=== PATIENT | male | born 1940 | race Caucasian/White ===

== ENCOUNTER 2020-04-19 08:30 | Outpatient (REF) | payer MEDICARE, SELFPAY ==
--- NOTE | 2020-04-19 09:47 | ECG_ITS ---
Test Reason : DM, HTN, CAD Blood Pressure : / mmHG Vent. Rate : 059 BPM Atrial Rate : 059 BPM P-R Int : 150 ms QRS Dur : 126 ms QT Int : 442 ms P-R-T Axes : 018 -30 048 degrees QTc Int : 437 ms Sinus bradycardia with Premature atrial complexes Left axis deviation Non-specific intra-ventricular conduction block Abnormal ECG When compared with ECG of 10-APR-2013 09:40, Non-specific intra-ventricular conduction block has replaced Left bundle branch block Heart rate has decreased Referred By: Franklin Lizarraga Electronically Signed By:CHINTAN GARZA
[2020-04-19 09:51] LABS: MANUAL DIFF FLAG NO
[2020-04-19 09:54] LABS: Basophils Percent Auto 0.6 % (0-2); Eosinophils Absolute Auto 0.5 X10*3/uL (0.0-0.4); Eosinophils Percent Auto 7.1 % (0-4); Hematocrit 38.1 % (42-52); Imm Gran Abs Auto 0.06 X10*3/uL (0.00-0.03); Imm Gran Pct Auto 0.8 % (0.0-0.4); Lymphocytes Absolute Auto 1.3 X10*3/uL (1.2-4.9); Lymphocytes Percent Auto 18.4 % (20-40); Mean Corpuscular HGB Conc 31.5 g/dl (31.0-36.0); Mean Corpuscular Volume 98.4 fL (80-98); Mean Platelet Volume 11.9 fL (9.4-12.4); Monocytes Absolute Auto 0.8 X10*3/uL (0.1-1.2); Monocytes Percent Auto 11.5 % (2-11); Neutrophils Absolute Auto 4.4 X10*3/uL (2.0-8.3); Neutrophils Percent Auto 61.6 % (45-73); Platelet Count 151 X10*3/uL (160-400); Red Blood Count 3.87 X10*6/uL (4.60-5.80); Red Cell Distribution Width 14.1 % (11.0-16.0); White Blood Count 7.2 X10*3/uL (4.8-10.8)
[2020-04-19 10:01] LABS: INTERNATIONAL NORM RATIO 3.5 (0.9-1.1); Prothrombin Time 41.6 SEC (10.8-13.0)
[2020-04-19 10:28] LABS: Estimated Average Glucose 105 mg/dL; Hemoglobin A1c % 5.3 %
[2020-04-19 10:47] LABS: Alanine Aminotransferase 29 U/L (0-40); Alkaline Phosphatase 83 U/L (39-117); Aspartate Amino Transferase 26 U/L (5-37); Bilirubin Total 0.6 mg/dL (0.0-1.0); Blood Urea Nitrogen 44 mg/dL (9-16); Calcium 8.8 mg/dL (8.4-10.2); Estimated Glomerular Filt Rate 27; Glucose Random 90 mg/dL (60-115); Total Protein 6.4 g/dL (6.5-8.0)
[2020-04-19 10:59] LABS: Anion Gap 12 (12-20); Carbon Dioxide 24 mmol/L (22-29); Chloride 113 mmol/L (96-108); Sodium 143 mmol/L (135-145)
[2020-04-19 11:10] LABS: Potassium 6.4 mmol/l (3.3-5.1)
== END 2020-04-19 08:31 | disposition home or self-care (01) ==
LOC: HO.LAB 08:30
PROVIDERS: PCP Internal Medicine; Visit Provider Internal Medicine
DX: I25.10 Atherosclerotic heart disease of native coronary artery without angina pectoris (principal); E11.22 Type 2 diabetes mellitus with diabetic chronic kidney disease; I10 Essential (primary) hypertension; C18.5 Malignant neoplasm of splenic flexure; I49.1 Atrial premature depolarization; I45.4 Nonspecific intraventricular block
CPT/HCPCS: 36415; 80053; 83036; 85025; 85610; 93005; 93010

== ENCOUNTER 2020-07-13 17:30 | Inpatient (IN) | payer MEDICARE, SELFPAY ==
[2020-07-13 18:10] VITALS: BP 98/38; PULSE 78; RESP 18; TEMP 38.6; O2SAT 94; BMI 40.5
[2020-07-13 18:33] VITALS: BP 133/55; PULSE 79; RESP 12; TEMP 39.1; O2SAT 94
--- NOTE | 2020-07-13 18:36 | PC.NURSE ---
Pt on coumadin at home. Hit face between eyes on the window. He denies headache at this time. This is the second fall at home recently r/t leg weakness.
--- NOTE | 2020-07-13 19:06 | CT_ITS ---
EXAM: Noncontrast CT scan of the head and cervical spine. INDICATION: Multiple falls. On Coumadin. COMPARISON: Head CT 04/10/2013 TECHNIQUE: Axial slices were obtained from skull base to vertex and displayed. This was followed by helical, multislice, multidetector axial images from the occiput to the upper thorax. Coronal and sagittal reformats of the cervical spine in addition to coronal reformats of the head were obtained at the technologist workstation. DLP: 1258 mGy-cm FINDINGS: HEAD: There is no evidence of acute intracranial hemorrhage or territorial infarction. No abnormal mass effect or midline shift is appreciated. Zhao-white differentiation is well preserved. No extra-axial fluid collections. The ventricular system and cortical sulci are prominent, consistent with age-appropriate volume loss. Mild cerebellar volume loss is also appreciated. There are areas of low density in the periventricular and subcortical white matter, most consistent with sequelae of microvascular ischemic change. The osseous structures and soft tissues are normal. There is mild to moderate calcifications of the cavernous internal carotid arteries. The visualized paranasal sinuses and mastoid air cells are well aerated. SPINE: There is straightening of the normal cervical lordosis. Alignment is otherwise unremarkable. Normal C1/C2 articulation. Vertebral body heights are maintained. Disc spaces demonstrate mild to moderate diffuse narrowing throughout the cervical spine, most prominent within the mid to lower cervical spine. Small anterior osteophytes are noted at several levels, most prominent at C5/C6 and C6/C7. There is moderate diffuse bilateral facet hypertrophy. No prevertebral soft tissue swelling. CT/CT cervical spine wo con IMPRESSION: 1. No acute intracranial pathology. 2. No fractures or dislocations of the cervical spine. This CT examination was performed using dose optimization techniques as appropriate, variously including the following: *Automated exposure control *Adjustment of mA and/or kV according to patient size (this includes techniques or standardized protocols for targeted exams where dose is matched to indication/reason for exam; i.e. extremities or head) *Use of iterative reconstruction technique
--- NOTE | 2020-07-13 19:06 | ECG_ITS ---
Test Reason : FEVER Blood Pressure : / mmHG Vent. Rate : 077 BPM Atrial Rate : 077 BPM P-R Int : 146 ms QRS Dur : 126 ms QT Int : 386 ms P-R-T Axes : 034 -29 068 degrees QTc Int : 436 ms Baseline artifact Normal sinus rhythm Non-specific intra-ventricular conduction block Abnormal ECG When compared with ECG of 13-JUL-2020 19:40, No significant changes seen Referred By: Evelia Nuno Electronically Signed By:EDMOND SHELL
--- NOTE | 2020-07-13 19:12 | PC.NURSE ---
Called and upadted son and bre;\. Son's phone number:
[2020-07-13 19:28] VITALS: BP 125/53; PULSE 78; RESP 27; TEMP 37.7; O2SAT 94
[2020-07-13 20:13] LABS: MANUAL DIFF FLAG NO
[2020-07-13 20:17] LABS: Basophils Percent Auto 0.2 % (0-2); Eosinophils Percent Auto 0.1 % (0-4); Hematocrit 34.7 % (42-52); Hemoglobin 11.3 g/dl (14.0-18.0); Imm Gran Abs Auto 0.15 X10*3/uL (0.00-0.03); Imm Gran Pct Auto 0.8 % (0.0-0.4); Lymphocytes Absolute Auto 0.9 X10*3/uL (1.2-4.9); Lymphocytes Percent Auto 4.9 % (20-40); Mean Corpuscular HGB Conc 32.6 g/dl (31.0-36.0); Mean Corpuscular Volume 95.1 fL (80-98); Mean Platelet Volume 11.4 fL (9.4-12.4); Monocytes Absolute Auto 1.3 X10*3/uL (0.1-1.2); Monocytes Percent Auto 7.2 % (2-11); Neutrophils Absolute Auto 16.1 X10*3/uL (2.0-8.3); Neutrophils Percent Auto 86.8 % (45-73); Platelet Count 141 X10*3/uL (160-400); Red Blood Count 3.65 X10*6/uL (4.60-5.80); Red Cell Distribution Width 14.1 % (11.0-16.0); White Blood Count 18.6 X10*3/uL (4.8-10.8)
[2020-07-13 20:18] LABS: Glucose Urine UA NEG (NEG); Leukocyte Esterase Urine NEG (NEG); Nitrite Urine NEG (NEG); PH 5.5 (5.0-8.0); Urine Blood TRACE (NEG); Urine Ketones NEG (NEG); Urine Protein TRACE MG/DL (NEG-TRACE)
[2020-07-13 20:20] LABS: Appearance Urine CLEAR; Color Urine YELLOW
[2020-07-13 20:24] LABS: INTERNATIONAL NORM RATIO 2.4 (0.9-1.1); Prothrombin Time 28.8 SEC (10.8-13.0)
[2020-07-13 20:31] LABS: Bacteria Urine TRACE /LPF; RBC Urine 0 /HPF (0); WBC Urine 0 /HPF (0-4)
--- NOTE | 2020-07-13 20:32 | ED.FALL ---
HPI - Fall General Chief Complaint: Fall Stated Complaint: fall Time Seen by Provider: 07/13/20 18:48 Source: patient and EMS Mode of arrival: EMS Limitations: no limitations History of Present Illness HPI Narrative: Patient is coming from home, patient has had 2 falls in the last 2 days. Patient states earlier today he was walking and his left knee gave out. Patient states that he hit his head, has a small laceration to the bridge of nose, states it does not hurt. Patient is on Coumadin. Patient states that he did not have any dizziness, shortness of breath or chest pain prior to falling. At this time, no complaints, denies headache, no pain over his nose MD complaint: fall Related Data Home Medications Medication Instructions Recorded Confirmed atorvastatin 20 mg tablet 20 mg PO DAILY 04/14/20 07/12/20 celecoxib 200 mg capsule 200 mg PO DAILY 04/14/20 07/12/20 diltiazem HCl 180 mg 180 mg PO DAILY 04/14/20 07/12/20 capsule,extended release 24 hr losartan 50 mg tablet 50 mg PO DAILY 04/14/20 07/12/20 warfarin 5 mg tablet mg PO 04/14/20 07/12/20 Previous Rx's Medication Instructions Recorded atenolol 50 mg tablet 50 mg PO DAILY #90 tab 06/09/20 valsartan 80 mg tablet 80 mg PO DAILY #90 tab 06/09/20 doxycycline hyclate 100 mg capsule 100 mg PO BID 10 Days #20 cap 07/12/20 furosemide 40 mg tablet 40 mg PO DAILY 90 Days #90 tab 07/12/20 Allergies Allergy/AdvReac Type Severity Reaction Status Date / Time Heparin Analogues Allergy Unknown BP BOTTOMS Verified 07/12/20 09:30 [HEPARIN ANALOGUES] OUT PER heparin Allergy 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) Review of Systems Review of Systems: Constitutional : No Weight loss, No Fever, No Chills, No Night Sweats, No Fatigue, No Malaise ENT/Mouth : No Hearing loss, No Ear Pain, No Nasal Congestion, No Sinus Pain, No Hoarseness, No sore throat, No Rhinorrhea, No Swallowing Difficulty Eyes: No Eye Pain, No Swelling, No Redness, No Foreign Body, No Discharge, No Vision Changes Cardiovascular : No Chest Pain, No SOB, No Dyspnea on Exertion, No Orthopnea, No Edema, No Palpitations Respiratory : No Cough, No Sputum, No Wheezing, No Smoke Exposure, No Dyspnea Gastrointestinal : No Nausea, No Vomiting, No Diarrhea, No Constipation, No abdominal Pain, No Hematochezia, No Melena Genitourinary : no irregular bleeding, No Dysuria, No Urinary Frequency, No Hematuria, No Urinary Incontinence, No Urgency, No Flank Pain, No Urinary Flow Changes, No Hesitancy Musculoskeletal : Patient complaining of his left knee buckling and falling Skin : Multiple skin lesions chronic bilaterally, ulcers. Small superficial laceration to the bridge of the nose Neuro : No Weakness, No Numbness, No Paresthesias, No Loss of Consciousness, No Dizziness, No Headache Psych : No Anxiety/Panic, No Depression, No SI/HI/AH/VH, No Social Issues, Heme/Lymph: No Bruising, No Bleeding,No Lymphadenopathy Endocrine : No Polyuria, No Polydipsia, No Temperature Intolerance PMFSH Past Medical History Medical History Bilateral lower leg cellulitis Cataract, left eye Chronic venous stasis dermatitis of both lower extremities Coronary artery disease Deep vein thrombosis (DVT) of popliteal vein of left lower extremity Diabetes mellitus with stage 4 chronic kidney disease Essential hypertension Hyperlipidemia Lumbar degenerative disc disease Lymphedema of both lower extremities Obesity (BMI 30-39.9) Onychomycosis Osteoarthritis of knees, bilateral Stage 4 chronic kidney disease Vitamin D deficiency Surgical History (Updated 07/12/20 @ 09:31 by Franklin Lizarraga MD) No significant past surgical history Family History Family History Father No problems noted. Mother No problems noted. Social History Social History (Updated 07/12/20 @ 09:32 by Franklin Lizarraga MD) Alcohol intake: never Smoking Status: Never smoker Use of substances other than those prescribed or required for medical reasons: No Advance Directives: No Advance Directives Information Provided: Yes Physical Exam Vital Signs: Vital Signs: Last Vital Signs Temp 101.8 F H 07/13/20 22:00 Pulse 77 07/13/20 22:00 Resp 22 H 07/13/20 22:00 BP 125/53 L 07/13/20 19:28 Pulse Ox 94 07/13/20 22:00 Body Mass Index 40.5 Appearance: Alert. Oriented X3. No acute distress. Eyes: Pupils equal, round and reactive to light. ENT: Pharynx normal. Neck: Normal inspection. Neck supple. No lymph nodes noted. No crepitus CVS: Normal heart rate and rhythm. Pulses normal. Normal S1 and S2 Respiratory: No respiratory distress. Breath sounds normal. No Wheezing. No rales Abdomen: Soft and nontender. No rigidity. No distention. good BS x4 Skin: Patient has chronic lymphedema and chronic ulcers in both lower extremities. It seems that the erythema is spreading up the left thigh. Warm to touch, nontender Extremities: Chronic lymphedema bilaterally , see above Neuro: Oriented X 3. No motor deficit. No sensory deficit. Moving all extermities. No slurred speech. Course Course Course Narrative: IV fluid given based on ideal body weight of 66 kg, source of infection is unclear, likely his lower extremities. COVID-19 test. I discussed the patient with our hospitalist, patient admitted MDM - Fall Lab Data Result diagrams: 07/13/20 20:01 07/13/20 20:01 Labs: Lab Results 07/13/20 07/13/20 07/13/20 Range/Units 20:00 20:01 20:01 WBC 18.6 H (4.8-10.8) X10*3/uL RBC 3.65 L (4.60-5.80) X10*6/uL Hgb 11.3 L (14.0-18.0) g/dl Hct 34.7 L (42-52) % MCV 95.1 (80-98) fL MCH 31.0 (27.0-33.0) pg MCHC 32.6 (31.0-36.0) g/dl RDW 14.1 (11.0-16.0) % Plt Count 141 L (160-400) X10*3/uL MPV 11.4 (9.4-12.4) fL Immature Gran % (Auto) 0.8 H (0.0-0.4) % Neut % (Auto) 86.8 H (45-73) % Lymph % (Auto) 4.9 L (20-40) % [place] % (Auto) 7.2 (2-11) % Eos % (Auto) 0.1 (0-4) % Baso % (Auto) 0.2 (0-2) % Lymph # (Auto) 0.9 L (1.2-4.9) X10*3/uL [place] # (Auto) 1.3 H (0.1-1.2) X10*3/uL Eos # (Auto) 0.0 (0.0-0.4) X10*3/uL Baso # (Auto) 0.0 (0.0-0.2) X10*3/uL Abs Immat Gran (auto) 0.15 H (0.00-0.03) X10*3/uL Absolute Neuts (auto) 16.1 H (2.0-8.3) X10*3/uL Absolute Nucleated RBC 0.000 (0.0-0.012) X10*3/uL Nucleated RBC % (auto) 0.0 (0.0-0.2) /100WBC PT 28.8 H D (10.8-13.0) SEC INR 2.4 H (0.9-1.1) Sodium (135-145) mmol/L Potassium (3.3-5.1) mmol/l Chloride (96-108) mmol/L Carbon Dioxide (22-29) mmol/L Anion Gap (12-20) BUN (9-16) mg/dL Creatinine (0.5-1.4) mg/dL Estim Creat Clear Calc Estimated GFR Random Glucose (60-115) mg/dL Lactic Acid (0.5-2.0) mmol/L Calcium (8.4-10.2) mg/dL Total Bilirubin (0.0-1.0) mg/dL Direct Bilirubin (0.0-0.5) mg/dL AST (5-37) U/L ALT (0-40) U/L Alkaline Phosphatase (39-117) U/L Troponin I High Sens (<3.5-35.0) ng/L B-Natriuretic Peptide (<100) pg/mL Total Protein (6.5-8.0) g/dL Albumin (3.5-5.0) g/dL Urine Color YELLOW Urine Appearance CLEAR Urine pH 5.5 (5.0-8.0) Ur Specific [place] 1.020 (1.005-1.025) Urine Protein TRACE (NEG-TRACE) MG/DL Urine Glucose (UA) NEG (NEG) MG/DL Urine Ketones NEG (NEG) MG/DL Urine Blood TRACE (NEG) Urine Nitrite NEG (NEG) Ur Leukocyte Esterase NEG (NEG) Urine RBC 0 (0) /HPF Urine WBC 0 (0-4) /HPF Ur Squamous Epith Cells NONE /LPF Urine Bacteria TRACE /LPF 07/13/20 07/13/20 07/13/20 Range/Units 20:01 20:01 20:58 WBC (4.8-10.8) X10*3/uL RBC (4.60-5.80) X10*6/uL Hgb (14.0-18.0) g/dl Hct (42-52) % MCV (80-98) fL MCH (27.0-33.0) pg MCHC (31.0-36.0) g/dl RDW (11.0-16.0) % Plt Count (160-400) X10*3/uL MPV (9.4-12.4) fL Immature Gran % (Auto) (0.0-0.4) % Neut % (Auto) (45-73) % Lymph % (Auto) (20-40) % [place] % (Auto) (2-11) % Eos % (Auto) (0-4) % Baso % (Auto) (0-2) % Lymph # (Auto) (1.2-4.9) X10*3/uL [place] # (Auto) (0.1-1.2) X10*3/uL Eos # (Auto) (0.0-0.4) X10*3/uL Baso # (Auto) (0.0-0.2) X10*3/uL Abs Immat Gran (auto) (0.00-0.03) X10*3/uL Absolute Neuts (auto) (2.0-8.3) X10*3/uL Absolute Nucleated RBC (0.0-0.012) X10*3/uL Nucleated RBC % (auto) (0.0-0.2) /100WBC PT (10.8-13.0) SEC INR (0.9-1.1) Sodium 137 (135-145) mmol/L Potassium 5.9 H (3.3-5.1) mmol/l Chloride 106 (96-108) mmol/L Carbon Dioxide 19 L (22-29) mmol/L Anion Gap 18 (12-20) BUN 48 H (9-16) mg/dL Creatinine 3.01 H (0.5-1.4) mg/dL Estim Creat Clear Calc 23.9 Estimated GFR 20 Random Glucose 107 (60-115) mg/dL Lactic Acid (0.5-2.0) mmol/L Calcium 8.0 L D (8.4-10.2) mg/dL Total Bilirubin 1.1 H (0.0-1.0) mg/dL Direct Bilirubin 0.4 (0.0-0.5) mg/dL AST 20 (5-37) U/L ALT 11 (0-40) U/L Alkaline Phosphatase 66 D (39-117) U/L Troponin I High Sens 39.6 H (<3.5-35.0) ng/L B-Natriuretic Peptide 130 H (<100) pg/mL Total Protein 6.4 L (6.5-8.0) g/dL Albumin 3.6 (3.5-5.0) g/dL Urine Color Urine Appearance Urine pH (5.0-8.0) Ur Specific [place] (1.005-1.025) Urine Protein (NEG-TRACE) MG/DL Urine Glucose (UA) (NEG) MG/DL Urine Ketones (NEG) MG/DL Urine Blood (NEG) Urine Nitrite (NEG) Ur Leukocyte Esterase (NEG) Urine RBC (0) /HPF Urine WBC (0-4) /HPF Ur Squamous Epith Cells /LPF Urine Bacteria /LPF 07/13/ Range/Units 20:59 WBC (4.8-10.8) X10*3/uL RBC (4.60-5.80) X10*6/uL Hgb (14.0-18.0) g/dl Hct (42-52) % MCV (80-98) fL MCH (27.0-33.0) pg MCHC (31.0-36.0) g/dl RDW (11.0-16.0) % Plt Count (160-400) X10*3/uL MPV (9.4-12.4) fL Immature Gran % (Auto) (0.0-0.4) % Neut % (Auto) (45-73) % Lymph % (Auto) (20-40) % [place] % (Auto) (2-11) % Eos % (Auto) (0-4) % Baso % (Auto) (0-2) % Lymph # (Auto) (1.2-4.9) X10*3/uL [place] # (Auto) (0.1-1.2) X10*3/uL Eos # (Auto) (0.0-0.4) X10*3/uL Baso # (Auto) (0.0-0.2) X10*3/uL Abs Immat Gran (auto) (0.00-0.03) X10*3/uL Absolute Neuts (auto) (2.0-8.3) X10*3/uL Absolute Nucleated RBC (0.0-0.012) X10*3/uL Nucleated RBC % (auto) (0.0-0.2) /100WBC PT (10.8-13.0) SEC INR (0.9-1.1) Sodium (135-145) mmol/L Potassium (3.3-5.1) mmol/l Chloride (96-108) mmol/L Carbon Dioxide (22-29) mmol/L Anion Gap (12-20) BUN (9-16) mg/dL Creatinine (0.5-1.4) mg/dL Estim Creat Clear Calc Estimated GFR Random Glucose (60-115) mg/dL Lactic Acid 1.3 (0.5-2.0) mmol/L Calcium (8.4-10.2) mg/dL Total Bilirubin (0.0-1.0) mg/dL Direct Bilirubin (0.0-0.5) mg/dL AST (5-37) U/L ALT (0-40) U/L Alkaline Phosphatase (39-117) U/L Troponin I High Sens (<3.5-35.0) ng/L B-Natriuretic Peptide (<100) pg/mL Total Protein (6.5-8.0) g/dL Albumin (3.5-5.0) g/dL Urine Color Urine Appearance Urine pH (5.0-8.0) Ur Specific [place] (1.005-1.025) Urine Protein (NEG-TRACE) MG/DL Urine Glucose (UA) (NEG) MG/DL Urine Ketones (NEG) MG/DL Urine Blood (NEG) Urine Nitrite (NEG) Ur Leukocyte Esterase (NEG) Urine RBC (0) /HPF Urine WBC (0-4) /HPF Ur Squamous Epith Cells /LPF Urine Bacteria /LPF Imaging Data Head and neck CT: Radiologist's impression: HEAD: There is no evidence of acute intracranial hemorrhage or territorial infarction. No abnormal mass effect or midline shift is appreciated. Zhao-white differentiation is well preserved. No extra-axial fluid collections. The ventricular system and cortical sulci are prominent, consistent with age-appropriate volume loss. Mild cerebellar volume loss is also appreciated. There are areas of low density in the periventricular and subcortical white matter, most consistent with sequelae of microvascular ischemic change. The osseous structures and soft tissues are normal. There is mild to moderate calcifications of the cavernous internal carotid arteries. The visualized paranasal sinuses and mastoid air cells are well aerated. SPINE: There is straightening of the normal cervical lordosis. Alignment is otherwise unremarkable. Normal C1/C2 articulation. Vertebral body heights are maintained. Disc spaces demonstrate mild to moderate diffuse narrowing throughout the cervical spine, most prominent within the mid to lower cervical spine. Small anterior osteophytes are noted at several levels, most prominent at C5/C6 and C6/C7. There is moderate diffuse bilateral facet hypertrophy. No prevertebral soft tissue swelling. CT/CT head/brain wo con IMPRESSION: 1. No acute intracranial pathology. 2. No fractures or dislocations of the cervical spine. Chest x-ray: Radiologist's impression: FINDINGS: Low lung volumes limit evaluation. Linear opacities are seen in the left mid and lower lung hardin. Linear markings in the right lung base are also seen to a lesser extent. The heart and mediastinal structures are unremarkable. Old healed left rib fractures are again noted without significant change. XR/XR chest 1V IMPRESSION: Linear opacities are nonspecific, but likely represent atelectasis and/or infiltrates. Discharge Plan Discharge Clinical Impression: Cellulitis, ULISES (acute kidney injury) Patient Disposition: Admitted As Inpatient Prescriptions: No Action atenolol 50 mg tablet 50 mg PO DAILY Qty: 90 RF: 1 valsartan 80 mg tablet 80 mg PO DAILY Qty: 90 RF: 1 diltiazem HCl 180 mg capsule,extended release 24hr 180 mg PO DAILY RF: 0 atorvastatin 20 mg tablet 20 mg PO DAILY RF: 0 warfarin 5 mg tablet PO RF: 0 losartan 50 mg tablet 50 mg PO DAILY RF: 0 celecoxib [Celebrex] 200 mg capsule 200 mg PO DAILY RF: 0 furosemide 40 mg tablet 40 mg PO DAILY 90 Days Qty: 90 RF: 1 doxycycline hyclate 100 mg capsule 100 mg PO BID 10 Days Qty: 20 RF: 0
[2020-07-13 20:44] LABS: Alanine Aminotransferase 11 U/L (0-40); Albumin Level 3.6 g/dL (3.5-5.0); Alkaline Phosphatase 66 U/L (39-117); Anion Gap 18 (12-20); Aspartate Amino Transferase 20 U/L (5-37); Bilirubin Direct 0.4 mg/dL (0.0-0.5); Bilirubin Total 1.1 mg/dL (0.0-1.0); Blood Urea Nitrogen 48 mg/dL (9-16); Carbon Dioxide 19 mmol/L (22-29); Chloride 106 mmol/L (96-108); Creatinine Clr Calc Pharmacy 23.9; Estimated Glomerular Filt Rate 20; Glucose Random 107 mg/dL (60-115); Potassium 5.9 mmol/l (3.3-5.1); Sodium 137 mmol/L (135-145); Total Protein 6.4 g/dL (6.5-8.0)
[2020-07-13] MEDS: 0.9 % Sodium Chloride 1,000 ML 999 ML IVCONT ×2 (20:51→20:52)
[2020-07-13 20:54] LABS: Troponin-I High Sensitivity 39.6 ng/L (<3.5-35.0)
[2020-07-13] MEDS: Piperacillin Sodium/Tazobactam 3.375 GM in 0.9 % Sodium Chloride 50 ML IV (21:12)
[2020-07-13 21:38] LABS: Lactic Acid 1.3 mmol/L (0.5-2.0)
--- NOTE | 2020-07-13 21:42 | XR_ITS ---
EXAMINATION: XR CHEST CLINICAL INFORMATION: Fever, leukocytosis. COMPARISON: None TECHNIQUE: Frontal view of the chest was obtained. FINDINGS: Low lung volumes limit evaluation. Linear opacities are seen in the left mid and lower lung hardin. Linear markings in the right lung base are also seen to a lesser extent. The heart and mediastinal structures are unremarkable. Old healed left rib fractures are again noted without significant change. XR/XR chest 1V IMPRESSION: Linear opacities are nonspecific, but likely represent atelectasis and/or infiltrates.
[2020-07-13 21:48] LABS: B Type Natriuretic Peptide 130 pg/mL (<100)
[2020-07-13 22:00] VITALS: PULSE 77; RESP 22; TEMP 38.8; O2SAT 94
[2020-07-13 23:26] LABS: COVID-19 Test Negative (Negative); IDNOW Serial# 9DD0AD1C
[2020-07-13 23:46] VITALS: BP 137/53; PULSE 78; RESP 28; TEMP 38; O2SAT 93
[2020-07-14] VITALS (8 sets, daily range): BP systolic 117–150; BP diastolic 44–59; PULSE 57–76; RESP 18–24; TEMP 35.8–37.7; O2SAT 93–98; BMI 40.5
[2020-07-14] LABS: Troponin-I High Sensitivity 43.7 ng/L (<3.5-35.0)
--- NOTE | 2020-07-14 00:58 | P.HPHOSP_ITS ---
History of Present Illness Date of Service: 07/14/20 Chief Complaint: Fall, leg pain and erythema 80 year old man with multiple medical problems presented after falls at home. He resides alone with family support and typically ambulates with a walker. He felt weak while ambulating and fell onto his knees and felt generally weak. Was brought to ED for evaluation and noted to have fever and leukocytosis and sig nificant leg wounds. he states he had picked the flaking skin on his legs recently. Also, his PCP had prescribed antibiotics for leg infection- doxycycline noted in record. Started on Zosyn in ED and added Vancomycin for the leg cellulitis. No other localizing signs of infection-no cough, dyspnea, nausea, vomiting, abd pain, diarrhea, dysuria. States he occasionally gets pain in his low back but none now. Review of Systems Review of Systems: Yes all other systems are reviewed and are negative Constitutional: Comments: +fevers, no chills Eyes: Eyes: Reports no additional eye complaints Cardiovascular: Comments: No chest pain or palpitations Respiratory: Comments: No dyspnea, cough, congestion Gastrointestinal: Comments: No nausea, vomiting, abd pain Genitourinary: Comments: No dysuria Musculoskeletal: Comments: No leg pain Psychiatric: Comments: No anxiety or agitation [facility] Medical History Bilateral lower leg cellulitis Cataract, left eye Chronic venous stasis dermatitis of both lower extremities Coronary artery disease Deep vein thrombosis (DVT) of popliteal vein of left lower extremity Diabetes mellitus with stage 4 chronic kidney disease Essential hypertension Hyperlipidemia Lumbar degenerative disc disease Lymphedema of both lower extremities Obesity (BMI 30-39.9) Onychomycosis Osteoarthritis of knees, bilateral Stage 4 chronic kidney disease Vitamin D deficiency Functional capacity: uses cane/walker Family History Father No problems noted. Mother No problems noted. 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) Home Medications Medication Instructions Recorded Confirmed Type atorvastatin 20 mg tablet 20 mg PO DAILY 04/14/20 07/13/20 History celecoxib 200 mg capsule 200 mg PO DAILY 04/14/20 07/13/20 History diltiazem HCl 180 mg 180 mg PO DAILY 04/14/20 07/13/20 History capsule,extended release 24 hr losartan 50 mg tablet 50 mg PO DAILY 04/14/20 07/13/20 History warfarin 5 mg tablet 5 mg PO DAILY 04/14/20 07/13/20 History Physical Exam Vital Signs and Narrative: Vital Signs: Last Vital Signs Temp 100.4 F 07/13/20 23:46 Pulse 78 07/13/20 23:46 Resp 28 H 07/13/20 23:46 BP 137/53 L 07/13/20 23:46 Pulse Ox 93 07/13/20 23:46 Body Mass Index 40.5 Const: General: cooperative, comfortable, no acute distress and awake HENMT: Head: Yes normal to inspection Mouth: Normal oral and palatal mucosa present Eyes: General: appearance normal, both eyes and all related structures Sclerae: sclerae normal Chest: Chest palpation & inspection: normal inspection of the chest Resp: Other: No exp wheezing, diminished breath sounds at right lung base Effort & Inspection: normal respiratory effort Auscultation: clear to auscultation bilaterally Cardio: Other: no murmur Rate: regular rate Rhythm: regular rhythm Heart sounds: S1 normal heart sound present and S2 normal heart sound present GI: Other: Soft, nontender, nondistended Inspection: Yes normal to inspection Auscultation: normal bowel sounds : Other: Scrotum has erythema confluent with inguinal folds Skin: Other: Bilateral lower leg skin findings suggestive of chronic venous stasis, thickened skin noted on posterior leg, surrounding erythema seen on legs. Erythema tracks up above knees, in groin area there is erythema in perineal area, no skin discoloration to suggest Pinky's Psych: Mental Status: mental status grossly normal Results Labs CBC and Chem 7: 07/13/20 20:01 07/13/20 20:01 Labs: Laboratory Results - last 24 hr 07/13/20 07/13/20 07/13/20 20:00 20:01 20:01 MCV 95.1 MCH 31.0 MCHC 32.6 RDW 14.1 Plt Count 141 L MPV 11.4 Immature Gran % (Auto) 0.8 H Neut % (Auto) 86.8 H Lymph % (Auto) 4.9 L [place] % (Auto) 7.2 Eos % (Auto) 0.1 Baso % (Auto) 0.2 Lymph # (Auto) 0.9 L [place] # (Auto) 1.3 H Eos # (Auto) 0.0 Baso # (Auto) 0.0 Abs Immat Gran (auto) 0.15 H Absolute Neuts (auto) 16.1 H Absolute Nucleated RBC 0.000 Nucleated RBC % (auto) 0.0 PT 28.8 H D INR 2.4 H Anion Gap Estim Creat Clear Calc Estimated GFR Random Glucose Lactic Acid Calcium Total Bilirubin Direct Bilirubin AST ALT Alkaline Phosphatase Troponin I High Sens B-Natriuretic Peptide Total Protein Albumin Urine Color YELLOW Urine Appearance CLEAR Urine pH 5.5 Ur Specific [place] 1.020 Urine Protein TRACE Urine Glucose (UA) NEG Urine Ketones NEG Urine Blood TRACE Urine Nitrite NEG Ur Leukocyte Esterase NEG Urine RBC 0 Urine WBC 0 Ur Squamous Epith Cells NONE Urine Bacteria TRACE COVID-19 ([facility]) COVID-19 Clin Com 07/13/20 07/13/20 07/13/20 20:01 20:01 20:58 MCV MCH MCHC RDW Plt Count MPV Immature Gran % (Auto) Neut % (Auto) Lymph % (Auto) [place] % (Auto) Eos % (Auto) Baso % (Auto) Lymph # (Auto) [place] # (Auto) Eos # (Auto) Baso # (Auto) Abs Immat Gran (auto) Absolute Neuts (auto) Absolute Nucleated RBC Nucleated RBC % (auto) PT INR Anion Gap 18 Estim Creat Clear Calc 23.9 Estimated GFR 20 Random Glucose 107 Lactic Acid Calcium 8.0 L D Total Bilirubin 1.1 H Direct Bilirubin 0.4 AST 20 ALT 11 Alkaline Phosphatase 66 D Troponin I High Sens 39.6 H B-Natriuretic Peptide 130 H Total Protein 6.4 L Albumin 3.6 Urine Color Urine Appearance Urine pH Ur Specific [place] Urine Protein Urine Glucose (UA) Urine Ketones Urine Blood Urine Nitrite Ur Leukocyte Esterase Urine RBC Urine WBC Ur Squamous Epith Cells Urine Bacteria COVID-19 ([facility]) COVID-19 Clin Com 07/13/20 07/13/20 07/13/20 20:59 23:01 23:03 MCV MCH MCHC RDW Plt Count MPV Immature Gran % (Auto) Neut % (Auto) Lymph % (Auto) [place] % (Auto) Eos % (Auto) Baso % (Auto) Lymph # (Auto) [place] # (Auto) Eos # (Auto) Baso # (Auto) Abs Immat Gran (auto) Absolute Neuts (auto) Absolute Nucleated RBC Nucleated RBC % (auto) PT INR Anion Gap Estim Creat Clear Calc Estimated GFR Random Glucose Lactic Acid 1.3 Calcium Total Bilirubin Direct Bilirubin AST ALT Alkaline Phosphatase Troponin I High Sens 43.7 H B-Natriuretic Peptide Total Protein Albumin Urine Color Urine Appearance Urine pH Ur Specific [place] Urine Protein Urine Glucose (UA) Urine Ketones Urine Blood Urine Nitrite Ur Leukocyte Esterase Urine RBC Urine WBC Ur Squamous Epith Cells Urine Bacteria COVID-19 ([facility]) Negative COVID-19 Clin Com See Note Imaging Radiologist's Impressions: Impressions Cervical Spine CT 07/13/20 19:06 IMPRESSION: 1. No acute intracranial pathology. 2. No fractures or dislocations of the cervical spine. This CT examination was performed using dose optimization techniques as appropriate, variously including the following: *Automated exposure control *Adjustment of mA and/or kV according to patient size (this includes techniques or standardized protocols for targeted exams where dose is matched to indication/reason for exam; i.e. extremities or head) *Use of iterative reconstruction technique Head CT 07/13/20 19:06 IMPRESSION: 1. No acute intracranial pathology. 2. No fractures or dislocations of the cervical spine. This CT examination was performed using dose optimization techniques as appropriate, variously including the following: *Automated exposure control *Adjustment of mA and/or kV according to patient size (this includes techniques or standardized protocols for targeted exams where dose is matched to indication/reason for exam; i.e. extremities or head) *Use of iterative reconstruction technique Chest X-Ray 07/13/20 21:42 IMPRESSION: Linear opacities are nonspecific, but likely represent atelectasis and/or infiltrates. Assessment and Plan (1) ULISES (acute kidney injury): Status: Acute (2) Bilateral lower leg cellulitis: Status: Acute (3) Coronary artery disease: Qualifiers: Coronary Disease-Associated Artery/Lesion type: [place] artery [place] vs. 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 Cellulitis Extensive. Will treat with Zosyn and Vancomycin and ID consult placed. Also has evidence of candidal infection in groin area so will treat with Nystatin topical. No other localizing signs of infection. COVID negative. ULISES Creatinine elevated ARB held acutely and hydrated wtih IVF. Repeat BMP in AM. Hyperkalemia Given Kayexalate PO in ED. Repeat BMP later. EKG reviewed-no peaked T waves. Monitor on telemetry. DVT history On Coumadin, INR therapeutic. Will need Coumadin dosed based on AM INR. HTN ARB held acutely CAD hx No chest pain. DVT proph Coumadin Code status He states DNR/DNI. Encouraged him to fill out MOLST form. Healthcare proxy is his daughter
[2020-07-14] MEDS: vancomycin HCL 1,000 MG in 0.9 % Sodium Chloride 250 ML 270 MG IV (02:11)
[2020-07-14] MEDS: Sodium Polystyrene Sulfon/Sorb 15 GM/60 ML ORAL.SUSP 30 GM PO (02:12)
[2020-07-14] MEDS: 0.9 % Sodium Chloride 1,000 ML 100 ML IVCONT ×3 (03:16→23:55)
[2020-07-14 03:27] LABS: Anion Gap 17 (12-20); Blood Urea Nitrogen 46 mg/dL (9-16); Calcium 7.6 mg/dL (8.4-10.2); Carbon Dioxide 17 mmol/L (22-29); Chloride 109 mmol/L (96-108); Creatinine Clr Calc Pharmacy 26.4; Estimated Glomerular Filt Rate 23; Glucose Random 109 mg/dL (60-115); Potassium 4.7 mmol/l (3.3-5.1); Sodium 138 mmol/L (135-145)
[2020-07-14] MEDS: Piperacillin Sodium/Tazobactam 2.25 GM in 0.9 % Sodium Chloride 50 ML IV (03:43)
[2020-07-14] MEDS: atenoloL 50 MG TABLET PO (08:36)
[2020-07-14] MEDS: dilTIAZem HCL CD 180 MG CAP.ER.24H PO (08:36)
[2020-07-14 08:43] LABS: MANUAL DIFF FLAG NO
[2020-07-14 08:45] LABS: Basophils Percent Auto 0.2 % (0-2); Eosinophils Absolute Auto 0.2 X10*3/uL (0.0-0.4); Eosinophils Percent Auto 1.1 % (0-4); Hematocrit 29.1 % (42-52); Hemoglobin 9.3 g/dl (14.0-18.0); Imm Gran Abs Auto 0.09 X10*3/uL (0.00-0.03); Imm Gran Pct Auto 0.7 % (0.0-0.4); Lymphocytes Absolute Auto 0.9 X10*3/uL (1.2-4.9); Lymphocytes Percent Auto 6.6 % (20-40); Mean Corpuscular Hemoglobin 30.4 pg (27.0-33.0); Mean Corpuscular Volume 95.1 fL (80-98); Mean Platelet Volume 11.4 fL (9.4-12.4); Monocytes Absolute Auto 1.1 X10*3/uL (0.1-1.2); Monocytes Percent Auto 8.3 % (2-11); Neutrophils Absolute Auto 10.9 X10*3/uL (2.0-8.3); Neutrophils Percent Auto 83.1 % (45-73); Platelet Count 119 X10*3/uL (160-400); Red Blood Count 3.06 X10*6/uL (4.60-5.80); White Blood Count 13.1 X10*3/uL (4.8-10.8)
[2020-07-14 08:53] LABS: INTERNATIONAL NORM RATIO 2.4 (0.9-1.1); Prothrombin Time 29.1 SEC (10.8-13.0)
[2020-07-14 09:19] LABS: Anion Gap 13 (12-20); Blood Urea Nitrogen 45 mg/dL (9-16); Calcium 7.4 mg/dL (8.4-10.2); Carbon Dioxide 21 mmol/L (22-29); Chloride 111 mmol/L (96-108); Creatinine Clr Calc Pharmacy 27.1; Estimated Glomerular Filt Rate 23; Glucose Random 87 mg/dL (60-115); Potassium 4.1 mmol/l (3.3-5.1); Sodium 141 mmol/L (135-145)
--- NOTE | 2020-07-14 09:31 | P.CDIC_ITS ---
CDI Concurrent Query Service Date: 07/15/20 Documentation Clarification: Please clarify if you are treating a proba ble/suspected/likely or confirmed: Sepsis, POA No Sepsis Provider Response: Sepsis PLEASE DO NOT DELETE/MODIFY EXISTING CONTENT Additional information is needed in order to code to the highest accuracy and appropriate Severity of Illness (SOI). Please clarify the information noted below in your progress notes and discharge summary. Risk Factors/Clinical Indicators/Treatments 80 year old male admitted with 2 falls in days. Per H&P:Bilateral lower leg cellulitis in setting of chronic venous stasis, CAD, Candidal infection groin, ULISES/CKD 3/4, Hyperkalemia WBC 18.6 LA 1.3 T101.8, P 77, R 22, BP 125/53, SAT 94% On IV antibiotic CDS: Olga Walters RN Contact Number: [phone] Please Review the information above and exercise your independent professional judgment in responding to the query. If you concur, pleas document in the PROGRESS NOTES and DISCHARGE SUMMARY. If you do not agree with the query, please document in the query above. THIS QUERY IS PART OF THE PERMANENT MEDICAL RECORD
--- NOTE | 2020-07-14 16:45 | P.CNID_ITS ---
History of Present Illness Data of Consult Service Date: 07/14/20 Requesting physician: Asif Gibson Primary Care Provider: Unknown Physician HPI Reason for consult: cellulitis He presents with weakness and falls twice in last two days He has no nausea or vomiting No one else is ill Review of Systems Review of Systems: Yes all other systems are reviewed and are negative [facility] Past Medical History Medical History Bilateral lower leg cellulitis Cataract, left eye Chronic venous stasis dermatitis of both lower extremities Coronary artery disease Deep vein thrombosis (DVT) of popliteal vein of left lower extremity Diabetes mellitus with stage 4 chronic kidney disease Essential hypertension Hyperlipidemia Lumbar degenerative disc disease Lymphedema of both lower extremities Obesity (BMI 30-39.9) Onychomycosis Osteoarthritis of knees, bilateral Stage 4 chronic kidney disease Vitamin D deficiency Functional capacity: uses cane/walker Family History Family History Father No problems noted. Mother No problems noted. Family history: reviewed and not pertinent Surgical History Surgical History No significant past surgical history Social History Social History Household Members: None Housing: House Do you presently have visiting nurse or other home services: No Alcohol intake: never Smoking Status: Never smoker Second Hand Smoke Exposure: No Use of substances other than those prescribed or required for medical reasons: No Currently Displaying Signs/Symptoms of Drug Intoxication Withdrawal: No Any prior treatment program specific to substance use: No Have you been hit, kicked, punched, or otherwise hurt by someone within the past year? If so, by whom?: No Do you feel safe in your current relationship?: No Current Relationship Is there a partner from a previous relationship who is making you feel unsafe now?: No Are you made to feel afraid or neglected: No Advance Directives: No Advance Directives Information Provided: Yes Do you have thoughts of harming others: None Do you have a plan to hurt others: No Plan Recently lost weight without trying: No Meds Allergies Allergy/AdvReac Type Severity Reaction Status Date / Time Heparin Analogues Allergy Unknown BP BOTTOMS Verified 07/12/20 09:30 [HEPARIN ANALOGUES] OUT PER heparin Allergy 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) Home Medications Medication Instructions Recorded Confirmed Type atorvastatin 20 mg tablet 20 mg PO DAILY 04/14/20 07/13/20 History celecoxib 200 mg capsule 200 mg PO DAILY 04/14/20 07/13/20 History diltiazem HCl 180 mg 180 mg PO DAILY 04/14/20 07/13/20 History capsule,extended release 24 hr losartan 50 mg tablet 50 mg PO DAILY 04/14/20 07/13/20 History warfarin 5 mg tablet 5 mg PO DAILY 04/14/20 07/13/20 History Physical Exam Vital Signs: Vital Signs: Last Vital Signs Temp 97.0 F 07/14/20 15:01 Pulse 70 07/14/20 15:01 Resp 19 07/14/20 15:01 BP 143/55 H 07/14/20 15:01 Pulse Ox 96 07/14/20 15:01 Body Mass Index 40.5 Const: General: cooperative HENMT: Head: Yes normal to inspection Mouth: Normal oral and palatal mucosa present Resp: Effort & Inspection: normal respiratory effort Cardio: Rate: regular rate Rhythm: regular rhythm GI: Inspection: Yes normal to inspection Skin: General skin exam: no rashes or lesions noted Extrem: Other: scaly venous stasis changes,mild irritation Assessment and Plan (1) Lymphedema of both lower extremities: Problem details: There is venous stasis changes,no true cellulitis There is some leukocytosis Status: Acute Await blood culture Doxycycline 100 mg po bid for 10 days after Results Labs CBC & Chem 7: 07/14/20 08:01 07/14/20 08:01 Labs: Short CBC 07/13/20 07/14/20 Range/Units 20:01 08:01 WBC 18.6 H 13.1 H (4.8-10.8) X10*3/uL Hgb 11.3 L 9.3 L (14.0-18.0) g/dl Hct 34.7 L 29.1 L (42-52) % Plt Count 141 L 119 L (160-400) X10*3/uL BMP 07/13/20 07/14/20 07/14/20 20:01 02:48 08:01 Sodium 137 138 141 Potassium 5.9 H 4.7 D 4.1 Chloride 106 109 H 111 H Carbon Dioxide 19 L 17 L 21 L BUN 48 H 46 H 45 H Creatinine 3.01 H 2.73 H 2.66 H Calcium 8.0 L D 7.6 L 7.4 L Liver Function 07/13/20 Range/Units 20:01 Total Bilirubin 1.1 H (0.0-1.0) mg/dL Direct Bilirubin 0.4 (0.0-0.5) mg/dL AST 20 (5-37) U/L ALT 11 (0-40) U/L Alkaline Phosphatase 66 D (39-117) U/L Albumin 3.6 (3.5-5.0) g/dL Urine 07/13/20 Range/Units 20:00 Urine Color YELLOW Urine Appearance CLEAR Urine pH 5.5 (5.0-8.0) Ur Specific [place] 1.020 (1.005-1.025) Urine Protein TRACE (NEG-TRACE) MG/DL Urine Glucose (UA) NEG (NEG) MG/DL
[2020-07-14] MEDS: Atorvastatin Calcium 20 MG TABLET PO (21:34)
[2020-07-15] VITALS: BP 158/67; PULSE 75; RESP 19; TEMP 37.4; O2SAT 92
[2020-07-15] MEDS: vancomycin HCL 500 MG in 0.9 % Sodium Chloride 100 ML 110 MG IV (02:24)
[2020-07-15 03:17] VITALS: BP 137/65; PULSE 92; RESP 19; TEMP 37.7; O2SAT 91
[2020-07-15 08:00] VITALS: BP 143/49; PULSE 92; RESP 20; TEMP 38.3; O2SAT 93
[2020-07-15] MEDS: atenoloL 50 MG TABLET PO (08:56)
[2020-07-15] MEDS: Acetaminophen 325 MG TABLET 650 MG PO (08:56)
[2020-07-15] MEDS: 0.9 % Sodium Chloride 1,000 ML 100 ML IVCONT (08:56)
[2020-07-15] MEDS: dilTIAZem HCL CD 180 MG CAP.ER.24H PO (08:56)
--- NOTE | 2020-07-15 08:59 | MHC.CM.PN ---
IMM 07/14/2020 Male 80 dx Cellulitis. He lives alone. His 12/2019. He has a dtr, she assists prn. He ambulates with a walker. He requires assist with ADLs. He has been sponge bathing independently, for safety. DP TBD by PT eval Home with services vs STR. Transportation will be provided by Dtr vs [facility] to arrange. HCP completed with Pt. A copy has been placed in the chart. Additional copies have been provided to the patient. Referrals for STR have been made, in anticipation that the Patient may require STR and DC over the long holiday weekend. CM will follow.
[2020-07-15 12:00] VITALS: BP 134/50; PULSE 60; RESP 18; TEMP 36.8; O2SAT 93
--- NOTE | 2020-07-15 15:11 | HO.PM.IMPN ---
Subjective Subjective Date of Service: 07/15/20 Interval History: Patient admitted for recurrent fall and bilateral lower extremities swelling, erythema fever and leukocytosis, this a.m. patient is feeling better, complaining of cough productive of yellow phlegm intermittently for several months, no other acute issues overnight. Review of Systems General no headache, no dizziness, no fever chills. CVS no chest pain, no palpitation. Respiratory chronic cough productive of yellow phlegm, no respiratory distress. Gastrointestinal no nausea ,no vomiting, no abdominal pain Physical Exam Vital Signs: Vital Signs: Last Vital Signs Temp 98.2 F 07/15/20 12:00 Pulse 60 07/15/20 12:00 Resp 18 07/15/20 12:00 BP 134/50 L 07/15/20 12:00 Pulse Ox 93 07/15/20 12:00 Body Mass Index 40.5 General patient resting comfortably in no acute distress. Neck is supple no JVD. CVS regular rate rhythm, Respiratory lungs clear to auscultation, diminished at bases, no respiratory distress. Gastrointestinal abdomen obese, soft, nontender, bowel sounds audible. Extremities bilateral lower extremity swelling, chronic venous stasis changes, mild erythema left leg. Neuro nonfocal ,speech clear. Objective Data Current Medications Generic Name Dose Route Start Last Admin Trade Name Freq PRN Reason Stop Dose Admin Acetaminophen 650 mg 07/15/20 08:38 07/15/20 08:56 Acetaminophen 325 Mg Tablet PO 650 mg Q6H PRN Administration PAIN Atenolol 50 mg 07/14/20 09:00 07/15/20 08:56 Atenolol 50 Mg Tablet PO 50 mg DAILY GERSON Administration Protocol Atorvastatin Calcium 20 mg 07/14/20 21:00 07/14/20 21:34 Atorvastatin Calcium 20 Mg Tablet PO 20 mg BEDTIME GERSON Administration Diltiazem HCl 180 mg 07/14/20 09:00 07/15/20 08:56 Diltiazem Hcl Cd 180 Mg Cap.Er.24h PO 180 mg DAILY GERSON Administration Protocol Guaifenesin/Dextromethorphan 10 ml 07/14/20 16:48 Guaifenesin Dm 100/10/5 Ml 5 Ml Syrup PO Q6H PRN cough Sodium Chloride 1,000 mls @ 100 mls/hr 07/14/20 02:37 07/15/20 08:56 Ns IVCONT 100 mls/hr .Q10H [facility] Administration Vancomycin HCl 500 mg/ Sodium 110 mls @ 110 mls/hr 07/15/20 02:00 07/15/20 03:57 Chloride IV Infused Q24H [facility] Infusion Pharmacy Consult 1 each 07/14/20 00:53 Consult Rx Vancomycin Dosing MISCELLANE DAILY PRN Consult order Pharmacy Consult 1 each 07/14/20 02:37 Consult Rx Anticoag Dosing MISCELLANE DAILY PRN Consult order Sodium Chloride 3 ml 07/14/20 08:00 07/15/20 07:19 0.9 % Sodium Chloride Flush 3 Ml Syringe IVFLUSH Not Given QSHIFT [facility] Labs CBC & Chem 7: 07/14/20 08:01 07/14/20 08:01 Microbiology Microbiology Results: Microbiology 07/13/20 20:58 Blood - Venous Blood Culture - Preliminary No growth after 24 hours. 07/13/20 20:58 Blood - Venous Blood Culture - Preliminary No growth after 24 hours. Assessment and Plan (1) Bilateral lower leg cellulitis: Status: Acute (2) Lymphedema of both lower extremities: Problem details: There is venous stasis changes,no true cellulitis There is some leukocytosis Status: Acute (3) Coronary artery disease: Status: Acute (4) Diabetes mellitus with stage 4 chronic kidney disease: Status: Acute (5) Essential hypertension: Status: Acute (6) Stage 4 chronic kidney disease: Status: Acute (7) Deep vein thrombosis (DVT) of popliteal vein of left lower extremity: Status: Acute (8) Chronic venous stasis dermatitis of both lower extremities: Status: Acute (9) Obesity (BMI 30-39.9): Status: Acute Assessment and Plan: 80 year old man presenting after a fall, noted to have lower leg cellulitis in setting of chronic venous stasis. 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 Bilateral lower extremity Cellulitis/sepsis Patient presented with fever and leukocytosis, treated with iv Zosyn and Vancomycin, currently on IV Vanco blood cultures came back negative, patient seen by Dr. Patino she recommend doxycycline WBC trending down, no further fever spike had temp. 100.9 at 8 a.m. this morning.dc ivf, will DC vancomycin and place patient on Ancef renally dose. Candidal infection in groin area continue Nystatin topical. COVID negative. ULISES Creatinine 3 at admission, baseline creatinine around 2.4, creatinine trended down to 2.6, avoid hypotension and will give all medication renally dose follow BMP in AM. Hyperkalemia Given Kayexalate PO in ED. Repeat BMP showed normalization of potassium from 5.9-4.1 EKG showed no peaked T waves. Monitor on telemetry. DVT history On Coumadin, INR therapeutic. Continue Coumadin and follow INR closely while on antibiotic . HTN BP stable on atenolol 50 mg daily and diltiazem 180 mg daily, re concile medications with pharmacy since patient med list says losartan 50 mg and valsartan 80 mg daily arbs currently on hold. CAD hx No chest pain, continue home medication. DVT proph Coumadin Code status DNR/DNI.
[2020-07-15 15:43] VITALS: BP 112/56; PULSE 61; RESP 18; TEMP 37; O2SAT 94
[2020-07-15] MEDS: Warfarin Sodium 2.5 MG TABLET PO (18:32)
[2020-07-15] MEDS: 0.9 % Sodium Chloride Flush 3 ML SYRINGE IVFLUSH (18:36)
[2020-07-15 18:47] VITALS: BP 146/60; PULSE 64; RESP 18; TEMP 37.2; O2SAT 94
[2020-07-15] MEDS: Atorvastatin Calcium 20 MG TABLET PO (21:02)
[2020-07-16] VITALS (8 sets, daily range): BP systolic 129–160; BP diastolic 54–64; PULSE 57–78; RESP 18–20; TEMP 36–37.6; O2SAT 92–96
[2020-07-16] MEDS: 0.9 % Sodium Chloride Flush 3 ML SYRINGE IVFLUSH ×4 (01:05→20:44)
[2020-07-16 01:49] LABS: Vancomycin Random 6.1 mcg/mL (15-20)
[2020-07-16 07:39] LABS: MANUAL DIFF FLAG NO
[2020-07-16 07:49] LABS: Basophils Percent Auto 0.1 % (0-2); Eosinophils Absolute Auto 0.1 X10*3/uL (0.0-0.4); Eosinophils Percent Auto 0.5 % (0-4); Hematocrit 28.5 % (42-52); Hemoglobin 9.2 g/dl (14.0-18.0); Imm Gran Abs Auto 0.11 X10*3/uL (0.00-0.03); Imm Gran Pct Auto 0.8 % (0.0-0.4); Lymphocytes Absolute Auto 0.8 X10*3/uL (1.2-4.9); Lymphocytes Percent Auto 6.5 % (20-40); Mean Corpuscular HGB Conc 32.3 g/dl (31.0-36.0); Mean Corpuscular Hemoglobin 30.4 pg (27.0-33.0); Mean Corpuscular Volume 94.1 fL (80-98); Monocytes Absolute Auto 1.4 X10*3/uL (0.1-1.2); Monocytes Percent Auto 10.6 % (2-11); Neutrophils Absolute Auto 10.6 X10*3/uL (2.0-8.3); Neutrophils Percent Auto 81.5 % (45-73); Platelet Count 130 X10*3/uL (160-400); Red Blood Count 3.03 X10*6/uL (4.60-5.80)
[2020-07-16 08:03] LABS: INTERNATIONAL NORM RATIO 1.8 (0.9-1.1); Prothrombin Time 21.1 SEC (10.8-13.0)
[2020-07-16 08:11] LABS: Anion Gap 16 (12-20); Blood Urea Nitrogen 38 mg/dL (9-16); Carbon Dioxide 16 mmol/L (22-29); Chloride 110 mmol/L (96-108); Estimated Glomerular Filt Rate 33; Glucose Random 70 mg/dL (60-115); Potassium 3.6 mmol/l (3.3-5.1); Sodium 138 mmol/L (135-145)
[2020-07-16] MEDS: atenoloL 50 MG TABLET PO (08:21)
[2020-07-16] MEDS: dilTIAZem HCL CD 180 MG CAP.ER.24H PO (08:21)
[2020-07-16 08:28] LABS: Calcium 7.2 mg/dL (8.4-10.2)
--- NOTE | 2020-07-16 09:55 | P.PNIM_ITS ---
Subjective Subjective Date of Service: 07/16/20 Interval History: Patient being followed for lower extremity edema cellulitis, patient offers no acute complaints of fever chills, no pain, no acute issues overnight. Review of Systems General no headache, no dizziness, no fever, chills. CVS no chest pain, no palpitation. Respiratory no cough, no sputum production, no respiratory distress. Gastrointestinal no nausea, no vomiting, no abdominal pain Physical Exam Vital Signs: Vital Signs: Last Vital Signs Temp 96.8 F 07/16/20 06:58 Pulse 62 07/16/20 08:21 Resp 18 07/16/20 06:58 BP 150/58 H 07/16/20 08:21 Pulse Ox 93 07/16/20 06:58 Body Mass Index 40.5 General patient resting comfortably in no acute distress. Neck is supple no JVD. CVS regular rate rhythm, Respiratory lungs clear to auscultation, diminished at bases, no respiratory distress. Gastrointestinal abdomen obese, soft, nontender, bowel sounds audible. Extremities bilateral lower extremity swelling, chronic venous stasis changes, no drainage, mild erythema left leg, nontender. Neuro nonfocal ,speech clear. Objective Data Current Medications Generic Name Dose Route Start Last Admin Trade Name Freq PRN Reason Stop Dose Admin Acetaminophen 650 mg 07/15/20 08:38 07/15/20 08:56 Acetaminophen 325 Mg Tablet PO 650 mg Q6H PRN Administration PAIN Atenolol 50 mg 07/14/20 09:00 07/16/20 08:21 Atenolol 50 Mg Tablet PO 50 mg DAILY GERSON Administration Protocol Atorvastatin Calcium 20 mg 07/14/20 21:00 07/15/20 21:02 Atorvastatin Calcium 20 Mg Tablet PO 20 mg BEDTIME GERSON Administration Diltiazem HCl 180 mg 07/14/20 09:00 07/16/20 08:21 Diltiazem Hcl Cd 180 Mg Cap.Er.24h PO 180 mg DAILY GERSON Administration Protocol Guaifenesin/Dextromethorphan 10 ml 07/14/20 16:48 Guaifenesin Dm 100/10/5 Ml 5 Ml Syrup PO Q6H PRN cough Cefazolin Sodium 500 mg/ 50 mls @ 100 mls/hr 07/15/20 16:00 07/16/20 05:03 Sodium Chloride IV Infused Q12H [facility] Infusion Pharmacy Consult 1 each 07/14/20 00:53 Consult Rx Vancomycin Dosing MISCELLANE DAILY PRN Consult order Pharmacy Consult 1 each 07/14/20 02:37 Consult Rx Anticoag Dosing MISCELLANE DAILY PRN Consult order Sodium Chloride 3 ml 07/14/20 08:00 07/16/20 08:21 0.9 % Sodium Chloride Flush 3 Ml Syringe IVFLUSH 3 ml QSHIFT GERSON Administration Warfarin Sodium 2.5 mg 07/15/20 18:00 07/15/20 18:32 Warfarin Sodium 2.5 Mg Tablet PO 2.5 mg DAILY@1800 GERSON Administration Labs CBC & Chem 7: 07/16/20 06:06 07/16/20 06:06 Microbiology Microbiology Results: Microbiology 07/13/20 20:58 Blood - Venous Blood Culture - Preliminary No growth after 48 hours. 07/13/20 20:58 Blood - Venous Blood Culture - Preliminary No growth after 48 hours. Assessment and Plan (1) Bilateral lower leg cellulitis: Status: Acute (2) Lymphedema of both lower extremities: Problem details: There is venous stasis changes,no true cellulitis There is some leukocytosis Status: Acute (3) Coronary artery disease: Status: Acute (4) Sepsis: Status: Acute (5) ULISES (acute kidney injury): Status: Acute (6) Essential hypertension: Status: Acute (7) Obesity (BMI 30-39.9): Status: Acute (8) Chronic venous stasis dermatitis of both lower extremities: Status: Acute (9) Deep vein thrombosis (DVT) of popliteal vein of left lower extremity: Status: Acute Assessment and Plan: 80 year old man presenting after a fall, noted to have lower leg cellulitis in setting of chronic venous stasis. 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 Bilateral lower extremity Cellulitis/sepsis Patient presented with fever and leukocytosis, treated with iv Zosyn and Vancomycin, blood cultures came back negative, patient seen by Dr. Patino she recommend doxycycline WBC trending down, but remains elevated around 13,000, fever resolved, continue IV Ancef for renally dose day 2, keep leg elevated follow CBC , COVID-19 negative Candidal infection in groin area continue Nystatin topical. Recurrent falls will obtain PT evaluation ULISES Creatinine 3 at admission, baseline creatinine around 2.4, creatinine trended down to 1.9 today, avoid hypotension and will give all medication renally dose follow BMP in AM. Hyperkalemia Given Kayexalate PO in ED. Repeat BMP showed normalization of potassium from 5.9-4.1 EKG showed no peaked T waves. Monitor on telemetry. DVT history On Coumadin, INR dropped to 1.8 therapeutic. Continue Coumadin will increase dose to 5mg and follow INR closely while on antibiotic . HTN BP stable on atenolol 50 mg daily and diltiazem 180 mg daily, will resume valsartan low dose 40mg (take 80 mg at home ) daily since noted to have elevated blood pressure. CAD hx No chest pain, continue home medication. DVT proph Coumadin Code status DNR/DNI.
[2020-07-16] MEDS: Valsartan 40 MG TABLET PO (13:09)
[2020-07-16] MEDS: Warfarin Sodium 5 MG TABLET PO (17:16)
[2020-07-16] MEDS: Atorvastatin Calcium 20 MG TABLET PO (20:44)
[2020-07-17] VITALS (8 sets, daily range): BP systolic 112–172; BP diastolic 60–72; PULSE 59–80; RESP 18–20; TEMP 36.6–37.4; O2SAT 92–95
[2020-07-17 07:07] LABS: MANUAL DIFF FLAG NO
[2020-07-17 07:11] LABS: Basophils Percent Auto 0.2 % (0-2); Eosinophils Absolute Auto 0.2 X10*3/uL (0.0-0.4); Eosinophils Percent Auto 1.7 % (0-4); Hematocrit 29.1 % (42-52); Hemoglobin 9.7 g/dl (14.0-18.0); Imm Gran Abs Auto 0.11 X10*3/uL (0.00-0.03); Imm Gran Pct Auto 0.9 % (0.0-0.4); Lymphocytes Absolute Auto 0.9 X10*3/uL (1.2-4.9); Lymphocytes Percent Auto 7.1 % (20-40); Mean Corpuscular HGB Conc 33.3 g/dl (31.0-36.0); Mean Corpuscular Hemoglobin 30.7 pg (27.0-33.0); Mean Corpuscular Volume 92.1 fL (80-98); Mean Platelet Volume 11.7 fL (9.4-12.4); Monocytes Absolute Auto 1.3 X10*3/uL (0.1-1.2); Monocytes Percent Auto 10.4 % (2-11); Neutrophils Absolute Auto 10.1 X10*3/uL (2.0-8.3); Neutrophils Percent Auto 79.7 % (45-73); Platelet Count 155 X10*3/uL (160-400); Red Blood Count 3.16 X10*6/uL (4.60-5.80); Red Cell Distribution Width 13.9 % (11.0-16.0); White Blood Count 12.6 X10*3/uL (4.8-10.8)
[2020-07-17 07:21] LABS: INTERNATIONAL NORM RATIO 1.7 (0.9-1.1); Prothrombin Time 20.8 SEC (10.8-13.0)
[2020-07-17] MEDS: dilTIAZem HCL CD 180 MG CAP.ER.24H PO (08:54)
[2020-07-17] MEDS: 0.9 % Sodium Chloride Flush 3 ML SYRINGE IVFLUSH ×3 (08:54→22:37)
[2020-07-17] MEDS: atenoloL 50 MG TABLET PO (08:54)
[2020-07-17] MEDS: Valsartan 80 MG TABLET PO (08:54)
--- NOTE | 2020-07-17 12:45 | HO.PM.IMPN ---
Subjective Subjective Date of Service: 07/17/20 Interval History: Patient being followed for lower extremity edema cellulitis, patient offers no acute complaints of fever chills, no pain, no acute issues overnight. Review of Systems General no headache, no dizziness, no fever, chills. CVS no chest pain, no palpitation. Respiratory no cough, no sputum production, no respiratory distress. Gastrointestinal no nausea, no vomiting, no abdominal pain Physical Exam Vital Signs: Vital Signs: Last Vital Signs Temp 97.9 F 07/17/20 11:11 Pulse 60 07/17/20 11:11 Resp 20 07/17/20 11:11 BP 158/72 H 07/17/20 11:11 Pulse Ox 94 07/17/20 11:11 Body Mass Index 40.5 Const: Other: General patient resting comfortably in no acute distress. Neck is supple no JVD. CVS regular rate rhythm, Respiratory lungs clear to auscultation, no respiratory distress, no wheeze, no rhonchi. Gastrointestinal abdomen soft, nontender, bowel sounds audible Extremities bilateral edema with chronic venous status changes no weeping lesion, no drainage . Neuro nonfocal . Objective Data Current Medications Generic Name Dose Route Start Last Admin Trade Name Freq PRN Reason Stop Dose Admin Acetaminophen 650 mg 07/15/20 08:38 07/15/20 08:56 Acetaminophen 325 Mg Tablet PO 650 mg Q6H PRN Administration PAIN Atenolol 50 mg 07/14/20 09:00 07/17/20 08:54 Atenolol 50 Mg Tablet PO 50 mg DAILY GERSON Administration Protocol Atorvastatin Calcium 20 mg 07/14/20 21:00 07/16/20 20:44 Atorvastatin Calcium 20 Mg Tablet PO 20 mg BEDTIME GERSON Administration Diltiazem HCl 180 mg 07/14/20 09:00 07/17/20 08:54 Diltiazem Hcl Cd 180 Mg Cap.Er.24h PO 180 mg DAILY GERSON Administration Protocol Guaifenesin/Dextromethorphan 10 ml 07/14/20 16:48 Guaifenesin Dm 100/10/5 Ml 5 Ml Syrup PO Q6H PRN cough Cefazolin Sodium 500 mg/ 50 mls @ 100 mls/hr 07/15/20 16:00 07/17/20 04:39 Sodium Chloride IV Infused Q12H [facility] Infusion Pharmacy Consult 1 each 07/14/20 00:53 Consult Rx Vancomycin Dosing MISCELLANE DAILY PRN Consult order Pharmacy Consult 1 each 07/14/20 02:37 Consult Rx Anticoag Dosing MISCELLANE DAILY PRN Consult order Sodium Chloride 3 ml 07/14/20 08:00 07/17/20 08:54 0.9 % Sodium Chloride Flush 3 Ml Syringe IVFLUSH 3 ml QSHIFT GERSON Administration Valsartan 80 mg 07/17/20 09:00 07/17/20 08:54 Valsartan 80 Mg Tablet PO 80 mg DAILY GERSON Administration Protocol Warfarin Sodium 5 mg 07/16/20 18:00 07/16/20 17:16 Warfarin Sodium 5 Mg Tablet PO 5 mg DAILY@1800 GERSON Administration Labs CBC & Chem 7: 07/17/20 05:42 07/16/20 06:06 Microbiology Microbiology Results: Microbiology 07/13/20 20:58 Blood - Venous Blood Culture - Preliminary No growth after 48 hours. 07/13/20 20:58 Blood - Venous Blood Culture - Preliminary No growth after 48 hours. Assessment and Plan (1) Bilateral lower leg cellulitis: Status: Acute (2) Lymphedema of both lower extremities: Status: Acute (3) Coronary artery disease: Status: Acute (4) Sepsis: Status: Acute (5) ULISES (acute kidney injury): Status: Acute (6) Essential hypertension: Status: Acute (7) Obesity (BMI 30-39.9): Status: Acute (8) Chronic venous stasis dermatitis of both lower extremities: Status: Acute (9) Deep vein thrombosis (DVT) of popliteal vein of left lower extremity: Status: Acute Assessment and Plan: 80 year old man presenting after a fall, noted to have lower leg cellulitis in setting of chronic venous stasis. 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 Bilateral lower extremity Cellulitis/sepsis Patient presented with fever and leukocytosis, treated with iv Zosyn and Vancomycin, blood cultures came back negative, patient seen by Dr. Patino she recommend doxycycline WBC trending down, but remains elevated but trending down, fever resolved, on IV Ancef renally dose day 3, keep leg elevated follow CBC , COVID-19 negative, will transition to by mouth antibiotic. Candidal infection in groin area continue Nystatin topical. Recurrent falls await PT evaluation ULISES Creatinine 3 at admission, baseline creatinine around 2.4, creatinine trended down to 1.9 , avoid hypotension and will give all medication renally dose follow BMP in AM. Hyperkalemia Given Kayexalate PO in ED. Repeat BMP showed normalization of potassium from 5.9-4.1 EKG showed no peaked T waves. Monitor on telemetry. DVT history On Coumadin, INR dropped to 1.7 therapeutic. Continue Coumadin 5mg, dose increased from 2.5 mg follow INR closely while on antibiotic . HTN BP elevated on atenolol 50 mg daily, diltiazem 180 mg daily, and valsartan 40 mg, will increase to Valsartan 80 mg daily his home dose and follow BP CAD hx No chest pain, continue home medication. DVT proph Coumadin Code status DNR/DNI.
[2020-07-17] MEDS: Warfarin Sodium 5 MG TABLET PO (17:13)
[2020-07-17] MEDS: Atorvastatin Calcium 20 MG TABLET PO (22:37)
[2020-07-18 03:21] VITALS: BP 175/79; PULSE 62; RESP 22; TEMP 36.8; O2SAT 93
[2020-07-18 06:31] LABS: Basophils Percent Auto 0.2 % (0-2); Eosinophils Absolute Auto 0.3 X10*3/uL (0.0-0.4); Eosinophils Percent Auto 2.3 % (0-4); Hematocrit 30.2 % (42-52); Imm Gran Abs Auto 0.13 X10*3/uL (0.00-0.03); Imm Gran Pct Auto 1.1 % (0.0-0.4); Lymphocytes Absolute Auto 0.7 X10*3/uL (1.2-4.9); Lymphocytes Percent Auto 5.6 % (20-40); MANUAL DIFF FLAG SCAN; Mean Corpuscular HGB Conc 33.1 g/dl (31.0-36.0); Mean Corpuscular Hemoglobin 30.3 pg (27.0-33.0); Mean Corpuscular Volume 91.5 fL (80-98); Mean Platelet Volume 11.3 fL (9.4-12.4); Monocytes Absolute Auto 1.2 X10*3/uL (0.1-1.2); Monocytes Percent Auto 10.1 % (2-11); Neutrophils Absolute Auto 9.9 X10*3/uL (2.0-8.3); Neutrophils Percent Auto 80.7 % (45-73); Platelet Count 180 X10*3/uL (160-400); Red Cell Distribution Width 13.8 % (11.0-16.0); SCAN SMEAR FLAG 1; White Blood Count 12.3 X10*3/uL (4.8-10.8)
[2020-07-18 06:39] LABS: INTERNATIONAL NORM RATIO 1.9 (0.9-1.1); Prothrombin Time 23.1 SEC (10.8-13.0)
[2020-07-18 07:00] LABS: Anion Gap 13 (12-20); Blood Urea Nitrogen 43 mg/dL (9-16); Calcium 7.7 mg/dL (8.4-10.2); Carbon Dioxide 18 mmol/L (22-29); Chloride 112 mmol/L (96-108); Creatinine Clr Calc Pharmacy 40.3; Estimated Glomerular Filt Rate 37; Glucose Random 114 mg/dL (60-115); Potassium 3.8 mmol/l (3.3-5.1); Sodium 139 mmol/L (135-145)
[2020-07-18 07:55] VITALS: BP 171/66; PULSE 62; RESP 22; TEMP 37.6; O2SAT 94
[2020-07-18 08:01] LABS: SLIDE REVIEW VERIFIED
[2020-07-18] MEDS: dilTIAZem HCL CD 180 MG CAP.ER.24H PO (09:39)
[2020-07-18] MEDS: 0.9 % Sodium Chloride Flush 3 ML SYRINGE IVFLUSH ×3 (09:39→23:48)
[2020-07-18] MEDS: Valsartan 80 MG TABLET PO (09:39)
[2020-07-18] MEDS: atenoloL 50 MG TABLET PO (09:39)
[2020-07-18] MEDS: Furosemide 40 MG TABLET PO (11:38)
[2020-07-18 11:46] VITALS: BP 188/73; PULSE 57; RESP 24; TEMP 36.8; O2SAT 96
[2020-07-18 15:34] VITALS: BP 136/74; PULSE 56; RESP 19; TEMP 36.7; O2SAT 96
[2020-07-18] MEDS: Warfarin Sodium 5 MG TABLET PO (16:02)
--- NOTE | 2020-07-18 17:40 | P.PNIM_ITS ---
Subjective Subjective Date of Service: 07/20/20 Interval History: Patient being followed for lower extremity edema cellulitis, patient offers no acute complaints of fever chills, no pain, no acute issues overnight. Review of Systems General no headache, no dizziness, no fever, chills. Eyes rt eye small amt of purulent drainage CVS no chest pain, no palpitation. Respiratory no cough, no sputum production, no respiratory distress. Gastrointestinal no nausea, no vomiting, no abdominal pain Physical Exam Vital Signs: Vital Signs: Last Vital Signs Temp 98.0 F 07/18/20 15:34 Pulse 56 07/18/20 15:34 Resp 19 07/18/20 15:34 BP 136/74 07/18/20 15:34 Pulse Ox 96 07/18/20 15:34 Body Mass Index 40.5 Const: Other: General patient resting comfortably in no acute distress. Right eye mild purulent drainage Neck is supple no JVD. CVS regular rate rhythm, Respiratory lungs clear to auscultation, no respiratory distress, no wheeze, no rhonchi. Gastrointestinal abdomen soft, nontender, bowel sounds audible Extremities bilateral edema with chronic venous status changes no weeping lesion, no drainage . Neuro nonfocal . Objective Data Current Medications Generic Name Dose Route Start Last Admin Trade Name Freq PRN Reason Stop Dose Admin Acetaminophen 650 mg 07/15/20 08:38 07/15/20 08:56 Acetaminophen 325 Mg Tablet PO 650 mg Q6H PRN Administration PAIN Atenolol 50 mg 07/14/20 09:00 07/18/20 09:39 Atenolol 50 Mg Tablet PO 50 mg DAILY GERSON Administration Protocol Atorvastatin Calcium 20 mg 07/14/20 21:00 07/17/20 22:37 Atorvastatin Calcium 20 Mg Tablet PO 20 mg BEDTIME GERSON Administration Diltiazem HCl 180 mg 07/14/20 09:00 07/18/20 09:39 Diltiazem Hcl Cd 180 Mg Cap.Er.24h PO 180 mg DAILY GERSON Administration Protocol Furosemide 40 mg 07/18/20 10:45 07/18/20 11:38 Furosemide 40 Mg Tablet PO 40 mg DAILY GERSON Administration Protocol Guaifenesin/Dextromethorphan 10 ml 07/14/20 16:48 Guaifenesin Dm 100/10/5 Ml 5 Ml Syrup PO Q6H PRN cough Cefazolin Sodium 500 mg/ 50 mls @ 100 mls/hr 07/15/20 16:00 07/18/20 15:46 Sodium Chloride IV 100 mls/hr Q12H GERSON Administration Pharmacy Consult 1 each 07/14/20 00:53 Consult Rx Vancomycin Dosing MISCELLANE DAILY PRN Consult order Pharmacy Consult 1 each 07/14/20 02:37 Consult Rx Anticoag Dosing MISCELLANE DAILY PRN Consult order Sodium Chloride 3 ml 07/14/20 08:00 07/18/20 15:46 0.9 % Sodium Chloride Flush 3 Ml Syringe IVFLUSH 3 ml QSHIFT GERSON Administration Valsartan 80 mg 07/17/20 09:00 07/18/20 09:39 Valsartan 80 Mg Tablet PO 80 mg DAILY GERSON Administration Protocol Warfarin Sodium 5 mg 07/16/20 18:00 07/18/20 16:02 Warfarin Sodium 5 Mg Tablet PO 5 mg DAILY@1800 GERSON Administration Labs CBC & Chem 7: 07/18/20 06:06 07/18/20 06:05 Microbiology Microbiology Results: Microbiology 07/13/20 20:58 Blood - Venous Blood Culture - Preliminary No growth after 48 hours. 07/13/20 20:58 Blood - Venous Blood Culture - Preliminary No growth after 48 hours. Assessment and Plan (1) Bilateral lower leg cellulitis: Status: Acute (2) Lymphedema of both lower extremities: Status: Acute (3) Coronary artery disease: Status: Acute (4) Sepsis: Status: Acute (5) ULISES (acute kidney injury): Status: Acute (6) Essential hypertension: Status: Acute (7) Obesity (BMI 30-39.9): Status: Acute (8) Chronic venous stasis dermatitis of both lower extremities: Status: Acute (9) Deep vein thrombosis (DVT) of popliteal vein of left lower extremity: Status: Acute Assessment and Plan: 80 year old man presenting after a fall, noted to have lower leg cellulitis in setting of chronic venous stasis. Also noted to have acute kidney injury in set ting of CKD stage 3-4 and hyperkalemia. Bilateral lower extremity Cellulitis/sepsis Patient presented with fever and leukocytosis, treated with iv Zosyn and Vancomycin, blood cultures came back negative, patient seen by Dr. Patino she recommend doxycycline WBC remains elevated but trending down, fever resolved, on IV Ancef renally dose day 4, keep leg elevated follow CBC , COVID-19 negative, will transition to by mouth antibiotic doxycycline upon discharge. Recent right eye surgery with mild purulent drainage since patient forgot to mention eyedrops at admission, daughter can bring eyedrops at a.m. will givemoxifloxacin eye drop for tonight. Candidal infection in groin area continue Nystatin topical. Recurrent falls await PT evaluation ULISES Creatinine 3 at admission, baseline creatinine around 2.4, creatinine trended down to 1.79 , will give all medication renally dose follow BMP in AM. Mild acidosis likely due renal disease Hyperkalemia Given Kayexalate PO in ED. Repeat BMP showed normalization of potassium from 5.9-4.1 EKG showed no peaked T waves. DVT history On Coumadin, INR 1.9, Continue Coumadin 5mg, follow INR closely while on antibiotic . HTN BP elevated on atenolol 50 mg daily, diltiazem 180 mg daily, and valsartan 80 mg daily will resume Lasix 40 mg daily and follow BP CAD hx No chest pain, continue home medication. DVT proph Coumadin Disposition awaiting PT eval will likely need rehab Code status DNR/DNI.
[2020-07-18 19:11] VITALS: BP 183/72; PULSE 114; RESP 19; TEMP 36.7; O2SAT 92
[2020-07-18] MEDS: Moxifloxacin HCl 0.5 % Oph Sol 3 ML DRPBTL 1 DROP EYE-RIGHT (19:37)
[2020-07-18] MEDS: Atorvastatin Calcium 20 MG TABLET PO (19:37)
--- NOTE | 2020-07-18 19:39 | PC.NURSE ---
pus in rthe right eye, DR Gibson notified, ,Vigamox 1 drop to right eye administered. Pt 's daughter call if she can bring pt's own eydrops from home. Meghan Isela, pt daughter stated that she will try to bring the eye drops from home tommorow evening.Pt had cataract surgery done 06/27 on the right eye, the left eye surgery was done few weeks prior. Pt stated that he supposed to take eye drops 4x a day to the right eye
[2020-07-18 23:31] VITALS: BP 167/57; PULSE 61; RESP 22; TEMP 36.9; O2SAT 94
--- NOTE | 2020-07-18 23:47 | PC.NURSE ---
pt had his own eyedrops in his belongins, meds ordered ,med checked by pharmacy, Eye drops in pt's specific bin
[2020-07-19 04:00] VITALS: BP 181/69; PULSE 61; RESP 18; TEMP 36.6; O2SAT 94
[2020-07-19 08:00] VITALS: BP 140/80; PULSE 61; RESP 20; TEMP 36.8; O2SAT 95
[2020-07-19 09:09] VITALS: BP 140/80; PULSE 61
[2020-07-19] MEDS: atenoloL 50 MG TABLET PO (09:09)
[2020-07-19] MEDS: Furosemide 40 MG TABLET PO (09:09)
[2020-07-19] MEDS: Valsartan 80 MG TABLET PO (09:09)
[2020-07-19] MEDS: dilTIAZem HCL CD 180 MG CAP.ER.24H PO (09:09)
[2020-07-19] MEDS: 0.9 % Sodium Chloride Flush 3 ML SYRINGE IVFLUSH (09:09)
[2020-07-19 09:52] VITALS: BP 140/80; PULSE 61
[2020-07-19 11:17] LABS: INTERNATIONAL NORM RATIO 2.9 (0.9-1.1)
[2020-07-19 12:00] VITALS: BP 156/88; PULSE 104; RESP 18; TEMP 36.8; O2SAT 96
--- NOTE | 2020-07-19 12:56 | P.DS_ITS ---
DS: Providers Provider Date of admission: 07/14/20 00:53 Primary care physician: Unknown Physician Consults: 07/14/20 02:37 Consult to Infectious Diseases Routine Consulting Provider: Laurel Patino Reason for consultation: leg wounds and cellulitis Has provider been notified: No DS: Diagnosis Discharge Diagnosis (1) Bilateral lower leg cellulitis: Status: Acute (2) Lymphedema of both lower extremities: Status: Acute (3) Coronary artery disease: Status: Acute (4) Sepsis: Status: Acute (5) ULISES (acute kidney injury): Status: Acute (6) Essential hypertension: Status: Acute (7) Obesity (BMI 30-39.9): Status: Acute (8) Chronic venous stasis dermatitis of both lower extremities: Status: Acute (9) Deep vein thrombosis (DVT) of popliteal vein of left lower extremity: Status: Acute DS: Medications Discharge Medications Home Medications: Home Medications Medication Instructions Recorded Confirmed atorvastatin 20 mg tablet 20 mg PO DAILY 04/14/20 07/13/20 celecoxib 200 mg capsule 200 mg PO DAILY 04/14/20 07/13/20 diltiazem HCl 180 mg 180 mg PO DAILY 04/14/20 07/13/20 capsule,extended release 24 hr warfarin 5 mg tablet 5 mg PO DAILY 04/14/20 07/13/20 ketorolac 1 drp OPHTHALMIC-RIGHT QID 07/18/20 07/18/20 Previous Rx's Medication Instructions Recorded atenolol 50 mg tablet 50 mg PO DAILY #90 tab 06/09/20 valsartan 80 mg tablet 80 mg PO DAILY #90 tab 06/09/20 doxycycline hyclate 100 mg capsule 100 mg PO BID 10 Days #20 cap 07/12/20 furosemide 40 mg tablet 40 mg PO DAILY 90 Days #90 tab 07/12/20 DS: Summary Hospital Course Hospital Course: Patient was admitted for sepsis secondary to lower extremity cellulitis in the setting of chronic lymphedema. Complicated by acute kidney injury on chronic kidney disease stage 3 to 4. He was treated with IV Ancef, sepsis resolved. His renal function returned to baseline. Patient is quite debilitated with frequent falls, was seen by Physical therapy who recommended short-term rehab at [facility]. Disease recommended 10 days of p.o. doxycycline which he will continue at [facility] facility. he should also follow up with wound care to manage his chronic lymphedema. Patient expected to be at [facility] facility less than 30 days. Time Spent with Patient Time attestation: Total time spent providing and/or coordinating discharge services: Physical Exam Vital Signs: Vital Signs: Last Vital Signs Temp 98.2 F 07/19/20 12:00 Pulse 104 H 07/19/20 12:00 Resp 18 07/19/20 12:00 BP 156/88 H 07/19/20 12:00 Pulse Ox 96 07/19/20 12:00 Body Mass Index 40.5 General: AO X 3, no acute distress Resp: CTA bilateral CVS: S1,S2,RRR, bilateral lymphedema lower extremities, with chronic changes, no acute erythema GI: soft, non tender, non distended Neuro: motor grossly intact Psych: appropriate affect DS: Data Data Completed and Pending Labs on day of discharge: 07/13/20 19:06 ECG 12 lead EKG Stat EKG Documentation DIRECTED CT cervical spine wo con Stat CT head/brain wo con Stat 07/13/20 20:01 Basic Metabolic Panel Stat Complete Blood Count Auto Diff Stat Liver Panel Stat Prothrombin Time INR Stat Troponin-I High Sensitivity Stat 07/13/20 20:38 0.9 % Sodium Chloride [Ns] 1,000 ml IVCONT 999 mls/hr 07/13/20 20:39 Piperacillin Sodium/Tazobactam [Zosyn] 3.375 gm 0.9 % Sodium Chloride [Ns] 50 ml IV ONCE 07/13/20 20:42 0.9 % Sodium Chloride [Ns] 1,000 ml IVCONT 999 mls/hr 07/13/20 20:58 B Type Natriuretic Peptide Stat Blood Culture X2 [BC] Stat 07/13/20 20:59 Lactic Acid Stat 07/13/20 21:04 Piperacillin Sodium/Tazobactam [Zosyn] 3.375 gm IV .STK-MED ONE 07/13/20 21:42 XR chest 1V Stat 07/13/20 22:48 Consult Rx Perform Med Rec 1 each MISCELLANE ONCE PRN 07/13/20 23:01 Troponin-I High Sensitivity Stat 07/13/20 23:03 COVID-19 ID NOW (Khan) Stat 07/14/20 00:40 Sodium Polystyrene Sulfon/Sorb [Kayexalate] 30 gm PO ONCE ONE 07/14/20 00:44 Sodium Polystyrene Sulfon/Sorb [Kayexalate] 30 gm PO ONCE ONE 07/14/20 00:47 Transfer Order Routine 07/14/20 00:53 vancomycin HCL 1,000 mg 0.9 % Sodium Chloride [Ns] 250 ml IV ONCE 07/14/20 00:59 Nystatin Ointment [Mycostatin Ointment] 1 appl TOPICAL BID ONE 07/14/20 01:54 vancomycin HCL 1,000 mg .ROUTE .[facility]-MED ONE 07/14/20 02:37 0.9 % Sodium Chloride [Ns] 1,000 ml IVCONT 100 mls/hr 07/14/20 02:48 Basic Metabolic Panel Stat 07/14/20 03:00 Piperacillin Sodium/Tazobactam [Zosyn] 2.25 gm 0.9 % Sodium Chloride [Ns] 50 ml IV RQ6H 07/14/20 03:39 Piperacillin Sodium/Tazobactam [Zosyn] 2.25 gm IV .[facility]-MED ONE 07/14/20 08:01 Basic Metabolic Panel DAILY Complete Blood Count Auto Diff DAILY Prothrombin Time INR DAILY 07/14/20 Breakfast Cardiac Diet 07/15/20 02:00 vancomycin HCL 500 mg 0.9 % Sodium Chloride [Ns] 100 ml IV Q24H 07/15/20 02:21 vancomycin HCL 500 mg IV .K-MED ONE 07/15/20 18:00 Warfarin Sodium [Coumadin] 2.5 mg PO DAILY@1800 07/15/20 18:24 ceFAZolin Sodium [Ancef] 500 mg .ROUTE .[facility]-MED ONE 07/16/20 01:10 Vancomycin Random Stat 07/16/20 04:14 ceFAZolin Sodium [Ancef] 500 mg .ROUTE .ST-MED ONE 07/16/20 06:06 Basic Metabolic Panel Routine Complete Blood Count Auto Diff Routine Prothrombin Time INR Routine 07/16/20 10:15 Valsartan [Diovan] 40 mg PO DAILY 07/16/20 16:14 ceFAZolin Sodium [Ancef] 500 mg .ROUTE .STK-MED ONE 07/17/20 00:43 Vancomycin Trough Stat 07/17/20 03:34 ceFAZolin Sodium [Ancef] 500 mg .ROUTE .[facility]-MED ONE 07/17/20 05:42 Complete Blood Count Auto Diff Routine Prothrombin Time INR DAILY 07/17/20 17:09 ceFAZolin Sodium [Ancef] 500 mg .ROUTE .[facility]-MED ONE 07/18/20 03:13 ceFAZolin Sodium [Ancef] 500 mg .ROUTE .[facility] ONE 07/18/20 06:05 Basic Metabolic Panel Routine Prothrombin Time INR Routine 07/18/20 06:06 Complete Blood Count Auto Diff Routine SLIDE REVIEW Routine 07/18/20 15:40 ceFAZolin Sodium [Ancef] 500 mg .ROUTE .[facility] ONE 07/18/20 17:53 Moxifloxacin HCl 0.5 % Oph Diana [Vigamox 0.5 % Oph Diana] 1 drop EYE-RIGHT ONCE ONE 07/19/20 04:26 ceFAZolin Sodium [Ancef] 500 mg .ROUTE .[facility] ONE 07/19/20 10:15 Prothrombin Time INR Stat Laboratory Last Values WBC 12.3 X10*3/uL (4.8-10.8) H 07/18/20 06:06 RBC 3.30 X10*6/uL (4.60-5.80) L 07/18/20 06:06 Hgb 10.0 g/dl (14.0-18.0) L 07/18/20 06:06 Hct 30.2 % (42-52) L 07/18/20 06:06 MCV 91.5 fL (80-98) 07/18/20 06:06 MCH 30.3 pg (27.0-33.0) 07/18/20 06:06 MCHC 33.1 g/dl (31.0-36.0) 07/18/20 06:06 RDW 13.8 % (11.0-16.0) 07/18/20 06:06 Plt Count 180 X10*3/uL (160-400) 07/18/20 06:06 MPV 11.3 fL (9.4-12.4) 07/18/20 06:06 Immature Gran % (Auto) 1.1 % (0.0-0.4) H 07/18/20 06:06 Neut % (Auto) 80.7 % (45-73) H 07/18/20 06:06 Lymph % (Auto) 5.6 % (20-40) L 07/18/20 06:06 Emery % (Auto) 10.1 % (2-11) 07/18/20 06:06 Eos % (Auto) 2.3 % (0-4) 07/18/20 06:06 Baso % (Auto) 0.2 % (0-2) 07/18/20 06:06 Lymph # (Auto) 0.7 X10*3/uL (1.2-4.9) L 07/18/20 06:06 Emery # (Auto) 1.2 X10*3/uL (0.1-1.2) 07/18/20 06:06 Eos # (Auto) 0.3 X10*3/uL (0.0-0.4) 07/18/20 06:06 Baso # (Auto) 0.0 X10*3/uL (0.0-0.2) 07/18/20 06:06 Abs Immat Gran (auto) 0.13 X10*3/uL (0.00-0.03) H 07/18/20 06:06 Absolute Neuts (auto) 9.9 X10*3/uL (2.0-8.3) H 07/18/20 06:06 Absolute Nucleated RBC 0.000 X10*3/uL (0.0-0.012) 07/18/20 06:06 Nucleated RBC % (auto) 0.0 /100WBC (0.0-0.2) 07/18/20 06:06 Smear Tech's Comments VERIFIED 07/18/20 06:06 PT 35.0 SEC (10.8-13.0) H D 07/19/20 10:15 INR 2.9 (0.9-1.1) H 07/19/20 10:15 Sodium 139 mmol/L (135-145) 07/18/20 06:05 Potassium 3.8 mmol/l (3.3-5.1) 07/18/20 06:05 Chloride 112 mmol/L (96-108) H 07/18/20 06:05 Carbon Dioxide 18 mmol/L (22-29) L 07/18/20 06:05 Anion Gap 13 (12-20) 07/18/20 06:05 BUN 43 mg/dL (9-16) H 07/18/20 06:05 Creatinine 1.79 mg/dL (0.5-1.4) H 07/18/20 06:05 Estim Creat Clear Calc 40.3 07/18/20 06:05 Estimated GFR 37 07/18/20 06:05 Random Glucose 114 mg/dL (60-115) D 07/18/20 06:05 Lactic Acid 1.3 mmol/L (0.5-2.0) 07/13/20 20:59 Calcium 7.7 mg/dL (8.4-10.2) L D 07/18/20 06:05 Total Bilirubin 1.1 mg/dL (0.0-1.0) H 07/13/20 20:01 Direct Bilirubin 0.4 mg/dL (0.0-0.5) 07/13/20 20:01 AST 20 U/L (5-37) 07/13/20 20:01 ALT 11 U/L (0-40) 07/13/20 20:01 Alkaline Phosphatase 66 U/L (39-117) D 07/13/20 20:01 Troponin I High Sens 43.7 ng/L (<3.5-35.0) H 07/13/20 23:01 B-Natriuretic Peptide 130 pg/mL (<100) H 07/13/20 20:58 Total Protein 6.4 g/dL (6.5-8.0) L 07/13/20 20:01 Albumin 3.6 g/dL (3.5-5.0) 07/13/20 20:01 Urine Color YELLOW 07/13/20 20:00 Urine Appearance CLEAR 07/13/20 20:00 Urine pH 5.5 (5.0-8.0) 07/13/20 20:00 Ur Specific Bruni 1.020 (1.005-1.025) 07/13/20 20:00 Urine Protein TRACE MG/DL (NEG-TRACE) 07/13/20 20:00 Urine Glucose (UA) NEG MG/DL (NEG) 07/13/20 20:00 Urine Ketones NEG MG/DL (NEG) 07/13/20 20:00 Urine Blood TRACE (NEG) 07/13/20 20:00 Urine Nitrite NEG (NEG) 07/13/20 20:00 Ur Leukocyte Esterase NEG (NEG) 07/13/20 20:00 Urine RBC 0 /HPF (0) 12/29/20 20:00 Urine WBC 0 /HPF (0-4) 07/13/20 20:00 Ur Squamous Epith Cells NONE /LPF 07/13/20 20:00 Urine Bacteria TRACE /LPF 07/13/20 20:00 Vancomycin Trough 4.0 mcg/mL (10.0-20.0) L 07/17/20 00:43 Random Vancomycin 6.1 mcg/mL (15-20) L 07/16/20 01:10 COVID-19 (LAZARO) Negative (Negative) 07/13/20 23:03 COVID-19 Clin Com See Note 07/13/20 23:03 Discharge Plan Discharge Patient Disposition: Xfer SNF Referrals: [facility] [place] [Outside] Physician,Unknown [Primary Care Provider] - Discharge Medications: Continued atenolol 50 mg tablet 50 mg PO DAILY Qty: 90 RF: 1 valsartan 80 mg tablet 80 mg PO DAILY Qty: 90 RF: 1 ketorolac drops 1 drp ophthalmic-Right QID RF: 0 diltiazem HCl 180 mg capsule,extended release 24hr 180 mg PO DAILY RF: 0 atorvastatin 20 mg tablet 20 mg PO DAILY RF: 0 warfarin 5 mg tablet 5 mg PO DAILY RF: 0 celecoxib [Celebrex] 200 mg capsule 200 mg PO DAILY RF: 0 furosemide 40 mg tablet 40 mg PO DAILY 90 Days Qty: 90 RF: 1 doxycycline hyclate 100 mg capsule 100 mg PO BID 10 Days Qty: 20 RF: 0 Discharge Orders: Discharge Order (Routine); Ordered 07/19/20 Ordered By: Luis Angel Lau Activity on Discharge: As tolerated Visit Report Forms: Patient Portal Discharge page Care Plan Goals: manage lymphedema Health Concerns: lymphedema Plan of Treatment: doxy, wound care, rehab
--- NOTE | 2020-07-19 12:59 | HO.PM.IMPN ---
Subjective Subjective Date of Service: 07/19/20 Interval History: improved Cardiovascular Cardiovascular: Reports no additional cardiovascular complaints Respiratory Respiratory: Reports no additional respiratory complaints Physical Exam Vital Signs: Vital Signs: Last Vital Signs Temp 98.2 F 07/19/20 12:00 Pulse 104 H 07/19/20 12:00 Resp 18 07/19/20 12:00 BP 156/88 H 07/19/20 12:00 Pulse Ox 96 07/19/20 12:00 Body Mass Index 40.5 General: AO X 3, no acute distress Resp: CTA bilateral CVS: S1,S2,RRR, lymphedema, improved erythema GI: soft, non tender, non distended Neuro: motor grossly intact Psych: appropriate affect Objective Data Current Medications Generic Name Dose Route Start Last Admin Trade Name Freq PRN Reason Stop Dose Admin Acetaminophen 650 mg 07/15/20 08:38 07/15/20 08:56 Acetaminophen 325 Mg Tablet PO 650 mg Q6H PRN Administration PAIN Atenolol 50 mg 07/14/20 09:00 07/19/20 09:09 Atenolol 50 Mg Tablet PO 50 mg DAILY GERSON Administration Protocol Atorvastatin Calcium 20 mg 07/14/20 21:00 07/18/20 19:37 Atorvastatin Calcium 20 Mg Tablet PO 20 mg BEDTIME GERSON Administration Diltiazem HCl 180 mg 07/14/20 09:00 07/19/20 09:09 Diltiazem Hcl Cd 180 Mg Cap.Er.24h PO 180 mg DAILY GERSON Administration Protocol Furosemide 40 mg 07/18/20 10:45 07/19/20 09:09 Furosemide 40 Mg Tablet PO 40 mg DAILY GERSON Administration Protocol Guaifenesin/Dextromethorphan 10 ml 07/14/20 16:48 Guaifenesin Dm 100/10/5 Ml 5 Ml Syrup PO Q6H PRN cough Cefazolin Sodium 500 mg/ 50 mls @ 100 mls/hr 07/15/20 16:00 07/19/20 05:31 Sodium Chloride IV Infused Q12H [facility]ERSON Infusion Pt Own Ketorolac 0.5 1 each 07/19/20 09:00 07/19/20 10:31 % Eye Drops EYE-RIGHT 1 each QID GERSON Administration Pharmacy Consult 1 each 07/14/20 00:53 Consult Rx Vancomycin Dosing MISCELLANE DAILY PRN Consult order Pharmacy Consult 1 each 07/14/20 02:37 Consult Rx Anticoag Dosing MISCELLANE DAILY PRN Consult order Sodium Chloride 3 ml 07/14/20 08:00 07/19/20 09:09 0.9 % Sodium Chloride Flush 3 Ml Syringe IVFLUSH 3 ml QSHIFT [facility] [place] Administration Valsartan 80 mg 07/17/20 09:00 07/19/20 09:09 Valsartan 80 Mg Tablet PO 80 mg DAILY [facility]ERSON Administration Protocol Warfarin Sodium 5 mg 07/16/20 18:00 07/18/20 16:02 Warfarin Sodium 5 Mg Tablet PO 5 mg DAILY@1800 [facility] [place] Administration Labs CBC & Chem 7: 07/18/20 06:06 07/18/20 06:05 Microbiology Microbiology Results: Microbiology 07/13/20 20:58 Blood - Venous Blood Culture - Final No growth after 5 days. 07/13/20 20:58 Blood - Venous Blood Culture - Final No growth after 5 days. Assessment and Plan (1) Bilateral lower leg cellulitis: Status: Acute (2) Lymphedema of both lower extremities: Status: Acute (3) Coronary artery disease: Status: Acute (4) Sepsis: Status: Acute (5) ULISES (acute kidney injury): Status: Acute (6) Essential hypertension: Status: Acute (7) Obesity (BMI 30-39.9): Status: Acute (8) Chronic venous stasis dermatitis of both lower extremities: Status: Acute (9) Deep vein thrombosis (DVT) of popliteal vein of left lower extremity: Status: Acute Assessment and Plan: 80 year old man presenting after a fall, noted to have lower leg cellulitis in setting of chronic venous stasis. 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 sepsis poa due to Bilateral lower extremity Cellulitis in setting of chronic lymphedema sepsis resolved, continue ancef while inpatient, on discharge change to po doxy. Recent right eye surgery with mild purulent drainage ocntinue eye drops Recurrent falls plan for rehab ULISES/CKD III/IV back to baseline DVT history On Coumadin, INR 1.9, Continue Coumadin HTN =atenolol 50 mg daily, diltiazem 180 mg daily, and valsartan 80 mg daily CAD hx No chest pain, continue home medication. DVT proph Coumadin awaiting rehab bed
[2020-07-19 13:40] LABS: COVID-19 Test Negative (Negative); IDNOW Serial# 9DD0AD1C
== END 2020-07-19 15:12 | disposition skilled nursing facility (03) | DRG 872 ==
LOC: HO.ED 22:51 → HO.IMC 07-14 01:19
PROVIDERS: Hospitalist; Internal Medicine; Admitting Provider Internal Medicine; Emergency Provider Emergency Medicine; Visit Provider Internal Medicine
DX: A41.9 Sepsis, unspecified organism (principal); N17.9 Acute kidney failure, unspecified; L03.116 Cellulitis of left lower limb; L03.115 Cellulitis of right lower limb; N18.4 Chronic kidney disease, stage 4 (severe); Z68.41 Body mass index [BMI] 40.0-44.9, adult; E87.2 Acidosis; I12.9 Hypertensive chronic kidney disease with stage 1 through stage 4 chronic kidney disease, or unspecified chronic kidney disease; E11.22 Type 2 diabetes mellitus with diabetic chronic kidney disease; I87.323 Chronic venous hypertension (idiopathic) with inflammation of bilateral lower extremity; E87.5 Hyperkalemia; E78.5 Hyperlipidemia, unspecified; I25.10 Atherosclerotic heart disease of native coronary artery without angina pectoris; E66.9 Obesity, unspecified; R29.6 Repeated falls; Z91.81 History of falling; B37.2 Candidiasis of skin and nail; Z86.718 Personal history of other venous thrombosis and embolism; Z20.828 Contact with and (suspected) exposure to other viral communicable diseases; Z79.1 Long term (current) use of non-steroidal anti-inflammatories (NSAID); Z79.01 Long term (current) use of anticoagulants; Z79.899 Other long term (current) drug therapy; Z66 Do not resuscitate
CPT/HCPCS: 36415; 70450; 71045; 72125; 80048; 80076; 80202; 81001; 83605; 83880; 84484; 85025; 85610; 87040; 87635; 93005; 96361; 96374; 97110; 97116; 97162; 99285; J0690; J2543; J3370

== ENCOUNTER 2020-08-02 19:37 | Emergency (ER) | payer MEDICARE, SELFPAY ==
[2020-08-02 20:02] VITALS: BP 141/48; PULSE 49; RESP 22; TEMP 36.7; O2SAT 94; BMI 27.1
--- NOTE | 2020-08-02 20:14 | PC.NURSE ---
PT STATES HIS STOOL HAS BEEN DARK BROWN, PT COLOSCREEN AT BEDSIDE AND IS BLACK.
--- NOTE | 2020-08-02 20:16 | PC.NURSE ---
TARIQ LOWER LEG AZAM WRAPS REMOVED WITH PROVIDER AT BEDSIDE. PVD OLD SCABED OVER AREA.
--- NOTE | 2020-08-02 21:02 | ED.GENADULT ---
HPI - General Adult General Chief complaint: General Medical Stated complaint: critical INR Time Seen by Provider: 08/02/20 19:57 Source: patient Mode of arrival: ambulatory Limitations: no limitations History of Present Illness HPI narrative: Patient presents to ED for elevated INR. Patient was sent from [facility] for elevated INR. INR today was 11. Patient just started taking Coumadin on the 26 of July. Patient himself denies any complaints. Patient denies any rectal bleeding or vomiting blood. Patient denies any abdominal pain. patient is known covid positive. Related Data Home Medications Medication Instructions Recorded Confirmed atorvastatin 20 mg tablet 20 mg PO DAILY 04/14/20 07/13/20 celecoxib 200 mg capsule 200 mg PO DAILY 04/14/20 07/13/20 diltiazem HCl 180 mg 180 mg PO DAILY 04/14/20 07/13/20 capsule,extended release 24 hr warfarin 5 mg tablet 5 mg PO DAILY 04/14/20 07/13/20 ketorolac 1 drp OPHTHALMIC-RIGHT QID 07/18/20 07/18/20 Previous Rx's Medication Instructions Recorded atenolol 50 mg tablet 50 mg PO DAILY #90 tab 06/09/20 valsartan 80 mg tablet 80 mg PO DAILY #90 tab 06/09/20 doxycycline hyclate 100 mg capsule 100 mg PO BID 10 Days #20 cap 07/12/20 furosemide 40 mg tablet 40 mg PO DAILY 90 Days #90 tab 07/12/20 Allergies Allergy/AdvReac Type Severity Reaction Status Date / Time Heparin Analogues Allergy Unknown BP BOTTOMS Verified 07/12/20 09:30 [HEPARIN ANALOGUES] OUT PER heparin Allergy 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) Review of Systems Review of Systems: Yes all other systems are reviewed and are negative Constitutional: Constitutional: Reports as per HPI and Reports no additional constitutional complaints Eyes: Eyes: Reports as per HPI and Reports no additional eye complaints ENT: Reports system reviewed and no additional complaints, except as documented and Reports as per HPI Cardiovascular: Cardiovascular: Reports as per HPI and Reports no additional cardiovascular complaints Respiratory: Respiratory: Reports as per HPI and Reports no additional respiratory complaints Gastrointestinal: Gastrointestinal: Reports as per HPI and Reports no additional gastrointestinal complaints Genitourinary: Genitourinary: Reports no additional male genitourinary complaints and Reports as per HPI Musculoskeletal: Musculoskeletal: Reports no additional musculoskeletal complaints and Reports as per HPI Comments: Chronic lower extremity cellulitis Neurologic: Reports system reviewed and no additional complaints, except as documented and Reports as per HPI Psychiatric: Psychiatric: Reports no additional psychiatric complaints and Reports as per HPI [facility] Past Medical History Medical History Bilateral lower leg cellulitis Cataract, left eye Chronic venous stasis dermatitis of both lower extremities Coronary artery disease Deep vein thrombosis (DVT) of popliteal vein of left lower extremity Diabetes mellitus with stage 4 chronic kidney disease Essential hypertension Hyperlipidemia Lumbar degenerative disc disease Lymphedema of both lower extremities Obesity (BMI 30-39.9) Onychomycosis Osteoarthritis of knees, bilateral Stage 4 chronic kidney disease Vitamin D deficiency Surgical History No significant past surgical history Family History Family History Father No problems noted. Mother No problems noted. Social History Social History Household Members: None Housing: House Alcohol intake: never Smoking Status: Former smoker Smoked in Last 30 Days: Yes Second Hand Smoke Exposure: No Use of substances other than those prescribed or required for medical reasons: No Advance Directives: No service: No Current occupational status: retired Physical Exam Vital Signs: Vital Signs: Last Vital Signs Temp 97.6 F 08/03/20 01:55 Pulse 57 08/03/20 01:55 Resp 15 08/03/20 01:55 BP 158/67 H 08/03/20 01:55 Pulse Ox 95 08/03/20 01:55 Body Mass Index 27.1 Const: General: cooperative, healthy appearing, comfortable, no acute distress, well developed, alert, awake and Physically active Orientation/consciousness: patient oriented x3 HENMT: Head: Yes normal to inspection, Yes No palpable skull fracture present, Yes normocephalic and Yes atraumatic Eyes: General: appearance normal, both eyes and all related structures Neck: Neck: Yes normal visual inspection, Yes full ROM, Yes no lymphadenopathy, Yes no meningeal signs, Yes trachea midline, Yes supple and No tender Chest: Chest palpation & inspection: normal inspection of the chest and normal palpation of entire chest wall Resp: Effort & Inspection: normal respiratory effort and able to speak in complete sentences Auscultation: clear to auscultation bilaterally Cardio: Jugular venous distension: no JVD Heart sounds: S1 normal heart sound present and S2 normal heart sound present GI: Other: Rectal exam positive for very dark stool on evaluation Inspection: Yes normal to inspection and No abdominal wall ecchymosis Palpation (GI): Soft to palpation, not firm, nontender, no guarding and not rigid : General: No CVA tenderness and Yes no CVA tenderness Back/Spine/Pelvis: Back: no CVA tenderness, No CVA tenderness and No back tenderness Skin: General skin exam: no rashes or lesions noted and elasticity normal Neuro: General: patient oriented x3, no meningeal signs and CN's II-XI intact bilaterally Cranial nerves: Yes CN's II-XII intact bilaterally Extrem: Other: Chronic lower extremity cellulitis. General: Yes normal to inspection and Yes full ROM Psych: Appearance: grossly normal, well kempt and not disheveled Course Course Course Narrative: Patient will be rule out GI bleed. Patient have basic labs including EKG and type and screen. Occult stool guaiac was sent.. Reevaluation(s) Reevaluation #1: Patient occult stool guaiac was negative. Patient's stool was dark due to patient taking iron tablets. Medication list was reviewed and patient is on iron tablets which can cause dark to black stool. Patient denies any abdominal pain. Patient's hemoglobin and and hematocrit at baseline. Patient is not tachycardic. Spoke with nurse from the [facility] who states on the 28 of July his INR was 2.1 and then once he started taking the warfarin and INR was tested today his INR was 11. Patient potassium is 5.3. Patient will be given Kayexalate only. Dr. Rivera agree with plan of only kayexalate and Vitamin K. Patient presently has no headache presently, but due to triage note saying headache upon initial ED visit he will have CT scan. patient states no abdominal pain. Time: 00:15 Reevaluation #2: Patient had CT scan came back negative for bleed. Spoke with Dr. Matty Etienne who is the night x ray equipment mechanic who states vitamin K p.o. liquid ampule can be given orally in a beverage such as orange juice. He does not recommend giving IM vitamin K. discharge papers were prepared will be given after repeat labs come back evaluated by Dr. Shen. Case signed out to Dr. Shen. Repeat troponin and chemistry pending Time: 02:21 Medical Decision Making MDM Narrative Medical decision making narrative: Elevation INR Lab Data Result diagrams: 08/02/20 21:28 08/02/20 21:28 Labs: Lab Results 08/02/20 08/02/20 08/02/20 Range/Units 21:28 21:28 21:28 WBC 4.9 (4.8-10.8) X10*3/uL RBC 3.75 L (4.60-5.80) X10*6/uL Hgb 11.1 L (14.0-18.0) g/dl Hct 35.5 L (42-52) % MCV 94.7 (80-98) fL MCH 29.6 (27.0-33.0) pg MCHC 31.3 (31.0-36.0) g/dl RDW 14.3 (11.0-16.0) % Plt Count 155 L (160-400) X10*3/uL MPV 11.8 (9.4-12.4) fL Immature Gran % (Auto) Cancelled Neut % (Auto) Cancelled Lymph % (Auto) Cancelled Bates % (Auto) Cancelled Eos % (Auto) Cancelled Baso % (Auto) Cancelled Lymph # (Auto) Cancelled Bates # (Auto) Cancelled Eos # (Auto) Cancelled Baso # (Auto) Cancelled Abs Immat Gran (auto) Cancelled Absolute Neuts (auto) Cancelled Absolute Nucleated RBC 0.000 (0.0-0.012) X10*3/uL Nucleated RBC % (auto) 0.0 (0.0-0.2) /100WBC Neutrophils % (Manual) 66 (45-73) % Band Neutrophils % 3 (3-5) % Lymphocytes % (Manual) 13 L (20-40) % Atypical Lymphs % (Man) 1 (0-6) % Monocytes % (Manual) 15 H (2-11) % Basophils % (Manual) 1 (0-1) % Metamyelocytes % 1 % Abs Neuts (Manual) 3.4 (2.2-7.9) X10*3/uL Lymphocytes # (Manual) 0.6 (0.6-4.8) X10*3/uL Monocytes # (Manual) 0.7 (0.0-1.2) X10*3/uL Platelet Estimate NORMAL (NORMAL) Plt Morphology Comment NORMAL RBC Morphology NORMAL PT 147.9 H D (10.8-13.0) SEC INR 12.1 H* D (0.9-1.1) APTT 71.5 H* (24.1-38.0) SEC Sodium 143 (135-145) mmol/L Potassium 5.3 H D (3.3-5.1) mmol/l Chloride 111 H (96-108) mmol/L Carbon Dioxide 22 (22-29) mmol/L Anion Gap 15 (12-20) BUN 46 H (9-16) mg/dL Creatinine 2.28 H (0.5-1.4) mg/dL Estim Creat Clear Calc 29.3 Estimated GFR 28 Random Glucose 111 (60-115) mg/dL Calcium 7.7 L (8.4-10.2) mg/dL Total Bilirubin 0.3 (0.0-1.0) mg/dL AST 35 D (5-37) U/L ALT 26 (0-40) U/L Alkaline Phosphatase 70 (39-117) U/L Troponin I High Sens (<3.5-35.0) ng/L Total Protein 5.9 L (6.5-8.0) g/dL Albumin 2.9 L (3.5-5.0) g/dL Urine Color Urine Appearance Urine pH (5.0-8.0) Ur Specific [place] (1.005-1.025) Urine Protein (NEG-TRACE) MG/DL Urine Glucose (UA) (NEG) MG/DL Urine Ketones (NEG) MG/DL Urine Blood (NEG) Urine Nitrite (NEG) Ur Leukocyte Esterase (NEG) Stool Occult Blood (NEG) Blood Type Antibody Screen 08/02/20 08/02/20 08/02/20 Range/Units 21:28 21:28 22:07 WBC (4.8-10.8) X10*3/uL RBC (4.60-5.80) X10*6/uL Hgb (14.0-18.0) g/dl Hct (42-52) % MCV (80-98) fL MCH (27.0-33.0) pg MCHC (31.0-36.0) g/dl RDW (11.0-16.0) % Plt Count (160-400) X10*3/uL MPV (9.4-12.4) fL Immature Gran % (Auto) Neut % (Auto) Lymph % (Auto) Bates % (Auto) Eos % (Auto) Baso % (Auto) Lymph # (Auto) Bates # (Auto) Eos # (Auto) Baso # (Auto) Abs Immat Gran (auto) Absolute Neuts (auto) Absolute Nucleated RBC (0.0-0.012) X10*3/uL Nucleated RBC % (auto) (0.0-0.2) /100WBC Neutrophils % (Manual) (45-73) % Band Neutrophils % (3-5) % Lymphocytes % (Manual) (20-40) % Atypical Lymphs % (Man) (0-6) % Monocytes % (Manual) (2-11) % Basophils % (Manual) (0-1) % Metamyelocytes % % Abs Neuts (Manual) (2.2-7.9) X10*3/uL Lymphocytes # (Manual) (0.6-4.8) X10*3/uL Monocytes # (Manual) (0.0-1.2) X10*3/uL Platelet Estimate (NORMAL) Plt Morphology Comment RBC Morphology PT (10.8-13.0) SEC INR (0.9-1.1) APTT (24.1-38.0) SEC Sodium (135-145) mmol/L Potassium (3.3-5.1) mmol/l Chloride (96-108) mmol/L Carbon Dioxide (22-29) mmol/L Anion Gap (12-20) BUN (9-16) mg/dL Creatinine (0.5-1.4) mg/dL Estim Creat Clear Calc Estimated GFR Random Glucose (60-115) mg/dL Calcium (8.4-10.2) mg/dL Total Bilirubin (0.0-1.0) mg/dL AST (5-37) U/L ALT (0-40) U/L Alkaline Phosphatase (39-117) U/L Troponin I High Sens 22.6 (<3.5-35.0) ng/L Total Protein (6.5-8.0) g/dL Albumin (3.5-5.0) g/dL Urine Color Urine Appearance Urine pH (5.0-8.0) Ur Specific [place] (1.005-1.025) Urine Protein (NEG-TRACE) MG/DL Urine Glucose (UA) (NEG) MG/DL Urine Ketones (NEG) MG/DL Urine Blood (NEG) Urine Nitrite (NEG) Ur Leukocyte Esterase (NEG) Stool Occult Blood NEG (NEG) Blood Type A Positive Antibody Screen NEGATIVE 08/02/20 Range/Units 23:21 WBC (4.8-10.8) X10*3/uL RBC (4.60-5.80) X10*6/uL Hgb (14.0-18.0) g/dl Hct (42-52) % MCV (80-98) fL MCH (27.0-33.0) pg MCHC (31.0-36.0) g/dl RDW (11.0-16.0) % Plt Count (160-400) X10*3/uL MPV (9.4-12.4) fL Immature Gran % (Auto) Neut % (Auto) Lymph % (Auto) Bates % (Auto) Eos % (Auto) Baso % (Auto) Lymph # (Auto) Bates # (Auto) Eos # (Auto) Baso # (Auto) Abs Immat Gran (auto) Absolute Neuts (auto) Absolute Nucleated RBC (0.0-0.012) X10*3/uL Nucleated RBC % (auto) (0.0-0.2) /100WBC Neutrophils % (Manual) (45-73) % Band Neutrophils % (3-5) % Lymphocytes % (Manual) (20-40) % Atypical Lymphs % (Man) (0-6) % Monocytes % (Manual) (2-11) % Basophils % (Manual) (0-1) % Metamyelocytes % % Abs Neuts (Manual) (2.2-7.9) X10*3/uL Lymphocytes # (Manual) (0.6-4.8) X10*3/uL Monocytes # (Manual) (0.0-1.2) X10*3/uL Platelet Estimate (NORMAL) Plt Morphology Comment RBC Morphology PT (10.8-13.0) SEC INR (0.9-1.1) APTT (24.1-38.0) SEC Sodium (135-145) mmol/L Potassium (3.3-5.1) mmol/l Chloride (96-108) mmol/L Carbon Dioxide (22-29) mmol/L Anion Gap (12-20) BUN (9-16) mg/dL Creatinine (0.5-1.4) mg/dL Estim Creat Clear Calc Estimated GFR Random Glucose (60-115) mg/dL Calcium (8.4-10.2) mg/dL Total Bilirubin (0.0-1.0) mg/dL AST (5-37) U/L ALT (0-40) U/L Alkaline Phosphatase (39-117) U/L Troponin I High Sens (<3.5-35.0) ng/L Total Protein (6.5-8.0) g/dL Albumin (3.5-5.0) g/dL Urine Color YELLOW Urine Appearance CLEAR Urine pH 5.5 (5.0-8.0) Ur Specific [place] 1.020 (1.005-1.025) Urine Protein TRACE (NEG-TRACE) MG/DL Urine Glucose (UA) NEG (NEG) MG/DL Urine Ketones NEG (NEG) MG/DL Urine Blood NEG (NEG) Urine Nitrite NEG (NEG) Ur Leukocyte Esterase NEG (NEG) Stool Occult Blood (NEG) Blood Type Antibody Screen ECG Data Interpretation: Sinus bradycardia. Ventricular rate 55. Peer interval 152. QRS 120. QTC 457. Negative STEMI Discharge Plan Discharge Clinical Impression: Elevated INR Patient Disposition: Home, Self-Care Instructions: Elevated INR (ED) Additional Instructions: Return to the ED for any rectal bleeding, vomiting blood, severe abdominal pain, headache, or any other concerning symptoms. Hold patient's warfarin and repeat INR in 24 hours. Follow-up with PCP. Hemoglobin and hematocrit is at baseline. Occluded guaiac stool was negative. Head CT negative for any bleed. Patient hemodynamically stable. Prescriptions: No Action atenolol 50 mg tablet 50 mg PO DAILY Qty: 90 RF: 1 valsartan 80 mg tablet 80 mg PO DAILY Qty: 90 RF: 1 ketorolac drops 1 drp ophthalmic-Right QID RF: 0 diltiazem HCl 180 mg capsule,extended release 24hr 180 mg PO DAILY RF: 0 atorvastatin 20 mg tablet 20 mg PO DAILY RF: 0 warfarin 5 mg tablet 5 mg PO DAILY RF: 0 celecoxib [Celebrex] 200 mg capsule 200 mg PO DAILY RF: 0 furosemide 40 mg tablet 40 mg PO DAILY 90 Days Qty: 90 RF: 1 doxycycline hyclate 100 mg capsule 100 mg PO BID 10 Days Qty: 20 RF: 0 Print Language: Tajik
--- NOTE | 2020-08-02 21:08 | ECG_ITS ---
Test Reason : BRADYCARDIA Blood Pressure : / mmHG Vent. Rate : 055 BPM Atrial Rate : 055 BPM P-R Int : 152 ms QRS Dur : 120 ms QT Int : 478 ms P-R-T Axes : -16 -31 004 degrees QTc Int : 457 ms Sinus bradycardia Left axis deviation Non-specific intra-ventricular conduction delay Nonspecific ST abnormality Abnormal ECG When compared to the previous EKG of 13 jul 2020, no significant change Referred By: Juan Carlos Huntley Electronically Signed By:EDMOND SHELL
[2020-08-02] MEDS: 0.9 % Sodium Chloride 1,000 ML 999 ML IV (21:36)
[2020-08-02 21:38] VITALS: BP 153/57; PULSE 52; RESP 20; O2SAT 92
--- NOTE | 2020-08-02 21:38 | PC.NURSE ---
20 g left lower arm.
[2020-08-02 22:00] VITALS: BP 162/66; PULSE 53; RESP 20; O2SAT 98
[2020-08-02 22:14] LABS: Hematocrit 35.5 % (42-52); Hemoglobin 11.1 g/dl (14.0-18.0); Mean Corpuscular HGB Conc 31.3 g/dl (31.0-36.0); Mean Corpuscular Hemoglobin 29.6 pg (27.0-33.0); Mean Corpuscular Volume 94.7 fL (80-98); Mean Platelet Volume 11.8 fL (9.4-12.4); Platelet Count 155 X10*3/uL (160-400); Red Blood Count 3.75 X10*6/uL (4.60-5.80); Red Cell Distribution Width 14.3 % (11.0-16.0); White Blood Count 4.9 X10*3/uL (4.8-10.8)
[2020-08-02 22:28] LABS: OBS Int Ctl Valid YES; OBS1 NEG (NEG)
[2020-08-02 22:32] LABS: Prothrombin Time 147.9 SEC (10.8-13.0)
[2020-08-02 22:42] LABS: Alanine Aminotransferase 26 U/L (0-40); Albumin Level 2.9 g/dL (3.5-5.0); Alkaline Phosphatase 70 U/L (39-117); Anion Gap 15 (12-20); Aspartate Amino Transferase 35 U/L (5-37); Bilirubin Total 0.3 mg/dL (0.0-1.0); Blood Urea Nitrogen 46 mg/dL (9-16); Calcium 7.7 mg/dL (8.4-10.2); Carbon Dioxide 22 mmol/L (22-29); Chloride 111 mmol/L (96-108); Creatinine Clr Calc Pharmacy 29.3; Estimated Glomerular Filt Rate 28; Glucose Random 111 mg/dL (60-115); Potassium 5.3 mmol/l (3.3-5.1); Sodium 143 mmol/L (135-145); Total Protein 5.9 g/dL (6.5-8.0)
[2020-08-02 22:44] LABS: Troponin-I High Sensitivity 22.6 ng/L (<3.5-35.0)
[2020-08-02 23:00] LABS: INTERNATIONAL NORM RATIO 12.1 (0.9-1.1)
[2020-08-02 23:01] LABS: Partial Thromboplastin Time 71.5 SEC (24.1-38.0)
[2020-08-02 23:26] LABS: Atypical Lymphs Percent Manual 1 % (0-6); Band Neutrophils Percent 3 % (3-5); Basophils Percent Manual 1 % (0-1); Lymphocytes Absolute Manual 0.6 X10*3/uL (0.6-4.8); Lymphocytes Percent Manual 13 % (20-40); Metamyelocytes Percent 1 %; Monocytes Absolute Manual 0.7 X10*3/uL (0.0-1.2); Monocytes Percent Manual 15 % (2-11); Neutrophils Absolute Manual 3.4 X10*3/uL (2.2-7.9); Neutrophils Percent Manual 66 % (45-73)
[2020-08-02 23:27] LABS: Platelet Estimate NORMAL (NORMAL); Platelet Morphology Comment NORMAL; RBC Morphology NORMAL
[2020-08-02 23:32] LABS: Glucose Urine UA NEG (NEG); Leukocyte Esterase Urine NEG (NEG); Nitrite Urine NEG (NEG); PH 5.5 (5.0-8.0); Urine Blood NEG (NEG); Urine Ketones NEG (NEG); Urine Protein TRACE MG/DL (NEG-TRACE)
[2020-08-02 23:35] LABS: Appearance Urine CLEAR; Color Urine YELLOW; UACC Culture Trigger NO
[2020-08-03] VITALS (9 sets, daily range): BP systolic 135–183; BP diastolic 55–73; PULSE 51–66; RESP 15–20; TEMP 36.4–36.6; O2SAT 93–95
--- NOTE | 2020-08-03 00:09 | CT_ITS ---
EXAMINATION: CT HEAD WITHOUT CONTRAST CLINICAL INFORMATION: Mild headache. COMPARISON: CT head 07/13/2020 TECHNIQUE: Contiguous axial imaging was performed from the skull base to vertex without intravenous administration of contrast. Coronal and sagittal reformatted images are performed at CT scanner This CT examination was performed using dose optimization techniques as appropriate, variously including the following: *Automated exposure control *Adjustment of mA and/or kV according to patient size (this includes techniques or standardized protocols for targeted exams where dose is matched to indication/reason for exam; i.e. extremities or head) *Use of iterative reconstruction technique DLP: 749 mGy-cm FINDINGS: There is no evidence of acute intracranial hemorrhage or territorial infarction. No abnormal mass effect or midline shift is seen. Zhao to white matter differentiation is well preserved. No extra-axial fluid collections are identified. There is atrophy with prominence of the ventricles and the sulci and hypodensity of the periventricular white matter due to chronic small vessel ischemic disease. There are vascular calcifications of the internal carotid arteries bilaterally. The osseous structures and soft tissues are normal. The mastoid air cells and visualized portions of the paranasal sinuses are well aerated. CT/CT head/brain wo con IMPRESSION: No acute intracranial pathology.
--- NOTE | 2020-08-03 00:39 | PC.NURSE ---
pt taken to ct of the head.
[2020-08-03] MEDS: Sodium Polystyrene Sulfon/Sorb 15 GM/60 ML ORAL.SUSP 45 GM PO (00:53)
--- NOTE | 2020-08-03 00:55 | PC.NURSE ---
vit k route addressed with provider, not to be given po. provider will address.
[2020-08-03] MEDS: Phytonadione (Vit K1) Oral 10 MG/ML AMPUL 5 MG PO (01:11)
[2020-08-03] MEDS: 0.9 % Sodium Chloride 500 ML IV (02:48)
--- NOTE | 2020-08-03 06:09 | PC.NURSE ---
pt incont of black stool. pt is on iron pills and his stool was quiace negative at onset of shift for the same color stool.
[2020-08-03 06:18] LABS: Troponin-I High Sensitivity 24.6 ng/L (<3.5-35.0)
[2020-08-03 06:19] LABS: Alanine Aminotransferase 25 U/L (0-40); Albumin Level 2.9 g/dL (3.5-5.0); Alkaline Phosphatase 68 U/L (39-117); Anion Gap 15 (12-20); Aspartate Amino Transferase 35 U/L (5-37); Bilirubin Total 0.3 mg/dL (0.0-1.0); Blood Urea Nitrogen 43 mg/dL (9-16); Calcium 7.5 mg/dL (8.4-10.2); Carbon Dioxide 19 mmol/L (22-29); Chloride 117 mmol/L (96-108); Creatinine Clr Calc Pharmacy 30.1; Estimated Glomerular Filt Rate 29; Glucose Random 112 mg/dL (60-115); Potassium 5.2 mmol/l (3.3-5.1); Sodium 146 mmol/L (135-145); Total Protein 5.9 g/dL (6.5-8.0)
[2020-08-03 09:44] LABS: Prothrombin Time 141.6 SEC (10.8-13.0)
[2020-08-03 09:46] LABS: INTERNATIONAL NORM RATIO 11.6 (0.9-1.1)
--- NOTE | 2020-08-03 11:45 | PC.NURSE ---
nurse to nurse given to eugenia (rn) director phone at [place] [phone]
--- NOTE | 2020-08-03 14:02 | PC.NURSE ---
nurse to nurse given again to gomez (rn) at [facility].
--- NOTE | 2020-08-03 14:06 | PC.NURSE ---
pt is eating lunch, aware of plan of care for transfer to [facility].
== END 2020-08-03 14:06 | disposition home or self-care (01) ==
PROVIDERS: Physician Assistant; Emergency Provider Emergency Medicine
DX: R79.1 Abnormal coagulation profile (principal); E11.22 Type 2 diabetes mellitus with diabetic chronic kidney disease; I12.9 Hypertensive chronic kidney disease with stage 1 through stage 4 chronic kidney disease, or unspecified chronic kidney disease; N18.4 Chronic kidney disease, stage 4 (severe); Z86.718 Personal history of other venous thrombosis and embolism; Z79.01 Long term (current) use of anticoagulants
CPT/HCPCS: 36415; 70450; 80053; 81003; 82272; 84484; 85007; 85025; 85027; 85610; 85730; 86850; 86900; 86901; 93005; 96360; 96361; 99285; J3430

== ENCOUNTER → 2020-08-24 10:06 | Outpatient (BNVA) | payer MEDICARE, SELFPAY | PROVIDERS: Visit Provider Surgery Vascular Surgery | DX: I73.9 Peripheral vascular disease, unspecified (principal); I83.12 Varicose veins of left lower extremity with inflammation | CPT/HCPCS: 99202 ==

== ENCOUNTER 2020-09-07 14:04 | Outpatient (REF) | payer OTHER, MEDICARE, SELFPAY ==
--- NOTE | ~2020-09-07 | US_ITS ---
EXAMINATION: NONINVASIVE ASSESSMENT OF THE ARTERIES OF BOTH LOWER EXTREMITIES WITH PVR EXAM AND BILATERAL LOWER EXTREMITY DUPLEX CLINICAL INFORMATION: Peripheral vascular disease/claudication TECHNIQUE: Ankle pulse volume recordings, ankle pressure measurements and ankle brachial indices were obtained of the lower extremity arterial system bilaterally in addition to duplex Doppler techniques with wave form analysis and measurement of velocities in the common femoral, profunda femoral, superficial femoral, popliteal and tibial arteries. The study was performed only at rest. COMPARISON: None FINDINGS: a) AT REST: RIGHT LE. The right ankle-brachial index is: NONDIAGNOSTIC GREATER THAN 200 2. Right ankle pressure: normal. 3. Right ankle PVR waveform: normal. 4. Right direct duplex Doppler findings: There is evidence of diffuse atherosclerotic disease with vessel wall calcification. * Common femoral artery: 189 cm/s, Diastolic flow reversal: No. Biphasic. * Superficial femoral artery (proximal, mid, distal): 120, 71 and 104 cm/s, Diastolic flow reversal: No. Biphasic. * Popliteal artery: 61 cm/s, Diastolic flow reversal: No, biphasic. * Posterior tibial artery: 29 cm/s, Diastolic flow reversal: No. Monophasic. LEFT LE. The left ankle-brachial index is: NONDIAGNOSTIC GREATER THAN 200 2. Left ankle pressure: normal. 3. Left ankle PVR waveform: normal. 4. Left direct duplex Doppler findings: Diffuse atherosclerotic disease. Significant calcified plaque in the left common femoral artery. * Common femoral artery: 172 cm/s, Diastolic flow reversal: Yes * Superficial femoral artery (proximal, mid, distal): 114, 87 and 73 cm/s, Diastolic flow reversal: Yes proximally and distally and now in the mid SFA with biphasic waveform * Popliteal artery: 77 cm/s, Diastolic flow reversal: Yes * Posterior tibial artery: 58 cm/s, Diastolic flow reversal: No. Monophasic. GILMAR Reference: * >0.97-1.25 = normal - no significant arterial disease * 0.75-0.96 = mild peripheral arterial disease * 0.5-0.74 = moderate peripheral arterial disease * <0.50 = severe peripheral arterial disease US/US arterial duplex LE BI IMPRESSION: Diffuse atherosclerotic disease. There is loss of normal triphasic waveform with biphasic flow above the knee bilaterally right greater than left and monophasic flow in the posterior tibial arteries bilaterally. Ankle-brachial indices are nondiagnostic due to elevated pressures.
== END 2020-09-07 14:05 | disposition home or self-care (01) ==
LOC: HO.US 14:04
PROVIDERS: Visit Provider Surgery Vascular Surgery
DX: I65.29 Occlusion and stenosis of unspecified carotid artery (principal); I70.213 Atherosclerosis of native arteries of extremities with intermittent claudication, bilateral legs
CPT/HCPCS: 93923; 93925

== ENCOUNTER 2020-09-16 12:30 | Outpatient (REF) | payer OTHER, SELFPAY ==
--- NOTE | ~2020-09-16 | US_ITS ---
CLINICAL INFORMATION: EXAMINATION: RIGHT and LEFT LOWER EXTREMITY VENOUS ULTRASOUND (Reflux Exam) CLINICAL INDICATION: leg pain and varicose veins. COMPARISON: None. TECHNIQUE: Color flow triplex imaging and compression Doppler was performed to evaluate both the deep and the superficial systems bilaterally. To evaluate the superficial system, the examination was performed in the upright position. Color-flow Doppler ultrasound and compression ultrasound were utilized. In addition, maneuvers were utilized to demonstrate reflux. FINDINGS: 1. DEEP VENOUS ULTRASOUND OF THE RIGHT LOWER EXTREMITY: Respiratory variation, normal compression and augmented flow are noted in the right common femoral vein as well as the right popliteal vein and there is no evidence of deep venous thrombosis at these locations. There is deep venous reflux in the mid femoral vein measuring 1.5 second and popliteal vein measuring 2.6 seconds. There is no evidence of a Ashraf's cyst. 2. SUPERFICIAL ULTRASOUND WITH DOPPLER OF RIGHT LOWER EXTREMITY: The right great saphenous vein at the saphenofemoral junction measures 7 mm, at the proximal thig 6 mm, [id number] 2 mm, at mid magdiel 2 mm and at the ankle measure 3 mm. The right greater saphenous vein in the mid thigh above the knee and at the knee is not visualized posterior ablation. There is no reflux demonstrated in the right great saphenous vein. There is a lateral accessory greater saphenous vein that measures 4 mm and demonstrates 1.7 second reflux. The right small saphenous vein measure 4 mm anshows no reflux. There is a clinical medical assistant in the upper thigh that measures 5 mm and demonstrates 0.8 seconds reflux. There is a clinical medical assistant in the mid calf that measures 2 mm and does not demonstrate reflux. 3. DEEP VENOUS ULTRASOUND OF THE LEFT LOWER EXTREMITY: Respiratory variation, normal compression and augmented flow are noted in the left common femoral vein as well as the left popliteal vein and there is no evidence of deep venous thrombosis at these locations. There is deep venous reflux in the mid femoral vein measuring 1.9 seconds and popliteal vein measuring 3 seconds.. There is no evidence of a Ashraf's cyst. 4. SUPERFICIAL ULTRASOUND WITH DOPPLER OF LEFT LOWER EXTREMITY: Left great saphenous vein at the saphenofemoral junction measure 10 mm, at the mid thig 4 mm, [id number] 2 mm, at mid magdiel 4 mm and at the ankle measure 3 mm. The left greater saphenous vein is not seen above the knee and at the knee postablation. There is no reflux demonstrated in the left great saphenous vein. There is a lateral accessory greater saphenous vein that measures 4 mm and does not demonstrate reflux. The left small saphenous vein measure 3 mm anshows no reflux. There is a clinical medical assistant in the mid calf that measures 4 mm and does not demonstrate reflux. There are varicosities above the knee and in the mid calf measuring 4 and 3 mm that do not demonstrate reflux. US/US venous duplex LE BI IMPRESSION: 1. No evidence of DVT. Bilateral deep venous reflux in the mid femoral vein and popliteal veins.. 2. Post bilateral greater saphenous vein ablation. No greater saphenous vein reflux seen. Reflux in an accessory lateral right greater saphenous vein measuring 1.7 seconds. Reflux in a clinical medical assistant in the upper right thigh.
== END 2020-09-16 12:31 | disposition home or self-care (01) ==
LOC: HO.US 12:30
PROVIDERS: Visit Provider Surgery Vascular Surgery
DX: I83.893 Varicose veins of bilateral lower extremities with other complications (principal)
CPT/HCPCS: 93970

== ENCOUNTER → 2020-10-05 12:45 | Outpatient (BNVA) | payer MEDICARE, SELFPAY | PROVIDERS: Visit Provider Surgery Vascular Surgery | DX: I83.12 Varicose veins of left lower extremity with inflammation (principal); I73.9 Peripheral vascular disease, unspecified | CPT/HCPCS: 99212 ==

== ENCOUNTER → 2020-10-15 08:15 | Outpatient (BNVA) | payer MEDICARE, SELFPAY | PROVIDERS: Visit Provider Surgery Vascular Surgery | DX: I83.12 Varicose veins of left lower extremity with inflammation (principal) | CPT/HCPCS: 36482 ==

== ENCOUNTER 2020-10-18 11:30 | Outpatient (REF) | payer OTHER, MEDICARE, SELFPAY ==
--- NOTE | ~2020-10-18 | US_ITS ---
EXAMINATION: US VENOUS ULTRASOUND WITH DOPPLER LOWER EXTREMITY, LEFT CLINICAL INFORMATION: Left leg pain status post venoseal. Rule out DVT. COMPARISON: 09/16/2020 TECHNIQUE: Ultrasound of the deep veins is performed from the hip to the calf with compression sonography and color and pulse Doppler assessment. Spectral analysis with color-flow imaging is performed. FINDINGS: There is normal venous compression and respiratory variation and augmented flow. The visualized common femoral vein, superficial femoral vein, profunda femoral vein, popliteal vein, and the trifurcation region shows no evidence of deep venous thrombosis. The peroneal veins are not well seen. There is no significant popliteal fossa cyst. Of note, thrombus of the greater saphenous vein associated with the venoseal terminates 6.2 cm from the junction with the femoral vein. If the patient's symptoms persist, followup ultrasound in 5 days 7 days might be of value to exclude proximal propagation from a non-visualized calf vein. US/US venous duplex LE LT IMPRESSION: No DVT demonstrated in the left lower extremity.
== END 2020-10-18 11:31 | disposition home or self-care (01) ==
LOC: HO.US 11:30
PROVIDERS: Visit Provider Surgery Vascular Surgery
DX: M79.605 Pain in left leg (principal)
CPT/HCPCS: 93971

== ENCOUNTER → 2020-10-29 10:30 | Outpatient (BNVA) | payer MEDICARE, SELFPAY | PROVIDERS: Visit Provider Surgery Vascular Surgery | DX: I83.12 Varicose veins of left lower extremity with inflammation (principal) | CPT/HCPCS: 99212 ==

== ENCOUNTER → 2021-01-27 09:17 | Outpatient (BNVA) | payer MEDICARE, SELFPAY | PROVIDERS: PCP Internal Medicine; Visit Provider Surgery Vascular Surgery | DX: L97.529 Non-pressure chronic ulcer of other part of left foot with unspecified severity (principal) | CPT/HCPCS: 99212 ==

== ENCOUNTER → 2021-04-28 09:59 | Outpatient (BNVA) | payer MEDICARE, SELFPAY | PROVIDERS: PCP Internal Medicine; Visit Provider Surgery Vascular Surgery | DX: I83.12 Varicose veins of left lower extremity with inflammation (principal) | CPT/HCPCS: 99212 ==

== ENCOUNTER 2022-01-03 07:37 | Outpatient (REF) | payer MEDICARE, SELFPAY | END 2022-01-03 07:38 | disposition home or self-care (01) | LOC: HO.HOSX 07:37 | PROVIDERS: Visit Provider Physician Assistant | DX: M25.562 Pain in left knee (principal); M17.12 Unilateral primary osteoarthritis, left knee | CPT/HCPCS: 20610; 99202; J1020 ==

== ENCOUNTER 2022-07-24 23:27 | Inpatient (IN) | payer MEDICARE, SELFPAY ==
--- NOTE | ~2022-07-24 | XR_ITS ---
EXAMINATION: XR CHEST CLINICAL INFORMATION: Short of breath COMPARISON: 07/13/2020 TECHNIQUE: Frontal view of the chest was obtained. FINDINGS: Cardiac leads overlie the chest. Lung volumes are low. Mild bronchial wall thickening. No dense consolidation. No edema or effusion. No pneumothorax. Cardiomediastinal silhouette remains prominent. XR/XR chest 1V IMPRESSION: No dense consolidation. Bronchial wall thickening can be seen with a small airways process such as asthma or atypical/viral infection.
--- NOTE | ~2022-07-24 | NM_ITS ---
EXAMINATION: PULMONARY PERFUSION STUDY CLINICAL INFORMATION: Acute respiratory failure with hypoxia, AK I, chronic kidney disease, DVT, congestive heart failure. COMPARISON: The report of a previous lung scan dated 03/18/2006 is available and indicate at high probability of pulmonary embolism, but the images from that study are not available for comparison. No prior lung scan is available for comparison. A radiograph of the chest and CT of the chest both dated 07/25/2022, the same date as this lung scan are available for comparison. TECHNIQUE: Following the intravenous administration of 4.0 mCi Tc-99m MAA an 8-view perfusion study was performed using a dual detector gamma scintillation camera. No ventilation images were obtained. FINDINGS: Perfusion images: There is diffusely decreased activity in the entire left lung and in the right upper lobe. There is considerable heterogeneity in the left lung, but no segmental perfusion defects are present. A peripherally based wedge-shaped perfusion defect is present laterally in the anterior segment of the left upper lobe and patchy nonsegmental perfusion abnormalities are present in the left lower lobe without a focal anatomic defect. The contemporaneous CT scan scan shows no consolidation but mild bronchial wall thickening is present diffusely. There is no focal left upper lobe abnormality that corresponds to the subsegmental perfusion defect at this site. NM/NM pul perfusion IMPRESSION: Intermediate probability of pulmonary embolism. In the absence of a ventilation scan and a history of prior pulmonary emboli, a single subsegmental defect superimposed on other diffuse abnormalities in the left lung and right upper lobe are nonspecific and could be due either to acute or chronic pulmonary embolism or early pneumonitis or obstructive airway disease.
--- NOTE | ~2022-07-24 | CT_ITS ---
EXAMINATION: CT CHEST WITHOUT CONTRAST CLINICAL INFORMATION: Shortness of breath COMPARISON: Radiograph from today. TECHNIQUE: Multidetector volumetric CT imaging of the chest was done. Axial MIP volume rendering provided. Sagittal and coronal reformatted images were obtained. This CT examination was performed using dose optimization techniques as appropriate, variously including the following: *Automated exposure control *Adjustment of mA and/or kV according to patient size (this includes techniques or standardized protocols for targeted exams where dose is matched to indication/reason for exam; i.e. extremities or head) *Use of iterative reconstruction technique DLP: 578 mGy-cm FINDINGS: LUNGS: The central airways are patent. Mild bronchial wall thickening. Motion on the study somewhat limits evaluation of the lung parenchyma. No dense consolidation. No pneumothorax. No pulmonary nodules are identified. MEDIASTINUM: Normal heart size. Coronary artery calcifications. Aortic valvular hardware. No pericardial effusion. No mediastinal lymphadenopathy. CORONARY ARTERY CALCIFICATION: Present. Mild . PLEURA: There is no pleural effusion. No pleural mass or thickening. AXILLA: No lymphadenopathy. UPPER ABDOMEN: Partially visualized cholelithiasis. No wall thickening or inflammation. OSSEOUS STRUCTURES: No acute or suspicious osseous abnormality. Mild degenerative changes throughout the spine. DISH. Chronic left posterior rib fractures noted. CT/CT chest wo IV con IMPRESSION: Bronchial wall thickening can be seen with a small airways process such as asthma or atypical/viral infection. No consolidation. Fleischner guidelines were followed.
--- NOTE | ~2022-07-24 | XR_ITS ---
EXAMINATION: XR CHEST CLINICAL INFORMATION: Shortness of breath/crackles COMPARISON: Chest x-ray 07/25/2022, chest CT 07/25/2022 TECHNIQUE: Frontal view of the chest was obtained. FINDINGS: Redemonstrated patchy/streaky opacities in the left lung base consistent with subsegmental atelectasis and/or scarring. No appreciable pleural effusion. Right lung appears clear. No new focal airspace opacity. No pneumothorax. No change in the cardiomediastinal silhouette. No findings evidence of pulmonary edema. No acute osseous injury identified.. XR/XR chest 1V IMPRESSION: 1. Redemonstrated patchy/streaky opacities in the left lung base, likely subsegmental atelectasis or scarring. 2. No new focal airspace opacity or effusions.
--- NOTE | 2022-07-24 23:35 | ECG_ITS ---
Test Reason : sob Blood Pressure : / mmHG Vent. Rate : 063 BPM Atrial Rate : 063 BPM P-R Int : 154 ms QRS Dur : 136 ms QT Int : 454 ms P-R-T Axes : 005 -33 064 degrees QTc Int : 464 ms Normal sinus rhythm Left axis deviation Non-specific intra-ventricular conduction block Minimal voltage criteria for LVH, may be normal variant ( [place] product ) Abnormal ECG When compared to the previous EKG of No significant changes seen Referred By: Anya Resendiz Electronically Signed By:Steven Leo
[2022-07-24 23:38] VITALS: BP 137/43; BP 190/90; PULSE 64; RESP 23; O2SAT 96; BMI 19.8
--- NOTE | 2022-07-24 23:45 | ED.SOB ---
HPI - SOB/Dyspnea General Chief Complaint: Upper Respiratory Symptoms Stated Complaint: difficulty breathing Time Seen by Provider: 07/24/22 23:31 Source: patient, EMS and old records reviewed Mode of arrival: EMS Limitations: no limitations History of Present Illness HPI Narrative: 82-year-old male from group home came in for evaluation of shortness of breath. Symptoms started since last night with coughing and shortness of breath, patient was satting at the group home 80% was put on CPAP by EMS and was given half an inch of nitro to the left chest wall and patient was transported to the ED on arrival to the ED patient has mild respiratory distress according to EMS patient has improved from his initial presentation with the CPAP, patient has MOLST form of DNR/DNI/no CPAP invasive procedure. We will wean the patient off the CPAP while he is in the ED. No fever, no chills, no sick contact as far the patient know. Related Data Home Medications Medication Instructions Recorded Confirmed atorvastatin 20 mg tablet 20 mg PO DAILY 04/14/20 07/13/20 celecoxib 200 mg capsule (Celebrex) 200 mg PO DAILY 04/14/20 07/13/20 diltiazem HCl 180 mg 180 mg PO DAILY 04/14/20 07/13/20 capsule,extended release 24 hr warfarin 5 mg tablet 5 mg PO DAILY 04/14/20 07/13/20 ketorolac 1 drp ophthalmic-Right QID 07/18/20 07/18/20 apixaban 5 mg tablet (Eliquis) 5 mg PO BID 04/28/21 Previous Rx's Medication Instructions Recorded doxycycline hyclate 100 mg capsule 100 mg PO BID 10 days #20 caps 07/12/20 furosemide 40 mg tablet 40 mg PO DAILY edema 90 days #90 08/29/20 tabs atenolol 50 mg tablet 50 mg PO DAILY #90 tabs 11/27/20 valsartan 80 mg tablet 80 mg PO DAILY #90 tabs 11/27/20 Allergies Allergy/AdvReac Type Severity Reaction Status Date / Time Heparin Analogues Allergy Unknown BP BOTTOMS Verified 01/03/22 10:03 [HEPARIN ANALOGUES] OUT PER heparin Allergy Unknown 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) Review of Systems Review of Systems: All other systems are reviewed and are negative Constitutional: Reports as per HPI and Reports no additional constitutional complaints Eyes: Reports as per HPI and Reports no additional eye complaints Reports system reviewed and no additional complaints, except as documented Cardiovascular: Reports as per HPI and Reports no additional cardiovascular complaints Respiratory: Reports as per HPI and Reports no additional respiratory complaints Gastrointestinal: Reports as per HPI and Reports no additional gastrointestinal complaints Genitourinary: Reports no additional female genitourinary complaints Musculoskeletal: Reports no additional musculoskeletal complaints Skin/Breast: Reports system reviewed and no additional complaints, except as docu Psychiatric: Reports no additional psychiatric complaints Endocrine: Reports no additional endocrine complaints Hematologic/Lymphatic: Reports no additional hematologic/lymphatic complaints Allergic/Immunologic: Reports no additional allergic/immunologic complaints Reports system reviewed and no additional complaints, except as documented and Reports Abnormal speech present [facility] Past Medical History Medical History Bilateral lower leg cellulitis Cataract, left eye Chronic venous stasis dermatitis of both lower extremities Coronary artery disease Deep vein thrombosis (DVT) of popliteal vein of left lower extremity Diabetes mellitus with stage 4 chronic kidney disease Essential hypertension Hyperlipidemia Lumbar degenerative disc disease Lymphedema of both lower extremities Obesity (BMI 30-39.9) Onychomycosis Osteoarthritis of knees, bilateral Stage 4 chronic kidney disease Vitamin D deficiency Surgical History Left carotid artery stenosis No significant past surgical history Family History Family History Father No problems noted. Mother No problems noted. Social History Social History Household Members: None Housing: House Do you presently have visiting nurse or other home services: No Alcohol intake: never Second Hand Smoke Exposure: No Advance Directives: Yes Advance Directives on File: Yes Advance Directives Date on File: 07/20/20 service: No Current occupational status: retired Physical Exam Vital Signs: Vital Signs: Last Vital Signs Temp 98.5 F 07/25/22 00:27 Pulse 60 07/25/22 02:39 Resp 19 07/25/22 02:39 BP 155/73 H 07/25/22 02:39 Pulse Ox 94 07/25/22 02:39 O2 Del Method 07/25/22 02:39 O2 Flow Rate 4 07/25/22 02:39 Oxygen Flow Rate 4 07/25/22 01:17 BMI result Body Mass Index 19.8 Vital signs have been reviewed as appeared to be correct. Blood pressure normal. Heart rate normal. Respiration rate normal. Temperature normal. Oxygen saturation normal. Appearance: Alert. Oriented X3. No acute distress. Head: Normal external exam. Normocephalic. Atraumatic. No [place] signs noted. No raccoon eyes noted Eyes: PERRLA. EOMI. Conjunctiva and sclera normal. Eyelids normal. ENT: TM's Normal. Pharynx normal. Uvula midline. Moist mucous membranes. No trismus noted. No drooling noted. No muffled voice noted. Neck: Normal inspection. Neck supple. FROM. No adenopathy. Thyroid Normal. No meningeal signs. No neck mass noted. CVS: Normal heart rate and rhythm. Heart sound normal. No murmurs noted. Pulses normal throughout. Respiratory: No respiratory distress. Painless inspiration. Breath sounds normal. No wheezes/rales/rhonchi noted. Chest nontender. No accessory muscle usage noted or decreased air movement noted. Abdomen: Soft and nontender. Bowel sounds normal in all 4 quadrants. No distention noted. No organomegaly noted. No visible injury noted. Back: No CVA tenderness. Full range of motion noted. Skin: Skin warm and dry. Normal skin color. Normal skin turgor. No rashes/lesions/lacerations noted. Extremities: No lower extremity edema. Extremities exhibit normal range of motion. Extremities nontender. Neuro: Oriented X 3. Cranial nerve exam: II-XII are grossly intact No motor deficit. No sensory deficit. Reflexes normal. Course Course Course Narrative: 82-year-old male presented with coughing and shortness of breath for 2 days at the group home, no sick contact, no known history of COPD presented with initial hypoxia that improved after using his CPAP and supplemental oxygen. Patient is on Eliquis for history of DVT with a minimal abnormal elevation of D-dimer patient should be fully anticoagulated with Eliquis CT angio of the chest is not an option due to chronic renal failure and low suspicion of PE discussed with hospitalist to get inpatient V/Q scan. However PE is least likely differential diagnoses. Patient improved with bronchodilator and Solu-Medrol and magnesium continue with the current regimen and admit the patient. Medications Administered Discontinued Medications Generic Name Dose Route Start Last Admin Trade Name Randolph PRN Reason Stop Dose Admin Albuterol Sulfate 2.5 mg 07/24/22 23:35 07/24/22 23:50 Albuterol Sulfate (0.083%) 2.5 Mg/3 Ml Vial.Neb INHALE 07/24/22 23:36 2.5 mg ONCE ONE Administration Albuterol Sulfate 2.5 mg/ 5 mg 07/24/22 23:35 07/24/22 23:50 Albuterol Sulfate 2.5 mg INHALE 07/24/22 23:36 5 mg ONCE ONE Administration Furosemide 20 mg 07/24/22 23:51 07/25/22 00:08 Furosemide 20 Mg/2 Ml Vial IVPUSH 07/24/22 23:52 20 mg ONCE ONE Administration Protocol Magnesium Sulfate 2 gm in 50 mls @ 25 mls/hr 07/24/22 23:37 07/25/22 01:53 Magnesium Sulfate/H2o IV 07/25/22 01:36 Infused ONCE ONE Infusion Ceftriaxone Sodium 1 gm/ 50 mls @ 100 mls/hr 07/24/22 23:37 07/25/22 01:40 Sodium Chloride IV 07/25/22 00:06 Infused ONCE ONE Infusion Methylprednisolone Sodium Succinate 125 mg 07/24/22 23:37 07/24/22 23:53 Methylprednisolone Sod Succ 125 Mg/2 Ml Vial IVPUSH 07/24/22 23:38 125 mg ONCE ONE Administration Medical Decision Making Differential Diagnosis Differential Diagnoses: The differential diagnosis associated with the presentation includes (Bronchitis, pneumonia, undiagnosed COPD, pulmonary embolism, viral bronchitis.) Admission/Observation Consideration of admission/observation: Escalation of care including admission/observation considered Consult Healthcare Provider Management of the patient was discussed with: Hospitalist Lab Data MDM Lab Attestation statement: I reviewed the patient's lab results. 07/24/22 23:41 Labs: Lab Results 07/24/22 07/24/22 07/24/22 Range/Units 23:40 23:41 23:41 WBC 11.1 H (4.8-10.8) X10*3/uL RBC 3.94 L (4.60-5.80) X10*6/uL Hgb 12.3 L (14.0-18.0) g/dl Hct 38.3 L (42.0-52.0) % MCV 97.2 (80.0-98.0) fL MCH 31.2 (27.0-33.0) pg MCHC 32.1 (31.0-36.0) g/dl RDW 13.8 (11.0-16.0) % Plt Count 160 (160-400) X10*3/uL MPV 11.1 (9.4-12.4) fL Immature Gran % (Auto) 0.5 H (0.0-0.4) % Neut % (Auto) 78.2 H (45-73) % Lymph % (Auto) 7.9 L (20-40) % [place] % (Auto) 9.1 (2-11) % Eos % (Auto) 3.9 (0-4) % Baso % (Auto) 0.4 (0-2) % Lymph # (Auto) 0.9 L (1.2-4.9) X10*3/uL [place] # (Auto) 1.0 (0.1-1.2) X10*3/uL Eos # (Auto) 0.4 (0.0-0.4) X10*3/uL Baso # (Auto) 0.0 (0.0-0.2) X10*3/uL Abs Immat Gran (auto) 0.06 H (0.00-0.03) X10*3/uL Absolute Neuts (auto) 8.7 H (2.0-8.3) x10*3/uL Absolute Nucleated RBC 0.000 (0.0-0.012) X10*3/uL Nucleated RBC % (auto) 0.0 (0.0-0.2) /100WBC D-Dimer High Sensitivty NG/ML Sodium 138 (135-145) mmol/L Potassium 5.3 H (3.3-5.1) mmol/L Chloride 104 (96-108) mmol/L Carbon Dioxide 23 (22-29) mmol/L Anion Gap 16 (12-20) BUN 48 H (9-16) mg/dL Creatinine 2.76 H (0.5-1.4) mg/dL Estim Creat Clear Calc 16.8 Estimated GFR 22 Random Glucose 120 H (60-115) mg/dL Lactic Acid (0.5-2.0) mmol/L Calcium 8.8 D (8.4-10.2) mg/dL Total Bilirubin 0.6 (0.0-1.0) mg/dL Direct Bilirubin 0.2 (0.0-0.5) mg/dL AST 11 D (5-37) U/L ALT < 6 (0-40) U/L Alkaline Phosphatase 115 D (39-117) U/L Troponin I High Sens (<3.5-35.0) ng/L B-Natriuretic Peptide (<100) pg/mL Total Protein 7.1 D (6.5-8.0) g/dL Albumin 4.2 D (3.5-5.0) g/dL Lipase 12 (8-78) U/L Influenza Type A (PCR) NEGATIVE (Negative) Influenza Type B (PCR) NEGATIVE (Negative) RSV RNA Qual (PCR) NEGATIVE (Negative) SARS-CoV-2 RNA (RT-PCR) NEGATIVE (Negative) 07/24/22 07/24/22 07/24/22 Range/Units 23:41 23:41 23:41 WBC (4.8-10.8) X10*3/uL RBC (4.60-5.80) X10*6/uL Hgb (14.0-18.0) g/dl Hct (42.0-52.0) % MCV (80.0-98.0) fL MCH (27.0-33.0) pg MCHC (31.0-36.0) g/dl RDW (11.0-16.0) % Plt Count (160-400) X10*3/uL MPV (9.4-12.4) fL Immature Gran % (Auto) (0.0-0.4) % Neut % (Auto) (45-73) % Lymph % (Auto) (20-40) % [place] % (Auto) (2-11) % Eos % (Auto) (0-4) % Baso % (Auto) (0-2) % Lymph # (Auto) (1.2-4.9) X10*3/uL [place] # (Auto) (0.1-1.2) X10*3/uL Eos # (Auto) (0.0-0.4) X10*3/uL Baso # (Auto) (0.0-0.2) X10*3/uL Abs Immat Gran (auto) (0.00-0.03) X10*3/uL Absolute Neuts (auto) (2.0-8.3) x10*3/uL Absolute Nucleated RBC (0.0-0.012) X10*3/uL Nucleated RBC % (auto) (0.0-0.2) /100WBC D-Dimer High Sensitivty NG/ML Sodium (135-145) mmol/L Potassium (3.3-5.1) mmol/L Chloride (96-108) mmol/L Carbon Dioxide (22-29) mmol/L Anion Gap (12-20) BUN (9-16) mg/dL Creatinine (0.5-1.4) mg/dL Estim Creat Clear Calc Estimated GFR Random Glucose (60-115) mg/dL Lactic Acid 1.1 (0.5-2.0) mmol/L Calcium (8.4-10.2) mg/dL Total Bilirubin (0.0-1.0) mg/dL Direct Bilirubin (0.0-0.5) mg/dL AST (5-37) U/L ALT (0-40) U/L Alkaline Phosphatase (39-117) U/L Troponin I High Sens 13.5 (<3.5-35.0) ng/L B-Natriuretic Peptide 210 H (<100) pg/mL Total Protein (6.5-8.0) g/dL Albumin (3.5-5.0) g/dL Lipase (8-78) U/L Influenza Type A (PCR) (Negative) Influenza Type B (PCR) (Negative) RSV RNA Qual (PCR) (Negative) SARS-CoV-2 RNA (RT-PCR) (Negative) 07/25/22 Range/Units 01:55 WBC (4.8-10.8) X10*3/uL RBC (4.60-5.80) X10*6/uL Hgb (14.0-18.0) g/dl Hct (42.0-52.0) % MCV (80.0-98.0) fL MCH (27.0-33.0) pg MCHC (31.0-36.0) g/dl RDW (11.0-16.0) % Plt Count (160-400) X10*3/uL MPV (9.4-12.4) fL Immature Gran % (Auto) (0.0-0.4) % Neut % (Auto) (45-73) % Lymph % (Auto) (20-40) % [place] % (Auto) (2-11) % Eos % (Auto) (0-4) % Baso % (Auto) (0-2) % Lymph # (Auto) (1.2-4.9) X10*3/uL [place] # (Auto) (0.1-1.2) X10*3/uL Eos # (Auto) (0.0-0.4) X10*3/uL Baso # (Auto) (0.0-0.2) X10*3/uL Abs Immat Gran (auto) (0.00-0.03) X10*3/uL Absolute Neuts (auto) (2.0-8.3) x10*3/uL Absolute Nucleated RBC (0.0-0.012) X10*3/uL Nucleated RBC % (auto) (0.0-0.2) /100WBC D-Dimer High Sensitivty 268 NG/ML Sodium (135-145) mmol/L Potassium (3.3-5.1) mmol/L Chloride (96-108) mmol/L Carbon Dioxide (22-29) mmol/L Anion Gap (12-20) BUN (9-16) mg/dL Creatinine (0.5-1.4) mg/dL Estim Creat Clear Calc Estimated GFR Random Glucose (60-115) mg/dL Lactic Acid (0.5-2.0) mmol/L Calcium (8.4-10.2) mg/dL Total Bilirubin (0.0-1.0) mg/dL Direct Bilirubin (0.0-0.5) mg/dL AST (5-37) U/L ALT (0-40) U/L Alkaline Phosphatase (39-117) U/L Troponin I High Sens (<3.5-35.0) ng/L B-Natriuretic Peptide (<100) pg/mL Total Protein (6.5-8.0) g/dL Albumin (3.5-5.0) g/dL Lipase (8-78) U/L Influenza Type A (PCR) (Negative) Influenza Type B (PCR) (Negative) RSV RNA Qual (PCR) (Negative) SARS-CoV-2 RNA (RT-PCR) (Negative) Independent Interpretation I performed an independent interpretation of an: Plain X-Ray (No acute intrathoracic pathology.) and CT Scan (Chest without IV contrast:Bronchial wall thickening can be seen with a small airways process such as asthma or atypical/viral infection. No consolidation.) Radiology Impression Discussion of test interpretation with radiology: I have reviewed the radiologist's reading. Discharge Plan Discharge Clinical Impression: Acute bronchitis with wheezing, Acute dyspnea, Hypoxia Patient Disposition: Admitted As Inpatient
[2022-07-24 23:50] VITALS: PULSE 63; RESP 22; O2SAT 95
[2022-07-24] MEDS: Albuterol Sulfate (0.083%) 2.5 MG/3 ML VIAL.NEB INHALE (23:50)
[2022-07-24] MEDS: Albuterol Sulfate 2.5 MG, Albuterol Sulfate (0.083%) 2.5 MG 5 MG INHALE (23:50)
[2022-07-24 23:52] VITALS: PULSE 62; RESP 23; O2SAT 95
[2022-07-24] MEDS: methylPREDNISolone Sod Succ 125 MG/2 ML VIAL IVPUSH (23:53)
[2022-07-24] MEDS: Magnesium Sulfate/H2O 2 GM/50 ML PIGGYBACK IV (23:53)
[2022-07-24 23:55] LABS: MANUAL DIFF FLAG NO
[2022-07-24 23:56] LABS: Basophils Percent Auto 0.4 % (0-2); Eosinophils Absolute Auto 0.4 X10*3/uL (0.0-0.4); Eosinophils Percent Auto 3.9 % (0-4); Hematocrit 38.3 % (42.0-52.0); Hemoglobin 12.3 g/dl (14.0-18.0); Imm Gran Abs Auto 0.06 X10*3/uL (0.00-0.03); Imm Gran Pct Auto 0.5 % (0.0-0.4); Lymphocytes Absolute Auto 0.9 X10*3/uL (1.2-4.9); Lymphocytes Percent Auto 7.9 % (20-40); Mean Corpuscular HGB Conc 32.1 g/dl (31.0-36.0); Mean Corpuscular Hemoglobin 31.2 pg (27.0-33.0); Mean Corpuscular Volume 97.2 fL (80.0-98.0); Mean Platelet Volume 11.1 fL (9.4-12.4); Monocytes Percent Auto 9.1 % (2-11); Neutrophils Absolute Auto 8.7 x10*3/uL (2.0-8.3); Neutrophils Percent Auto 78.2 % (45-73); Platelet Count 160 X10*3/uL (160-400); Red Blood Count 3.94 X10*6/uL (4.60-5.80); Red Cell Distribution Width 13.8 % (11.0-16.0); White Blood Count 11.1 X10*3/uL (4.8-10.8)
[2022-07-25] VITALS (16 sets, daily range): BP systolic 142–193; BP diastolic 62–81; PULSE 55–66; RESP 15–24; TEMP 35.9–36.9; O2SAT 93–97
[2022-07-25 00:07] LABS: Lactic Acid 1.1 mmol/L (0.5-2.0)
[2022-07-25] MEDS: Furosemide 20 MG/2 ML VIAL IVPUSH (00:08)
[2022-07-25 00:13] LABS: Alanine Aminotransferase < 6 U/L (0-40); Albumin Level 4.2 g/dL (3.5-5.0); Alkaline Phosphatase 115 U/L (39-117); Anion Gap 16 (12-20); Aspartate Amino Transferase 11 U/L (5-37); Bilirubin Direct 0.2 mg/dL (0.0-0.5); Bilirubin Total 0.6 mg/dL (0.0-1.0); Blood Urea Nitrogen 48 mg/dL (9-16); Calcium 8.8 mg/dL (8.4-10.2); Carbon Dioxide 23 mmol/L (22-29); Chloride 104 mmol/L (96-108); Creatinine Clr Calc Pharmacy 16.8; Estimated Glomerular Filt Rate 22; Glucose Random 120 mg/dL (60-115); Lipase 12 U/L (8-78); Potassium 5.3 mmol/L (3.3-5.1); Sodium 138 mmol/L (135-145); Total Protein 7.1 g/dL (6.5-8.0)
[2022-07-25 00:19] LABS: Troponin-I High Sensitivity 13.5 ng/L (<3.5-35.0)
[2022-07-25 00:20] LABS: B Type Natriuretic Peptide 210 pg/mL (<100)
[2022-07-25 00:33] LABS: Influenza A PCR NEGATIVE (Negative); Influenza B PCR NEGATIVE (Negative); Resp Syncy Virus RNA Qual PCR NEGATIVE (Negative); SARS COV2 PCR INHOUSE NEGATIVE (Negative)
[2022-07-25] MEDS: cefTRIAXone sodium 1 GM in 0.9 % Sodium Chloride 50 ML IV (01:10)
--- NOTE | 2022-07-25 01:31 | PC.NURSE ---
Patient arrived to ED in a stretcher bed on CPAP. Dr. Resendiz, ED provider, RT, this RN, all source intelligence technician at bed side. 20 G IV line established in R AC, labs raymundo and sent to the lab. Patient placed on BIPAP by RT, saturating 94-97%. Nebulizer treatment administered by RT. Patient medicated per SEP. RT re assessed pt at 12:30 am, BIPAP d/shun. Patient placed on O2 at 4 LP NC. Patient continues to maintain O2 Sat 92-95% on O2 via NC. VSS. Dr. Olivera hospitalist assessed patient, plan for a patient to have chest CT scan w/o contrast.
--- OUTSIDE RECORDS SUMMARY | 2022-07-25 01:46 | XMS_ITS ---
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 [id number] [place] artery of both lower extremities, with unspecified presence of clinical manifestation ALLERGIES Substance Reaction Event Type Date Status Heparin Unknown Drug Allergy Jun, Active ENCOUNTERS Encounter Location Date Diagnosis [facility] [address], [place] [address] Jun, Ath erosclerosis of [place], [place] artery of both lower [id number] extremities, wit h unspecified pres ence of clinical manifes tation I70.203 ; Tinea unguium B35.1 ; Pain in right toe(s) M79.674 ; Pain in left toe(s) M79. 675 ; Other hammer toe(s) (a cquired), right foot M20.4 1 and Other hammer toe(s) (a cquired), left foot M20.42 IMMUNIZATIONS No Known Immunizations SOCIAL HISTORY Qualifiers Date Never Smoker REASON FOR REFERRAL Reason Consult Notes Referring Provider First Name Alex Referring Provider Last Name Filipe Referring Provider Specialty Podiatry Referring Provider email [email or web address] Referred Provider Franklin Lizarraga FUNCTIONAL STATUS PLAN OF CARE Activity Details Referral Consult Notes, Franklin payton Future/Pending Procedure [id number] NAIL, 6 OR MOR E Future/Pending Procedure [id number] SKIN LESIONS, 2 T O 4 VITAL SIGNS Height 6 ft in 2020-06-18 Weight 248 lbs 2020-06-18 BMI 33.63 kg/m2 2020-06-18 Temperature 97.0 degrees Fahrenheit 2020-06-18 MEDICATIONS Medication Instructions Dosage Frequency Start End Duration Statu s Date Date Furosemide 20 MG Orally Once a 1 tablet 24h Active day dilTIAZem HCl ER Orally Once a 1 capsule 24h 30 day( s) Active Beads 180 MG day Valsartan 80 MG Orally Once a 1 tablet 24h 30 day(s) Active day Atenolol 50 MG Orally Once a 1 tablet 24h 30 day(s) Active day Warfarin Sodium Orally Once a 1 tablet 24h A ctive 5 MG day Atorvastatin Orally Once a 1 tablet 24h 30 day(s) Ac tive Calcium 20 MG day PROCEDURES Procedure Date Ordered Result Body Site TRIM SKIN LESIONS, 2 TO 4 Jun 18, 2020 DEBRIDE NAIL, 6 OR MORE Jun 18, 2020 RESULTS No Results REASON FOR VISIT Insurance Providers [facility] Member Patient Patient Patient Patient Patient Subscriber Subscriber Subscriber Group Insurance Plan Plan Plan Plan ID Relationship Address Phone Name Date of ID Name Date of No Type Insurance Insurance Insurance Coverage to Subscriber Address Phone Name Dates Medicare National [id number] Medicare self Joce [id number] Govt [employer] [address] [employer] [address] [place] [address] [employer] [phone] [employer] self Joce 1 [id number] Shield [id number] [employer] [address] [facility] [address] [facility] [phone] [employer] self Joce 1 [id number] All Others [id number] [employer] [address] [facility] [address] MEDICAL (GENERAL) HISTORY Type Description Date Medical History Cataracts Medical History Dermatitis Medical History Coronary artery disease Medical History DVT, thrombophlebitis Medical History Diabetes mellitus with renal complicatio ns Medical History Hypertension Medical History Hyperlipidemia Medical History Lumbar disc disease Medical History osteoarthritis Medical History Chronic Kidney Disease, Stage 4 Medical History Vitamin D deficiency Medical History Poor circulation Surgical History carotid artery Surgical History cataract surgery
--- NOTE | 2022-07-25 02:04 | MHC.EDTECH ---
pt transferred into hospital bed, resting comfortably at this time.
[2022-07-25 02:07] LABS: D Dimer High Sensitivity 268 NG/ML
--- NOTE | 2022-07-25 04:16 | PC.NURSE ---
BP elevated 181/76, P 61, RR 18, O2 Sat 96% on O2 at [address] Resendiz notified, no new orders at this time.
[2022-07-25] MEDS: guaiFEN/Codeine SF 200/20/10ML 10 ML LIQUID PO (04:31)
[2022-07-25] MEDS: Albuterol Sulfate 2.5 MG, Albuterol Sulfate (0.083%) 2.5 MG 5 MG INHALE (04:36)
[2022-07-25] MEDS: Azithromycin 500 MG TABLET PO (06:07)
--- NOTE | 2022-07-25 06:25 | PM.IMHP ---
History of Present Illness Date of Service: 07/25/22 Chief Complaint: shortness of breath 82-year-old male with past medical history of CAD, diabetes, history of DVT, HTN, HLD, CKD stage 4, chronic venous stasis dermatitis, presents to the hospital with complaints of shortness of breath. Patient reports increased cough and sputum production, symptoms started yesterday. He has had difficulty catching his breath with minimal movement. [facility] a [facility] for the past 2 years. Denies any fever, no chills, denies any chest pain, no abdominal pain nausea or vomiting, no diarrhea constipation, no urinary symptoms. Reports chronic lower extremity edema with no changes. On initial arrival to the ED patient was in respiratory distress with tachypnea, patient was found to be in the 80s, placed on BiPAP with improvement in his symptoms. Currently on 4 L of oxygen satting 93-96%. Otherwise hemodynamically stable at this point. Labs are significant for WBC count of 11.1, hemoglobin of 12.3, medical 30.3, D-dimer of 268, creatinine of 2.76 which is slightly elevated than his baseline of 2.2, BNP of 210, Chest CT shows bronchial wall thickening which can be seen small airway process such as asthma or atypical viral infection. Patient denies any history of COPD and no history of asthma. Review of Systems Review of Systems: Yes all other systems are reviewed and are negative [facility] Medical History Bilateral lower leg cellulitis Cataract, left eye Chronic venous stasis dermatitis of both lower extremities Coronary artery disease Deep vein thrombosis (DVT) of popliteal vein of left lower extremity Diabetes mellitus with stage 4 chronic kidney disease Essential hypertension Hyperlipidemia Lumbar degenerative disc disease Lymphedema of both lower extremities Obesity (BMI 30-39.9) Onychomycosis Osteoarthritis of knees, bilateral Stage 4 chronic kidney disease Vitamin D deficiency Family History Father No problems noted. Mother No problems noted. 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 Medications: Current Medications Acetaminophen (Acetaminophen 325 Mg Tablet) 650 mg PO Q6H PRN PRN Reason: Pain, Mild (Pain Scale 1-3) Azithromycin (Azithromycin 500 Mg Tablet) 500 mg PO DAILY [facility] Last Admin: 07/25/22 06:07 Dose: 500 mg Docusate Sodium (Docusate Sodium 100 Mg Capsule) 100 mg PO DAILY PRN PRN Reason: Constipation Ondansetron HCl (Ondansetron Hcl 4 Mg/2 Ml Vial) 4 mg IVPUSH Q8H PRN PRN Reason: Nausea and Vomiting Pharmacy Consult (Consult Rx Perform Med Rec) 1 each MISCELLANE ONCE PRN PRN Reason: Consult order Sodium Chloride (0.9 % Sodium Chloride Flush 3 Ml Syringe) 3 [facility] Medications Medication Instructions Recorded Confirmed Last Taken Type atorvastatin 20 mg tablet 20 mg PO DAILY 04/14/20 07/25/22 Unknown History diltiazem HCl 180 mg 180 mg PO DAILY 04/14/20 07/25/22 Unknown History capsule,extended release 24 hr ketorolac 1 drp ophthalmic-Right QID 07/18/20 07/25/22 Unknown History apixaban 5 mg tablet (Eliquis) 5 mg PO BID 04/28/21 07/25/22 Unknown History gabapentin 600 mg tablet 1 tab PO DAILY 07/25/22 07/25/22 Unknown History ipratropium 0.5 mg-albuterol 3 mg 3 ml inhalation Q4H PRN Wheezing 07/25/22 07/25/22 Unknown History (2.5 mg base)/3 mL nebulization soln omeprazole 20 mg capsule,delayed 20 mg PO DAILY 07/25/22 07/25/22 Unknown History release Physical Exam Vital Signs and Narrative: Vital Signs: Last Vital Signs Temp 98.1 F 07/25/22 04:15 Pulse 59 07/25/22 05:40 Resp 19 07/25/22 05:40 BP 158/62 H 07/25/22 05:40 Pulse Ox 96 07/25/22 05:40 O2 Del Method 07/25/22 05:40 O2 Flow Rate 4 07/25/22 04:15 Oxygen Flow Rate 4 07/25/22 01:17 BMI result Body Mass Index 19.8 Const: General: cooperative and no acute distress Orientation/consciousness: patient oriented x3 Eyes: General: appearance normal, both eyes and all related structures Pupils: Equal, round and reactive pupils present Resp: Other: Rhonchi bilaterally Effort & Inspection: normal respiratory effort Cardio: Rate: regular rate Rhythm: regular rhythm GI: Palpation (GI): Soft to palpation Auscultation: normal bowel sounds Skin: Other: chronic skin changes of venous stasis no evidence of acute cellulitis General skin exam: no rashes or lesions noted Neuro: General: patient oriented x3 Cranial nerves: Yes Equal, round and reactive pupils present Cognition (Neuro): normal cognition Extrem: Other: 1+ pedal edema General: Yes normal to inspection Results Labs 07/24/22 23:41 07/24/22 23:41 Labs: Laboratory Results - last 24 hr 07/24/22 07/24/22 07/24/22 23:40 23:41 23:41 MCV 97.2 MCH 31.2 MCHC 32.1 RDW 13.8 Plt Count 160 MPV 11.1 Immature Gran % (Auto) 0.5 H Neut % (Auto) 78.2 H Lymph % (Auto) 7.[address] [place] % (Auto) 9.1 Eos % (Auto) 3.9 Baso % (Auto) 0.4 Lymph # (Auto) 0.[address] [place] # (Auto) 1.0 Eos # (Auto) 0.4 Baso # (Auto) 0.0 Abs Immat Gran (auto) 0.06 H Absolute Neuts (auto) 8.7 H Absolute Nucleated RBC 0.000 Nucleated RBC % (auto) 0.0 D-Dimer High Sensitivty Anion Gap 16 Estim Creat Clear Calc 16.8 Estimated GFR 22 Random Glucose 120 H Lactic Acid Calcium 8.8 D Total Bilirubin 0.6 Direct Bilirubin 0.2 AST 11 D ALT < 6 Alkaline Phosphatase 115 D Troponin I High Sens B-Natriuretic Peptide Total Protein 7.1 D Albumin 4.2 D Lipase 12 Influenza Type A (PCR) NEGATIVE Influenza Type B (PCR) NEGATIVE RSV RNA Qual (PCR) NEGATIVE SARS-CoV-2 RNA (RT-PCR) NEGATIVE 07/24/22 07/24/22 07/24/22 23:41 23:41 23:41 MCV MCH MCHC RDW Plt Count MPV Immature Gran % (Auto) Neut % (Auto) Lymph % (Auto) [place] % (Auto) Eos % (Auto) Baso % (Auto) Lymph # (Auto) [place] # (Auto) Eos # (Auto) Baso # (Auto) Abs Immat Gran (auto) Absolute Neuts (auto) Absolute Nucleated RBC Nucleated RBC % (auto) D-Dimer High Sensitivty Anion Gap Estim Creat Clear Calc Estimated GFR Random Glucose Lactic Acid 1.1 Calcium Total Bilirubin Direct Bilirubin AST ALT Alkaline Phosphatase Troponin I High Sens 13.5 B-Natriuretic Peptide 210 H Total Protein Albumin Lipase Influenza Type A (PCR) Influenza Type B (PCR) RSV RNA Qual (PCR) SARS-CoV-2 RNA (RT-PCR) 07/25/22 01:55 MCV MCH MCHC RDW Plt Count MPV Immature Gran % (Auto) Neut % (Auto) Lymph % (Auto) [place] % (Auto) Eos % (Auto) Baso % (Auto) Lymph # (Auto) [place] # (Auto) Eos # (Auto) Baso # (Auto) Abs Immat Gran (auto) Absolute Neuts (auto) Absolute Nucleated RBC Nucleated RBC % (auto) D-Dimer High Sensitivty 268 Anion Gap Estim Creat Clear Calc Estimated GFR Random Glucose Lactic Acid Calcium Total Bilirubin Direct Bilirubin AST ALT Alkaline Phosphatase Troponin I High Sens B-Natriuretic Peptide Total Protein Albumin Lipase Influenza Type A (PCR) Influenza Type B (PCR) RSV RNA Qual (PCR) SARS-CoV-2 RNA (RT-PCR) Imaging Radiologist's Impressions: Impressions Chest X-Ray 07/25/22 00:15 IMPRESSION: No dense consolidation. Bronchial wall thickening can be seen with a small airways process such as asthma or atypical/viral infection. Chest CT 07/25/22 02:40 IMPRESSION: Bronchial wall thickening can be seen with a small airways process such as asthma or atypical/viral infection. No consolidation. Fleischner guidelines were followed. Assessment and Plan (1) Acute bronchitis with wheezing: Status: Acute (2) Acute respiratory failure with hypoxia: Status: Acute Plan 82-year-old male with past medical history as mentioned above presents to the hospital with acute hypoxic respiratory failure # acute hypoxic respiratory failure - possibly secondary to bronchitis - no history of COPD, reports no history of smoking however, denies any history of asthma - no evidence of volume overload at this time, has no evidence of volume overload clinically or on imaging, BNP of 210 - has slightly elevated D-dimer - will continue oxygen supplement - treat with DuoNeb p.r.n. - will obtain V/Q scan to rule out PE given his history of [facility] # acute bronchitis with wheezing - CT evidence of small airway disease - will treat with azithromycin - monitor respiratory status # ULISES on CKD - appears to have elevated creatinine from his baseline - will treat with gentle hydration - follow BMP # diabetes - low-dose sliding scale insulin - diabetic diet # hypertension - stable - will continue home medication # history of DVT - continue Eliquis # history of CHF - does not appear to be in volume overload at this time - continue Lasix 40 mg - monitor BMP - will obtain Cardiology input in regards to volume status DVT prophylaxis, Eliquis given patient's acute hypoxic respiratory failure requiring oxygen patient will require minimum 2 nights inpatient hospital stay for further management and monitoring Time Spent With Patient Time: Total time managing care of this patient today ____ minutes. Quality Stroke Does the patient have a stroke diagnosis?: No VTE Prior VTE?: No VTE Risk Level:: Medical - low VTE Device Contraindication: Patient Refused VTE Drug Contraindication: N/A - Med Ordered
--- NOTE | 2022-07-25 06:39 | MHC.EDTECH ---
pt cleaned, linens changed. urine sample sent to lab. pt resting comfortably at this time.
[2022-07-25 06:41] LABS: Appearance Urine Clear; Color Urine Straw; Glucose Urine UA Negative (Negative); Leukocyte Esterase Urine Negative (Negative); Nitrite Urine Positive (Negative); Specific Gravity - Urine 1.015 (1.005-1.025); UMIC TRIGGER UACC YES; Urine Blood Small (1+) (Negative); Urine Ketones Negative (Negative); Urine Protein 100 (2+) mg/dL (Neg-Trace)
[2022-07-25 06:44] LABS: Bacteria Urine None Seen (None Seen); RBC Urine 0-2 /HPF (0-2); Squamous Epithelial Cell Urine 0-2 /HPF (0-2); UACC Culture Trigger YES; WBC Urine 0-5 /HPF (0-5)
[2022-07-25 06:55] LABS: Basophils Percent Auto 0.2 % (0-2); Eosinophils Percent Auto 0.1 % (0-4); Hematocrit 34.5 % (42.0-52.0); Hemoglobin 11.2 g/dl (14.0-18.0); Imm Gran Abs Auto 0.05 X10*3/uL (0.00-0.03); Imm Gran Pct Auto 0.5 % (0.0-0.4); Lymphocytes Absolute Auto 0.6 X10*3/uL (1.2-4.9); Lymphocytes Percent Auto 5.4 % (20-40); MANUAL DIFF FLAG SCAN; Mean Corpuscular HGB Conc 32.5 g/dl (31.0-36.0); Mean Corpuscular Hemoglobin 31.4 pg (27.0-33.0); Mean Corpuscular Volume 96.6 fL (80.0-98.0); Mean Platelet Volume 11.8 fL (9.4-12.4); Monocytes Absolute Auto 0.1 X10*3/uL (0.1-1.2); Monocytes Percent Auto 1.2 % (2-11); Neutrophils Absolute Auto 9.4 x10*3/uL (2.0-8.3); Neutrophils Percent Auto 92.6 % (45-73); Platelet Count 150 X10*3/uL (160-400); Red Blood Count 3.57 X10*6/uL (4.60-5.80); Red Cell Distribution Width 13.7 % (11.0-16.0); SCAN SMEAR FLAG 1; White Blood Count 10.1 X10*3/uL (4.8-10.8)
--- NOTE | 2022-07-25 07:00 | CA_ITS ---
Transthoracic Echocardiogram Patient (Last, First, Middle): Joce Christiansen E Gender: Male Date of : 1940 Age: 82 Procedure Date: 07/25/2022 Procedure Type: Transthoracic Echocardiogram Location: [facility] [place] Height: 172.72 cm Weight: 138.35 kg BSA: 2.45 m2 Heart Rate: bpm BP: 188 / 78 mmHg Him Manager: Referring MD: Luis Angel Lau MD Symptoms: chf Study Quality: Technically Difficult due to obesity ECG Rhythm: Sinus with extra beats Conclusions: - Normal left ventricular size and systolic function. There is mildly increased left ventricular wall thickness. The visually estimated ejection fraction is between 60-65%. - Abnormal diastolic function is noted. Spectral Doppler is indicative of an impaired relaxation filling pattern. E/E prime ratio is between 8 and 15 consistent with indeterminate filling pressures. - Normal right ventricular cavity size and systolic function. - The right ventricular systolic pressure is 45 mmHg. Mildly elevated right atrial pressure. Mild pulmonary hypertension is present. Findings Procedure Information Contrast agent, definity, is being given per protocol without apparent complications. Left Ventricle Normal left ventricular size and systolic function. There is mildly increased left ventricular wall thickness. The visually estimated ejection fraction is between 60-65%. There is no evidence of regional wall motion abnormalities. Abnormal diastolic function is noted. Spectral Doppler is indicative of an impaired relaxation filling pattern. E/E prime ratio is between 8 and 15 consistent with indeterminate filling pressures. Right Ventricle Normal right ventricular cavity size and systolic function. Atria The left atrium is mildly dilated. Aortic Valve The aortic valve was not well visualized. There is no aortic valve stenosis. There is no aortic valve regurgitation. Mitral Valve There is moderate mitral annular calcification. There is no mitral valve regurgitation. There is no mitral valve stenosis. Pulmonic Valve The pulmonic valve was not well visualized. Tricuspid Valve The tricuspid valve was not well visualized. The right ventricular systolic pressure is 45 mmHg. Mildly elevated right atrial pressure. Mild pulmonary hypertension is present. Great Vessels The pulmonary artery was not well visualized. There is mild dilatation of the ascending aorta measuring 3.70 cm. Venous The inferior vena cava is normal in size and collapses less than 50% with inspiration. Pericardium/Pleural There is no evidence of pericardial effusion. Measurements 2D Linear Measurements IVSd: 1.23 0.6-0.9/0.6-1.0 cm LVIDd: 4.63 3.9-5.3/4.2-5.9 cm LVIDd Index: 1.89 2.4-3.2/2.2-3.1 cm/m2 LVIDs: 3.10 2.0-3.6 cm LVPWd: 1.22 0.7-1.1 cm Ao Root: 3.10 2.1-3.5 cm LA Diam: 4.30 2.7-3.8/3.0-4.0 cm LAIDs Index: 1.76 1.5-2.3 cm/m2 LV Mass: 265.87 67-162/88-224 g LV Mass Index: 108.52 43-95/49-115 g/m2 LVOT Diam: 2.30 3.0+(-)1.3 cm 2D Systolic Function EF 4C: 65.40 >55% EF 2C: 60.80 >55% EF BiP: 61.20 >55% Mitral Valve MV VTI: 0.50 MV Pk Gordon: 1.44 MV Mn Gordon: 0.83 MV Pk Grad: 8.00 MV Mn Grad: 3.00 MV Pk E: 0.76 MV PK A: 1.32 MV Decel Time: 288.00 E/A: 0.60 E'Lateral: 6.53 E'Medial: 5.22 E/E' Med: 14.60 E/E' Lat: 11.70 PHT: 84.00 MVA PHT: 2.62 MVA Continuity: 2.55 Decel [place]: 2.65 Aortic Valve AoV Pk Gordon: 1.67 AoV Mn Gordon: 1.20 AoV VTI: 0.54 AoV Pk Grad: 11.00 Aov Mn Grad: 7.00 ZOE Cont.VTI: 2.38 LVOT LVOT Pk Gordon: 1.01 LVOT Mn Gordon: 0.73 LVOT VTI: 0.31 LVOT Pk Grad: 4.00 LVOT Mn Grad: 3.00 LVOT Diam: 2.30 LVOT Area: 4.15 Diastolic Function MV Pk E: 0.76 MV Pk A: 1.32 E/A: 0.60 E'Medial: 5.22 E/E' Med: 14.60 E' Laterial: 6.53 E/E' Lat: 11.70 Tricuspid Valve TR Pk Gordon: 2.74 TR Pk Grad: 30.00 RVSP: 45.00 Great Vessels Aorta Ao Root-2D: 3.10 2.0-3.7 cm Ao Asc: 3.70 2.1-3.4 cm Pulmonary Valve PV Pk Gordon: 0.94 Peak PV Grad: 4.00 Updated in Other Vendor System with Status of Final Steven Leo MD electronically signed on 07/25/2022 3:50:21 PM with status of Final
[2022-07-25 07:13] LABS: Glucose, Whole Blood 161 mg/dL (60-115)
[2022-07-25 07:19] LABS: Anion Gap 16 (12-20); Blood Urea Nitrogen 45 mg/dL (9-16); Calcium 8.6 mg/dL (8.4-10.2); Carbon Dioxide 22 mmol/L (22-29); Chloride 106 mmol/L (96-108); Estimated Glomerular Filt Rate 23; Glucose Random 153 mg/dL (60-115); Potassium 5.2 mmol/L (3.3-5.1); Sodium 139 mmol/L (135-145)
[2022-07-25 07:27] LABS: SLIDE REVIEW VERIFIED
[2022-07-25 07:28] LABS: Hyaline Casts Urine 0-2 /LPF (0-2)
[2022-07-25] MEDS: Lactated Ringers 1,000 ML 80 ML IVCONT (07:42)
--- NOTE | 2022-07-25 08:29 | PHA.MEDREC ---
Pharmacy Consult ? Medication Reconciliation Pharmacy has completed the medication reconciliation. Patient had list form [place] at [place].
--- NOTE | 2022-07-25 09:18 | PM.CNCAR ---
History of Present Illness History of Present Illness Date of Service: 07/25/22 Requesting physician: Luis Angel Lau Chief complaint: SOB, ?CHF Narrative: 82-year-old gentleman who is presenting with worsening shortness of breath. He has background history of kidney disease, hypertension, diabetes, peripheral arterial disease, reported stroke coronary disease and chronic venous stasis of both lower extremities. He is saying his breathing has worse over the last few days. He has been coughing. He is denying any significant fevers or chills or poor appetite. He is saying he has gained weight but the weight gain has been over the last 2 years. He has been in a nursing facility for 2 years. Does not appear to be very active and ambulatory. Significantly wheezy at the time of interview and quite short of breath. Chest x-ray has shown bronchial wall thickening with differential of asthma versus atypical viral infection. He has been on steroids and nebulizers. [facility] Past Medical History Medical History Bilateral lower leg cellulitis Cataract, left eye Chronic venous stasis dermatitis of both lower extremities Coronary artery disease Deep vein thrombosis (DVT) of popliteal vein of left lower extremity Diabetes mellitus with stage 4 chronic kidney disease Essential hypertension Hyperlipidemia Lumbar degenerative disc disease Lymphedema of both lower extremities Obesity (BMI 30-39.9) Onychomycosis Osteoarthritis of knees, bilateral Stage 4 chronic kidney disease Vitamin D deficiency Family History Family History Father No problems noted. Mother No problems noted. Surgical History Surgical History Left carotid artery stenosis No significant past surgical history Social History Social History Household Members: None Housing: House Do you presently have visiting nurse or other home services: No Alcohol intake: never Second Hand Smoke Exposure: No Advance Directives: Yes Advance Directives on File: Yes Advance Directives Date on File: 07/20/20 service: No Current occupational status: retired Meds Allergies Allergy/AdvReac Type Severity Reaction Status Date / Time Heparin Analogues Allergy Severe heparin Verified 07/25/22 08:22 [HEPARIN ANALOGUES] induced thrombocytopenia Active Medications: Current Medications Acetaminophen (Acetaminophen 325 Mg Tablet) 650 mg PO Q6H PRN PRN Reason: Pain, Mild (Pain Scale 1-3) Apixaban (Apixaban 5 Mg Tablet) 5 mg PO BID [facility] Atenolol (Atenolol 50 Mg Tablet) 50 mg PO DAILY [facility]; Protocol Atorvastatin Calcium (Atorvastatin Calcium 20 Mg Tablet) 20 mg PO DAILY [facility] Azithromycin (Azithromycin 500 Mg Tablet) 500 mg PO DAILY [facility] Last Admin: 07/25/22 06:07 Dose: 500 mg Albuterol Sulfate 2.5 mg/ (Ipratropium [place] 0.5 mg) 0 mg INHALE Q4H PRN PRN Reason: Shortness of Breath/Wheezing Diltiazem HCl (Diltiazem Hcl Cd 180 Mg Cap.Er.24h) 180 mg PO DAILY [facility]; Protocol Docusate Sodium (Docusate Sodium 100 Mg Capsule) 100 mg PO DAILY PRN PRN Reason: Constipation Furosemide (Furosemide 40 Mg Tablet) 40 mg PO DAILY [facility]; Protocol Gabapentin (Gabapentin 600 Mg Tablet) 600 mg PO BEDTIME [facility] Ketorolac Tromethamine (Ketorolac Tromethamine 0.5% Op 5 Ml Drops) 1 drop EYE-BOTH QID [facility] Methylprednisolone Sodium Succinate (Methylprednisolone Sod Succ 40 Mg/Ml Vial) 40 mg IVPUSH BID [facility] Omeprazole (Omeprazole 20 Mg Capsule.Dr) 20 mg PO DAILY@0630 [facility] Ondansetron HCl (Ondansetron Hcl 4 Mg/2 Ml Vial) 4 mg IVPUSH Q8H PRN PRN Reason: Nausea and Vomiting Pharmacy Consult (Consult Rx Perform Med Rec) 1 each MISCELLANE ONCE PRN PRN Reason: Consult order Sodium Chloride (0.9 % Sodium Chloride Flush 3 Ml Syringe) 3 ml IVFLUSH QSHIFT [facility] Home Medications Medication Instructions Recorded Confirmed Last Taken Type atorvastatin 20 mg tablet 20 mg PO BEDTIME 04/14/20 07/25/22 Unknown History diltiazem HCl 180 mg 180 mg PO DAILY 04/14/20 07/25/22 Unknown History capsule,extended release 24 hr apixaban 5 mg tablet (Eliquis) 5 mg PO BID 04/28/21 07/25/22 Unknown History acetaminophen 325 mg tablet 650 mg PO Q4H PRN Fever Or Pain 07/25/22 07/25/22 Unknown History (Tylenol) albuterol sulfate 90 mcg/actuation 2 inh inhalation Q4H PRN Wheezing 07/25/22 07/25/22 Unknown History breath activated powder inhaler (ProAir RespiClick) ammonium lactate 10 %-emu oil 1 appl topical BID 07/25/22 07/25/22 Unknown History topical cream bisacodyl 10 mg rectal suppository 10 mg TN DAILY PRN Constipation 07/25/22 07/25/22 Unknown History cholecalciferol (vitamin D3) 25 25 mcg PO DAILY 07/25/22 07/25/22 Unknown History mcg (1,000 unit) tablet (Vitamin D3) diclofenac sodium 1 % topical gel 2 g topical Q6H PRN Pain 07/25/22 07/25/22 Unknown History furosemide 20 mg tablet 1 tab PO DAILY 07/25/22 07/25/22 Unknown History furosemide 40 mg tablet 40 mg PO DAILY@1500 07/25/22 07/25/22 Unknown History gabapentin 600 mg tablet 1 tab PO DAILY 07/25/22 07/25/22 Unknown History guaifenesin 100 mg/5 mL oral liquid 200 mg PO Q8H PRN Cough 07/25/22 07/25/22 Unknown History ipratropium 0.5 mg-albuterol 3 mg 3 ml inhalation Q4H PRN Wheezing 07/25/22 07/25/22 Unknown History (2.5 mg base)/3 mL nebulization soln ketorolac 0.5 % eye drops 1 drp ophthalmic (eye) QID itchy 07/25/22 07/25/22 Unknown History eyes naloxone 0.4 mg/mL injection 0.4 mg subcut Q2M PRN Opioid 07/25/22 07/25/22 Unknown History solution Overdose omeprazole 20 mg capsule,delayed 20 mg PO DAILY@0630 07/25/22 07/25/22 Unknown History release sodium phosphates 19 gram-7 118 ml TN DAILY PRN Constipation 07/25/22 07/25/22 Unknown History gram/118 mL enema (Fleet Enema) Physical Exam Vital Signs: Vital Signs: Last Vital Signs Temp 97.6 F 07/25/22 06:33 Pulse 57 07/25/22 07:02 Resp 17 07/25/22 07:02 BP 172/73 H 07/25/22 07:02 Pulse Ox 96 07/25/22 07:02 O2 Del Method 07/25/22 07:02 O2 Flow Rate 3 07/25/22 07:02 Oxygen Flow Rate 4 07/25/22 01:17 BMI result Body Mass Index 19.8 GENERAL APPEARANCE: Distressed, short of breath. NECK: no carotid bruit, positive jugular venous distention. SKIN: no suspicious lesions, warm and dry. HEART: no murmurs, regular rate and rhythm. LUNGS: Bilateral expiratory wheezes. ABDOMEN: soft, nontender. EXTREMITIES: Positive edema. PERIPHERAL PULSES: equal. NEUROLOGIC: No gross deficits, AAO X 3 Objective Labs and Meds 07/25/22 06:25 07/25/22 06:25 Lab results: Laboratory Results - last 24 hr 07/24/22 07/24/22 07/24/22 23:40 23:41 23:41 WBC 11.1 H RBC 3.94 L Hgb 12.3 L Hct 38.3 L MCV 97.2 MCH 31.2 MCHC 32.1 RDW 13.8 Plt Count 160 MPV 11.1 Immature Gran % (Auto) 0.5 H Neut % (Auto) 78.2 H Lymph % (Auto) 7.9 L [place] % (Auto) 9.1 Eos % (Auto) 3.9 Baso % (Auto) 0.4 Lymph # (Auto) 0.9 L [place] # (Auto) 1.0 Eos # (Auto) 0.4 Baso # (Auto) 0.0 Abs Immat Gran (auto) 0.06 H Absolute Neuts (auto) 8.7 H Absolute Nucleated RBC 0.000 Nucleated RBC % (auto) 0.0 Smear Tech's Comments D-Dimer High Sensitivty Sodium 138 Potassium 5.3 H Chloride 104 Carbon Dioxide 23 Anion Gap 16 BUN 48 H Creatinine 2.76 H Estim Creat Clear Calc 16.8 Estimated GFR 22 POC Glucose Random Glucose 120 H Lactic Acid Calcium 8.8 D Total Bilirubin 0.6 Direct Bilirubin 0.2 AST 11 D ALT < 6 Alkaline Phosphatase 115 D Troponin I High Sens B-Natriuretic Peptide Total Protein 7.1 D Albumin 4.2 D Lipase 12 Urine Color Urine Appearance Urine pH Ur Specific [place] Urine Protein Urine Glucose (UA) Urine Ketones Urine Blood Urine Nitrite Ur Leukocyte Esterase Urine RBC Urine WBC Ur Squamous Epith Cells Urine Bacteria Hyaline Casts Influenza Type A (PCR) NEGATIVE Influenza Type B (PCR) NEGATIVE RSV RNA Qual (PCR) NEGATIVE SARS-CoV-2 RNA (RT-PCR) NEGATIVE 07/24/22 07/24/22 07/24/22 23:41 23:41 23:41 WBC RBC Hgb Hct MCV MCH MCHC RDW Plt Count MPV Immature Gran % (Auto) Neut % (Auto) Lymph % (Auto) [place] % (Auto) Eos % (Auto) Baso % (Auto) Lymph # (Auto) [place] # (Auto) Eos # (Auto) Baso # (Auto) Abs Immat Gran (auto) Absolute Neuts (auto) Absolute Nucleated RBC Nucleated RBC % (auto) Smear Tech's Comments D-Dimer High Sensitivty Sodium Potassium Chloride Carbon Dioxide Anion Gap BUN Creatinine Estim Creat Clear Calc Estimated GFR POC Glucose Random Glucose Lactic Acid 1.1 Calcium Total Bilirubin Direct Bilirubin AST ALT Alkaline Phosphatase Troponin I High Sens 13.5 B-Natriuretic Peptide 210 H Total Protein Albumin Lipase Urine Color Urine Appearance Urine pH Ur Specific [place] Urine Protein Urine Glucose (UA) Urine Ketones Urine Blood Urine Nitrite Ur Leukocyte Esterase Urine RBC Urine WBC Ur Squamous Epith Cells Urine Bacteria Hyaline Casts Influenza Type A (PCR) Influenza Type B (PCR) RSV RNA Qual (PCR) SARS-CoV-2 RNA (RT-PCR) 07/25/22 07/25/22 07/25/22 01:55 06:25 06:25 WBC 10.1 RBC 3.57 L Hgb 11.2 L Hct 34.5 L MCV 96.6 MCH 31.4 MCHC 32.5 RDW 13.7 Plt Count 150 L MPV 11.8 Immature Gran % (Auto) 0.5 H Neut % (Auto) 92.6 H Lymph % (Auto) 5.4 L [place] % (Auto) 1.2 L Eos % (Auto) 0.1 Baso % (Auto) 0.2 Lymph # (Auto) 0.6 L [place] # (Auto) 0.1 Eos # (Auto) 0.0 Baso # (Auto) 0.0 Abs Immat Gran (auto) 0.05 H Absolute Neuts (auto) 9.4 H Absolute Nucleated RBC 0.000 Nucleated RBC % (auto) 0.0 Smear Tech's Comments VERIFIED D-Dimer High Sensitivty 268 Sodium 139 Potassium 5.2 H Chloride 106 Carbon Dioxide 22 Anion Gap 16 BUN 45 H Creatinine 2.73 H Estim Creat Clear Calc 17.0 Estimated GFR 23 POC Glucose Random Glucose 153 H Lactic Acid Calcium 8.6 Total Bilirubin Direct Bilirubin AST ALT Alkaline Phosphatase Troponin I High Sens B-Natriuretic Peptide Total Protein Albumin Lipase Urine Color Urine Appearance Urine pH Ur Specific [place] Urine Protein Urine Glucose (UA) Urine Ketones Urine Blood Urine Nitrite Ur Leukocyte Esterase Urine RBC Urine WBC Ur Squamous Epith Cells Urine Bacteria Hyaline Casts Influenza Type A (PCR) Influenza Type B (PCR) RSV RNA Qual (PCR) SARS-CoV-2 RNA (RT-PCR) 07/25/22 07/25/22 06:31 07:09 WBC RBC Hgb Hct MCV MCH MCHC RDW Plt Count MPV Immature Gran % (Auto) Neut % (Auto) Lymph % (Auto) [place] % (Auto) Eos % (Auto) Baso % (Auto) Lymph # (Auto) [place] # (Auto) Eos # (Auto) Baso # (Auto) Abs Immat Gran (auto) Absolute Neuts (auto) Absolute Nucleated RBC Nucleated RBC % (auto) Smear Tech's Comments D-Dimer High Sensitivty Sodium Potassium Chloride Carbon Dioxide Anion Gap BUN Creatinine Estim Creat Clear Calc Estimated GFR POC Glucose 161 H Random Glucose Lactic Acid Calcium Total Bilirubin Direct Bilirubin AST ALT Alkaline Phosphatase Troponin I High Sens B-Natriuretic Peptide Total Protein Albumin Lipase Urine Color Straw Urine Appearance Clear Urine pH 6.0 Ur Specific [place] 1.015 Urine Protein 100 (2+) H Urine Glucose (UA) Negative Urine Ketones Negative Urine Blood Small (1+) H Urine Nitrite Positive H Ur Leukocyte Esterase Negative Urine RBC 0-2 Urine WBC 0-5 Ur Squamous Epith Cells 0-2 Urine Bacteria None Seen Hyaline Casts 0-2 Influenza Type A (PCR) Influenza Type B (PCR) RSV RNA Qual (PCR) SARS-CoV-2 RNA (RT-PCR) Imaging Radiologist's impression: Impressions Chest X-Ray 07/25/22 00:15 IMPRESSION: No dense consolidation. Bronchial wall thickening can be seen with a small airways process such as asthma or atypical/viral infection. Chest CT 07/25/22 02:40 IMPRESSION: Bronchial wall thickening can be seen with a small airways process such as asthma or atypical/viral infection. No consolidation. Fleischner guidelines were followed. Assessment and Plan (1) Acute dyspnea: Status: Acute Plan 82-year-old gentleman who is presenting for worsening shortness of breath. He is wheezy on examination. Differentials are viral bronchitis versus CHF. Overall he is clinically overloaded. Agree with IV diuretics. His blood pressure is elevated. Adding isosorbide 30 mg once a day to his regimen.. Echocardiography to assess for any wall motion abnormalities. In 2011 he has the pulmonary embolism and it appears he had [place] sign on the echocardiogram with severe RV dysfunction. There has not been any recent cardiovascular workup done on. Treat the COPD/bronchitis with steroids, antibiotics and nebulizers. Thank you for allowing me to participate in the care of your patient. Please feel free to contact me if you have any questions. Time Spent With Patient Time: Total time managing care of this patient today ____ minutes. Procedures Date of Service Date of Service: 07/25/22
[2022-07-25] MEDS: Furosemide 40 MG TABLET PO (09:48)
[2022-07-25] MEDS: Apixaban 5 MG TABLET PO ×2 (09:48→21:20)
[2022-07-25] MEDS: dilTIAZem HCL CD 180 MG CAP.ER.24H PO (09:48)
[2022-07-25] MEDS: Atorvastatin Calcium 20 MG TABLET PO (09:48)
[2022-07-25] MEDS: methylPREDNISolone Sod Succ 40 MG/ML VIAL IVPUSH ×2 (09:48→21:20)
[2022-07-25] MEDS: atenoloL 50 MG TABLET PO (09:48)
--- NOTE | 2022-07-25 10:43 | P.PNIM_ITS ---
Subjective Subjective Date of Service: 07/25/22 Interval History: cc: sob interval history: still sob Physical Exam Vital Signs: Vital Signs: Last Vital Signs Temp 96.7 F L 07/25/22 09:49 Pulse 64 07/25/22 09:49 Resp 17 07/25/22 07:02 BP 193/78 H 07/25/22 09:49 Pulse Ox 96 07/25/22 09:49 O2 Del Method 07/25/22 09:49 O2 Flow Rate 2 07/25/22 09:49 Oxygen Flow Rate 4 07/25/22 01:17 BMI result Body Mass Index 19.8 General: AO X 3, sob Resp: diminished bilateral, accessory muscles used CVS: S1,S2,RRR, edema GI: soft, non tender, non distended Neuro: motor grossly intact, alert Psych: appropriate affect, appropriate insight Objective Data Active Medications Acetaminophen (Acetaminophen 325 Mg Tablet) 650 mg PO Q6H PRN PRN Reason: Pain, Mild (Pain Scale 1-3) Apixaban (Apixaban 5 Mg Tablet) 5 mg PO BID [facility] Last Admin: 07/25/22 09:48 Dose: 5 mg Documented By: HAZEL Atenolol (Atenolol 50 Mg Tablet) 50 mg PO DAILY [facility]; Protocol Last Admin: 07/25/22 09:48 Dose: 50 mg Documented By: HAZEL Atorvastatin Calcium (Atorvastatin Calcium 20 Mg Tablet) 20 mg PO DAILY [facility] Last Admin: 07/25/22 09:48 Dose: 20 mg Documented By: HAZEL Azithromycin (Azithromycin 500 Mg Tablet) 500 mg PO DAILY [facility] Last Admin: 07/25/22 06:07 Dose: 500 mg Documented By: KENYA Albuterol Sulfate 2.5 mg/ (Ipratropium [place] 0.5 mg) 0 mg INHALE Q4H PRN PRN Reason: Shortness of Breath/Wheezing Diltiazem HCl (Diltiazem Hcl Cd 180 Mg Cap.Er.24h) 180 mg PO DAILY [facility]; Protocol Last Admin: 07/25/22 09:48 Dose: 180 mg Documented By: HAZEL Docusate Sodium (Docusate Sodium 100 Mg Capsule) 100 mg PO DAILY PRN PRN Reason: Constipation Furosemide (Furosemide 40 Mg/4 Ml Vial) 40 mg IVPUSH BID@0900,1800 [facility]; Protocol Gabapentin (Gabapentin 600 Mg Tablet) 600 mg PO BEDTIME [facility] Ketorolac Tromethamine (Ketorolac Tromethamine 0.5% Op 5 Ml Drops) 1 drop EYE- BOTH QID [facility] Last Admin: 07/25/22 09:00 Dose: Not Given Documented By: HAZEL Non-Admin Reason: Med Not Available Methylprednisolone Sodium Succinate (Methylprednisolone Sod Succ 40 Mg/Ml Vial) 40 mg IVPUSH BID [facility] Last Admin: 07/25/22 09:48 Dose: 40 mg Documented By: HAZEL Omeprazole (Omeprazole 20 Mg Capsule.Dr) 20 mg PO DAILY@0630 [facility] Ondansetron HCl (Ondansetron Hcl 4 Mg/2 Ml Vial) 4 mg IVPUSH Q8H PRN PRN Reason: Nausea and Vomiting Pharmacy Consult (Consult Rx Perform Med Rec) 1 each MISCELLANE ONCE PRN PRN Reason: Consult order Sodium Chloride (0.9 % Sodium Chloride Flush 3 Ml Syringe) 3 ml IVFLUSH QSHIFT [facility] Last Admin: 07/25/22 08:00 Dose: Not Given Documented By: HAZEL Non-Admin Reason: IV Running Labs 07/25/22 06:25 07/25/22 06:25 Labs: Laboratory Results - last 24 hr 07/24/22 07/24/22 07/24/22 23:40 23:41 23:41 MCV 97.2 MCH 31.2 MCHC 32.1 RDW 13.8 Plt Count 160 MPV 11.1 Immature Gran % (Auto) 0.5 H Neut % (Auto) 78.2 H Lymph % (Auto) 7.9 L [place] % (Auto) 9.1 Eos % (Auto) 3.9 Baso % (Auto) 0.4 Lymph # (Auto) 0.9 L [place] # (Auto) 1.0 Eos # (Auto) 0.4 Baso # (Auto) 0.0 Abs Immat Gran (auto) 0.06 H Absolute Neuts (auto) 8.7 H Absolute Nucleated RBC 0.000 Nucleated RBC % (auto) 0.0 Smear Tech's Comments D-Dimer High Sensitivty Anion Gap 16 Estim Creat Clear Calc 16.8 Estimated GFR 22 POC Glucose Random Glucose 120 H Lactic Acid Calcium 8.8 D Total Bilirubin 0.6 Direct Bilirubin 0.2 AST 11 D ALT < 6 Alkaline Phosphatase 115 D Troponin I High Sens B-Natriuretic Peptide Total Protein 7.1 D Albumin 4.2 D Lipase 12 Urine Color Urine Appearance Urine pH Ur Specific [place] Urine Protein Urine Glucose (UA) Urine Ketones Urine Blood Urine Nitrite Ur Leukocyte Esterase Urine RBC Urine WBC Ur Squamous Epith Cells Urine Bacteria Hyaline Casts Influenza Type A (PCR) NEGATIVE Influenza Type B (PCR) NEGATIVE RSV RNA Qual (PCR) NEGATIVE SARS-CoV-2 RNA (RT-PCR) NEGATIVE 07/24/22 07/24/22 07/24/22 23:41 23:41 23:41 MCV MCH MCHC RDW Plt Count MPV Immature Gran % (Auto) Neut % (Auto) Lymph % (Auto) [place] % (Auto) Eos % (Auto) Baso % (Auto) Lymph # (Auto) [place] # (Auto) Eos # (Auto) Baso # (Auto) Abs Immat Gran (auto) Absolute Neuts (auto) Absolute Nucleated RBC Nucleated RBC % (auto) Smear Tech's Comments D-Dimer High Sensitivty Anion Gap Estim Creat Clear Calc Estimated GFR POC Glucose Random Glucose Lactic Acid 1.1 Calcium Total Bilirubin Direct Bilirubin AST ALT Alkaline Phosphatase Troponin I High Sens 13.5 B-Natriuretic Peptide 210 H Total Protein Albumin Lipase Urine Color Urine Appearance Urine pH Ur Specific [place] Urine Protein Urine Glucose (UA) Urine Ketones Urine Blood Urine Nitrite Ur Leukocyte Esterase Urine RBC Urine WBC Ur Squamous Epith Cells Urine Bacteria Hyaline Casts Influenza Type A (PCR) Influenza Type B (PCR) RSV RNA Qual (PCR) SARS-CoV-2 RNA (RT-PCR) 07/25/22 07/25/22 07/25/22 01:55 06:25 06:25 MCV 96.6 MCH 31.4 MCHC 32.5 RDW 13.7 Plt Count 150 L MPV 11.8 Immature Gran % (Auto) 0.5 H Neut % (Auto) 92.6 H Lymph % (Auto) 5.4 L [place] % (Auto) 1.2 L Eos % (Auto) 0.1 Baso % (Auto) 0.2 Lymph # (Auto) 0.6 L [place] # (Auto) 0.1 Eos # (Auto) 0.0 Baso # (Auto) 0.0 Abs Immat Gran (auto) 0.05 H Absolute Neuts (auto) 9.4 H Absolute Nucleated RBC 0.000 Nucleated RBC % (auto) 0.0 Smear Tech's Comments VERIFIED D-Dimer High Sensitivty 268 Anion Gap 16 Estim Creat Clear Calc 17.0 Estimated GFR 23 POC Glucose Random Glucose 153 H Lactic Acid Calcium 8.6 Total Bilirubin Direct Bilirubin AST ALT Alkaline Phosphatase Troponin I High Sens B-Natriuretic Peptide Total Protein Albumin Lipase Urine Color Urine Appearance Urine pH Ur Specific [place] Urine Protein Urine Glucose (UA) Urine Ketones Urine Blood Urine Nitrite Ur Leukocyte Esterase Urine RBC Urine WBC Ur Squamous Epith Cells Urine Bacteria Hyaline Casts Influenza Type A (PCR) Influenza Type B (PCR) RSV RNA Qual (PCR) SARS-CoV-2 RNA (RT-PCR) 07/25/22 07/25/22 06:31 07:09 MCV MCH MCHC RDW Plt Count MPV Immature Gran % (Auto) Neut % (Auto) Lymph % (Auto) [place] % (Auto) Eos % (Auto) Baso % (Auto) Lymph # (Auto) [place] # (Auto) Eos # (Auto) Baso # (Auto) Abs Immat Gran (auto) Absolute Neuts (auto) Absolute Nucleated RBC Nucleated RBC % (auto) Smear Tech's Comments D-Dimer High Sensitivty Anion Gap Estim Creat Clear Calc Estimated GFR POC Glucose 161 H Random Glucose Lactic Acid Calcium Total Bilirubin Direct Bilirubin AST ALT Alkaline Phosphatase Troponin I High Sens B-Natriuretic Peptide Total Protein Albumin Lipase Urine Color Straw Urine Appearance Clear Urine pH 6.0 Ur Specific [place] 1.015 Urine Protein 100 (2+) H Urine Glucose (UA) Negative Urine Ketones Negative Urine Blood Small (1+) H Urine Nitrite Positive H Ur Leukocyte Esterase Negative Urine RBC 0-2 Urine WBC 0-5 Ur Squamous Epith Cells 0-2 Urine Bacteria None Seen Hyaline Casts 0-2 Influenza Type A (PCR) Influenza Type B (PCR) RSV RNA Qual (PCR) SARS-CoV-2 RNA (RT-PCR) Assessment and Plan (1) Acute respiratory failure with hypoxia: Status: Acute Plan 82-year-old male with past medical history CAD, DM, DVT, HTN, HLD, CKD IV, chronic venous stasis, presented with sob and hypoxia acute hypoxic respiratory failure due to acute unspecified chf complicated by copd with acute decompensation iv lasix, monitor lytes, echo steroids, nebs azitrho resp viral panel VQ with intermediate probability of PE - doubt PE, already on eliquis CKD IV stable monitor DM does not appear to be on meds will cover with sliding scale, check a1c obesity weight loss recommended HTN, uncontrolled atenolol, diltiazem history of DVT eliqujohnson DNR/DNI reason for continued hospitalization: iv diuresis, hypoxia Time Spent With Patient Time: Total time managing care of this patient today ____ minutes. Quality Stroke Does the patient have a stroke diagnosis?: No VTE Prior VTE?: No VTE Risk Level:: Medical - low VTE Device Contraindication: Patient Refused VTE Drug Contraindication: N/A - Med Ordered
[2022-07-25 11:59] LABS: Estimated Average Glucose 114 mg/dL; Hemoglobin A1c % 5.6 %
[2022-07-25] MEDS: Insulin Lispro 100 UNIT/ML 3 ML VIAL SUBCUT ×3 (13:52→21:20)
[2022-07-25 13:57] LABS: Glucose, Whole Blood 191 mg/dL (60-115)
--- NOTE | 2022-07-25 14:36 | MHC.CM.PN ---
Met with patient and son, Joce DONATO in regards to discharge planning. Patient is a [facility] resident of [facility]. Patient will use a walker or wheelchair for mobility. Copy of HCP verified to be on file. Patient received 1 J&J vacceine and 2 Moderna vaccines. IMM explained and signed. Anticipate patient will return to [facility] via BLS when medically stable. Continue to monitor for d/c needs.
[2022-07-25] MEDS: Isosorbide Mononitrate 30 MG TAB.ER.24H PO (15:27)
[2022-07-25] MEDS: 0.9 % Sodium Chloride Flush 3 ML SYRINGE IVFLUSH ×2 (16:22→23:51)
[2022-07-25 16:29] LABS: Glucose, Whole Blood 209 mg/dL (60-115)
--- NOTE | 2022-07-25 16:29 | MHC.EDTECH ---
this pct assumed care of pt at 1600 vitals sign taken ,blood sugar check ,pt is resting is bed .
[2022-07-25] MEDS: Furosemide 40 MG/4 ML VIAL IVPUSH (18:45)
--- NOTE | 2022-07-25 18:53 | MHC.EDTECH ---
pt was served dinner ,pt ate 100 % of meal ,drank 480 ml fluids .
[2022-07-25 20:47] LABS: Glucose, Whole Blood 231 mg/dL (60-115)
[2022-07-25] MEDS: Gabapentin 600 MG TABLET PO (21:20)
[2022-07-26] VITALS (9 sets, daily range): BP systolic 136–173; BP diastolic 63–74; PULSE 51–87; RESP 16–22; TEMP 36.2–36.6; O2SAT 90–97
[2022-07-26] MEDS: Omeprazole 20 MG CAPSULE.DR PO (05:27)
[2022-07-26 06:36] LABS: Hematocrit 31.4 % (42.0-52.0); Mean Corpuscular HGB Conc 31.8 g/dl (31.0-36.0); Mean Corpuscular Hemoglobin 30.8 pg (27.0-33.0); Mean Corpuscular Volume 96.6 fL (80.0-98.0); Mean Platelet Volume 11.8 fL (9.4-12.4); Platelet Count 162 X10*3/uL (160-400); Red Blood Count 3.25 X10*6/uL (4.60-5.80); Red Cell Distribution Width 13.7 % (11.0-16.0); White Blood Count 9.9 X10*3/uL (4.8-10.8)
[2022-07-26 07:02] LABS: Anion Gap 16 (12-20); Blood Urea Nitrogen 56 mg/dL (9-16); Calcium 8.2 mg/dL (8.4-10.2); Carbon Dioxide 21 mmol/L (22-29); Chloride 107 mmol/L (96-108); Creatinine Clr Calc Pharmacy 18.1; Estimated Glomerular Filt Rate 24; Glucose Fasting 157 mg/dL (60-99); Magnesium 2.2 mg/dL (1.6-2.6); Sodium 139 mmol/L (135-145)
[2022-07-26 07:22] LABS: Glucose, Whole Blood 159 mg/dL (60-115)
[2022-07-26] MEDS: Insulin Lispro 100 UNIT/ML 3 ML VIAL SUBCUT ×3 (08:15→21:19)
[2022-07-26] MEDS: dilTIAZem HCL CD 180 MG CAP.ER.24H PO (08:16)
[2022-07-26] MEDS: 0.9 % Sodium Chloride Flush 3 ML SYRINGE IVFLUSH ×3 (08:16→20:35)
[2022-07-26] MEDS: atenoloL 50 MG TABLET PO (08:16)
[2022-07-26] MEDS: methylPREDNISolone Sod Succ 40 MG/ML VIAL IVPUSH ×2 (08:16→20:35)
[2022-07-26] MEDS: Atorvastatin Calcium 20 MG TABLET PO (08:16)
[2022-07-26] MEDS: Furosemide 40 MG/4 ML VIAL IVPUSH ×3 (08:16→18:02)
[2022-07-26] MEDS: Azithromycin 500 MG TABLET PO (08:16)
[2022-07-26] MEDS: Apixaban 5 MG TABLET PO ×2 (08:16→20:34)
[2022-07-26] MEDS: Isosorbide Mononitrate 30 MG TAB.ER.24H PO ×2 (08:16→14:15)
[2022-07-26 09:18] LABS: Adenovirus PCR Not Detected (Not Detect.); Bordetella parapertussis PCR Not Detected (Not Detect.); Bordetella pertussis PCR Not Detected (Not Detect.); Chlamydia pneumoniae PCR Not Detected (Not Detect.); Coronavirus 229E PCR Not Detected (Not Detect.); Coronavirus HKU1 PCR Not Detected (Not Detect.); Coronavirus NL63 PCR Not Detected (Not Detect.); Coronavirus OC43 PCR Not Detected (Not Detect.); Influenza A PCR Not Detected (Not Detect.); Influenza B PCR Not Detected (Not Detect.); SARS-CoV-2 PCR Not Detected (Not Detect.)
[2022-07-26 09:19] LABS: Human metapneumovirus PCR Not Detected (Not Detect.); Mycoplasma pneumoniae PCR Not Detected (Not Detect.); Parainfluenza 1 PCR Not Detected (Not Detect.); Parainfluenza 2 PCR Not Detected (Not Detect.); Parainfluenza 3 PCR Not Detected (Not Detect.); Parainfluenza 4 PCR Not Detected (Not Detect.); RSV PCR Not Detected (Not Detect.); Rhino/Enterovirus PCR Detected (Not Detect.)
[2022-07-26 11:21] LABS: Glucose, Whole Blood 187 mg/dL (60-115)
--- NOTE | 2022-07-26 12:24 | P.PNIM_ITS ---
Subjective Subjective Date of Service: 07/26/22 Interval History: the patient was seen and evaluated this morning Laying in bed, feels mild improvement but still congesnted reporting shortness of breath and feeling weak No reported other overnight events. Review of Systems Review of Systems: Yes all other systems are reviewed and are negative Physical Exam Vital Signs: Vital Signs: Last Vital Signs Temp 97.7 F 07/26/22 07:06 Pulse 87 07/26/22 11:53 Resp 17 07/26/22 11:53 BP 173/74 H 07/26/22 07:06 Pulse Ox 96 07/26/22 07:06 O2 Del Method 07/26/22 07:06 O2 Flow Rate 2 07/26/22 07:06 Oxygen Flow Rate 4 07/25/22 01:17 BMI result Body Mass Index 19.8 Const: Other: Constitutional : Awake, interactive, Neck : Normal inspection, Supple Cardiovascular : RRR, no JVP, +2 bilateral lower extremity edema Respiratory : fair bilateral air entry, basal fine crackles, bilateral expiratory wheezes Gastrointestinal: soft, lax, Normal bowel sounds, Non tender Skin : Warm, Dry Neurological : Alert & oriented x3, No focal deficit Objective Data Active Medications Acetaminophen (Acetaminophen 325 Mg Tablet) 650 mg PO Q6H PRN PRN Reason: Pain, Mild (Pain Scale 1-3) Apixaban (Apixaban 5 Mg Tablet) 5 mg PO BID [facility] Last Admin: 07/26/22 08:16 Dose: 5 mg Documented By: KISHORE Atenolol (Atenolol 50 Mg Tablet) 50 mg PO DAILY [facility]; Protocol Last Admin: 07/26/22 08:16 Dose: 50 mg Documented By: KISHORE Atorvastatin Calcium (Atorvastatin Calcium 20 Mg Tablet) 20 mg PO DAILY [facility] Last Admin: 07/26/22 08:16 Dose: 20 mg Documented By: KISHORE Azithromycin (Azithromycin 500 Mg Tablet) 500 mg PO DAILY [facility] Last Admin: 07/26/22 08:16 Dose: 500 mg Documented By: KISHORE Albuterol Sulfate 2.5 mg/ (Ipratropium [place] 0.5 mg) 0 mg INHALE Q4H PRN PRN Reason: Shortness of Breath/Wheezing Last Admin: 07/25/22 12:38 Dose: 1 each Documented By: HO.[email or web address] Albuterol Sulfate 2.5 mg/ (Ipratropium [place] 0.5 mg) 0 mg INHALE RQ4H WHILE AWAKE [facility] Last Admin: 07/26/22 11:52 Dose: 1 each Documented By: ANN Dextrose (Dextrose 50 % 25 Gm/50 Ml Syringe) 25 gm IVPUSH Q15M PRN; Protocol PRN Reason: per Hypoglycemia Standing Ord. Diltiazem HCl (Diltiazem Hcl Cd 180 Mg Cap.Er.24h) 180 mg PO DAILY [facility]; Protocol Last Admin: 07/26/22 08:16 Dose: 180 mg Documented By: KISHORE Docusate Sodium (Docusate Sodium 100 Mg Capsule) 100 mg PO DAILY PRN PRN Reason: Constipation Furosemide (Furosemide 40 Mg/4 Ml Vial) 40 mg IVPUSH BID@0900,1800 [facility]; Prot ocol Last Admin: 07/26/22 08:16 Dose: 40 mg Documented By: KISHORE Gabapentin (Gabapentin 600 Mg Tablet) 600 mg PO BEDTIME [facility] Last Admin: 07/25/22 21:20 Dose: 600 mg Documented By: REBEL Glucose (Glucose Gel 15 Gm Gel..Gram.) 15 gm PO Q15M PRN; Protocol PRN Reason: per Hypoglycemia Standing Ord. Insulin Human Lispro (Insulin Lispro 100 Unit/Ml 3 Ml Vial) 0 unit SUBCUT QIDACHS [facility]; Protocol Last Admin: 07/26/22 11:52 Dose: 2 unit Documented By: KISHORE Isosorbide Mononitrate (Isosorbide Mononitrate 30 Mg Tab.Er.24h) 30 mg PO DAILY [facility]; Protocol Last Admin: 07/26/22 08:16 Dose: 30 mg Documented By: KISHORE Ketorolac Tromethamine (Ketorolac Tromethamine 0.5% Op 5 Ml Drops) 1 drop EYE- BOTH QID [facility] Last Admin: 07/26/22 10:36 Dose: Not Given Documented By: KISHORE Non-Admin Reason: Med Not Available Methylprednisolone Sodium Succinate (Methylprednisolone Sod Succ 40 Mg/Ml Vial) 40 mg IVPUSH BID [facility] Last Admin: 07/26/22 08:16 Dose: 40 mg Documented By: KISHORE Omeprazole (Omeprazole 20 Mg Capsule.Dr) 20 mg PO DAILY@0630 [facility] Last Admin: 07/26/22 05:27 Dose: 20 mg Documented By: REBEL Ondansetron HCl (Ondansetron Hcl 4 Mg/2 Ml Vial) 4 mg IVPUSH Q8H PRN PRN Reason: Nausea and Vomiting Pharmacy Consult (Consult Rx Perform Med Rec) 1 each MISCELLANE ONCE PRN PRN Reason: Consult order Sodium Chloride (0.9 % Sodium Chloride Flush 3 Ml Syringe) 3 ml IVFLUSH QSHIFT [facility] Last Admin: 07/26/22 08:16 Dose: 3 ml Documented By: KISHORE Labs 07/26/22 05:22 07/26/22 05:22 Labs: Laboratory Results - last 24 hr 07/25/22 07/25/22 07/25/22 13:21 16:26 17:48 MCV MCH MCHC RDW Plt Count MPV Absolute Nucleated RBC Nucleated RBC % (auto) Anion Gap Estim Creat Clear Calc Estimated GFR POC Glucose 191 H 209 H Fasting Glucose Calcium Magnesium Respiratory Panel Doll See Note Adenovirus (Rapid PCR) Not Detected B.pert (TEM-PCR) Not Detected B.parapertussis DNA PCR Not Detected C. pneumoniae DNA (PCR) Not Detected Coronavirus OC43 (PCR) Not Detected Coronavirus HKU1 (PCR) Not Detected Coronavirus 229E (PCR) Not Detected Coronavirus NL63 (PCR) Not Detected Human Metapneumovir PCR Not Detected Influenza A (RT-PCR) Not Detected Influenza B (RT-PCR) Not Detected M. pneumoniae (PCR) Not Detected Parainfluenza 1 (PCR) Not Detected Parainfluenza 2 (PCR) Not Detected Parainfluenza 3 (PCR) Not Detected Parainfluenza 4 (PCR) Not Detected RSV (PCR) Not Detected Entero/Rhino (PCR) Detected A SARS-CoV-2 RNA (RT-PCR) Not Detected 07/25/22 07/26/22 07/26/22 20:43 05:22 05:22 MCV 96.6 MCH 30.8 MCHC 31.8 RDW 13.7 Plt Count 162 MPV 11.8 Absolute Nucleated RBC 0.000 Nucleated RBC % (auto) 0.0 Anion Gap 16 Estim Creat Clear Calc 18.1 Estimated GFR 24 POC Glucose 231 H Fasting Glucose 157 H Calcium 8.2 L Magnesium 2.2 Respiratory Panel Doll Adenovirus (Rapid PCR) B.pert (TEM-PCR) B.parapertussis DNA PCR C. pneumoniae DNA (PCR) Coronavirus OC43 (PCR) Coronavirus HKU1 (PCR) Coronavirus 229E (PCR) Coronavirus NL63 (PCR) Human Metapneumovir PCR Influenza A (RT-PCR) Influenza B (RT-PCR) M. pneumoniae (PCR) Parainfluenza 1 (PCR) Parainfluenza 2 (PCR) Parainfluenza 3 (PCR) Parainfluenza 4 (PCR) RSV (PCR) Entero/Rhino (PCR) SARS-CoV-2 RNA (RT-PCR) 07/26/22 07/26/22 07:10 11:13 MCV MCH MCHC RDW Plt Count MPV Absolute Nucleated RBC Nucleated RBC % (auto) Anion Gap Estim Creat Clear Calc Estimated GFR POC Glucose 159 H 187 H Fasting Glucose Calcium Magnesium Respiratory Panel Doll Adenovirus (Rapid PCR) B.pert (TEM-PCR) B.parapertussis DNA PCR C. pneumoniae DNA (PCR) Coronavirus OC43 (PCR) Coronavirus HKU1 (PCR) Coronavirus 229E (PCR) Coronavirus NL63 (PCR) Human Metapneumovir PCR Influenza A (RT-PCR) Influenza B (RT-PCR) M. pneumoniae (PCR) Parainfluenza 1 (PCR) Parainfluenza 2 (PCR) Parainfluenza 3 (PCR) Parainfluenza 4 (PCR) RSV (PCR) Entero/Rhino (PCR) SARS-CoV-2 RNA (RT-PCR) Microbiology Microbiology Results: Microbiology 07/25/22 Unknown Urine Culture - Final Urine clean catch - Urine stone top 07/25/22 00:07 Blood Culture - Preliminary Blood - Venous No growth after 24 hours. 07/24/22 23:51 Blood Culture - Preliminary Blood - Venous No growth after 24 hours. Assessment and Plan (1) Acute respiratory failure with hypoxia: Status: Acute (2) Acute bronchitis with wheezing: Status: Acute (3) Acute dyspnea: Status: Acute Plan 82-year-old male with past medical history CAD, DM, DVT, HTN, HLD, CKD IV, chronic venous stasis, presented with sob and hypoxia acute hypoxic respiratory failure due to acute unspecified chf complicated by copd with acute decompensation give extra iv lasix echo showed EF of 60% w diastolic dysfunction steroids, nebs continue azitrho resp viral panel VQ with intermediate probability of PE - doubt PE, already on eliquis CKD IV stable monitor DMII clear, not on meds, A1c of 5.6 obesity weight loss recommended HTN, uncontrolled continue atenolol Increase diltiazem history of DVT eliquis DNR/DNI reason for continued hospitalization: iv diuresis, hypoxia Time Spent With Patient Time: Total time managing care of this patient today ____ minutes. Quality Stroke Does the patient have a stroke diagnosis?: No VTE Prior VTE?: No VTE Risk Level:: Medical - low VTE Device Contraindication: Patient Refused VTE Drug Contraindication: N/A - Med Ordered
--- NOTE | 2022-07-26 13:26 | P.PNCA_ITS ---
Subjective Subjective Date of Service: 07/26/22 Interval history: Patient was seen and examined at bedside. Still wheezing but respiratory status mildly better than yesterday. On IV diur etics with negative balance of 780 mL. Physical Exam Vital Signs: Last Vital Signs Temp 97.7 F 07/26/22 07:06 Pulse 87 07/26/22 11:53 Resp 17 07/26/22 11:53 BP 173/74 H 07/26/22 07:06 Pulse Ox 90 L 07/26/22 11:32 O2 Del Method 07/26/22 07:06 O2 Flow Rate 2 07/26/22 07:06 Oxygen Flow Rate 4 07/25/22 01:17 BMI result Body Mass Index 19.8 GENERAL APPEARANCE: Short of breath, wheezing, on supplemental oxygen. Morb idly obese. NECK: no carotid bruit, mild jugular venous distention. SKIN: no suspicious lesions, warm and dry. HEART: no murmurs, regular rate and rhythm. LUNGS: Bilateral wheezes and rhonchi. ABDOMEN: soft, nontender. EXTREMITIES: + edema. PERIPHERAL PULSES: equal. NEUROLOGIC: No gross deficits, AAO X 3 Objective Labs and Meds 07/26/22 05:22 07/26/22 05:22 Lab results: Laboratory Results - last 24 hr 07/25/22 07/25/22 07/25/22 13:21 16:26 17:48 WBC RBC Hgb Hct MCV MCH MCHC RDW Plt Count MPV Absolute Nucleated RBC Nucleated RBC % (auto) Sodium Potassium Chloride Carbon Dioxide Anion Gap BUN Creatinine Estim Creat Clear Calc Estimated GFR POC Glucose 191 H 209 H Fasting Glucose Calcium Magnesium Respiratory Panel Doll See Note Adenovirus (Rapid PCR) Not Detected B.pert (TEM-PCR) Not Detected B.parapertussis DNA PCR Not Detected C. pneumoniae DNA (PCR) Not Detected Coronavirus OC43 (PCR) Not Detected Coronavirus HKU1 (PCR) Not Detected Coronavirus 229E (PCR) Not Detected Coronavirus NL63 (PCR) Not Detected Human Metapneumovir PCR Not Detected Influenza A (RT-PCR) Not Detected Influenza B (RT-PCR) Not Detected M. pneumoniae (PCR) Not Detected Parainfluenza 1 (PCR) Not Detected Parainfluenza 2 (PCR) Not Detected Parainfluenza 3 (PCR) Not Detected Parainfluenza 4 (PCR) Not Detected RSV (PCR) Not Detected Entero/Rhino (PCR) Detected A SARS-CoV-2 RNA (RT-PCR) Not Detected 07/25/22 07/26/22 07/26/22 20:43 05:22 05:22 WBC 9.9 RBC 3.25 L Hgb 10.0 L Hct 31.4 L MCV 96.6 MCH 30.8 MCHC 31.8 RDW 13.7 Plt Count 162 MPV 11.8 Absolute Nucleated RBC 0.000 Nucleated RBC % (auto) 0.0 Sodium 139 Potassium 5.0 Chloride 107 Carbon Dioxide 21 L Anion Gap 16 BUN 56 H Creatinine 2.56 H Estim Creat Clear Calc 18.1 Estimated GFR 24 POC Glucose 231 H Fasting Glucose 157 H Calcium 8.2 L Magnesium 2.2 Respiratory Panel Doll Adenovirus (Rapid PCR) B.pert (TEM-PCR) B.parapertussis DNA PCR C. pneumoniae DNA (PCR) Coronavirus OC43 (PCR) Coronavirus HKU1 (PCR) Coronavirus 229E (PCR) Coronavirus NL63 (PCR) Human Metapneumovir PCR Influenza A (RT-PCR) Influenza B (RT-PCR) M. pneumoniae (PCR) Parainfluenza 1 (PCR) Parainfluenza 2 (PCR) Parainfluenza 3 (PCR) Parainfluenza 4 (PCR) RSV (PCR) Entero/Rhino (PCR) SARS-CoV-2 RNA (RT-PCR) 07/26/22 07/26/22 07:10 11:13 WBC RBC Hgb Hct MCV MCH MCHC RDW Plt Count MPV Absolute Nucleated RBC Nucleated RBC % (auto) Sodium Potassium Chloride Carbon Dioxide Anion Gap BUN Creatinine Estim Creat Clear Calc Estimated GFR POC Glucose 159 H 187 H Fasting Glucose Calcium Magnesium Respiratory Panel Doll Adenovirus (Rapid PCR) B.pert (TEM-PCR) B.parapertussis DNA PCR C. pneumoniae DNA (PCR) Coronavirus OC43 (PCR) Coronavirus HKU1 (PCR) Coronavirus 229E (PCR) Coronavirus NL63 (PCR) Human Metapneumovir PCR Influenza A (RT-PCR) Influenza B (RT-PCR) M. pneumoniae (PCR) Parainfluenza 1 (PCR) Parainfluenza 2 (PCR) Parainfluenza 3 (PCR) Parainfluenza 4 (PCR) RSV (PCR) Entero/Rhino (PCR) SARS-CoV-2 RNA (RT-PCR) Progress Note: A&P Assessment and plan (1) Acute respiratory failure with hypoxia: Status: Acute (2) Acute bronchitis with wheezing: Status: Acute (3) Diastolic heart failure: Status: Acute Plan 82-year-old gentleman with complex issues including chronic kidney disease, morenita pheral vascular disease, hypertension, hyperlipidemia and previous pulmonary embolism which presenting with shortness of breath. Clinically felt to have bronchitis and is on steroids and improving mildly. He also was noticed to be whole body volume overloaded. He is on IV diuretics with negative balance of 780 mL. He has advanced kidney issues with stage for chronic kidney disease. I think we should continue the diuretics at this stage. Blood pressure is still elevated. I think nitrates can be titrated up to 60 mg of Imdur. Continue 40 mg IV Lasix currently. We will follow along with you. Thank you for allowing me to participate in the care of your patient. Please feel free to contact me if you have any questions. Time Spent With Patient Time: Total time managing care of this patient today ____ minutes. Progress Note: Quality Stroke Does the patient have a stroke diagnosis?: No Procedures Date of Service Date of Service: 07/26/22
[2022-07-26 16:28] LABS: Glucose, Whole Blood 145 mg/dL (60-115)
[2022-07-26] MEDS: Gabapentin 600 MG TABLET PO (20:34)
[2022-07-26 21:16] LABS: Glucose, Whole Blood 156 mg/dL (60-115)
[2022-07-27] VITALS (8 sets, daily range): BP systolic 140–177; BP diastolic 67–80; PULSE 52–60; RESP 16–20; TEMP 36.3–36.5; O2SAT 93–98
[2022-07-27] MEDS: Omeprazole 20 MG CAPSULE.DR PO (05:57)
[2022-07-27 06:38] LABS: Anion Gap 16 (12-20); Blood Urea Nitrogen 71 mg/dL (9-16); Calcium 7.9 mg/dL (8.4-10.2); Carbon Dioxide 23 mmol/L (22-29); Chloride 104 mmol/L (96-108); Creatinine Clr Calc Pharmacy 15.6; Estimated Glomerular Filt Rate 21; Glucose Random 128 mg/dL (60-115); Potassium 4.9 mmol/L (3.3-5.1); Sodium 138 mmol/L (135-145)
[2022-07-27 07:35] LABS: Glucose, Whole Blood 132 mg/dL (60-115)
[2022-07-27] MEDS: Furosemide 40 MG/4 ML VIAL IVPUSH ×2 (08:49→17:32)
[2022-07-27] MEDS: 0.9 % Sodium Chloride Flush 3 ML SYRINGE IVFLUSH ×3 (08:50→20:26)
[2022-07-27] MEDS: atenoloL 50 MG TABLET PO (08:50)
[2022-07-27] MEDS: methylPREDNISolone Sod Succ 40 MG/ML VIAL IVPUSH ×2 (08:50→20:17)
[2022-07-27] MEDS: dilTIAZem HCL CD 180 MG CAP.ER.24H PO (08:50)
[2022-07-27] MEDS: Azithromycin 500 MG TABLET PO (08:50)
[2022-07-27] MEDS: Isosorbide Mononitrate 60 MG TAB.ER.24H PO (08:50)
[2022-07-27] MEDS: Apixaban 5 MG TABLET PO ×2 (08:50→20:19)
[2022-07-27] MEDS: Atorvastatin Calcium 20 MG TABLET PO (08:51)
[2022-07-27 09:03] LABS: B Type Natriuretic Peptide 83 pg/mL (<100)
[2022-07-27 11:16] LABS: Glucose, Whole Blood 152 mg/dL (60-115)
[2022-07-27] MEDS: Insulin Lispro 100 UNIT/ML 3 ML VIAL SUBCUT ×3 (11:51→20:24)
--- NOTE | 2022-07-27 11:59 | P.PNIM_ITS ---
Subjective Subjective Date of Service: 07/27/22 Interval History: the patient was seen and evaluated this morning Setting in bed, improving slowly but still congesnted reporting shortness of breath and feeling generalized weakness No reported other overnight events. Review of Systems Review of Systems: Yes all other systems are reviewed and are negative Physical Exam Vital Signs: Vital Signs: Last Vital Signs Temp 97.7 F 07/27/22 08:00 Pulse 60 07/27/22 11:17 Resp 17 07/27/22 11:17 BP 140/67 H 07/27/22 08:00 Pulse Ox 94 07/27/22 08:00 O2 Del Method 07/27/22 08:00 O2 Flow Rate 2 07/27/22 08:00 Oxygen Flow Rate 4 07/25/22 01:17 BMI result Body Mass Index 19.8 Const: Other: Constitutional : Awake, interactive, Neck : Normal inspection, Supple Cardiovascular : RRR, no JVP, +2 bilateral lower extremity edema Respiratory : fair bilateral air entry, basal fine crackles, bilateral expiratory wheezes Gastrointestinal: soft, lax, Normal bowel sounds, Non tender Skin : Warm, Dry Neurological : Alert & oriented x3, No focal deficit Objective Data Active Medications Acetaminophen (Acetaminophen 325 Mg Tablet) 650 mg PO Q6H PRN PRN Reason: Pain, Mild (Pain Scale 1-3) Apixaban (Apixaban 5 Mg Tablet) 5 mg PO BID [facility] Last Admin: 07/27/22 08:50 Dose: 5 mg Documented By: KISHORE Atorvastatin Calcium (Atorvastatin Calcium 20 Mg Tablet) 20 mg PO DAILY [facility] Last Admin: 07/27/22 08:51 Dose: 20 mg Documented By: KISHORE Azithromycin (Azithromycin 500 Mg Tablet) 500 mg PO DAILY [facility] Last Admin: 07/27/22 08:50 Dose: 500 mg Documented By: KISHORE Albuterol Sulfate 2.5 mg/ (Ipratropium [place] 0.5 mg) 0 mg INHALE Q4H PRN PRN Reason: Shortness of Breath/Wheezing Last Admin: 07/25/22 12:38 Dose: 1 each Albuterol Sulfate 2.5 mg/ (Ipratropium [place] 0.5 mg) 0 mg INHALE RQ4H WHILE AWAKE [facility] Last Admin: 07/27/22 11:16 Dose: 0.5 each Documented By: LAZARO Dextrose (Dextrose 50 % 25 Gm/50 Ml Syringe) 25 gm IVPUSH Q15M PRN; Protocol PRN Reason: per Hypoglycemia Standing Ord. Diltiazem HCl (Diltiazem Hcl Cd 180 Mg Cap.Er.24h) 180 mg PO DAILY [facility]; Protocol Last Admin: 07/27/22 08:50 Dose: 180 mg Documented By: KISHORE Docusate Sodium (Docusate Sodium 100 Mg Capsule) 100 mg PO DAILY PRN PRN Reason: Constipation Furosemide (Furosemide 40 Mg/4 Ml Vial) 40 mg IVPUSH BID@0900,1800 [facility]; Protocol Last Admin: 07/27/22 08:49 Dose: 40 mg Documented By: KISHORE Gabapentin (Gabapentin 600 Mg Tablet) 600 mg PO BEDTIME [facility] Last Admin: 07/26/22 20:34 Dose: 600 mg Documented By: ANDREA Glucose (Glucose Gel 15 Gm Gel..Gram.) 15 gm PO Q15M PRN; Protocol PRN Reason: per Hypoglycemia Standing Ord. Insulin Human Lispro (Insulin Lispro 100 Unit/Ml 3 Ml Vial) 0 unit SUBCUT QIDACHS [facility]; Protocol Last Admin: 07/27/22 11:51 Dose: 2 unit Documented By: KISHORE Isosorbide Mononitrate (Isosorbide Mononitrate 60 Mg Tab.Er.24h) 60 mg PO DAILY [facility]; Protocol Last Admin: 07/27/22 08:50 Dose: 60 mg Documented By: KISHORE Ketorolac Tromethamine (Ketorolac Tromethamine 0.5% Op 5 Ml Drops) 1 drop EYE- BOTH QID [facility] Last Admin: 07/27/22 11:40 Dose: Not Given Documented By: KISHORE Non-Admin Reason: Med Not Available Methylprednisolone Sodium Succinate (Methylprednisolone Sod Succ 40 Mg/Ml Vial) 40 mg IVPUSH BID [facility] Last Admin: 07/27/22 08:50 Dose: 40 mg Documented By: KISHORE Metoprolol Tartrate (Metoprolol Tartrate 50 Mg Tablet) 50 mg PO BID [facility]; Protocol Omeprazole (Omeprazole 20 Mg Capsule.) 20 mg PO DAILY@0630 [facility] Last Admin: 07/27/22 05:57 Dose: 20 mg Documented By: ANDREA Ondansetron HCl (Ondansetron Hcl 4 Mg/2 Ml Vial) 4 mg IVPUSH Q8H PRN PRN Reason: Nausea and Vomiting Pharmacy Consult (Consult Rx Perform Med Rec) 1 each MISCELLANE ONCE PRN PRN Reason: Consult order Sodium Chloride (0.9 % Sodium Chloride Flush 3 Ml Syringe) 3 ml IVFLUSH QSHIFT [facility] Last Admin: 07/27/22 08:50 Dose: 3 ml Documented By: KISHORE Labs 07/26/22 05:22 07/27/22 05:08 Labs: Laboratory Results - last 24 hr 07/26/22 07/26/22 07/27/22 16:07 20:51 05:08 Anion Gap 16 Estim Creat Clear Calc 15.6 Estimated GFR 21 POC Glucose 145 H 156 H Random Glucose 128 H Calcium 7.9 L B-Natriuretic Peptide 07/27/22 07/27/22 07/27/22 05:08 07:07 11:13 Anion Gap Estim Creat Clear Calc Estimated GFR POC Glucose 132 H 152 H Random Glucose Calcium B-Natriuretic Peptide 83 Microbiology Microbiology Results: Microbiology 07/25/22 00:07 Blood Culture - Preliminary Blood - Venous No growth after 48 hours. 07/24/22 23:51 Blood Culture - Preliminary Blood - Venous No growth after 48 hours. 07/25/22 Unknown Urine Culture - Final Urine clean catch - Urine stone top Assessment and Plan (1) Diastolic heart failure: Status: Acute (2) Acute respiratory failure with hypoxia: Status: Acute (3) Acute bronchitis with wheezing: Status: Acute Plan 82-year-old male with past medical history CAD, DM, DVT, HTN, HLD, CKD IV, chronic venous stasis, presented with sob and hypoxia acute hypoxic respiratory failure due to acute unspecified chf complicated by copd with acute decompensation Continue iv lasix b.i.d. echo showed EF of 60% w diastolic dysfunction steroids, nebs continue azitrho resp viral panel positive for rhinovirus VQ with intermediate probability of PE - doubt PE, already on eliquis Bernardo I on CKD IV Worsened from 2.2 to almost 3 this morning Likely prerenal Will get Nephrology evaluation Continue to monitor KFT DMII clear, not on meds, A1c of 5.6 obesity weight loss recommended HTN, uncontrolled continue atenolol Increase diltiazem history of DVT eliquis DNR/DNI reason for continued hospitalization: iv diuresis, hypoxia requiring oxygen supplement pending safe discharge plan Time Spent With Patient Time: Total time managing care of this patient today ____ minutes. Quality Stroke Does the patient have a stroke diagnosis?: No VTE Prior VTE?: No VTE Risk Level:: Medical - low VTE Device Contraindication: Patient Refused VTE Drug Contraindication: N/A - Med Ordered
--- NOTE | 2022-07-27 15:56 | PM.PNCARD ---
Subjective Subjective Date of Service: 07/27/22 Interval history: Seen examined bedside. Continues to be short of breath and wheezy. Physical Exam Vital Signs: Last Vital Signs Temp 97.7 F 07/27/22 08:00 Pulse 57 07/27/22 15:30 Resp 18 07/27/22 15:30 BP 140/67 H 07/27/22 08:00 Pulse Ox 94 07/27/22 08:00 O2 Del Method 07/27/22 08:00 O2 Flow Rate 2 07/27/22 08:00 Oxygen Flow Rate 4 07/25/22 01:17 BMI result Body Mass Index 19.8 GENERAL APPEARANCE: Short of breath, wheezing, on supplemental oxygen. Morbidly obese. NECK: no carotid bruit, mild jugular venous distention. SKIN: no suspicious lesions, warm and dry. HEART: no murmurs, regular rate and rhythm. LUNGS: Bilateral wheezes and rhonchi. ABDOMEN: soft, nontender. EXTREMITIES: +2 edema. Chronic he is insufficiency changes. PERIPHERAL PULSES: equal. NEUROLOGIC: No gross deficits, AAO X 3 Objective Labs and Meds 07/26/22 05:22 07/27/22 05:08 Lab results: Laboratory Results - last 24 hr 07/26/22 07/26/22 07/27/22 16:07 20:51 05:08 Sodium 138 Potassium 4.9 Chloride 104 Carbon Dioxide 23 Anion Gap 16 BUN 71 H Creatinine 2.96 H Estim Creat Clear Calc 15.6 Estimated GFR 21 POC Glucose 145 H 156 H Random Glucose 128 H Calcium 7.9 L B-Natriuretic Peptide 07/27/22 07/27/22 07/27/22 05:08 07:07 11:13 Sodium Potassium Chloride Carbon Dioxide Anion Gap BUN Creatinine Estim Creat Clear Calc Estimated GFR POC Glucose 132 H 152 H Random Glucose Calcium B-Natriuretic Peptide 83 Progress Note: A&P Assessment and plan (1) Diastolic heart failure: Status: Acute (2) Acute bronchitis with wheezing: Status: Acute Plan 82-year-old gentleman presenting for worsening shortness of breath and wheezing. He is being treated for acute bronchitis. Also volume overloaded and I think his symptoms are also from congestive heart failure. On IV diuretics. His BNP has improved significantly from 210-83. His creatinine is rising at creatinine of 2.96. He was given 5 mg metolazone today. I think we hold off on further metolazone and leave him on 40 mg IV b.i.d. Lasix. My concern is that he has advanced CKD and aggressive diuresis may fact his kidney function. Monitor electrolytes closely. Thank you for allowing me to participate in the care of your patient. Please feel free to contact me if you have any questions. Time Spent With Patient Time: Total time managing care of this patient today ____ minutes. Progress Note: Quality Stroke Does the patient have a stroke diagnosis?: No Procedures Date of Service Date of Service: 07/27/22
[2022-07-27 16:20] LABS: Glucose, Whole Blood 185 mg/dL (60-115)
[2022-07-27 20:19] LABS: Glucose, Whole Blood 218 mg/dL (60-115)
[2022-07-27] MEDS: Metoprolol Tartrate 50 MG TABLET PO (20:19)
[2022-07-27] MEDS: Gabapentin 600 MG TABLET PO (20:19)
[2022-07-28] VITALS (10 sets, daily range): BP systolic 128–188; BP diastolic 65–82; PULSE 55–70; RESP 16–18; TEMP 36.3–36.6; O2SAT 91–96
[2022-07-28] MEDS: Omeprazole 20 MG CAPSULE.DR PO (05:18)
[2022-07-28 06:18] LABS: Hematocrit 30.9 % (42.0-52.0); Mean Corpuscular HGB Conc 32.4 g/dl (31.0-36.0); Mean Corpuscular Hemoglobin 31.2 pg (27.0-33.0); Mean Corpuscular Volume 96.3 fL (80.0-98.0); Mean Platelet Volume 11.9 fL (9.4-12.4); Platelet Count 164 X10*3/uL (160-400); Red Blood Count 3.21 X10*6/uL (4.60-5.80); White Blood Count 9.4 X10*3/uL (4.8-10.8)
[2022-07-28 06:38] LABS: Anion Gap 18 (12-20); Blood Urea Nitrogen 82 mg/dL (9-16); Calcium 7.9 mg/dL (8.4-10.2); Carbon Dioxide 22 mmol/L (22-29); Chloride 104 mmol/L (96-108); Creatinine Clr Calc Pharmacy 15.5; Estimated Glomerular Filt Rate 20; Glucose Random 128 mg/dL (60-115); Potassium 4.9 mmol/L (3.3-5.1); Sodium 139 mmol/L (135-145)
[2022-07-28 08:43] LABS: Glucose, Whole Blood 122 mg/dL (60-115)
[2022-07-28] MEDS: Isosorbide Mononitrate 60 MG TAB.ER.24H PO (08:59)
[2022-07-28] MEDS: dilTIAZem HCL CD 180 MG CAP.ER.24H PO (08:59)
[2022-07-28] MEDS: methylPREDNISolone Sod Succ 40 MG/ML VIAL IVPUSH ×2 (08:59→20:35)
[2022-07-28] MEDS: Furosemide 40 MG/4 ML VIAL 80 MG IVPUSH (08:59)
[2022-07-28] MEDS: 0.9 % Sodium Chloride Flush 3 ML SYRINGE IVFLUSH ×3 (09:00→23:30)
[2022-07-28] MEDS: Atorvastatin Calcium 20 MG TABLET PO (09:00)
[2022-07-28] MEDS: Metoprolol Tartrate 50 MG TABLET PO ×2 (09:00→19:43)
[2022-07-28] MEDS: Azithromycin 500 MG TABLET PO (09:00)
[2022-07-28] MEDS: Apixaban 5 MG TABLET PO ×2 (09:02→20:35)
[2022-07-28 11:45] LABS: Glucose, Whole Blood 194 mg/dL (60-115)
--- NOTE | 2022-07-28 11:45 | P.PNIM_ITS ---
Subjective Subjective Date of Service: 07/28/22 Interval History: the patient was seen and evaluated this morning Setting in bed, improving slowly but still congesnted reporting shortness of breath and feeling generalized weakness No reported other overnight events. Review of Systems Review of Systems: Yes all other systems are reviewed and are negative Physical Exam Vital Signs: Vital Signs: Last Vital Signs Temp 97.5 F 07/28/22 07:47 Pulse 58 07/28/22 11:35 Resp 18 07/28/22 11:35 BP 128/65 07/28/22 07:47 Pulse Ox 94 07/28/22 07:47 O2 Del Method 07/28/22 07:47 O2 Flow Rate 2.0 07/28/22 07:47 Oxygen Flow Rate 4 07/25/22 01:17 BMI result Body Mass Index 19.8 Const: Other: Constitutional : Awake, interactive, Neck : Normal inspection, Supple Cardiovascular : RRR, no JVP, trace bilateral lower extremity edema Respiratory : fair bilateral air entry, basal fine crackles, bilateral expiratory wheezes Gastrointestinal: soft, lax, Normal bowel sounds, Non tender Skin : Warm, Dry Neurological : Alert & oriented x3, No focal deficit Objective Data Active Medications Acetaminophen (Acetaminophen 325 Mg Tablet) 650 mg PO Q6H PRN PRN Reason: Pain, Mild (Pain Scale 1-3) Apixaban (Apixaban 5 Mg Tablet) 5 mg PO BID [facility] Last Admin: 07/28/22 09:02 Dose: 5 mg Documented By: COTEMA Atorvastatin Calcium (Atorvastatin Calcium 20 Mg Tablet) 20 mg PO DAILY [facility] Last Admin: 07/28/22 09:00 Dose: 20 mg Documented By: COTEMA Azithromycin (Azithromycin 500 Mg Tablet) 500 mg PO DAILY [facility] Last Admin: 07/28/22 09:00 Dose: 500 mg Documented By: COTEMA Albuterol Sulfate 2.5 mg/ (Ipratropium Fluker 0.5 mg) 0 mg INHALE Q4H PRN PRN Reason: Shortness of Breath/Wheezing Last Admin: 07/25/22 12:38 Dose: 1 each Albuterol Sulfate 2.5 mg/ (Ipratropium Fluker 0.5 mg) 0 mg INHALE RQ4H WHILE AWAKE [facility] Last Admin: 07/28/22 11:34 Dose: 0.5 each Documented By: CHARBELCARR Dextrose (Dextrose 50 % 25 Gm/50 Ml Syringe) 25 gm IVPUSH Q15M PRN; Protocol PRN Reason: per Hypoglycemia Standing Ord. Diltiazem HCl (Diltiazem Hcl Cd 180 Mg Cap.Er.24h) 180 mg PO DAILY [facility]; Protocol Last Admin: 07/28/22 08:59 Dose: 180 mg Documented By: COTEMA Docusate Sodium (Docusate Sodium 100 Mg Capsule) 100 mg PO DAILY PRN PRN Reason: Constipation Furosemide (Furosemide 40 Mg/4 Ml Vial) 80 mg IVPUSH DAILY [facility]; Protocol Last Admin: 07/28/22 08:59 Dose: 80 mg Documented By: COTEMA Furosemide (Furosemide 40 Mg/4 Ml Vial) 40 mg IVPUSH DAILY@1700 [facility]; Protocol Gabapentin (Gabapentin 600 Mg Tablet) 600 mg PO BEDTIME [facility] Last Admin: 07/27/22 20:19 Dose: 600 mg Documented By: NIDIA Glucose (Glucose Gel 15 Gm Gel..Gram.) 15 gm PO Q15M PRN; Protocol PRN Reason: per Hypoglycemia Standing Ord. Insulin Human Lispro (Insulin Lispro 100 Unit/Ml 3 Ml Vial) 0 unit SUBCUT QIDACHS [facility]; Protocol Last Admin: 07/28/22 08:44 Dose: Not Given Documented By: TRES Non-Admin Reason: No Insulin Coverage Isosorbide Mononitrate (Isosorbide Mononitrate 60 Mg Tab.Er.24h) 60 mg PO DAILY [facility]; Protocol Last Admin: 07/28/22 08:59 Dose: 60 mg Documented By: TRES Ketorolac Tromethamine (Ketorolac Tromethamine 0.5% Op 5 Ml Drops) 1 drop EYE- BOTH QID [facility] Last Admin: 07/28/22 08:50 Dose: Not Given Documented By: TRES Non-Admin Reason: Patient Refused Methylprednisolone Sodium Succinate (Methylprednisolone Sod Succ 40 Mg/Ml Vial) 40 mg IVPUSH BID [facility] Last Admin: 07/28/22 08:59 Dose: 40 mg Documented By: COTEMA Metoprolol Tartrate (Metoprolol Tartrate 50 Mg Tablet) 50 mg PO BID [facility]; Protocol Last Admin: 07/28/22 09:00 Dose: 50 mg Documented By: COTEMA Omeprazole (Omeprazole 20 Mg Capsule.Dr) 20 mg PO DAILY@0630 [facility] Last Admin: 07/28/22 05:18 Dose: 20 mg Documented By: NIDIA Ondansetron HCl (Ondansetron Hcl 4 Mg/2 Ml Vial) 4 mg IVPUSH Q8H PRN PRN Reason: Nausea and Vomiting Pharmacy Consult (Consult Rx Perform Med Rec) 1 each MISCELLANE ONCE PRN PRN Reason: Consult order Sodium Chloride (0.9 % Sodium Chloride Flush 3 Ml Syringe) 3 ml IVFLUSH QSHIFT [facility] Last Admin: 07/28/22 09:00 Dose: 3 ml Documented By: COTEMA Labs 07/28/22 05:11 07/28/22 05:11 Labs: Laboratory Results - last 24 hr 07/27/22 07/27/22 07/28/22 16:13 20:04 05:11 MCV 96.3 MCH 31.2 MCHC 32.4 RDW 14.0 Plt Count 164 MPV 11.9 Absolute Nucleated RBC 0.000 Nucleated RBC % (auto) 0.0 Anion Gap Estim Creat Clear Calc Estimated GFR POC Glucose 185 H 218 H Random Glucose Calcium 07/28/22 07/28/22 07/28/22 05:11 08:38 11:24 MCV MCH MCHC RDW Plt Count MPV Absolute Nucleated RBC Nucleated RBC % (auto) Anion Gap 18 Estim Creat Clear Calc 15.5 Estimated GFR 20 POC Glucose 122 H 194 H Random Glucose 128 H Calcium 7.9 L Assessment and Plan (1) Acute respiratory failure with hypoxia: Status: Acute (2) Acute bronchitis with wheezing: Status: Acute (3) Diastolic heart failure: Status: Acute Plan 82-year-old male with past medical history CAD, DM, DVT, HTN, HLD, CKD IV, chronic venous stasis, presented with sob and hypoxia acute hypoxic respiratory failure due to acute unspecified chf complicated by copd with acute decompensation Increase lasix to 80, 40 IV bid echo showed EF of 60% w diastolic dysfunction continue steroids, nebs continue azitrho resp viral panel positive for rhinovirus VQ with intermediate probability of PE - doubt PE, already on eliquis wean O2 down as tolerated Bernardo I on CKD IV Worsened from 2.2 to almost 3 this morning Likely prerenal pending Nephrology evaluation Continue to monitor KFT DMII clear, not on meds, A1c of 5.6 obesity weight loss recommended HTN, uncontrolled continue atenolol Increase diltiazem history of DVT donovan DNR/DNI reason for continued hospitalization: iv diuresis, hypoxia requiring oxygen supplement pending safe discharge plan Time Spent With Patient Time: Total time managing care of this patient today ____ minutes. Quality Stroke Does the patient have a stroke diagnosis?: No VTE Prior VTE?: No VTE Risk Level:: Medical - low VTE Device Contraindication: Patient Refused VTE Drug Contraindication: N/A - Med Ordered
[2022-07-28] MEDS: Insulin Lispro 100 UNIT/ML 3 ML VIAL SUBCUT ×2 (12:04→20:35)
--- NOTE | 2022-07-28 13:16 | PM.CNNEP ---
History of Present Illness Reason for Consult Consult date: 07/28/22 Chief Complaint Chief complaint: SOB, ?CHF History of Present Illness Narrative: 82-year-old male with history of CKD admitted with decompensated CHF now with worsening kidney function. He presented to the hospital with complaints of shortness of breath, cough and sputum production. He stated he had difficulty catching his breath with minimal movement.? There is no report of fever, no chills, chest pain, abdominal pain nausea, vomiting and diarrhea. Chest? CT showed? bronchial wall thickening. Review of his chart does not show hypotensive episodes. Review of Systems Review of Systems 10 points ROS negative except for pertinent in HPI PMFSH Past Medical History Medical History Bilateral lower leg cellulitis Cataract, left eye Chronic venous stasis dermatitis of both lower extremities Coronary artery disease Deep vein thrombosis (DVT) of popliteal vein of left lower extremity Diabetes mellitus with stage 4 chronic kidney disease Essential hypertension Hyperlipidemia Lumbar degenerative disc disease Lymphedema of both lower extremities Obesity (BMI 30-39.9) Onychomycosis Osteoarthritis of knees, bilateral Stage 4 chronic kidney disease Vitamin D deficiency Family History Family History Father No problems noted. Mother No problems noted. Surgical History Surgical History Left carotid artery stenosis No significant past surgical history Social History Social History Household Members: Children Household Members Other:: son Housing: House Do you presently have visiting nurse or other home services: No Alcohol intake: never Patient Tobacco Use Status: Never used Tobacco Second Hand Smoke Exposure: No Advance Directives Date on File: 07/20/20 service: No Current occupational status: retired Meds Allergies Allergy/AdvReac Type Severity Reaction Status Date / Time Heparin Analogues Allergy Severe heparin Verified 07/25/22 08:22 [HEPARIN ANALOGUES] induced thrombocytopenia Active Medications: Current Medications Acetaminophen (Acetaminophen 325 Mg Tablet) 650 mg PO Q6H PRN PRN Reason: Pain, Mild (Pain Scale 1-3) Apixaban (Apixaban 5 Mg Tablet) 5 mg PO BID [facility] Last Admin: 07/28/22 09:02 Dose: 5 mg Atorvastatin Calcium (Atorvastatin Calcium 20 Mg Tablet) 20 mg PO DAILY [facility] Last Admin: 07/28/22 09:00 Dose: 20 mg Azithromycin (Azithromycin 500 Mg Tablet) 500 mg PO DAILY [facility] Last Admin: 07/28/22 09:00 Dose: 500 mg Albuterol Sulfate 2.5 mg/ (Ipratropium Levant 0.5 mg) 0 mg INHALE Q4H PRN PRN Reason: Shortness of Breath/Wheezing Last Admin: 07/25/22 12:38 Dose: 1 each Albuterol Sulfate 2.5 mg/ (Ipratropium Levant 0.5 mg) 0 mg INHALE RQ4H WHILE AWAKE [facility] Last Admin: 07/28/22 11:34 Dose: 0.5 each Dextrose (Dextrose 50 % 25 Gm/50 Ml Syringe) 25 gm IVPUSH Q15M PRN; Protocol PRN Reason: per Hypoglycemia Standing Ord. Diltiazem HCl (Diltiazem Hcl Cd 180 Mg Cap.Er.24h) 180 mg PO DAILY [facility]; Protocol Last Admin: 07/28/22 08:59 Dose: 180 mg Docusate Sodium (Docusate Sodium 100 Mg Capsule) 100 mg PO DAILY PRN PRN Reason: Constipation Furosemide (Furosemide 40 Mg/4 Ml Vial) 80 mg IVPUSH DAILY [facility]; Protocol Last Admin: 07/28/22 08:59 Dose: 80 mg Furosemide (Furosemide 40 Mg/4 Ml Vial) 40 mg IVPUSH DAILY@1700 [facility]; Protocol Gabapentin (Gabapentin 600 Mg Tablet) 600 mg PO BEDTIME [facility] Last Admin: 07/27/22 20:19 Dose: 600 mg Glucose (Glucose Gel 15 Gm Gel..Gram.) 15 gm PO Q15M PRN; Protocol PRN Reason: per Hypoglycemia Standing Ord. Insulin Human Lispro (Insulin Lispro 100 Unit/Ml 3 Ml Vial) 0 unit SUBCUT QIDACHS [facility]; Protocol Last Admin: 07/28/22 12:04 Dose: 2 unit Isosorbide Mononitrate (Isosorbide Mononitrate 60 Mg Tab.Er.24h) 60 mg PO DAILY [facility]; Protocol Last Admin: 07/28/22 08:59 Dose: 60 mg Ketorolac Tromethamine (Ketorolac Tromethamine 0.5% Op 5 Ml Drops) 1 drop EYE-BOTH QID [facility] Last Admin: 07/28/22 12:01 Dose: Not Given Methylprednisolone Sodium Succinate (Methylprednisolone Sod Succ 40 Mg/Ml Vial) 40 mg IVPUSH BID [facility] Last Admin: 07/28/22 08:59 Dose: 40 mg Metoprolol Tartrate (Metoprolol Tartrate 50 Mg Tablet) 50 mg PO BID [facility]; Protocol Last Admin: 07/28/22 09:00 Dose: 50 mg Omeprazole (Omeprazole 20 Mg Capsule.Dr) 20 mg PO DAILY@0630 [facility] Last Admin: 07/28/22 05:18 Dose: 20 mg Ondansetron HCl (Ondansetron Hcl 4 Mg/2 Ml Vial) 4 mg IVPUSH Q8H PRN PRN Reason: Nausea and Vomiting Pharmacy Consult (Consult Rx Perform Med Rec) 1 each MISCELLANE ONCE PRN PRN Reason: Consult order Sodium Chloride (0.9 % Sodium Chloride Flush 3 Ml Syringe) 3 ml IVFLUSH QSHIFT [facility] Last Admin: 07/28/22 09:00 Dose: 3 ml Home Medications Medication Instructions Recorded Confirmed Last Taken Type atorvastatin 20 mg tablet 20 mg PO BEDTIME 04/14/20 07/25/22 Unknown History diltiazem HCl 180 mg 180 mg PO DAILY 04/14/20 07/25/22 Unknown History capsule,extended release 24 hr apixaban 5 mg tablet (Eliquis) 5 mg PO BID 04/28/21 07/25/22 Unknown History acetaminophen 325 mg tablet 650 mg PO Q4H PRN Fever Or Pain 07/25/22 07/25/22 Unknown History (Tylenol) albuterol sulfate 90 mcg/actuation 2 inh inhalation Q4H PRN Wheezing 07/25/22 07/25/22 Unknown History breath activated powder inhaler (ProAir RespiClick) ammonium lactate 10 %-emu oil 1 appl topical BID 07/25/22 07/25/22 Unknown History topical cream bisacodyl 10 mg rectal suppository 10 mg [place] DAILY PRN Constipation 07/25/22 07/25/22 Unknown History cholecalciferol (vitamin D3) 25 25 mcg PO DAILY 07/25/22 07/25/22 Unknown History mcg (1,000 unit) tablet (Vitamin D3) diclofenac sodium 1 % topical gel 2 g topical Q6H PRN Pain 07/25/22 07/25/22 Unknown History furosemide 20 mg tablet 1 tab PO DAILY 07/25/22 07/25/22 Unknown History furosemide 40 mg tablet 40 mg PO DAILY@1500 07/25/22 07/25/22 Unknown History gabapentin 600 mg tablet 1 tab PO DAILY 07/25/22 07/25/22 Unknown History guaifenesin 100 mg/5 mL oral liquid 200 mg PO Q8H PRN Cough 07/25/22 07/25/22 Unknown History ipratropium 0.5 mg-albuterol 3 mg 3 ml inhalation Q4H PRN Wheezing 07/25/22 07/25/22 Unknown History (2.5 mg base)/3 mL nebulization soln ketorolac 0.5 % eye drops 1 drp ophthalmic (eye) QID itchy 07/25/22 07/25/22 Unknown History eyes naloxone 0.4 mg/mL injection 0.4 mg subcut Q2M PRN Opioid 07/25/22 07/25/22 Unknown History solution Overdose omeprazole 20 mg capsule,delayed 20 mg PO DAILY@0630 07/25/22 07/25/22 Unknown History release sodium phosphates 19 gram-7 118 ml [place] DAILY PRN Constipation 07/25/22 07/25/22 Unknown History gram/118 mL enema (Fleet Enema) Physical Exam Vital Signs: Last Vital Signs Temp 97.5 F 07/28/22 07:47 Pulse 58 07/28/22 11:35 Resp 18 07/28/22 11:35 BP 128/65 07/28/22 07:47 Pulse Ox 94 07/28/22 07:47 O2 Del Method 07/28/22 07:47 O2 Flow Rate 2.0 07/28/22 07:47 Oxygen Flow Rate 4 07/25/22 01:17 BMI result Body Mass Index 19.8 Const General: no acute distress HEENT Head: Yes normocephalic and Yes atraumatic Neck Neck: Yes supple Resp Auscultation: diminished lung sounds Cardio Heart sounds: S1 normal heart sound present and S2 normal heart sound present GI Palpation (GI): Soft to palpation and nontender Extrem Right upper extremity: edema Results Lab Results 07/28/22 05:11 07/28/22 05:11 Lab results: Chemistry 07/26/22 07/27/22 07/28/22 05:22 05:08 05:11 Sodium 139 138 139 Potassium 5.0 4.9 4.9 Carbon Dioxide 21 L 23 22 BUN 56 H 71 H 82 H Creatinine 2.56 H 2.96 H 2.98 H Calcium 8.2 L 7.9 L 7.9 L Hematology 07/26/22 07/28/22 05:22 05:11 WBC 9.9 9.4 Hgb 10.0 L 10.0 L Plt Count 162 164 Assessment and Plan (1) ULISES (acute kidney injury): Status: Acute (2) (HFpEF) heart failure with preserved ejection fraction: Status: Acute (3) CKD (chronic kidney disease) stage 4, GFR 15-29 ml/min: Status: Acute Plan ULISES c/w caradio renal syndrome benign urine sediment other less likely known CKD baseline Scr 1.8-2.2 mg/dl known diastolic HF volume status above dry weight REC Magdalena continue IV diuresis follow kidney function and electrolytes Time Spent With Patient Time: Total time managing care of this patient today ____ minutes. Procedures Date of Service Date of Service: 07/28/22
[2022-07-28 16:15] LABS: Glucose, Whole Blood 142 mg/dL (60-115)
[2022-07-28] MEDS: hydrALAZINE HCl 25 MG TABLET PO ×2 (16:15→19:43)
--- NOTE | 2022-07-28 16:33 | PM.PNCARD ---
Subjective Subjective Date of Service: 07/28/22 Interval history: Examined at bedside. Breathing little better than yesterday but continues to wheeze and has upper airway rattling. Physical Exam Vital Signs: Last Vital Signs Temp 97.9 F 07/28/22 15:03 Pulse 56 07/28/22 15:37 Resp 18 07/28/22 15:37 BP 186/77 H 07/28/22 15:03 Pulse Ox 92 07/28/22 15:03 O2 Del Method 07/28/22 15:03 O2 Flow Rate 1 07/28/22 15:03 Oxygen Flow Rate 4 07/25/22 01:17 BMI result Body Mass Index 19.8 GENERAL APPEARANCE: Short of breath, wheezing, on supplemental oxygen. Morbidly obese. NECK: no carotid bruit, mild jugular venous distention. SKIN: no suspicious lesions, warm and dry. HEART: no murmurs, regular rate and rhythm. LUNGS: Bilateral wheezes and rhonchi. ABDOMEN: soft, nontender. EXTREMITIES: +2 edema. Chronic venous insufficiency changes. PERIPHERAL PULSES: equal. NEUROLOGIC: No gross deficits, AAO X 3 Objective Labs and Meds 07/28/22 05:11 07/28/22 05:11 Lab results: Laboratory Results - last 24 hr 07/27/22 07/28/22 07/28/22 20:04 05:11 05:11 WBC 9.4 RBC 3.21 L Hgb 10.0 L Hct 30.9 L MCV 96.3 MCH 31.2 MCHC 32.4 RDW 14.0 Plt Count 164 MPV 11.9 Absolute Nucleated RBC 0.000 Nucleated RBC % (auto) 0.0 Sodium 139 Potassium 4.9 Chloride 104 Carbon Dioxide 22 Anion Gap 18 BUN 82 H Creatinine 2.98 H Estim Creat Clear Calc 15.5 Estimated GFR 20 POC Glucose 218 H Random Glucose 128 H Calcium 7.9 L Ur Random Sodium 07/28/22 07/28/22 07/28/22 08:38 11:24 14:00 WBC RBC Hgb Hct MCV MCH MCHC RDW Plt Count MPV Absolute Nucleated RBC Nucleated RBC % (auto) Sodium Potassium Chloride Carbon Dioxide Anion Gap BUN Creatinine Estim Creat Clear Calc Estimated GFR POC Glucose 122 H 194 H Random Glucose Calcium Ur Random Sodium 74.0 07/28/22 16:08 WBC RBC Hgb Hct MCV MCH MCHC RDW Plt Count MPV Absolute Nucleated RBC Nucleated RBC % (auto) Sodium Potassium Chloride Carbon Dioxide Anion Gap BUN Creatinine Estim Creat Clear Calc Estimated GFR POC Glucose 142 H Random Glucose Calcium Ur Random Sodium Progress Note: A&P Assessment and plan (1) (HFpEF) heart failure with preserved ejection fraction: Status: Acute (2) ULISES (acute kidney injury): Status: Acute Plan Pleasant 82-year-old gentleman who is presenting with viral bronchitis as well as congestive heart failure. Continues to wheeze. He was on IV diuretics and his BNP improved significantly but his shortness of breath has not improved. I think bronchitis is a major issue. He is receiving treatment for that. He is whole body overloaded and IV diuretics. Continue gentle diuresis and monitor kidney function closely as he has advanced CKD. Numb stopping diltiazem to see if that helps with forward flow and improved renal perfusion. Continue hydralazine and isosorbide combo. Hydralazine can be titrated his blood pressure is rising after stopping the Cardizem. We will follow along with you. Thank you for allowing me to participate in the care of your patient. Please feel free to contact me if you have any questions. Time Spent With Patient Time: Total time managing care of this patient today ____ minutes. Progress Note: Quality Stroke Does the patient have a stroke diagnosis?: No Procedures Date of Service Date of Service: 07/28/22
[2022-07-28] MEDS: Furosemide 40 MG/4 ML VIAL IVPUSH (16:59)
[2022-07-28 20:10] LABS: Glucose, Whole Blood 187 mg/dL (60-115)
[2022-07-28] MEDS: Gabapentin 600 MG TABLET PO (20:35)
[2022-07-28] MEDS: polyethylene glycoL 3350 17 GM POWD.PACK PO (22:42)
[2022-07-29] VITALS (9 sets, daily range): BP systolic 154–168; BP diastolic 68–93; PULSE 53–92; RESP 16–20; TEMP 36.2–36.4; O2SAT 92–96
[2022-07-29 00:38] LABS: B Type Natriuretic Peptide 158 pg/mL (<100)
[2022-07-29] MEDS: Omeprazole 20 MG CAPSULE.DR PO (05:45)
[2022-07-29 07:26] LABS: Glucose, Whole Blood 153 mg/dL (60-115)
[2022-07-29] MEDS: Furosemide 40 MG/4 ML VIAL 80 MG IVPUSH (08:23)
[2022-07-29] MEDS: Insulin Lispro 100 UNIT/ML 3 ML VIAL SUBCUT ×2 (08:26→12:02)
[2022-07-29] MEDS: polyethylene glycoL 3350 17 GM POWD.PACK PO (08:26)
[2022-07-29] MEDS: Metoprolol Tartrate 50 MG TABLET PO ×2 (08:27→21:24)
[2022-07-29] MEDS: Atorvastatin Calcium 20 MG TABLET PO (08:27)
[2022-07-29] MEDS: Azithromycin 500 MG TABLET PO (08:27)
[2022-07-29] MEDS: hydrALAZINE HCl 25 MG TABLET PO (08:27)
[2022-07-29] MEDS: Isosorbide Mononitrate 60 MG TAB.ER.24H PO (08:28)
[2022-07-29] MEDS: predniSONE 20 MG TABLET 40 MG PO (08:28)
[2022-07-29] MEDS: Apixaban 5 MG TABLET PO ×2 (08:28→21:24)
--- NOTE | 2022-07-29 09:18 | P.PNIM_ITS ---
Subjective Subjective Date of Service: 07/29/22 Interval History: the patient was seen and evaluated this morning Setting in bed, improving slowly but still congesnted and sounds wet reporting shortness of breath and feeling generalized weakness No reported other overnight events. Review of Systems Review of Systems: Yes all other systems are reviewed and are negative Physical Exam Vital Signs: Vital Signs: Last Vital Signs Temp 97.4 F 07/29/22 08:00 Pulse 64 07/29/22 08:13 Resp 18 07/29/22 08:13 BP 154/68 H 07/29/22 08:00 Pulse Ox 94 07/29/22 08:00 O2 Del Method 07/29/22 08:00 O2 Flow Rate 1 07/29/22 08:00 Oxygen Flow Rate 4 07/25/22 01:17 BMI result Body Mass Index 19.8 Const: Other: Constitutional : Awake, interactive, Neck : Normal inspection, Supple Cardiovascular : RRR, no JVP, trace bilateral lower extremity edema Respiratory : fair bilateral air entry, basal fine crackles, bilateral expiratory wheezes Gastrointestinal: soft, lax, Normal bowel sounds, Non tender Skin : Warm, Dry Neurological : Alert & oriented x3, No focal deficit Objective Data Active Medications Acetaminophen (Acetaminophen 325 Mg Tablet) 650 mg PO Q6H PRN PRN Reason: Pain, Mild (Pain Scale 1-3) Apixaban (Apixaban 5 Mg Tablet) 5 mg PO BID [facility] Last Admin: 07/29/22 08:28 Dose: 5 mg Documented By: LOCO Atorvastatin Calcium (Atorvastatin Calcium 20 Mg Tablet) 20 mg PO DAILY [facility] Last Admin: 07/29/22 08:27 Dose: 20 mg Documented By: LOCO Azithromycin (Azithromycin 500 Mg Tablet) 500 mg PO DAILY [facility] Last Admin: 07/29/22 08:27 Dose: 500 mg Documented By: LOCO Albuterol Sulfate 2.5 mg/ (Ipratropium [place] 0.5 mg) 0 mg INHALE Q4H PRN PRN Reason: Shortness of Breath/Wheezing Last Admin: 07/25/22 12:38 Dose: 1 each Albuterol Sulfate 2.5 mg/ (Ipratropium [place] 0.5 mg) 0 mg INHALE RQ4H WHILE AWAKE [facility] Last Admin: 07/29/22 08:12 Dose: 1 each Documented By: HO.BLASCL Dextrose (Dextrose 50 % 25 Gm/50 Ml Syringe) 25 gm IVPUSH Q15M PRN; Protocol PRN Reason: per Hypoglycemia Standing Ord. Docusate Sodium (Docusate Sodium 100 Mg Capsule) 100 mg PO DAILY PRN PRN Reason: Constipation Furosemide (Furosemide 40 Mg/4 Ml Vial) 80 mg IVPUSH DAILY [facility]; Protocol Last Admin: 07/29/22 08:23 Dose: 80 mg Documented By: LOCO Furosemide (Furosemide 40 Mg/4 Ml Vial) 40 mg IVPUSH DAILY@1700 [facility]; Protocol Last Admin: 07/28/22 16:59 Dose: 40 mg Documented By: KISHORE Gabapentin (Gabapentin 600 Mg Tablet) 600 mg PO BEDTIME [facility] Last Admin: 07/28/22 20:35 Dose: 600 mg Documented By: KISHORE Glucose (Glucose Gel 15 Gm Gel..Gram.) 15 gm PO Q15M PRN; Protocol PRN Reason: per Hypoglycemia Standing Ord. Guaifenesin (Guaifenesin La 600 Mg Tab.Er.12h) 600 mg PO BID [facility] Hydralazine HCl (Hydralazine Hcl 25 Mg Tablet) 25 mg PO TID [facility]; Protocol Last Admin: 07/29/22 08:27 Dose: 25 mg Documented By: LOCO Insulin Human Lispro (Insulin Lispro 100 Unit/Ml 3 Ml Vial) 0 unit SUBCUT QIDACHS [facility]; Protocol Last Admin: 07/29/22 08:26 Dose: 2 unit Documented By: LOCO Isosorbide Mononitrate (Isosorbide Mononitrate 60 Mg Tab.Er.24h) 60 mg PO DAILY [facility]; Protocol Last Admin: 07/29/22 08:28 Dose: 60 mg Documented By: LOCO Ketorolac Tromethamine (Ketorolac Tromethamine 0.5% Op 5 Ml Drops) 1 drop EYE- BOTH QID [facility] Last Admin: 07/29/22 08:42 Dose: Not Given Documented By: LOCO Non-Admin Reason: Med Not Available Metoprolol Tartrate (Metoprolol Tartrate 50 Mg Tablet) 50 mg PO BID [facility]; Protocol Last Admin: 07/29/22 08:27 Dose: 50 mg Documented By: LOCO Omeprazole (Omeprazole 20 Mg Capsule.) 20 mg PO DAILY@0630 [facility] Last Admin: 07/29/22 05:45 Dose: 20 mg Documented By: NIDIA Ondansetron HCl (Ondansetron Hcl 4 Mg/2 Ml Vial) 4 mg IVPUSH Q8H PRN PRN Reason: Nausea and Vomiting Pharmacy Consult (Consult Rx Perform Med Rec) 1 each MISCELLANE ONCE PRN PRN Reason: Consult order Polyethylene Glycol (Polyethylene Glycol 3350 17 Gm Powd.Pack) 17 gm PO DAILY [facility] Last Admin: 07/29/22 08:26 Dose: 17 gm Documented By: LOCO Prednisone (Prednisone 20 Mg Tablet) 40 mg PO DAILY [facility] Last Admin: 07/29/22 08:28 Dose: 40 mg Documented By: LOCO Sodium Chloride (0.9 % Sodium Chloride Flush 3 Ml Syringe) 3 ml IVFLUSH QSHIFT [facility] Last Admin: 07/28/22 23:30 Dose: 3 ml Documented By: NIDIA Labs 07/28/22 05:11 07/28/22 05:11 Labs: Laboratory Results - last 24 hr 07/28/22 07/28/22 07/28/22 11:24 14:00 16:08 POC Glucose 194 H 142 H B-Natriuretic Peptide Ur Random Sodium 74.0 07/28/22 07/28/22 07/29/22 20:07 23:27 07:15 POC Glucose 187 H 153 H B-Natriuretic Peptide 158 H Ur Random Sodium Assessment and Plan (1) (HFpEF) heart failure with preserved ejection fraction: Status: Acute (2) ULISES (acute kidney injury): Status: Acute (3) Acute respiratory failure with hypoxia: Status: Acute (4) Acute bronchitis with wheezing: Status: Acute Plan 82-year-old male with past medical history CAD, DM, DVT, HTN, HLD, CKD IV, chronic venous stasis, presented with sob and hypoxia acute hypoxic respiratory failure due to acute unspecified chf complicated by copd with acute decompensation Continue lasix to 80, 40 IV bid echo showed EF of 60% w diastolic dysfunction continue steroids, nebs continue azitrho Add Mucinex and incentive spirometry resp viral panel positive for rhinovirus VQ with intermediate probability of PE - doubt PE, already on eliquis wean O2 down as tolerated Ulises I on CKD IV Worsened from 2.2 to almost 3 Likely prerenal appreciate Nephrology evaluation Continue to monitor KFT DMII clear, not on meds, A1c of 5.6 obesity weight loss recommended HTN, uncontrolled continue atenolol Increase diltiazem history of DVT eliquis DNR/DNI reason for continued hospitalization: iv diuresis, hypoxia requiring oxygen supplement pending safe discharge plan Time Spent With Patient Time: Total time managing care of this patient today ____ minutes. Quality Stroke Does the patient have a stroke diagnosis?: No VTE Prior VTE?: No VTE Risk Level:: Medical - low VTE Device Contraindication: Patient Refused VTE Drug Contraindication: N/A - Med Ordered
--- NOTE | 2022-07-29 09:42 | PM.PNNEP ---
Subjective Subjective Date of Service: 07/29/22 Interval history: seen and examined feels better SOB improving Physical Exam Vital Signs: Vital Signs: Last Vital Signs Temp 97.4 F 07/29/22 08:00 Pulse 64 07/29/22 08:13 Resp 18 07/29/22 08:13 BP 154/68 H 07/29/22 08:00 Pulse Ox 94 07/29/22 08:00 O2 Del Method 07/29/22 08:00 O2 Flow Rate 1 07/29/22 08:00 Oxygen Flow Rate 4 07/25/22 01:17 BMI result Body Mass Index 19.8 Const: General: no acute distress HEENT: Head: Yes normocephalic and Yes atraumatic Neck: Neck: Yes supple Resp: Auscultation: diminished lung sounds Cardio: Heart sounds: S1 normal heart sound present and S2 normal heart sound present GI: Palpation (GI): Soft to palpation and nontender Extrem: Right upper extremity: edema Objective Data Labs 07/28/22 05:11 07/28/22 05:11 Labs: Laboratory Results - last 24 hr 07/28/22 07/28/22 07/28/22 11:24 14:00 16:08 POC Glucose 194 H 142 H B-Natriuretic Peptide Ur Random Sodium 74.0 07/28/22 07/28/22 07/29/22 20:07 23:27 07:15 POC Glucose 187 H 153 H B-Natriuretic Peptide 158 H Ur Random Sodium Microbiology Microbiology Results: Microbiology 07/25/22 00:07 Blood - Venous Blood Culture - Preliminary No growth after 48 hours. 07/24/22 23:51 Blood - Venous Blood Culture - Preliminary No growth after 48 hours. 07/25/22 Unknown Urine clean catch - Urine stone top Urine Culture - Final Procedures Date of Service Date of Service: 07/29/22 Assessment & Plan Assessment and plan (1) ULISES (acute kidney injury): Status: Acute (2) (HFpEF) heart failure with preserved ejection fraction: Status: Acute (3) CKD (chronic kidney disease) stage 4, GFR 15-29 ml/min: Status: Acute Plan Scr stable but above baseline ULISES c/w cardio renal syndrome benign urine sediment Magdalena 74 due to natriuresis other less likely known CKD baseline Scr 1.8-2.2 mg/dl known diastolic HF volume status above dry weight REC continue IV diuresis follow kidney function and electrolytes Time Spent With Patient Time: Total time managing care of this patient today ____ minutes. Progress Note: Quality Stroke Does the patient have a stroke diagnosis?: No
[2022-07-29 09:57] LABS: Anion Gap 16 (12-20); Blood Urea Nitrogen 93 mg/dL (9-16); Carbon Dioxide 25 mmol/L (22-29); Chloride 103 mmol/L (96-108); Creatinine Clr Calc Pharmacy 15.2; Estimated Glomerular Filt Rate 20; Glucose Random 136 mg/dL (60-115); Potassium 4.5 mmol/L (3.3-5.1); Sodium 139 mmol/L (135-145)
[2022-07-29] MEDS: guaiFENesin LA 600 MG TAB.ER.12H PO ×2 (10:52→21:24)
[2022-07-29] MEDS: 0.9 % Sodium Chloride Flush 3 ML SYRINGE IVFLUSH ×2 (10:52→17:56)
[2022-07-29 11:32] LABS: Glucose, Whole Blood 234 mg/dL (60-115)
--- NOTE | 2022-07-29 13:27 | P.PNCA_ITS ---
Subjective Subjective Date of Service: 07/29/22 Interval history: Patient seen examined at bedside. Continues to have significant wheezing. On IV diuretics. Creatinine is worsening. Physical Exam Vital Signs: Last Vital Signs Temp 97.2 F 07/29/22 12:25 Pulse 60 07/29/22 12:25 Resp 18 07/29/22 12:25 BP 164/72 H 07/29/22 12:25 Pulse Ox 92 07/29/22 12:25 O2 Del Method 07/29/22 12:25 O2 Flow Rate 5 07/29/22 12:25 Oxygen Flow Rate 4 07/25/22 01:17 BMI result Body Mass Index 19.8 GENERAL APPEARANCE: Short of breath, wheezing, on supplemental oxygen. Morbidly obese. SKIN: no suspicious lesions, warm and dry. HEART: no murmurs, regular rate and rhythm. LUNGS: Bilateral wheezes and rhonchi. ABDOMEN: soft, nontender. EXTREMITIES: +2 edema. Chronic venous insufficiency changes. PERIPHERAL PULSES: equal. NEUROLOGIC: No gross deficits, AAO X 3 Objective Labs and Meds 07/28/22 05:11 07/29/22 09:22 Lab results: Laboratory Results - last 24 hr 07/28/22 07/28/22 07/28/22 14:00 16:08 20:07 Sodium Potassium Chloride Carbon Dioxide Anion Gap BUN Creatinine Estim Creat Clear Calc Estimated GFR POC Glucose 142 H 187 H Random Glucose Calcium B-Natriuretic Peptide Ur Random Sodium 74.0 07/28/22 07/29/22 07/29/22 23:27 07:15 09:22 Sodium 139 Potassium 4.5 Chloride 103 Carbon Dioxide 25 Anion Gap 16 BUN 93 H Creatinine 3.05 H Estim Creat Clear Calc 15.2 Estimated GFR 20 POC Glucose 153 H Random Glucose 136 H Calcium 8.0 L B-Natriuretic Peptide 158 H Ur Random Sodium 07/29/22 11:22 Sodium Potassium Chloride Carbon Dioxide Anion Gap BUN Creatinine Estim Creat Clear Calc Estimated GFR POC Glucose 234 H Random Glucose Calcium B-Natriuretic Peptide Ur Random Sodium Imaging Radiologist's impression: Impressions Chest X-Ray 07/28/22 23:38 IMPRESSION: 1. Redemonstrated patchy/streaky opacities in the left lung base, likely subsegmental atelectasis or scarring. 2. No new focal airspace opacity or effusions. Progress Note: A&P Assessment and plan (1) CKD (chronic kidney disease) stage 4, GFR 15-29 ml/min: Status: Acute (2) (HFpEF) heart failure with preserved ejection fraction: Status: Acute (3) ULISES (acute kidney injury): Status: Acute (4) Acute bronchitis with wheezing: Status: Acute Plan 82-year-old gentleman with dyspnea on exertion and wheezing secondary to d iastolic heart failure and bronchitis. I think predominant issues with bronchitis currently. He has been on diuretics and despite having negative balance to some extent his creatinine has been worsening. His Cardizem was discontinued yesterday as it has negative inotropic effect and sometime can worsen renal function in the setting of cardiorenal physiology. Continue diuretics and monitor creatinine closely. Nephrology is following with us. I think if his creatinine worsens further diuretics should be discontinued because his wheezing and shortness of breath is mostly due to bronchitis in that case. Thank you for allowing me to participate in the care of your patient. Please feel free to contact me if you have any questions. Time Spent With Patient Time: Total time managing care of this patient today ____ minutes. Progress Note: Quality Stroke Does the patient have a stroke diagnosis?: No Procedures Date of Service Date of Service: 07/29/22
[2022-07-29] MEDS: Ketorolac Tromethamine 0.5% Op 5 ML DROPS 1 DROP EYE-BOTH ×3 (14:56→21:24)
[2022-07-29] MEDS: hydrALAZINE HCl 50 MG TABLET PO ×2 (14:57→21:24)
[2022-07-29 16:37] LABS: Glucose, Whole Blood 119 mg/dL (60-115)
[2022-07-29] MEDS: Furosemide 40 MG/4 ML VIAL IVPUSH (17:56)
[2022-07-29] MEDS: metOLazone 2.5 MG TABLET PO (18:17)
[2022-07-29 20:31] LABS: Glucose, Whole Blood 141 mg/dL (60-115)
[2022-07-29] MEDS: Gabapentin 600 MG TABLET PO (21:24)
[2022-07-30] VITALS (7 sets, daily range): BP systolic 142–198; BP diastolic 74–89; PULSE 60–71; RESP 8–20; TEMP 36.4–37; O2SAT 92–96
[2022-07-30] MEDS: 0.9 % Sodium Chloride Flush 3 ML SYRINGE IVFLUSH ×4 (00:07→23:28)
[2022-07-30] MEDS: Omeprazole 20 MG CAPSULE.DR PO (05:44)
[2022-07-30 08:07] LABS: Glucose, Whole Blood 124 mg/dL (60-115)
[2022-07-30] MEDS: polyethylene glycoL 3350 17 GM POWD.PACK PO (08:24)
[2022-07-30] MEDS: Furosemide 40 MG/4 ML VIAL 80 MG IVPUSH (08:24)
[2022-07-30] MEDS: predniSONE 20 MG TABLET 40 MG PO (08:25)
[2022-07-30] MEDS: hydrALAZINE HCl 50 MG TABLET PO (08:25)
[2022-07-30] MEDS: Azithromycin 500 MG TABLET PO (08:25)
[2022-07-30] MEDS: Metoprolol Tartrate 50 MG TABLET PO ×2 (08:25→20:54)
[2022-07-30] MEDS: Atorvastatin Calcium 20 MG TABLET PO (08:25)
[2022-07-30] MEDS: guaiFENesin LA 600 MG TAB.ER.12H PO ×2 (08:25→20:54)
[2022-07-30] MEDS: Apixaban 5 MG TABLET PO ×2 (08:25→20:55)
[2022-07-30] MEDS: Ketorolac Tromethamine 0.5% Op 5 ML DROPS 1 DROP EYE-BOTH ×4 (08:26→20:55)
[2022-07-30] MEDS: Isosorbide Mononitrate 60 MG TAB.ER.24H PO (08:26)
--- NOTE | 2022-07-30 08:28 | PM.PNNEP ---
Subjective Subjective Date of Service: 07/30/22 Interval history: seen and examined feels better Physical Exam Vital Signs: Vital Signs: Last Vital Signs Temp 97.6 F 07/30/22 07:24 Pulse 69 07/30/22 07:43 Resp 18 07/30/22 07:43 BP 198/89 H 07/30/22 07:24 Pulse Ox 96 07/30/22 07:24 O2 Del Method 07/30/22 07:24 O2 Flow Rate 1 07/30/22 07:24 Oxygen Flow Rate 4 07/25/22 01:17 BMI result Body Mass Index 19.8 Const: General: no acute distress HEENT: Head: Yes normocephalic and Yes atraumatic Neck: Neck: Yes supple Resp: Auscultation: diminished lung sounds Cardio: Heart sounds: S1 normal heart sound present and S2 normal heart sound present GI: Palpation (GI): Soft to palpation and nontender Extrem: Right upper extremity: edema Objective Data Labs 07/28/22 05:11 07/29/22 09:22 Labs: Laboratory Results - last 24 hr 07/29/22 07/29/22 07/29/22 09:22 11:22 16:26 Sodium 139 Potassium 4.5 Chloride 103 Carbon Dioxide 25 Anion Gap 16 BUN 93 H Creatinine 3.05 H Estim Creat Clear Calc 15.2 Estimated GFR 20 POC Glucose 234 H 119 H Random Glucose 136 H Calcium 8.0 L 07/29/22 07/30/22 20:25 07:55 Sodium Potassium Chloride Carbon Dioxide Anion Gap BUN Creatinine Estim Creat Clear Calc Estimated GFR POC Glucose 141 H 124 H Random Glucose Calcium Microbiology Microbiology Results: Microbiology 07/25/22 00:07 Blood - Venous Blood Culture - Final No growth after 5 days. 07/24/22 23:51 Blood - Venous Blood Culture - Final No growth after 5 days. 07/25/22 Unknown Urine clean catch - Urine stone top Urine Culture - Final Procedures Date of Service Date of Service: 07/30/22 Assessment & Plan Assessment and plan (1) ULISES (acute kidney injury): Status: Acute (2) (HFpEF) heart failure with preserved ejection fraction: Status: Acute (3) CKD (chronic kidney disease) stage 4, GFR 15-29 ml/min: Status: Acute Plan Scr unchanged but above baseline ULISES c/w cardio renal syndrome benign urine sediment Magdalena 74 due to natriuresis other less likely known CKD baseline Scr 1.8-2.2 mg/dl known diastolic HF volume status still above dry weight REC continue IV diuresis as tolerated by hemodynamic and kidney function follow kidney function and electrolytes Time Spent With Patient Time: Total time managing care of this patient today ____ minutes. Progress Note: Quality Stroke Does the patient have a stroke diagnosis?: No
[2022-07-30 08:49] LABS: Anion Gap 20 (12-20); Blood Urea Nitrogen 100 mg/dL (9-16); Carbon Dioxide 25 mmol/L (22-29); Chloride 101 mmol/L (96-108); Creatinine Clr Calc Pharmacy 16.4; Estimated Glomerular Filt Rate 22; Glucose Random 99 mg/dL (60-115); Potassium 4.6 mmol/L (3.3-5.1); Sodium 141 mmol/L (135-145)
--- NOTE | 2022-07-30 10:26 | HO.PM.IMPN ---
Subjective Subjective Date of Service: 07/30/22 Interval History: the patient was seen and evaluated this morning Weaning down his oxygen supplement still congesnted and sounds wet but better than yesterday Reported not having any bowel movement since admission No reported other overnight events. Review of Systems Review of Systems: Yes all other systems are reviewed and are negative Physical Exam Vital Signs: Vital Signs: Last Vital Signs Temp 97.6 F 07/30/22 07:24 Pulse 69 07/30/22 07:43 Resp 18 07/30/22 07:43 BP 198/89 H 07/30/22 07:24 Pulse Ox 96 07/30/22 07:24 O2 Del Method 07/30/22 07:24 O2 Flow Rate 1 07/30/22 07:24 Oxygen Flow Rate 4 07/25/22 01:17 BMI result Body Mass Index 19.8 Const: Other: Constitutional : Awake, interactive, Neck : Normal inspection, Supple Cardiovascular : RRR, no JVP, +1 bilateral lower extremity edema Respiratory : fair bilateral air entry, basal fine crackles, scattered expiratory wheezes Gastrointestinal: soft, lax, Normal bowel sounds, Non tender Skin : Warm, Dry, chronic changes of stasis dermatitis Neurological : Alert & oriented x3, No focal deficit Objective Data Active Medications Acetaminophen (Acetaminophen 325 Mg Tablet) 650 mg PO Q6H PRN PRN Reason: Pain, Mild (Pain Scale 1-3) Apixaban (Apixaban 5 Mg Tablet) 5 mg PO BID [facility] Last Admin: 07/30/22 08:25 Dose: 5 mg Documented By: LOCO Atorvastatin Calcium (Atorvastatin Calcium 20 Mg Tablet) 20 mg PO DAILY [facility] Last Admin: 07/30/22 08:25 Dose: 20 mg Documented By: LOCO Azithromycin (Azithromycin 500 Mg Tablet) 500 mg PO DAILY [facility] Last Admin: 07/30/22 08:25 Dose: 500 mg Documented By: LOCO Albuterol Sulfate 2.5 mg/ (Ipratropium [place] 0.5 mg) 0 mg INHALE Q4H PRN PRN Reason: Shortness of Breath/Wheezing Last Admin: 07/25/22 12:38 Dose: 1 each Albuterol Sulfate 2.5 mg/ (Ipratropium [place] 0.5 mg) 0 mg INHALE RQ4H WHILE AWAKE [facility] Last Admin: 07/30/22 07:42 Dose: 1 each Documented By: RERE Dextrose (Dextrose 50 % 25 Gm/50 Ml Syringe) 25 gm IVPUSH Q15M PRN; Protocol PRN Reason: per Hypoglycemia Standing Ord. Docusate Sodium (Docusate Sodium 100 Mg Capsule) 100 mg PO DAILY PRN PRN Reason: Constipation Furosemide (Furosemide 40 Mg/4 Ml Vial) 80 mg IVPUSH DAILY [facility]; Protocol Last Admin: 07/30/22 08:24 Dose: 80 mg Documented By: LOCO Furosemide (Furosemide 40 Mg/4 Ml Vial) 40 mg IVPUSH DAILY@1700 [facility]; Protocol Last Admin: 07/29/22 17:56 Dose: 40 mg Documented By: LOCO Gabapentin (Gabapentin 600 Mg Tablet) 600 mg PO BEDTIME [facility] Last Admin: 07/29/22 21:24 Dose: 600 mg Documented By: TAMIR Glucose (Glucose Gel 15 Gm Gel..Gram.) 15 gm PO Q15M PRN; Protocol PRN Reason: per Hypoglycemia Standing Ord. Guaifenesin (Guaifenesin [place] 600 Mg Tab.Er.12h) 600 mg PO BID [facility] Last Admin: 07/30/22 08:25 Dose: 600 mg Documented By: LOCO Hydralazine HCl (Hydralazine Hcl 25 Mg Tablet) 75 mg PO TID [facility]; Protocol Insulin Human Lispro (Insulin Lispro 100 Unit/Ml 3 Ml Vial) 0 unit SUBCUT QIDACHS [facility]; Protocol Last Admin: 07/30/22 08:14 Dose: Not Given Documented By: LOCO Non-Admin Reason: No Insulin Coverage Isosorbide Mononitrate (Isosorbide Mononitrate 60 Mg Tab.Er.24h) 60 mg PO DAILY [facility]; Protocol Last Admin: 07/30/22 08:26 Dose: 60 mg Documented By: LOCO Ketorolac Tromethamine (Ketorolac Tromethamine 0.5% Op 5 Ml Drops) 1 drop EYE-BOTH QID [facility] Last Admin: 07/30/22 08:26 Dose: 1 drop Documented By: LOCO Metoprolol Tartrate (Metoprolol Tartrate 50 Mg Tablet) 50 mg PO BID [facility]; Protocol Last Admin: 07/30/22 08:25 Dose: 50 mg Documented By: LOCO Omeprazole (Omeprazole 20 Mg Capsule.Dr) 20 mg PO DAILY@0630 [facility] Last Admin: 07/30/22 05:44 Dose: 20 mg Documented By: GABRIEL Ondansetron HCl (Ondansetron Hcl 4 Mg/2 Ml Vial) 4 mg IVPUSH Q8H PRN PRN Reason: Nausea and Vomiting Pharmacy Consult (Consult Rx Perform Med Rec) 1 each MISCELLANE ONCE PRN PRN Reason: Consult order Polyethylene Glycol (Polyethylene Glycol 3350 17 Gm Powd.Pack) 17 gm PO DAILY [facility] Last Admin: 07/30/22 08:24 Dose: 17 gm Documented By: LOCO Prednisone (Prednisone 20 Mg Tablet) 40 mg PO DAILY [facility] Last Admin: 07/30/22 08:25 Dose: 40 mg Documented By: LOCO Sodium Chloride (0.9 % Sodium Chloride Flush 3 Ml Syringe) 3 ml IVFLUSH QSHIFT [facility] Last Admin: 07/30/22 08:26 Dose: 3 ml Documented By: LOCO Labs 07/28/22 05:11 07/30/22 07:40 Labs: Laboratory Results - last 24 hr 07/29/22 07/29/22 07/29/22 11:22 16:26 20:25 Anion Gap Estim Creat Clear Calc Estimated GFR POC Glucose 234 H 119 H 141 H Random Glucose Calcium 07/30/22 07/30/22 07:40 07:55 Anion Gap 20 Estim Creat Clear Calc 16.4 Estimated GFR 22 POC Glucose 124 H Random Glucose 99 Calcium 8.0 L Microbiology Microbiology Results: Microbiology 07/25/22 00:07 Blood Culture - Final Blood - Venous No growth after 5 days. 07/24/22 23:51 Blood Culture - Final Blood - Venous No growth after 5 days. Assessment and Plan (1) ULISES (acute kidney injury): Status: Acute (2) (HFpEF) heart failure with preserved ejection fraction: Status: Acute (3) Acute respiratory failure with hypoxia: Status: Acute (4) Acute bronchitis with wheezing: Status: Acute Plan 82-year-old male with past medical history CAD, DM, DVT, HTN, HLD, CKD IV, chronic venous stasis, presented with sob and hypoxia acute hypoxic respiratory failure due to acute unspecified chf complicated by copd with acute decompensation Continue lasix to 80, 40 IV bid echo showed EF of 60% w diastolic dysfunction continue steroids, nebs continue azitrho Continue Mucinex and incentive spirometry resp viral panel positive for rhinovirus VQ with intermediate probability of PE - doubt PE, already on eliquis wean O2 down as tolerated Ulises I on CKD IV Creatinine improved to 2.8 Likely cardiorenal appreciate Nephrology evaluation Continue to monitor KFT Constipation No bowel movement since admission Start lactulose, glycerine suppository MiraLax DMII clear, not on meds, A1c of 5.6 obesity weight loss recommended HTN, uncontrolled Discontinue diltiazem continue atenolol Increase hydralazine to 75 t.i.d. Continue isosorbide mononitrate 60 mg daily history of DVT eliquis DNR/DNI reason for continued hospitalization: i continue diuresis, weaning down oxygen supplement, treat constipation pending safe discharge plan Time Spent With Patient Time: Total time managing care of this patient today ____ minutes. Quality Stroke Does the patient have a stroke diagnosis?: No VTE Prior VTE?: No VTE Risk Level:: Medical - low VTE Device Contraindication: Patient Refused VTE Drug Contraindication: N/A - Med Ordered
[2022-07-30 11:16] LABS: Glucose, Whole Blood 148 mg/dL (60-115)
--- NOTE | 2022-07-30 11:17 | PM.PNCARD ---
Subjective Subjective Date of Service: 07/30/22 Interval history: Seen examined at bedside. Less wheezy today. Overall feeling better. Physical Exam Vital Signs: Last Vital Signs Temp 97.6 F 07/30/22 07:24 Pulse 69 07/30/22 07:43 Resp 18 07/30/22 07:43 BP 198/89 H 07/30/22 07:24 Pulse Ox 96 07/30/22 07:24 O2 Del Method 07/30/22 07:24 O2 Flow Rate 1 07/30/22 07:24 Oxygen Flow Rate 4 07/25/22 01:17 BMI result Body Mass Index 19.8 GENERAL APPEARANCE: Less short of breath today. SKIN: no suspicious lesions, warm and dry. HEART: no murmurs, regular rate and rhythm. LUNGS: Mild wheezes and rhonchi. ABDOMEN: soft, nontender. EXTREMITIES: +2 edema. Chronic venous insufficiency changes. PERIPHERAL PULSES: equal. NEUROLOGIC: No gross deficits, AAO X 3 Objective Labs and Meds 07/28/22 05:11 07/30/22 07:40 Lab results: Laboratory Results - last 24 hr 07/29/22 07/29/22 07/29/22 11:22 16:26 20:25 Sodium Potassium Chloride Carbon Dioxide Anion Gap BUN Creatinine Estim Creat Clear Calc Estimated GFR POC Glucose 234 H 119 H 141 H Random Glucose Calcium 07/30/22 07/30/22 07/30/22 07:40 07:55 11:11 Sodium 141 Potassium 4.6 Chloride 101 Carbon Dioxide 25 Anion Gap 20 BUN 100 H Creatinine 2.82 H Estim Creat Clear Calc 16.4 Estimated GFR 22 POC Glucose 124 H 148 H Random Glucose 99 Calcium 8.0 L Progress Note: A&P Assessment and plan (1) CKD (chronic kidney disease) stage 4, GFR 15-29 ml/min: Status: Acute (2) (HFpEF) heart failure with preserved ejection fraction: Status: Acute (3) Acute bronchitis with wheezing: Status: Acute Plan 82-year-old gentleman with viral bronchitis and congestive heart failure. Kidney function worsened with diuretics and has started improving despite being on diuretics. This can be a cardiorenal interaction. His wheezing is also improving today. Whole-body still overloaded. I feel we continue IV diuretics for now. Monitor electrolytes closely. His BUN is a elevated due to steroids. Cardizem has been discontinued. Blood pressure is elevated any increasing hydralazine at this stage. This can be titrated further depending on blood pressure room. Thank you for allowing me to participate in the care of your patient. Please feel free to contact me if you have any questions. Time Spent With Patient Time: Total time managing care of this patient today ____ minutes. Progress Note: Quality Stroke Does the patient have a stroke diagnosis?: No Procedures Date of Service Date of Service: 07/30/22
[2022-07-30] MEDS: Glycerin Adult SUPP.RECT 1 SUPP PR (11:54)
[2022-07-30] MEDS: Lactulose 20 GM/30 ML SOLUTION PO ×2 (11:55→20:53)
[2022-07-30] MEDS: hydrALAZINE HCl 25 MG TABLET 75 MG PO ×2 (14:59→20:53)
[2022-07-30 16:32] LABS: Glucose, Whole Blood 242 mg/dL (60-115)
[2022-07-30] MEDS: Furosemide 40 MG/4 ML VIAL IVPUSH (17:19)
[2022-07-30] MEDS: metOLazone 2.5 MG TABLET PO (17:19)
[2022-07-30] MEDS: Insulin Lispro 100 UNIT/ML 3 ML VIAL SUBCUT ×2 (17:19→20:56)
[2022-07-30 20:00] LABS: Glucose, Whole Blood 178 mg/dL (60-115)
[2022-07-30] MEDS: Gabapentin 600 MG TABLET PO (20:54)
[2022-07-30] MEDS: Sennosides 8.6 MG TABLET 17.2 MG PO (20:55)
--- NOTE | 2022-07-30 21:40 | PC.NURSE ---
0820 am, this nurse reviewed vital signs prior to med administration, noted entered BP 198/89, pt denies symptoms, pt medicated with ordered and increased medication dose for BP, recheck in 30 minutes is 168/82, remains asymptomatic. Medication change/dose increase in place- discussed this with provider.
[2022-07-31] VITALS (7 sets, daily range): BP systolic 134–201; BP diastolic 78–92; PULSE 61–71; RESP 18–20; TEMP 36.6–36.9; O2SAT 92–96
[2022-07-31] MEDS: Omeprazole 20 MG CAPSULE.DR PO (05:24)
[2022-07-31 06:36] LABS: Anion Gap 18 (12-20); Blood Urea Nitrogen 99 mg/dL (9-16); Carbon Dioxide 28 mmol/L (22-29); Chloride 97 mmol/L (96-108); Creatinine Clr Calc Pharmacy 16.2; Estimated Glomerular Filt Rate 21; Glucose Random 100 mg/dL (60-115); Potassium 4.2 mmol/L (3.3-5.1); Sodium 139 mmol/L (135-145)
[2022-07-31 07:14] LABS: Glucose, Whole Blood 95 mg/dL (60-115)
--- NOTE | 2022-07-31 09:06 | PM.PNNEP ---
Subjective Subjective Date of Service: 07/31/22 Interval history: seen and examined complains of diarrhea Physical Exam Vital Signs: Vital Signs: Last Vital Signs Temp 98 F 07/31/22 06:57 Pulse 66 07/31/22 07:53 Resp 20 07/31/22 07:53 BP 170/88 H 07/31/22 06:57 Pulse Ox 95 07/31/22 06:57 O2 Del Method 07/31/22 06:57 O2 Flow Rate 2 07/31/22 06:57 Oxygen Flow Rate 4 07/25/22 01:17 BMI result Body Mass Index 19.8 Const: General: no acute distress HEENT: Head: Yes normocephalic and Yes atraumatic Neck: Neck: Yes supple Resp: Auscultation: diminished lung sounds Cardio: Heart sounds: S1 normal heart sound present and S2 normal heart sound present GI: Palpation (GI): Soft to palpation and nontender Extrem: Right upper extremity: edema Objective Data Labs 07/28/22 05:11 07/31/22 05:10 Labs: Laboratory Results - last 24 hr 07/30/22 07/30/22 07/30/22 11:11 16:29 19:24 Sodium Potassium Chloride Carbon Dioxide Anion Gap BUN Creatinine Estim Creat Clear Calc Estimated GFR POC Glucose 148 H 242 H 178 H Random Glucose Calcium 07/31/22 07/31/22 05:10 06:57 Sodium 139 Potassium 4.2 Chloride 97 Carbon Dioxide 28 Anion Gap 18 BUN 99 H Creatinine 2.85 H Estim Creat Clear Calc 16.2 Estimated GFR 21 POC Glucose 95 Random Glucose 100 Calcium 8.0 L Microbiology Microbiology Results: Microbiology 07/25/22 00:07 Blood - Venous Blood Culture - Final No growth after 5 days. 07/24/22 23:51 Blood - Venous Blood Culture - Final No growth after 5 days. 07/25/22 Unknown Urine clean catch - Urine stone top Urine Culture - Final Procedures Date of Service Date of Service: 07/31/22 Assessment & Plan Assessment and plan (1) ULISES (acute kidney injury): Status: Acute (2) (HFpEF) heart failure with preserved ejection fraction: Status: Acute (3) CKD (chronic kidney disease) stage 4, GFR 15-29 ml/min: Status: Acute Plan Scr marginally better ULISES c/w cardio renal syndrome benign urine sediment Magdalena 76 due to natriuresis other less likely known CKD baseline Scr 1.8-2.2 mg/dl known diastolic HF volume status still above dry weight REC continue IV diuresis n follow kidney function and electrolytes Time Spent With Patient Time: Total time managing care of this patient today ____ minutes. Progress Note: Quality Stroke Does the patient have a stroke diagnosis?: No
[2022-07-31] MEDS: Metoprolol Tartrate 50 MG TABLET PO (09:14)
[2022-07-31] MEDS: 0.9 % Sodium Chloride Flush 3 ML SYRINGE IVFLUSH (09:14)
[2022-07-31] MEDS: Furosemide 40 MG/4 ML VIAL 80 MG IVPUSH (09:14)
[2022-07-31] MEDS: polyethylene glycoL 3350 17 GM POWD.PACK PO (09:14)
[2022-07-31] MEDS: Isosorbide Mononitrate 60 MG TAB.ER.24H PO (09:14)
[2022-07-31] MEDS: Lactulose 20 GM/30 ML SOLUTION PO (09:14)
[2022-07-31] MEDS: hydrALAZINE HCl 25 MG TABLET 75 MG PO ×2 (09:14→13:02)
[2022-07-31] MEDS: predniSONE 20 MG TABLET 40 MG PO (09:15)
[2022-07-31] MEDS: Azithromycin 500 MG TABLET PO (09:15)
[2022-07-31] MEDS: Atorvastatin Calcium 20 MG TABLET PO (09:15)
[2022-07-31] MEDS: Apixaban 5 MG TABLET PO (09:15)
[2022-07-31] MEDS: guaiFENesin LA 600 MG TAB.ER.12H PO (09:15)
[2022-07-31] MEDS: Ketorolac Tromethamine 0.5% Op 5 ML DROPS 1 DROP EYE-BOTH ×2 (09:25→13:03)
[2022-07-31 11:04] LABS: Glucose, Whole Blood 151 mg/dL (60-115)
--- NOTE | 2022-07-31 11:14 | P.DS_ITS ---
DS: Providers Provider Date of Service: 07/31/22 Date of admission: 07/25/22 05:08 Primary care physician: Loreto Childers MD Consults: 07/25/22 06:37 Consult to Cardiology Routine Consulting Provider: Steven Leo Reason for consultation: VOlume status? hypoxic, chf? Has provider been notified: No 07/27/22 10:33 Consult to Nephrology Routine Consulting Provider: Alhaji Pettit Reason for consultation: ULISES on CKD4, CHF exacerbation for eval and rec. DS: Diagnosis Discharge Diagnosis (1) ULISES (acute kidney injury): Status: Acute (2) (HFpEF) heart failure with preserved ejection fraction: Status: Acute (3) CKD (chronic kidney disease) stage 4, GFR 15-29 ml/min: Status: Acute (4) Diastolic heart failure: Status: Acute (5) Acute respiratory failure with hypoxia: Status: Acute (6) Acute dyspnea: Status: Acute (7) Acute bronchitis with wheezing: Status: Acute DS: Summary Hospital Course Hospital Course: Admission note HPI ?82-year-old male with past medical history of CAD, diabetes, history of DVT, HTN, HLD, CKD stage 4, chronic venous stasis dermatitis, presents to the hospital with complaints of shortness of breath.? Patient reports increased cough and sputum production, symptoms started yesterday.? He has had difficulty catching his breath with minimal movement.? [facility] for the [facility].? Denies any fever, no chills, denies any chest pain, no abdominal pain nausea or vomiting, no diarrhea constipation, no urinary symptoms.? Reports chronic lower extremity edema with no changes.? On initial arrival to the ED patient was in respiratory distress with tachypnea, patient was found to be in the 80s, placed on BiPAP with improvement in his symptoms.? Currently on 4 L of oxygen satting 93-96%.? Otherwise hemodynamically stable at this point.? Labs are significant for WBC count of 11.1, hemoglobin of 12.3, medical 30.3, D- dimer of 268, creatinine of 2.76 which is slightly elevated than his baseline of 2.2, BNP of 210, Chest? CT shows? bronchial wall thickening which can be seen small? airway process such as asthma or atypical viral infection.? Patient denies any history of COPD and no history of asthma. Hospital course Patient was admitted to the hospital for treatment of acute hypoxic respiratory failure due to acute unspecified chf complicated by copd with acute decomp ensation. Thick he was treated with using IV lasix to 80, 40 twice daily. He was evaluated by Cardiology as echo showed EF of 60% w diastolic dysfunction. V/Q scan was done to rule out PE, doubt fall. Patient already on Eliquis. He was treated for COPD exacerbation with steroids, bronchodilator nebulizers and azithromycin during the course of hospital stay with addition of Mucinex and incentive spirometry. He was tested positive for rhinovirus. Wean down oxygen as tolerated during the hospital stay as he is saturating in 90s in 1-2 L of oxygen. Noticed to have mild worsening of kidney function on top of CKD IV. Evaluated by Nephrology who believe it is likely cardiorenal. Still creatinine higher than his baseline of time of discharge. To be followed as outpatient by Nephrology team. Reported to have Constipation with No bowel movement since admission. Responded well to lactulose, glycerine suppository and had 2 bowel movement for leaving the hospital. Will need to be on MiraLax daily. Blood pressure was noted to be uncontrolled. He Cardiology decided to discontinue diltiazem and atenolol and start the patient on isosorbide mononitrate, hydralazine and metoprolol. Will need to be followed as outpatient by Cardiology and check his blood pressure daily for the next 7 days. DC Cardizem and Atenolol Start Metoprolol, Imdur and Hydralazine Increase Lasix to 40 mg twice daily To follow up with cardiology as outpatient wean down oxygen as tolerated Time Spent with Patient Time attestation: Total time managing care of this patient today ____ minutes. Discharge coordination time: Greater than 30 minutes Quality: Safe Use of Opioids Does Pt have an Active Cancer Diagnosis on the Problem List?: No Quality: Stroke Does the patient have a stroke diagnosis?: No Physical Exam Vital Signs: Vital Signs: Last Vital Signs Temp 98 F 07/31/22 06:57 Pulse 66 07/31/22 07:53 Resp 20 07/31/22 07:53 BP 170/88 H 07/31/22 06:57 Pulse Ox 95 07/31/22 06:57 O2 Del Method 07/31/22 06:57 O2 Flow Rate 2 07/31/22 06:57 Oxygen Flow Rate 4 07/25/22 01:17 BMI result Body Mass Index 19.8 Const: Other: Constitutional : Awake, interactive, Neck : Normal inspection, Supple Cardiovascular : RRR, no JVP, +1 bilateral lower extremity edema Respiratory : fair bilateral air entry, basal fine crackles, scattered expiratory wheezes Gastrointestinal: soft, lax, Normal bowel sounds, Non tender Skin : Warm, Dry, chronic changes of stasis dermatitis Neurological : Alert & oriented x3, No focal deficit DS: Data Data Completed and Pending Labs on day of discharge: Laboratory Results - last 24 hr 07/30/22 07/30/22 07/30/22 11:11 16:29 19:24 Sodium Potassium Chloride Carbon Dioxide Anion Gap BUN Creatinine Estim Creat Clear Calc Estimated GFR POC Glucose 148 H 242 H 178 H Random Glucose Calcium 07/31/22 07/31/22 07/31/22 05:10 06:57 11:00 Sodium 139 Potassium 4.2 Chloride 97 Carbon Dioxide 28 Anion Gap 18 BUN 99 H Creatinine 2.85 H Estim Creat Clear Calc 16.2 Estimated GFR 21 POC Glucose 95 151 H Random Glucose 100 Calcium 8.0 L Imaging Chest x-ray: Radiologist's impression: ITS Impressions Chest X-Ray 07/25/22 00:15 IMPRESSION: No dense consolidation. Bronchial wall thickening can be seen with a small airways process such as asthma or atypical/viral infection. Chest CT 07/25/22 02:40 IMPRESSION: Bronchial wall thickening can be seen with a small airways process such as asthma or atypical/viral infection. No consolidation. Fleischner guidelines were followed. Pulmonary Perfusion Imaging 07/25/22 09:35 IMPRESSION: Intermediate probability of pulmonary embolism. In the absence of a ventilation scan and a history of prior pulmonary emboli, a single subsegmental defect superimposed on other diffuse abnormalities in the left lung and right upper lobe are nonspecific and could be due either to acute or chronic pulmonary embolism or early pneumonitis or obstructive airway disease. Chest X-Ray 07/28/22 23:38 IMPRESSION: 1. Redemonstrated patchy/streaky opacities in the left lung base, likely subsegmental atelectasis or scarring. 2. No new focal airspace opacity or effusions. Discharge Plan Discharge Anticipated Discharge Date/Time: 07/31/22 10:31 Patient Disposition: [facility] Discharge Diagnosis: COPD exacerbation: rhino virus infection Heart failure exacerbation Referrals: Loreto Childers MD [Primary Care Provider] - 1 Week Discharge Medications: New polyethylene glycol 3350 17 gram Powder In Packet 17 g PO DAILY Qty: 30 0RF hydralazine 25 mg Tablet 75 mg PO TID Qty: 270 0RF Protocol: Hold for SBP< HOLD for SBP < : 90 isosorbide mononitrate 60 mg Tablet Extended Release 24 Hr 60 mg PO DAILY Qty: 30 0RF Protocol: Hold for SBP< HOLD for SBP < : 90 metoprolol tartrate 50 mg Tablet 50 mg PO BID Qty: 60 0RF Protocol: Hold for SBP/HR < HOLD for SBP < : 90 HOLD for HR < : 60 guaifenesin [Mucinex] 600 mg Tablet Extended Release 12hr 600 mg PO BID Qty: 14 0RF Continued gabapentin 600 mg tablet 1 tab PO DAILY omeprazole 20 mg Capsule,Delayed Release(Dr/Ec) 20 mg PO DAILY@0630 ipratropium-albuterol 0.5 mg-3 mg(2.5 mg base)/3 mL Solution For Nebulization 3 ml INHALATION Q4H PRN (Reason: Wheezing) acetaminophen [Tylenol] 325 mg Tablet 650 mg PO Q4H PRN (Reason: Fever Or Pain) Rx Instructions: do not exceed 3 grams / 24 hours naloxone 0.4 mg/mL Solution 0.4 mg SUBCUT Q2M PRN (Reason: Opioid Overdose) Rx Instructions: NTExceed 10 mg total dose/episode guaifenesin 100 mg/5 mL Liquid 200 mg PO Q8H PRN (Reason: Cough) ketorolac 0.5 % drops 1 drp ophthalmic (eye) QID Rx Instructions: instill 1 drop in both eyes bisacodyl 10 mg Suppository 10 mg NJ DAILY PRN (Reason: Constipation) Rx Instructions: use if no bowel movement for 8 hours after milk of magnesia Fleet Enema 19-7 gram/118 mL Enema 118 ml NJ DAILY PRN (Reason: Constipation) Rx Instructions: use if no bowel movement for 8 hours after bisacodyl suppository cholecalciferol (vitamin D3) [Vitamin D3] 25 mcg (1,000 unit) Tablet 25 mcg PO DAILY diclofenac sodium 1 % Gel 2 g TOPICAL Q6H PRN (Reason: Pain) Rx Instructions: apply to bilateral knees ammonium lactate-emu oil 10 % Cream 1 appl TOPICAL BID Rx Instructions: apply to lower legs ProAir RespiClick 90 mcg/actuation Aerosol Powdr Breath Activated 2 inh INHALATION Q4H PRN (Reason: Wheezing) atorvastatin 20 mg tablet 20 mg PO BEDTIME Eliquis 5 mg tablet 5 mg PO BID Changed furosemide 40 mg Tablet 40 mg PO BID@0900,1700 Qty: 60 0RF Discontinued atenolol 50 mg tablet 50 mg PO DAILY Qty: 90 1RF furosemide 20 mg tablet 1 tab PO DAILY diltiazem HCl 180 mg capsule,extended release 24hr 180 mg PO DAILY Discharge Orders: Discharge Order (Routine); Ordered 07/31/22 Ordered By: Carly Gibson Diet: Low salt diet Activity on Discharge: As tolerated Stand Alone Forms: Patient Portal Discharge page Care Plan Goals: Read below Health Concerns: Read below Plan of Treatment: Read below Assessment: You were admitted to the hospital for evaluation of difficulty breathing. found to have Rhino virus infection with exacerbations of COPD and heart failure. treated with IV lasix, steroids, antibiuotics and nebulizers with good response. You blood pressure noted to be elevated. Medications were changed by physician coding specialist. DC Cardizem and Atenolol Start Metoprolol, Imdur and Hydralazine Increase Lasix to 40 mg twice daily To follow up with cardiology as outpatient wean down oxygen as tolerated
[2022-07-31] MEDS: Insulin Lispro 100 UNIT/ML 3 ML VIAL SUBCUT (11:59)
--- NOTE | 2022-07-31 12:50 | P.PNCA_ITS ---
Subjective Subjective Date of Service: 07/31/22 Principal diagnosis: CHF, respiratory failure Interval history: Patient says that he is breathing is improved compared to admissions. Has overall negative balance of about 4 L. decide any palpitations or irregular he artbeat. Review of Systems Constitutional: Reports no additional constitutional complaints Cardiovascular: Reports no additional cardiovascular complaints and Reports dyspnea on exertion Respiratory: Reports dyspnea on exertion Gastrointestinal: Reports no additional gastrointestinal complaints Musculoskeletal: Reports no additional musculoskeletal complaints Skin/Breast: Reports system reviewed and no additional complaints, except as docu Physical Exam Vital Signs: Last Vital Signs Temp 98 F 07/31/22 06:57 Pulse 71 07/31/22 11:23 Resp 20 07/31/22 11:23 BP 134/78 07/31/22 11:37 Pulse Ox 95 07/31/22 06:57 O2 Del Method 07/31/22 06:57 O2 Flow Rate 2 07/31/22 06:57 Oxygen Flow Rate 4 07/25/22 01:17 BMI result Body Mass Index 19.8 Const General: cooperative, comfortable, no acute distress, alert and awake Nutritional Appearance: obese Orientation/consciousness: patient oriented x3 Neck Neck: Yes trachea midline, Yes supple and Yes no JVD Resp Effort & Inspection: normal respiratory effort Auscultation: wheezes and diminished lung sounds Cardio Jugular venous distension: no JVD Rate: regular rate Rhythm: regular rhythm Heart sounds: S1 normal heart sound present, S2 normal heart sound present, no click, no gallops and no murmurs GI Auscultation: normal bowel sounds Neuro General: patient oriented x3 and no focal motor deficits Extrem General: No clubbing, No cyanosis and Yes edema Objective Labs and Meds 07/28/22 05:11 07/31/22 05:10 Lab results: Laboratory Results - last 24 hr 07/30/22 07/30/22 07/31/22 16:29 19:24 05:10 Sodium 139 Potassium 4.2 Chloride 97 Carbon Dioxide 28 Anion Gap 18 BUN 99 H Creatinine 2.85 H Estim Creat Clear Calc 16.2 Estimated GFR 21 POC Glucose 242 H 178 H Random Glucose 100 Calcium 8.0 L 07/31/22 07/31/22 06:57 11:00 Sodium Potassium Chloride Carbon Dioxide Anion Gap BUN Creatinine Estim Creat Clear Calc Estimated GFR POC Glucose 95 151 H Random Glucose Calcium Progress Note: A&P Assessment and plan (1) (HFpEF) heart failure with preserved ejection fraction: Status: Acute Assessment and Plan: Heart failure preserved ejection fraction, clinically euvolemic. Continue current diuretic dose. Can switch to p.o.. Add Aldactone 12.5 mg to his regimen. Heart failure education to be provided. Continue to optimize pulmonary function and management of COPD as planned. Physical therapy as needed. Will follow up in the clinic as outpatient. Time Spent With Patient Time: Total time managing care of this patient today ____ minutes. Progress Note: Quality Stroke Does the patient have a stroke diagnosis?: No Procedures Date of Service Date of Service: 07/31/22
--- NOTE | 2022-07-31 13:33 | MHC.CM.PN ---
IMM 07/31. PT MEDICALLY CLEARED FOR D/C BACK TO [facility], DTR AT BEDSIDE AND BOTH PT/DTR ARE AGREEABLE TO PLAN, [facility] WILL TRANSPORT AT 4PM
[2022-07-31 13:39] LABS: COVID-19 Test Negative (Negative); IDNOW Serial# BCCEAD1C
== END 2022-07-31 17:00 | disposition skilled nursing facility (03) | DRG 291 ==
LOC: HO.ED 07-25 03:20 → HO.EDOVER 07-25 05:15 → HO.S3 07-25 15:22
PROVIDERS: Internal Medicine; Internal Medicine Nephrology; Admitting Provider Internal Medicine; Emergency Provider Emergency Medicine; PCP Internal Medicine; Visit Provider Student in an Organized Health Care Education/Training Program
DX: I13.0 Hypertensive heart and chronic kidney disease with heart failure and stage 1 through stage 4 chronic kidney disease, or unspecified chronic kidney disease (principal); I50.31 Acute diastolic (congestive) heart failure; J96.01 Acute respiratory failure with hypoxia; N17.9 Acute kidney failure, unspecified; N18.4 Chronic kidney disease, stage 4 (severe); J44.1 Chronic obstructive pulmonary disease with (acute) exacerbation; J44.0 Chronic obstructive pulmonary disease with (acute) lower respiratory infection; E11.22 Type 2 diabetes mellitus with diabetic chronic kidney disease; J20.9 Acute bronchitis, unspecified; Z66 Do not resuscitate; I25.10 Atherosclerotic heart disease of native coronary artery without angina pectoris; Z86.718 Personal history of other venous thrombosis and embolism; Z88.8 Allergy status to other drugs, medicaments and biological substances; Z79.01 Long term (current) use of anticoagulants; Z79.899 Other long term (current) drug therapy
CPT/HCPCS: 0241U; 36415; 71045; 71250; 78580; 80048; 80076; 81001; 82947; 83036; 83605; 83690; 83735; 83880; 84300; 84484; 85025; 85027; 85379; 87040; 87086; 87633; 87635; 93005; 93306; 94640; 94660; 97162; 99285; A9540; J0696; J1940; J2920; J2930; J3475; Q9957

== ENCOUNTER → 2022-08-08 12:56 | Outpatient (BNVA) | payer MEDICARE, SELFPAY | PROVIDERS: PCP Internal Medicine; Referring Provider Internal Medicine; Visit Provider Nurse Practitioner Family | DX: Z09 Encounter for follow-up examination after completed treatment for conditions other than malignant neoplasm (principal); I13.0 Hypertensive heart and chronic kidney disease with heart failure and stage 1 through stage 4 chronic kidney disease, or unspecified chronic kidney disease; N18.4 Chronic kidney disease, stage 4 (severe); I50.30 Unspecified diastolic (congestive) heart failure; I25.10 Atherosclerotic heart disease of native coronary artery without angina pectoris; J96.01 Acute respiratory failure with hypoxia | CPT/HCPCS: 99212 ==

== ENCOUNTER 2022-09-04 23:32 | Emergency (ER) | payer MEDICARE, SELFPAY ==
--- NOTE | ~2022-09-04 | CT_ITS ---
EXAMINATION: CT ABDOMEN AND PELVIS WITHOUT CONTRAST CLINICAL INFORMATION: Colitis COMPARISON: 05/10/2018 TECHNIQUE: Multidetector volumetric imaging was performed from the superior aspect of the liver through the pubic symphysis. Sagittal and coronal reformatted images were obtained on the technologist's workstation. This CT examination was performed using dose optimization techniques as appropriate, variously including the following: *Automated exposure control *Adjustment of mA and/or kV according to patient size (this includes techniques or standardized protocols for targeted exams where dose is matched to indication/reason for exam; i.e. extremities or head) *Use of iterative reconstruction technique DLP: 1700 mGy-cm FINDINGS: LUNG BASES: Bibasilar subsegmental atelectasis. LIVER, GALLBLADDER, AND BILIARY TREE: The liver is normal in size, shape, and attenuation. No focal hepatic lesion or biliary ductal dilatation is present. Cholelithiasis is noted. PANCREAS: Mildly atrophic. SPLEEN: Unremarkable. ADRENAL GLANDS: Unremarkable. KIDNEYS AND URETERS: The kidneys appear somewhat atrophic. No hydronephrosis or obstructing calculus bilaterally. Small cyst suspected off the lower left kidney; no follow-up recommended. BLADDER: Unremarkable. GASTROINTESTINAL TRACT: No evidence of bowel obstruction or significant wall thickening. Fluid is present within some segments of the colon, which can be seen with diarrhea. No findings to suggest colitis. The appendix is unremarkable. No free fluid or free air is seen. ABDOMINAL WALL: Bilateral fat-containing inguinal hernias. LYMPH NODES: Normal. VASCULAR: There is atherosclerotic calcification along the aorta. PELVIC VISCERA: Unremarkable. OSSEOUS STRUCTURES: Degenerative changes are noted in the spine. CT/CT abdomen pelvis wo IV con IMPRESSION: 1. No acute findings identified in the abdomen/pelvis. No evidence of colitis. 2. Cholelithiasis.
[2022-09-04 23:44] VITALS: BP 152/58; PULSE 120; O2SAT 93
[2022-09-04 23:46] VITALS: BP 157/77; PULSE 122; RESP 17; TEMP 36.7; O2SAT 92
--- NOTE | 2022-09-04 23:59 | ED_ITS ---
HPI - Abdominal Pain General Chief Complaint: Nausea/Vomiting/Diarrhea Stated Complaint: n/v/d Time Seen by Provider: 09/04/22 23:42 Source: patient, EMS and RN notes reviewed Mode of arrival: EMS Limitations: no limitations History of Present Illness HPI narrative: Patient 82 years old from long-term with multiple comorbid condition nonambulatory with venous stasis, hypertension, CKD, hyperlipidemia, peripheral artery disease comes here as been having nausea/vomiting/diarrhea since yesterday patient vomited about 10 times him number of diarrhea has not used any antibiotics lately no others long-term member is sick with same no fever no chills no abdominal pain staff give him p.o. Zofran without much relief Related Data Home Medications Medication Instructions Recorded Confirmed atorvastatin 20 mg tablet 20 mg PO BEDTIME 04/14/20 08/08/22 apixaban 5 mg tablet (Eliquis) 5 mg PO BID 04/28/21 08/08/22 acetaminophen 325 mg tablet 650 mg PO Q4H PRN Fever Or Pain 07/25/22 08/08/22 (Tylenol) albuterol sulfate 90 mcg/actuation 2 inh inhalation Q4H PRN Wheezing 07/25/22 08/08/22 breath activated powder inhaler (ProAir RespiClick) ammonium lactate 10 %-emu oil 1 appl topical BID 07/25/22 08/08/22 topical cream bisacodyl 10 mg rectal suppository 10 mg WV DAILY PRN Constipation 07/25/22 08/08/22 cholecalciferol (vitamin D3) 25 25 mcg PO DAILY 07/25/22 08/08/22 mcg (1,000 unit) tablet (Vitamin D3) diclofenac sodium 1 % topical gel 2 g topical Q6H PRN Pain 07/25/22 08/08/22 guaifenesin 100 mg/5 mL oral liquid 200 mg PO Q8H PRN Cough 07/25/22 08/08/22 ipratropium 0.5 mg-albuterol 3 mg 3 ml inhalation Q4H PRN Wheezing 07/25/22 08/08/22 (2.5 mg base)/3 mL nebulization soln ketorolac 0.5 % eye drops 1 drp ophthalmic (eye) QID itchy 07/25/22 08/08/22 eyes naloxone 0.4 mg/mL injection 0.4 mg subcut Q2M PRN Opioid 07/25/22 08/08/22 solution Overdose sodium phosphates 19 gram-7 118 ml WV DAILY PRN Constipation 07/25/22 08/08/22 gram/118 mL enema (Fleet Enema) gabapentin 600 mg tablet 600 mg PO DAILY 08/08/22 08/08/22 Previous Rx's Medication Instructions Recorded furosemide 40 mg tablet 40 mg PO BID@0900,1700 #60 tabs 07/31/22 guaifenesin 600 mg tablet, 600 mg PO BID #14 tabs 07/31/22 extended release 12 hr (Mucinex) hydralazine 25 mg tablet 75 mg PO TID #270 tabs 07/31/22 isosorbide mononitrate 60 mg 60 mg PO DAILY #30 tabs 07/31/22 tablet,extended release 24 hr metoprolol tartrate 50 mg tablet 50 mg PO BID #60 tabs 07/31/22 polyethylene glycol 3350 17 gram 17 g PO DAILY #30 ea 07/31/22 oral powder packet loperamide 2 mg capsule (Imodium 2 mg PO Q6H PRN loose stool #10 09/05/22 A-D) caps ondansetron 4 mg disintegrating 4 mg PO Q6-8H PRN nausea and 09/05/22 tablet vomiting #10 tabs Allergies Allergy/AdvReac Type Severity Reaction Status Date / Time Heparin Analogues Allergy Severe heparin Verified 08/08/22 13:14 [HEPARIN ANALOGUES] induced thrombocytopenia Review of Systems Review of Systems Yes all other systems are reviewed and are negative PMFSH Past Medical History Medical History (HFpEF) heart failure with preserved ejection fraction Bilateral lower leg cellulitis Cataract, left eye Chronic venous stasis dermatitis of both lower extremities CKD (chronic kidney disease) stage 4, GFR 15-29 ml/min Coronary artery disease Deep vein thrombosis (DVT) of popliteal vein of left lower extremity Diabetes mellitus with stage 4 chronic kidney disease Diastolic heart failure Essential hypertension Hyperlipidemia Lumbar degenerative disc disease Lymphedema of both lower extremities Obesity (BMI 30-39.9) Onychomycosis Osteoarthritis of knees, bilateral Stage 4 chronic kidney disease Vitamin D deficiency Surgical History Left carotid artery stenosis No significant past surgical history Family History Family History Father No problems noted. Mother No problems noted. Social History Social History Household Members: Children Household Members Other:: son Housing: House Do you presently have visiting nurse or other home services: No Alcohol intake: never Patient Tobacco Use Status: Never used Tobacco Second Hand Smoke Exposure: No Advance Directives: Yes Advance Directives on File: Yes Advance Directives Date on File: 07/20/20 service: No Current occupational status: retired Physical Exam ED Vital Signs: Vital Signs - 24 hr 09/04/22 23:46 09/05/22 00:37 09/05/22 04:09 Temperature 98.0 F 98.4 F Pulse Rate 122 H 119 H 121 H Respiratory Rate 17 20 18 Blood Pressure 157/77 H 133/63 152/55 H Pulse Oximetry 92 94 94 Oxygen Delivery Method Room Air Room Air Room Air BMI result Body Mass Index 39.3 Appearance: Alert. Oriented X3. No acute distress. Obese Eyes: No pallor/icterus ENT: Pharynx normal. Oral Mucosa moist Neck: Normal inspection. Neck supple. CVS: Normal heart rate and rhythm. Pulses normal. Respiratory: No respiratory distress. Equal air entry bilateral, no wheezing/rales/rhonchi Abdomen: Soft and nontender. Bowel sounds are present, no mass palpable, no CVA tenderness Skin: Skin warm and dry. Normal skin color. Normal skin turgor. Extremities: No lower extremity edema. No calf tenderness chronic venous stasis changes lower extremity Neuro: Oriented X 3. No motor deficit. Medical Decision Making Medical Decision Making [facility] Narrative: Patient gastroenteritis likely viral stool sample sent for culture is negative for C diff CT scan abdomen negative for any acute pathology patient feeling much better will discharge patient long-term Differential Diagnosis Viral gastroenteritis/C diff colitis/ Lab Data [facility] Lab Attestation statement: I reviewed the patient's lab results. 09/05/22 00:18 09/05/22 00:18 Labs: Lab Results 09/05/22 09/05/22 09/05/22 Range/Units 00:18 00:18 00:18 WBC 13.6 H (4.8-10.8) X10*3/uL RBC 4.17 L D (4.60-5.80) X10*6/uL Hgb 12.8 L D (14.0-18.0) g/dl Hct 39.6 L D (42.0-52.0) % MCV 95.0 (80.0-98.0) fL MCH 30.7 (27.0-33.0) pg MCHC 32.3 (31.0-36.0) g/dl RDW 14.4 (11.0-16.0) % Plt Count 136 L (160-400) X10*3/uL MPV 11.4 (9.4-12.4) fL Immature Gran % (Auto) 0.7 H (0.0-0.4) % Neut % (Auto) 93.4 H (45-73) % Lymph % (Auto) 1.8 L (20-40) % [place] % (Auto) 3.9 (2-11) % Eos % (Auto) 0.1 (0-4) % Baso % (Auto) 0.1 (0-2) % Lymph # (Auto) 0.3 L (1.2-4.9) X10*3/uL [place] # (Auto) 0.5 (0.1-1.2) X10*3/uL Eos # (Auto) 0.0 (0.0-0.4) X10*3/uL Baso # (Auto) 0.0 (0.0-0.2) X10*3/uL Abs Immat Gran (auto) 0.10 H (0.00-0.03) X10*3/uL Absolute Neuts (auto) 12.7 H (2.0-8.3) x10*3/uL Absolute Nucleated RBC 0.000 (0.0-0.012) X10*3/uL Nucleated RBC % (auto) 0.0 (0.0-0.2) /100WBC Smear Tech's Comments VERIFIED Sodium 141 (135-145) mmol/L Potassium 4.9 (3.3-5.1) mmol/L Chloride 108 (96-108) mmol/L Carbon Dioxide 18 L (22-29) mmol/L Anion Gap 20 (12-20) BUN 46 H (9-16) mg/dL Creatinine 2.83 H (0.5-1.4) mg/dL Estim Creat Clear Calc 29.2 Estimated GFR 22 Random Glucose 149 H (60-115) mg/dL Lactic Acid 2.4 H* (0.5-2.0) mmol/L Lactic Acid F/U @ 2Hr (0.5-2.0) mmol/L Calcium 8.7 D (8.4-10.2) mg/dL Total Bilirubin 0.7 (0.0-1.0) mg/dL AST 12 (5-37) U/L ALT 11 (0-40) U/L Alkaline Phosphatase 109 (39-117) U/L Total Protein 6.7 (6.5-8.0) g/dL Albumin 4.0 (3.5-5.0) g/dL C. difficile Tox B Gene (Negative) COVID-19 ([facility]) (Negative) COVID-19 Clin Com 09/05/22 09/05/22 09/05/22 Range/Units 00:18 02:08 04:05 WBC (4.8-10.8) X10*3/uL RBC (4.60-5.80) X10*6/uL Hgb (14.0-18.0) g/dl Hct (42.0-52.0) % MCV (80.0-98.0) fL MCH (27.0-33.0) pg MCHC (31.0-36.0) g/dl RDW (11.0-16.0) % Plt Count (160-400) X10*3/uL MPV (9.4-12.4) fL Immature Gran % (Auto) (0.0-0.4) % Neut % (Auto) (45-73) % Lymph % (Auto) (20-40) % [place] % (Auto) (2-11) % Eos % (Auto) (0-4) % Baso % (Auto) (0-2) % Lymph # (Auto) (1.2-4.9) X10*3/uL [place] # (Auto) (0.1-1.2) X10*3/uL Eos # (Auto) (0.0-0.4) X10*3/uL Baso # (Auto) (0.0-0.2) X10*3/uL Abs Immat Gran (auto) (0.00-0.03) X10*3/uL Absolute Neuts (auto) (2.0-8.3) x10*3/uL Absolute Nucleated RBC (0.0-0.012) X10*3/uL Nucleated RBC % (auto) (0.0-0.2) /100WBC Smear Tech's Comments Sodium (135-145) mmol/L Potassium (3.3-5.1) mmol/L Chloride (96-108) mmol/L Carbon Dioxide (22-29) mmol/L Anion Gap (12-20) BUN (9-16) mg/dL Creatinine (0.5-1.4) mg/dL Estim Creat Clear Calc Estimated GFR Random Glucose (60-115) mg/dL Lactic Acid (0.5-2.0) mmol/L Lactic Acid F/U @ 2Hr 2.0 (0.5-2.0) mmol/L Calcium (8.4-10.2) mg/dL Total Bilirubin (0.0-1.0) mg/dL AST (5-37) U/L ALT (0-40) U/L Alkaline Phosphatase (39-117) U/L Total Protein (6.5-8.0) g/dL Albumin (3.5-5.0) g/dL C. difficile Tox B Gene NEGATIVE (Negative) COVID-19 ([facility]) Negative (Negative) COVID-19 Clin Com See Note Medications Administered Discontinued Medications Generic Name Dose Route Start Last Admin Trade Name Freq PRN Reason Stop Dose Admin Sodium Chloride 1,000 mls @ 999 mls/hr 09/04/22 23:51 09/05/22 03:16 Ns IV 09/05/22 00:51 Infused .Q1H1M ONE Infusion Sodium Chloride 1,000 mls @ 999 mls/hr 09/05/22 00:59 09/05/22 03:16 Ns IV 09/05/22 01:59 999 mls/hr .Q1H1M ONE Administration Loperamide HCl 4 mg 09/05/22 04:12 09/05/22 04:58 Loperamide Hcl 2 Mg Capsule PO 09/05/22 04:13 4 mg ONCE ONE Administration Ondansetron HCl 4 mg 09/04/22 23:51 02/21/23 00:42 Ondansetron Hcl 4 Mg/2 Ml Vial IVPUSH 09/04/22 23:52 4 mg ONCE ONE Administration Discharge Plan Discharge Clinical Impression: Gastroenteritis Patient Disposition: Xfer [facility] Transfer Details: Stool negative for C diff likely viral cause for gastroenter itis CT scan negative except for gallstones will discharge patient advised for supportive treatment Instructions: Acute Nausea and Vomiting (ED), Acute Diarrhea (ED) Additional Instructions: Drink plenty of fluids Medicine for nausea and severe diarrhea as advised Prescriptions: New ondansetron 4 mg tablet,disintegrating 4 mg PO Q6-8H PRN (Reason: nausea and vomiting) Qty: 10 0RF loperamide [Imodium A-D] 2 mg capsule 2 mg PO Q6H PRN (Reason: loose stool) Qty: 10 0RF No Action ipratropium-albuterol 0.5 mg-3 mg(2.5 mg base)/3 mL Solution For Nebulization 3 ml INHALATION Q4H PRN (Reason: Wheezing) acetaminophen [Tylenol] 325 mg Tablet 650 mg PO Q4H PRN (Reason: Fever Or Pain) Rx Instructions: do not exceed 3 grams / 24 hours naloxone 0.4 mg/mL Solution 0.4 mg SUBCUT Q2M PRN (Reason: Opioid Overdose) Rx Instructions: NTExceed 10 mg total dose/episode guaifenesin 100 mg/5 mL Liquid 200 mg PO Q8H PRN (Reason: Cough) ketorolac 0.5 % drops 1 drp ophthalmic (eye) QID Rx Instructions: instill 1 drop in both eyes bisacodyl 10 mg Suppository 10 mg WV DAILY PRN (Reason: Constipation) Rx Instructions: use if no bowel movement for 8 hours after milk of magnesia Fleet Enema 19-7 gram/118 mL Enema 118 ml WV DAILY PRN (Reason: Constipation) Rx Instructions: use if no bowel movement for 8 hours after bisacodyl suppository cholecalciferol (vitamin D3) [Vitamin D3] 25 mcg (1,000 unit) Tablet 25 mcg PO DAILY diclofenac sodium 1 % Gel 2 g TOPICAL Q6H PRN (Reason: Pain) Rx Instructions: apply to bilateral knees ammonium lactate-emu oil 10 % Cream 1 appl TOPICAL BID Rx Instructions: apply to lower legs ProAir RespiClick 90 mcg/actuation Aerosol Powdr Breath Activated 2 inh INHALATION Q4H PRN (Reason: Wheezing) polyethylene glycol 3350 17 gram Powder In Packet 17 g PO DAILY Qty: 30 0RF hydralazine 25 mg Tablet 75 mg PO TID Qty: 270 0RF Protocol: Hold for SBP< HOLD for SBP < : 90 isosorbide mononitrate 60 mg Tablet Extended Release 24 Hr 60 mg PO DAILY Qty: 30 0RF Protocol: Hold for SBP< HOLD for SBP < : 90 metoprolol tartrate 50 mg Tablet 50 mg PO BID Qty: 60 0RF Protocol: Hold for SBP/HR < HOLD for SBP < : 90 HOLD for HR < : 60 guaifenesin [Mucinex] 600 mg Tablet Extended Release 12hr 600 mg PO BID Qty: 14 0RF furosemide 40 mg Tablet 40 mg PO BID@0900,1700 Qty: 60 0RF gabapentin 600 mg tablet 600 mg PO DAILY atorvastatin 20 mg tablet 20 mg PO BEDTIME Eliquis 5 mg tablet 5 mg PO BID
[2022-09-05 00:28] LABS: Basophils Percent Auto 0.1 % (0-2); Eosinophils Percent Auto 0.1 % (0-4); Hematocrit 39.6 % (42.0-52.0); Hemoglobin 12.8 g/dl (14.0-18.0); Imm Gran Pct Auto 0.7 % (0.0-0.4); Lymphocytes Absolute Auto 0.3 X10*3/uL (1.2-4.9); Lymphocytes Percent Auto 1.8 % (20-40); MANUAL DIFF FLAG SCAN; Mean Corpuscular HGB Conc 32.3 g/dl (31.0-36.0); Mean Corpuscular Hemoglobin 30.7 pg (27.0-33.0); Mean Platelet Volume 11.4 fL (9.4-12.4); Monocytes Absolute Auto 0.5 X10*3/uL (0.1-1.2); Monocytes Percent Auto 3.9 % (2-11); Neutrophils Absolute Auto 12.7 x10*3/uL (2.0-8.3); Neutrophils Percent Auto 93.4 % (45-73); Platelet Count 136 X10*3/uL (160-400); Red Blood Count 4.17 X10*6/uL (4.60-5.80); Red Cell Distribution Width 14.4 % (11.0-16.0); SCAN SMEAR FLAG 1; White Blood Count 13.6 X10*3/uL (4.8-10.8)
[2022-09-05 00:37] VITALS: BP 133/63; PULSE 119; RESP 20; O2SAT 94; BMI 39.3
[2022-09-05] MEDS: ondansetron HCL 4 MG/2 ML VIAL IVPUSH (00:42)
[2022-09-05] MEDS: 0.9 % Sodium Chloride 1,000 ML 999 ML IV ×2 (00:42→03:16)
[2022-09-05 00:49] LABS: Alanine Aminotransferase 11 U/L (0-40); Alkaline Phosphatase 109 U/L (39-117); Anion Gap 20 (12-20); Aspartate Amino Transferase 12 U/L (5-37); Bilirubin Total 0.7 mg/dL (0.0-1.0); Blood Urea Nitrogen 46 mg/dL (9-16); Calcium 8.7 mg/dL (8.4-10.2); Carbon Dioxide 18 mmol/L (22-29); Chloride 108 mmol/L (96-108); Creatinine Clr Calc Pharmacy 29.2; Estimated Glomerular Filt Rate 22; Glucose Random 149 mg/dL (60-115); Potassium 4.9 mmol/L (3.3-5.1); Sodium 141 mmol/L (135-145); Total Protein 6.7 g/dL (6.5-8.0)
[2022-09-05 00:51] LABS: COVID-19 Test Negative (Negative); IDNOW Serial# 9DB6401D
[2022-09-05 00:53] LABS: Lactic Acid 2.4 mmol/L (0.5-2.0)
[2022-09-05 01:07] LABS: SLIDE REVIEW VERIFIED
[2022-09-05 02:24] LABS: Reflex Lactate? Lactic Acid Added
--- NOTE | 2022-09-05 02:30 | MHC.EDTECH ---
pt was incontinent of loose stool and urine ,care given ,stool sample sent to lab .
[2022-09-05 03:01] LABS: CDiff Gene PCR NEGATIVE (Negative)
[2022-09-05 04:09] VITALS: BP 152/55; PULSE 121; RESP 18; TEMP 36.9; O2SAT 94
[2022-09-05] MEDS: Loperamide HCl 2 MG CAPSULE 4 MG PO (04:58)
[2022-09-05 11:40] LABS: Adenovirus F 40/41 Not Detected (Not Detect.); Astrovirus Not Detected (Not Detect.); Cryptosporidium Not Detected (Not Detect.); Cyclospora cayetanensis Not Detected (Not Detect.); E. coli EAEC Not Detected (Not Detect.); E. coli EPEC Not Detected (Not Detect.); E. coli ETEC Not Detected (Not Detect.); E. coli STEC Not Detected (Not Detect.); Entamoeba histolytica Not Detected (Not Detect.); Giardia lamblia Not Detected (Not Detect.); Plesiomonas shigelloides Not Detected (Not Detect.); Rotavirus A Not Detected (Not Detect.); Salmonella Not Detected (Not Detect.); Shigella sp./EIEC Not Detected (Not Detect.); Vibrio Not Detected (Not Detect.); Vibrio Cholerae Not Detected (Not Detect.); Yersinia enterocolitica Not Detected (Not Detect.)
[2022-09-05 11:41] LABS: Sapovirus Not Detected (Not Detect.)
[2022-09-05 11:45] LABS: Norovirus GI/GII Detected (Not Detect.)
[2022-09-05 11:49] LABS: Campylobacter Not Detected (Not Detect.)
== END 2022-09-05 07:39 | disposition skilled nursing facility (03) ==
PROVIDERS: Emergency Provider Internal Medicine
DX: K52.9 Noninfective gastroenteritis and colitis, unspecified (principal); R11.2 Nausea with vomiting, unspecified; Z20.822 Contact with and (suspected) exposure to COVID-19; E11.22 Type 2 diabetes mellitus with diabetic chronic kidney disease; I13.0 Hypertensive heart and chronic kidney disease with heart failure and stage 1 through stage 4 chronic kidney disease, or unspecified chronic kidney disease; N18.4 Chronic kidney disease, stage 4 (severe); I50.30 Unspecified diastolic (congestive) heart failure; E78.5 Hyperlipidemia, unspecified; E66.9 Obesity, unspecified; Z68.39 Body mass index [BMI] 39.0-39.9, adult; Z79.02 Long term (current) use of antithrombotics/antiplatelets; Z79.01 Long term (current) use of anticoagulants; Z79.899 Other long term (current) drug therapy; Z86.718 Personal history of other venous thrombosis and embolism
CPT/HCPCS: 36415; 74176; 80053; 83605; 85025; 87493; 87507; 87635; 96361; 96374; 99283; 99284; J2405

== ENCOUNTER 2022-10-14 14:17 | Emergency (ER) | payer MEDICARE, SELFPAY ==
[2022-10-14 14:31] VITALS: BP 120/43; PULSE 66; PULSE 69; RESP 22; TEMP 36.5; O2SAT 96; O2SAT 97; BMI 44.6
[2022-10-14 15:17] VITALS: BP 112/39; PULSE 66; RESP 21; O2SAT 97
--- NOTE | 2022-10-14 15:18 | ED_ITS ---
HPI - General Adult General Chief complaint: General Medical Stated complaint: fluid retention x1 week Time Seen by Provider: 10/14/22 14:42 Source: patient Mode of arrival: EMS Limitations: no limitations History of Present Illness HPI narrative: This is an 82 years old patient from the custodial a sent for reaction of lower extremity edema. Patient has history of COPD, type 2 diabetes, heart failure, peripheral edema, he has history of vascular disease, he anticoagulated with apixaban,he is DNR DNI. Patient denies any chest pain shortness of breath he has some itching in the left side of the face. Onset (ago): day(s) (1) Location: lower extremity Radiation: non-radiation Severity: moderate Quality: burning Pain Consistency: constant Relieving factors: none Exacerbating factors: none Related Data Home Medications Medication Instructions Recorded Confirmed atorvastatin 20 mg tablet 20 mg PO BEDTIME 04/14/20 08/08/22 apixaban 5 mg tablet (Eliquis) 5 mg PO BID 04/28/21 08/08/22 acetaminophen 325 mg tablet 650 mg PO Q4H PRN Fever Or Pain 07/25/22 08/08/22 (Tylenol) albuterol sulfate 90 mcg/actuation 2 inh inhalation Q4H PRN Wheezing 07/25/22 08/08/22 breath activated powder inhaler (ProAir RespiClick) ammonium lactate 10 %-emu oil 1 appl topical BID 07/25/22 08/08/22 topical cream bisacodyl 10 mg rectal suppository 10 mg [place] DAILY PRN Constipation 07/25/22 08/08/22 cholecalciferol (vitamin D3) 25 25 mcg PO DAILY 07/25/22 08/08/22 mcg (1,000 unit) tablet (Vitamin D3) diclofenac sodium 1 % topical gel 2 g topical Q6H PRN Pain 07/25/22 08/08/22 guaifenesin 100 mg/5 mL oral liquid 200 mg PO Q8H PRN Cough 07/25/22 08/08/22 ipratropium 0.5 mg-albuterol 3 mg 3 ml inhalation Q4H PRN Wheezing 07/25/22 08/08/22 (2.5 mg base)/3 mL nebulization soln ketorolac 0.5 % eye drops 1 drp ophthalmic (eye) QID itchy 07/25/22 08/08/22 eyes naloxone 0.4 mg/mL injection 0.4 mg subcut Q2M PRN Opioid 07/25/22 08/08/22 solution Overdose sodium phosphates 19 gram-7 118 ml [place] DAILY PRN Constipation 07/25/22 08/08/22 gram/118 mL enema (Fleet Enema) gabapentin 600 mg tablet 600 mg PO DAILY 08/08/22 08/08/22 Previous Rx's Medication Instructions Recorded furosemide 40 mg tablet 40 mg PO BID@0900,1700 #60 tabs 07/31/22 guaifenesin 600 mg tablet, 600 mg PO BID #14 tabs 07/31/22 extended release 12 hr (Mucinex) hydralazine 25 mg tablet 75 mg PO TID #270 tabs 07/31/22 isosorbide mononitrate 60 mg 60 mg PO DAILY #30 tabs 07/31/22 tablet,extended release 24 hr metoprolol tartrate 50 mg tablet 50 mg PO BID #60 tabs 07/31/22 polyethylene glycol 3350 17 gram 17 g PO DAILY #30 ea 07/31/22 oral powder packet loperamide 2 mg capsule (Imodium 2 mg PO Q6H PRN loose stool #10 09/05/22 A-D) caps ondansetron 4 mg disintegrating 4 mg PO Q6-8H PRN nausea and 09/05/22 tablet vomiting #10 tabs Allergies Allergy/AdvReac Type Severity Reaction Status Date / Time Heparin Analogues Allergy Severe heparin Verified 08/08/22 13:14 [HEPARIN ANALOGUES] induced thrombocytopenia Review of Systems Constitutional: Constitutional: Reports no additional constitutional complaints ENT: Reports system reviewed and no additional complaints, except as documented Cardiovascular: Cardiovascular: Denies chest pain Respiratory: Respiratory: Reports no additional respiratory complaints Gastrointestinal: Gastrointestinal: Reports no additional gastrointestinal complaints PMFSH Past Medical History Medical History (HFpEF) heart failure with preserved ejection fraction Bilateral lower leg cellulitis Cataract, left eye Chronic venous stasis dermatitis of both lower extremities CKD (chronic kidney disease) stage 4, GFR 15-29 ml/min Coronary artery disease Deep vein thrombosis (DVT) of popliteal vein of left lower extremity Diabetes mellitus with stage 4 chronic kidney disease Diastolic heart failure Essential hypertension Hyperlipidemia Lumbar degenerative disc disease Lymphedema of both lower extremities Obesity (BMI 30-39.9) Onychomycosis Osteoarthritis of knees, bilateral Stage 4 chronic kidney disease Vitamin D deficiency Surgical History Left carotid artery stenosis No significant past surgical history Family History Family History Father No problems noted. Mother No problems noted. Social History Social History Household Members: Children Household Members Other:: son Housing: House Do you presently have visiting nurse or other home services: No Alcohol intake: never Patient Tobacco Use Status: Never used Tobacco Second Hand Smoke Exposure: No Advance Directives: Yes Advance Directives on File: Yes Advance Directives Date on File: 07/20/20 service: No Current occupational status: retired Physical Exam ED Vital Signs: Vital Signs - 24 hr 10/14/22 14:31 10/14/22 15:17 Temperature 97.7 F Pulse Rate 69 66 Respiratory Rate 22 H 21 H Blood Pressure 120/43 L 112/39 L Pulse Oximetry 96 97 Oxygen Delivery Method Room Air Room Air BMI result Body Mass Index 44.6 Const General: cooperative, comfortable, no acute distress and well developed Nutritional Appearance: well nourished Orientation/consciousness: patient oriented x3 HENMT Head: Yes normal to inspection General nose exam: Normal external nose present Face and sinus: Yes normal facial exam Throat: Yes posterior oropharynx normal Neck Neck: Yes normal visual inspection Chest Chest palpation & inspection: normal inspection of the chest Resp Effort & Inspection: normal respiratory effort Auscultation: clear to auscultation bilaterally Cardio Jugular venous distension: no JVD Rate: regular rate Rhythm: regular rhythm GI Inspection: Yes normal to inspection Palpation (GI): Soft to palpation, not firm, nontender and no guarding General: Yes no CVA tenderness Back/Spine/Pelvis Back: no CVA tenderness Skin General skin exam: no rashes or lesions noted and elasticity normal Neuro General: patient oriented x3 Cranial nerves: Yes CN's II-XII intact bilaterally Extrem General: Yes normal to inspection Course Reevaluation(s) Reevaluation #1: labs ok feels better I think can be d/c to NH will double the furosemide,his creatinine is bettter Today than before,his wbc is normal,he has no symptoms at this time. I am off shift now,pt still in the Department I made Dr Nichole aware of the patient Time: 16:55 Medications Administered Discontinued Medications Generic Name Dose Route Start Last Admin Trade Name Randolph PRN Reason Stop Dose Admin Furosemide 80 mg 10/14/22 15:05 10/14/22 15:28 Furosemide 100 Mg/10 Ml Vial IVPUSH 10/14/22 15:06 80 mg ONCE ONE Administration Protocol Loratadine 10 mg 10/14/22 15:19 10/14/22 15:28 Loratadine 10 Mg Tablet PO 10/14/22 15:20 10 mg ONCE ONE Administration Medical Decision Making Medical Decision Making [facility] Narrative: Patient presented with lower extremity edema will diurese him with IV Lasix check electrolytes BUN and creatinine I do not think he has a DVT he is already on Eliquis Differential Diagnosis Differential Diagnoses: The differential diagnosis associated with the presentation includes Heart failure/ renal failure Admission/Observation Consideration of admission/observation: Escalation of care including admission/observation considered Lab Data [facility] Lab Attestation statement: I reviewed the patient's lab results. 10/14/22 15:17 10/14/22 15:17 Labs: Lab Results 10/14/22 10/14/22 10/14/22 Range/Units 15:17 15:17 15:17 WBC 9.5 (4.8-10.8) X10*3/uL RBC 3.48 L (4.60-5.80) X10*6/uL Hgb 10.5 L (14.0-18.0) g/dl Hct 33.2 L (42.0-52.0) % MCV 95.4 (80.0-98.0) fL MCH 30.2 (27.0-33.0) pg MCHC 31.6 (31.0-36.0) g/dl RDW 15.2 (11.0-16.0) % Plt Count 170 (160-400) X10*3/uL MPV 11.2 (9.4-12.4) fL Immature Gran % (Auto) 0.9 H (0.0-0.4) % Neut % (Auto) 68.9 (45-73) % Lymph % (Auto) 9.6 L (20-40) % [place] % (Auto) 8.8 (2-11) % Eos % (Auto) 11.5 H (0-4) % Baso % (Auto) 0.3 (0-2) % Lymph # (Auto) 0.9 L (1.2-4.9) X10*3/uL [place] # (Auto) 0.8 (0.1-1.2) X10*3/uL Eos # (Auto) 1.1 H (0.0-0.4) X10*3/uL Baso # (Auto) 0.0 (0.0-0.2) X10*3/uL Abs Immat Gran (auto) 0.09 H (0.00-0.03) X10*3/uL Absolute Neuts (auto) 6.5 (2.0-8.3) x10*3/uL Absolute Nucleated RBC 0.000 (0.0-0.012) X10*3/uL Nucleated RBC % (auto) 0.0 (0.0-0.2) /100WBC Sodium 141 (135-145) mmol/L Potassium 5.4 H (3.3-5.1) mmol/L Chloride 110 H (96-108) mmol/L Carbon Dioxide 20 L (22-29) mmol/L Anion Gap 16 (12-20) BUN 47 H (9-16) mg/dL Creatinine 2.60 H (0.5-1.4) mg/dL Estim Creat Clear Calc 30.2 Estimated GFR 24 Random Glucose 100 (60-115) mg/dL Calcium 8.1 L D (8.4-10.2) mg/dL Total Bilirubin 0.4 (0.0-1.0) mg/dL AST 8 (5-37) U/L ALT 8 (0-40) U/L Alkaline Phosphatase 96 (39-117) U/L B-Natriuretic Peptide 148 H (<100) pg/mL Total Protein 6.3 L (6.5-8.0) g/dL Albumin 3.3 L (3.5-5.0) g/dL Chronic Conditions Patient?s care impacted by: Other (CRF) Discharge Plan Discharge Clinical Impression: Edema leg Patient Disposition: Xfer LTC Instructions: Leg Edema (ED) Additional Instructions: please double the lasix for 1 Week,he received IV lasix in ED ,his wbc was normal,his creatinine is at baseline,he is already on eliquis Prescriptions: No Action ondansetron 4 mg tablet,disintegrating 4 mg PO Q6-8H PRN (Reason: nausea and vomiting) Qty: 10 0RF loperamide [Imodium A-D] 2 mg capsule 2 mg PO Q6H PRN (Reason: loose stool) Qty: 10 0RF ipratropium-albuterol 0.5 mg-3 mg(2.5 mg base)/3 mL Solution For Nebulization 3 ml INHALATION Q4H PRN (Reason: Wheezing) acetaminophen [Tylenol] 325 mg Tablet 650 mg PO Q4H PRN (Reason: Fever Or Pain) Rx Instructions: do not exceed 3 grams / 24 hours naloxone 0.4 mg/mL Solution 0.4 mg SUBCUT Q2M PRN (Reason: Opioid Overdose) Rx Instructions: NTExceed 10 mg total dose/episode guaifenesin 100 mg/5 mL Liquid 200 mg PO Q8H PRN (Reason: Cough) ketorolac 0.5 % drops 1 drp ophthalmic (eye) QID Rx Instructions: instill 1 drop in both eyes bisacodyl 10 mg Suppository 10 mg IL DAILY PRN (Reason: Constipation) Rx Instructions: use if no bowel movement for 8 hours after milk of magnesia Fleet Enema 19-7 gram/118 mL Enema 118 ml IL DAILY PRN (Reason: Constipation) Rx Instructions: use if no bowel movement for 8 hours after bisacodyl suppository cholecalciferol (vitamin D3) [Vitamin D3] 25 mcg (1,000 unit) Tablet 25 mcg PO DAILY diclofenac sodium 1 % Gel 2 g TOPICAL Q6H PRN (Reason: Pain) Rx Instructions: apply to bilateral knees ammonium lactate-emu oil 10 % Cream 1 appl TOPICAL BID Rx Instructions: apply to lower legs ProAir RespiClick 90 mcg/actuation Aerosol Powdr Breath Activated 2 inh INHALATION Q4H PRN (Reason: Wheezing) polyethylene glycol 3350 17 gram Powder In Packet 17 g PO DAILY Qty: 30 0RF hydralazine 25 mg Tablet 75 mg PO TID Qty: 270 0RF Protocol: Hold for SBP< HOLD for SBP < : 90 isosorbide mononitrate 60 mg Tablet Extended Release 24 Hr 60 mg PO DAILY Qty: 30 0RF Protocol: Hold for SBP< HOLD for SBP < : 90 metoprolol tartrate 50 mg Tablet 50 mg PO BID Qty: 60 0RF Protocol: Hold for SBP/HR < HOLD for SBP < : 90 HOLD for HR < : 60 guaifenesin [Mucinex] 600 mg Tablet Extended Release 12hr 600 mg PO BID Qty: 14 0RF furosemide 40 mg Tablet 40 mg PO BID@0900,1700 Qty: 60 0RF gabapentin 600 mg tablet 600 mg PO DAILY atorvastatin 20 mg tablet 20 mg PO BEDTIME Eliquis 5 mg tablet 5 mg PO BID Interventions: ED Discharge Assessment Last Done: 10/14/22 18:11 Discharge Date/Time: 10/14/22 18:13
[2022-10-14 15:22] LABS: MANUAL DIFF FLAG NO
[2022-10-14 15:25] LABS: Basophils Percent Auto 0.3 % (0-2); Eosinophils Absolute Auto 1.1 X10*3/uL (0.0-0.4); Eosinophils Percent Auto 11.5 % (0-4); Hematocrit 33.2 % (42.0-52.0); Hemoglobin 10.5 g/dl (14.0-18.0); Imm Gran Abs Auto 0.09 X10*3/uL (0.00-0.03); Imm Gran Pct Auto 0.9 % (0.0-0.4); Lymphocytes Absolute Auto 0.9 X10*3/uL (1.2-4.9); Lymphocytes Percent Auto 9.6 % (20-40); Mean Corpuscular HGB Conc 31.6 g/dl (31.0-36.0); Mean Corpuscular Hemoglobin 30.2 pg (27.0-33.0); Mean Corpuscular Volume 95.4 fL (80.0-98.0); Mean Platelet Volume 11.2 fL (9.4-12.4); Monocytes Absolute Auto 0.8 X10*3/uL (0.1-1.2); Monocytes Percent Auto 8.8 % (2-11); Neutrophils Absolute Auto 6.5 x10*3/uL (2.0-8.3); Neutrophils Percent Auto 68.9 % (45-73); Platelet Count 170 X10*3/uL (160-400); Red Blood Count 3.48 X10*6/uL (4.60-5.80); Red Cell Distribution Width 15.2 % (11.0-16.0); White Blood Count 9.5 X10*3/uL (4.8-10.8)
[2022-10-14] MEDS: Loratadine 10 MG TABLET PO (15:28)
[2022-10-14] MEDS: Furosemide 100 MG/10 ML VIAL 80 MG IVPUSH (15:28)
[2022-10-14 15:48] LABS: B Type Natriuretic Peptide 148 pg/mL (<100)
[2022-10-14 15:51] LABS: Alanine Aminotransferase 8 U/L (0-40); Albumin Level 3.3 g/dL (3.5-5.0); Alkaline Phosphatase 96 U/L (39-117); Anion Gap 16 (12-20); Aspartate Amino Transferase 8 U/L (5-37); Bilirubin Total 0.4 mg/dL (0.0-1.0); Blood Urea Nitrogen 47 mg/dL (9-16); Calcium 8.1 mg/dL (8.4-10.2); Carbon Dioxide 20 mmol/L (22-29); Chloride 110 mmol/L (96-108); Creatinine Clr Calc Pharmacy 30.2; Estimated Glomerular Filt Rate 24; Glucose Random 100 mg/dL (60-115); Potassium 5.4 mmol/L (3.3-5.1); Sodium 141 mmol/L (135-145); Total Protein 6.3 g/dL (6.5-8.0)
--- NOTE | 2022-10-14 17:11 | PC.NURSE ---
Report called to Eboni ESCALONA at [facility].
--- NOTE | 2022-10-14 17:12 | PC.NURSE ---
stated pt to increase Lasix does to 80mg BID instead of her normal 40mg BID. Information given in nurse to nurse to Eboni ESCALONA
== END 2022-10-14 18:13 ==
PROVIDERS: Emergency Provider Emergency Medicine
DX: R60.0 Localized edema (principal); E11.22 Type 2 diabetes mellitus with diabetic chronic kidney disease; I13.0 Hypertensive heart and chronic kidney disease with heart failure and stage 1 through stage 4 chronic kidney disease, or unspecified chronic kidney disease; N18.4 Chronic kidney disease, stage 4 (severe); I50.30 Unspecified diastolic (congestive) heart failure; R06.02 Shortness of breath; Z79.01 Long term (current) use of anticoagulants; Z79.02 Long term (current) use of antithrombotics/antiplatelets; Z79.899 Other long term (current) drug therapy
CPT/HCPCS: 36415; 80053; 83880; 85025; 96374; 99283; 99285; J1940

== ENCOUNTER → 2022-11-23 14:06 | Outpatient (BNVA) | payer MEDICARE, SELFPAY | PROVIDERS: Visit Provider Nurse Practitioner Family | DX: I50.30 Unspecified diastolic (congestive) heart failure (principal); I82.532 Chronic embolism and thrombosis of left popliteal vein; I89.0 Lymphedema, not elsewhere classified; N18.4 Chronic kidney disease, stage 4 (severe); R60.0 Localized edema | CPT/HCPCS: 99212 ==

== ENCOUNTER 2022-12-18 03:09 | Inpatient (IN) | payer MEDICARE, SELFPAY ==
[2022-12-18] VITALS (18 sets, daily range): BP systolic 110–204; BP diastolic 52–86; PULSE 60–110; RESP 18–36; TEMP 36.8–38.8; O2SAT 85–100; BMI 38.0
--- NOTE | ~2022-12-18 | XR_ITS ---
EXAMINATION: XR CHEST CLINICAL INFORMATION: Sepsis COMPARISON: 07/28/2022 TECHNIQUE: Frontal view of the chest was obtained. FINDINGS: The lungs are hypoinflated. There is streaky retrocardiac left basilar opacity which appears somewhat improved from prior. Right lung appears well-aerated. No evidence of pneumothorax or significant pleural effusion. Cardiomediastinal silhouette appears unremarkable for low lung volumes. No acute osseous findings are seen. XR/XR chest 1V IMPRESSION: Streaky retrocardiac left basilar opacity, somewhat improved from 07/28/2022.
--- NOTE | ~2022-12-18 | FL_ITS ---
EXAMINATION: XR BARIUM SWALLOW CLINICAL INFORMATION: Dysphagia COMPARISON: None available. TECHNIQUE: Fluoroscopic guidance was provided for modified barium swallow performed by the speech and hearing department. Exam is significantly limited due to patient body habitus high position of the shoulders. FINDINGS: The soft tissues of the neck are not optimally visualized due to patient body habitus/overlapping shoulders. There is at least penetration seen with liquid barium and thickened liquid barium. Aspiration cannot be excluded as the more inferior neck could not be visualized. FLUOROSCOPY TIME: 2 minutes DOSE AREA PRODUCT: 3.4 stone per centimeter squared. Total dose 11.6 mgy. 1 saved fluoroscopic image. FL/FL barium swallow modified IMPRESSION: Very limited exam. At least penetration with liquid barium and thickened liquid barium. Aspiration cannot be excluded. See speech and hearing report for detailed findings.
--- NOTE | ~2022-12-18 | CT_ITS ---
EXAMINATION: CT HEAD WITHOUT CONTRAST CLINICAL INFORMATION: 82-year-old male with acute mental status change COMPARISON: 08/03/2020 TECHNIQUE: Contiguous axial imaging was performed from the skull base to vertex without intravenous administration of contrast. This CT examination was performed using dose optimization techniques as appropriate, variously including the following: *Automated exposure control *Adjustment of mA and/or kV according to patient size (this includes techniques or standardized protocols for targeted exams where dose is matched to indication/reason for exam; i.e. extremities or head) *Use of iterative reconstruction technique DLP: 978 mGy-cm FINDINGS: Examination is limited due to motion There is no evidence of acute intracranial hemorrhage or territorial infarction. Zhao-white matter differentiation is preserved. No abnormal mass effect or midline shift. No extra-axial fluid collections. Scattered periventricular and deep white matter hypoattenuation consistent with mild microangiopathy. The ventricles are dilated and sulci are prominent the due to moderate global volume loss with proportional prominence of the ventricles and sulcal spaces. No hydrocephalus. No acute osseous or soft tissue abnormalities. The mastoid air cells and visualized portions of the paranasal sinuses are well aerated. CT/CT head/brain wo IV con IMPRESSION: 1. No acute intracranial pathology. 2. Moderate global volume loss and sequela of microangiopathy.
--- NOTE | ~2022-12-18 | XR_ITS ---
EXAMINATION: XR CHEST CLINICAL INFORMATION: 82-year-old male with cough COMPARISON: 12/18/2022 TECHNIQUE: Frontal view of the chest was obtained. FINDINGS: There is no significant interval change in low lung volume bilaterally with atelectasis on the left. Cardiomediastinal silhouette is unremarkable. There is healed fracture deformity of few ribs on the left. XR/XR chest 1V IMPRESSION: No active cardiopulmonary disease.
--- NOTE | ~2022-12-18 | XR_ITS ---
EXAMINATION: XR CHEST CLINICAL INFORMATION: Respiratory distress COMPARISON: X-ray 12/18/2022, 3:52 AM TECHNIQUE: Frontal view of the chest was obtained. FINDINGS: The lungs are hypoexpanded. Streaky retrocardiac left basilar opacities, appears slightly more prominent as compared to previous. Mild right basilar hazy opacities. No significant pleural effusion or pneumothorax. Cardiomediastinal silhouette is stable. XR/XR chest 1V IMPRESSION: Streaky retrocardiac left basilar opacities, slightly more prominent as compared to previous. Right basilar hazy opacities.
--- NOTE | ~2022-12-18 | CT_ITS ---
EXAMINATION: CT CHEST WITHOUT CONTRAST CLINICAL INFORMATION: Pneumonia. Hypoxia. COMPARISON: Previous chest x-ray from earlier the same day and chest CT July 2022 TECHNIQUE: Multidetector volumetric CT imaging of the chest was done. Axial MIP volume rendering provided. Sagittal and coronal reformatted images were obtained. This CT examination was performed using dose optimization techniques as appropriate, variously including the following: *Automated exposure control *Adjustment of mA and/or kV according to patient size (this includes techniques or standardized protocols for targeted exams where dose is matched to indication/reason for exam; i.e. extremities or head) *Use of iterative reconstruction technique DLP: 422 mGy-cm FINDINGS: LUNGS: Limited exam due to respiratory motion. There is chronic scarring or subsegmental atelectasis in the left lower lobe that is similar to July 2022. There is increasing subsegmental atelectasis in the inferior segment of the lingula and right lower lobe. No definite pneumonia is seen. There is increased soft tissue seen in the ava. Prior exam July 2022 and may correspond to patient secretions. MEDIASTINUM: Upper normal heart size. Atherosclerotic disease. Aortic valve calcification. No pericardial effusion. Slightly enlarged pulmonary arteries, main pulmonary artery measuring 3.5 cm. Upper normal-size thoracic aorta. Small mediastinal lymph nodes. No enlarged lymph nodes. CORONARY ARTERY CALCIFICATION: Mild PLEURA: There is no pleural effusion. Trace left pleural thickening similar to previous exam. AXILLA: No lymphadenopathy. UPPER ABDOMEN: Layering high attenuation in the gallbladder suggestive of gallstones. OSSEOUS STRUCTURES: Degenerative changes of the spine and shoulders. CT/CT chest wo IV con IMPRESSION: Limited exam due to respiratory motion. No definite pneumonia. Chronic pleural and parenchymal changes in the left lower lobe. Increasing subsegmental atelectasis in the inferior segment lingula and right lower lobe. Fleischner guidelines were followed.
--- NOTE | 2022-12-18 03:34 | ECG_ITS ---
Test Reason : chf Blood Pressure : / mmHG Vent. Rate : 088 BPM Atrial Rate : 000 BPM P-R Int : 000 ms QRS Dur : 128 ms QT Int : 378 ms P-R-T Axes : 000 -37 074 degrees QTc Int : 457 ms Normal sinus rhythm Left axis deviation Non-specific intra-ventricular conduction block Minimal voltage criteria for LVH, may be normal variant ( Healy product ) Inferior infarct , age undetermined Abnormal ECG When compared with ECG of 24-JUL-2022 23:54, Poor data quality No significant changes seen Referred By: Anya Resendiz Electronically Signed By:Steven Leo
--- NOTE | 2022-12-18 03:36 | ED.GENADULT ---
HPI - General Adult General Chief complaint: Fever Stated complaint: sepsis alert Time Seen by Provider: 12/18/22 03:25 Source: patient Mode of arrival: ambulatory Limitations: no limitations and physical limitation (Dementia) History of Present Illness HPI narrative: 82-year-old male came in from group home PMH of CAD, DM, DVT, HTN, HLD, CKD stage 4, chronic venous stasis, patient was sent from group home for evaluation of a fever. Patient just had right 2nd molar lower tooth extracted yesterday is taking amoxicillin patient presented with shortness of breath and persistent fever. Related Data Home Medications Medication Instructions Recorded Confirmed atorvastatin 20 mg tablet 20 mg PO BEDTIME 04/14/20 11/24/22 acetaminophen 325 mg tablet 650 mg PO Q4H PRN Fever Or Pain 07/25/22 11/24/22 (Tylenol) albuterol sulfate 90 mcg/actuation 2 inh inhalation Q4H PRN Wheezing 07/25/22 11/24/22 breath activated powder inhaler (ProAir RespiClick) ammonium lactate 10 %-emu oil 1 appl topical BID 07/25/22 11/24/22 topical cream cholecalciferol (vitamin D3) 25 25 mcg PO DAILY 07/25/22 11/24/22 mcg (1,000 unit) tablet (Vitamin D3) guaifenesin 100 mg/5 mL oral liquid 200 mg PO Q8H PRN Cough 07/25/22 11/24/22 ipratropium 0.5 mg-albuterol 3 mg 3 ml inhalation Q4H PRN Wheezing 07/25/22 11/24/22 (2.5 mg base)/3 mL nebulization soln ketorolac 0.5 % eye drops 1 drp ophthalmic (eye) QID itchy 07/25/22 11/24/22 eyes naloxone 0.4 mg/mL injection 0.4 mg subcut Q2M PRN Opioid 07/25/22 11/24/22 solution Overdose sodium phosphates 19 gram-7 118 ml [place] DAILY PRN Constipation 07/25/22 11/24/22 gram/118 mL enema (Fleet Enema) gabapentin 600 mg tablet 600 mg PO DAILY 08/08/22 11/24/22 diphenhydramine HCl 25 mg tablet 25 mg PO BEDTIME PRN 11/23/22 11/24/22 (Benadryl Allergy) hydrocortisone 1 % topical cream 1 appl topical BID PRN 11/23/22 11/24/22 (Anti-Itch (hydrocortisone)) ipratropium 0.5 mg-albuterol 3 mg 3 ml inhalation Q4-6H PRN 11/23/22 11/24/22 (2.5 mg base)/3 mL nebulization soln magnesium citrate 100 mg capsule 100 mg PO DAILY 11/23/22 11/24/22 omeprazole 20 mg capsule,delayed 20 mg PO DAILY 11/23/22 11/24/22 release potassium chloride 20 mEq 20 meq PO DAILY 11/23/22 11/24/22 tablet,extended release Previous Rx's Medication Instructions Recorded furosemide 40 mg tablet 40 mg PO BID@0900,1700 #60 tabs 07/31/22 guaifenesin 600 mg tablet, 600 mg PO BID #14 tabs 07/31/22 extended release 12 hr (Mucinex) hydralazine 25 mg tablet 75 mg PO TID #270 tabs 07/31/22 isosorbide mononitrate 60 mg 60 mg PO DAILY #30 tabs 07/31/22 tablet,extended release 24 hr metoprolol tartrate 50 mg tablet 50 mg PO BID #60 tabs 07/31/22 polyethylene glycol 3350 17 gram 17 g PO DAILY #30 ea 07/31/22 oral powder packet loperamide 2 mg capsule (Imodium 2 mg PO Q6H PRN loose stool #10 09/05/22 A-D) caps ondansetron 4 mg disintegrating 4 mg PO Q6-8H PRN nausea and 09/05/22 tablet vomiting #10 tabs apixaban 2.5 mg tablet (Eliquis) 2.5 mg PO BID 90 days #180 tabs 11/24/22 Allergies Allergy/AdvReac Type Severity Reaction Status Date / Time Heparin Analogues Allergy Severe heparin Verified 11/23/22 14:16 [HEPARIN ANALOGUES] induced thrombocytopenia Review of Systems Review of Systems: Yes Unobtainable due to mental status [facility] Past Medical History Medical History (HFpEF) heart failure with preserved ejection fraction Bilateral lower leg cellulitis Cataract, left eye Chronic venous stasis dermatitis of both lower extremities CKD (chronic kidney disease) stage 4, GFR 15-29 ml/min Coronary artery disease Deep vein thrombosis (DVT) of popliteal vein of left lower extremity Diabetes mellitus with stage 4 chronic kidney disease Diastolic heart failure Essential hypertension Hyperlipidemia Lumbar degenerative disc disease Lymphedema of both lower extremities Obesity (BMI 30-39.9) Onychomycosis Osteoarthritis of knees, bilateral Stage 4 chronic kidney disease Vitamin D deficiency Surgical History Left carotid artery stenosis No significant past surgical history Family History Family History Father No problems noted. Mother No problems noted. Social History Social History Household Members: Children Household Members Other:: son Housing: House Do you presently have visiting nurse or other home services: No Alcohol intake: never Patient Tobacco Use Status: Never used Tobacco Second Hand Smoke Exposure: No Advance Directives: Yes Advance Directives on File: Yes Advance Directives Date on File: 07/20/20 service: No Current occupational status: retired Physical Exam ED Vital Signs: Vital Signs - 24 hr 12/18/22 03:26 Temperature 100.3 F Pulse Rate 91 Respiratory Rate 22 H Blood Pressure 112/70 Pulse Oximetry 95 Oxygen Delivery Method Nasal Cannula Fraction of Inspired Oxygen 32 BMI result Body Mass Index 38.0 Vital signs have been reviewed as appeared to be correct. Blood pressure normal. Heart rate normal. Respiration rate normal. Temperature normal. Oxygen saturation normal. Appearance: Alert. Oriented X3. No acute distress. Head: Normal external exam. Normocephalic. Atraumatic. No [place] signs noted. No raccoon eyes noted Eyes: PERRLA. EOMI. Conjunctiva and sclera normal. Eyelids normal. ENT: TM's Normal. Pharynx normal. Uvula midline. Moist mucous membranes. No trismus noted. No drooling noted. No muffled voice noted. Neck: Normal inspection. Neck supple. FROM. No adenopathy. Thyroid Normal. No meningeal signs. No neck mass noted. CVS: Normal heart rate and rhythm. Heart sound normal. No murmurs noted. Pulses normal throughout. Respiratory: No respiratory distress. Painless inspiration. Breath sounds normal. No wheezes/rales/rhonchi noted. Chest nontender. No accessory muscle usage noted or decreased air movement noted. Abdomen: Soft and nontender. Bowel sounds normal in all 4 quadrants. No distention noted. No organomegaly noted. No visible injury noted. Back: No CVA tenderness. Full range of motion noted. Skin: Skin warm and dry. Normal skin color. Normal skin turgor. No rashes/lesions/lacerations noted. Extremities: Bilateral venous stasis, right lower extremities with a redness, hotness, tenderness, no fluctuation. Neuro: Oriented X 3. Cranial nerve exam: II-XII are grossly intact No motor deficit. No sensory deficit. Reflexes normal. Course Course Course Narrative: Right lower extremity cellulitis patient meets criteria for SIRS but no severe sepsis or septic shock patient received Zosyn and vancomycin. Medical Decision Making Differential Diagnosis Differential Diagnoses: The differential diagnosis associated with the presentation includes (Cellulitis, electrolytes abnormalities, severe anemia.) Admission/Observation Consideration of admission/observation: Escalation of care including admission/observation considered Consult Healthcare Provider Management of the patient was discussed with: Hospitalist ( Dr. Olivera) Lab Data MDM Lab Attestation statement: I reviewed the patient's lab results. 12/18/22 03:55 12/18/22 03:55 Labs: Lab Results 12/18/22 12/18/22 12/18/22 Range/Units 03:55 03:55 03:55 WBC 8.4 (4.8-10.8) X10*3/uL RBC 3.09 L (4.60-5.80) X10*6/uL Hgb 9.6 L (14.0-18.0) g/dl Hct 30.1 L (42.0-52.0) % MCV 97.4 (80.0-98.0) fL MCH 31.1 (27.0-33.0) pg MCHC 31.9 (31.0-36.0) g/dl RDW 15.3 (11.0-16.0) % Plt Count 124 L D (160-400) X10*3/uL MPV 11.0 (9.4-12.4) fL Immature Gran % (Auto) 0.4 (0.0-0.4) % Neut % (Auto) 68.0 (45-73) % Lymph % (Auto) 11.0 L (20-40) % [place] % (Auto) 11.8 H (2-11) % Eos % (Auto) 8.7 H (0-4) % Baso % (Auto) 0.1 (0-2) % Lymph # (Auto) 0.9 L (1.2-4.9) X10*3/uL [place] # (Auto) 1.0 (0.1-1.2) X10*3/uL Eos # (Auto) 0.7 H (0.0-0.4) X10*3/uL Baso # (Auto) 0.0 (0.0-0.2) X10*3/uL Abs Immat Gran (auto) 0.03 (0.00-0.03) X10*3/uL Absolute Neuts (auto) 5.7 (2.0-8.3) x10*3/uL Absolute Nucleated RBC 0.000 (0.0-0.012) X10*3/uL Nucleated RBC % (auto) 0.0 (0.0-0.2) /100WBC Sodium 140 (135-145) mmol/L Potassium 5.3 H (3.3-5.1) mmol/L Chloride 111 H (96-108) mmol/L Carbon Dioxide 18 L (22-29) mmol/L Anion Gap 16 (12-20) BUN 52 H (9-16) mg/dL Creatinine 3.18 H (0.5-1.4) mg/dL Estim Creat Clear Calc 25.5 Estimated GFR 19 Random Glucose 96 (60-115) mg/dL Lactic Acid (0.5-2.0) mmol/L Calcium 8.2 L (8.4-10.2) mg/dL Total Bilirubin 0.6 (0.0-1.0) mg/dL Direct Bilirubin 0.2 (0.0-0.5) mg/dL AST 9 (5-37) U/L ALT 7 (0-40) U/L Alkaline Phosphatase 87 (39-117) U/L Troponin I High Sens 37.2 H (<3.5-35.0) ng/L B-Natriuretic Peptide (<100) pg/mL Total Protein 6.3 L (6.5-8.0) g/dL Albumin 3.5 (3.5-5.0) g/dL Lipase 11 (8-78) U/L Influenza Type A (PCR) (Negative) Influenza Type B (PCR) (Negative) RSV RNA Qual (PCR) (Negative) SARS-CoV-2 RNA (RT-PCR) (Negative) 12/18/22 12/18/22 12/18/22 Range/Units 03:55 03:55 03:55 WBC (4.8-10.8) X10*3/uL RBC (4.60-5.80) X10*6/uL Hgb (14.0-18.0) g/dl Hct (42.0-52.0) % MCV (80.0-98.0) fL MCH (27.0-33.0) pg MCHC (31.0-36.0) g/dl RDW (11.0-16.0) % Plt Count (160-400) X10*3/uL MPV (9.4-12.4) fL Immature Gran % (Auto) (0.0-0.4) % Neut % (Auto) (45-73) % Lymph % (Auto) (20-40) % [place] % (Auto) (2-11) % Eos % (Auto) (0-4) % Baso % (Auto) (0-2) % Lymph # (Auto) (1.2-4.9) X10*3/uL [place] # (Auto) (0.1-1.2) X10*3/uL Eos # (Auto) (0.0-0.4) X10*3/uL Baso # (Auto) (0.0-0.2) X10*3/uL Abs Immat Gran (auto) (0.00-0.03) X10*3/uL Absolute Neuts (auto) (2.0-8.3) x10*3/uL Absolute Nucleated RBC (0.0-0.012) X10*3/uL Nucleated RBC % (auto) (0.0-0.2) /100WBC Sodium (135-145) mmol/L Potassium (3.3-5.1) mmol/L Chloride (96-108) mmol/L Carbon Dioxide (22-29) mmol/L Anion Gap (12-20) BUN (9-16) mg/dL Creatinine (0.5-1.4) mg/dL Estim Creat Clear Calc Estimated GFR Random Glucose (60-115) mg/dL Lactic Acid 0.9 (0.5-2.0) mmol/L Calcium (8.4-10.2) mg/dL Total Bilirubin (0.0-1.0) mg/dL Direct Bilirubin (0.0-0.5) mg/dL AST (5-37) U/L ALT (0-40) U/L Alkaline Phosphatase (39-117) U/L Troponin I High Sens (<3.5-35.0) ng/L B-Natriuretic Peptide 184 H (<100) pg/mL Total Protein (6.5-8.0) g/dL Albumin (3.5-5.0) g/dL Lipase (8-78) U/L Influenza Type A (PCR) NEGATIVE (Negative) Influenza Type B (PCR) NEGATIVE (Negative) RSV RNA Qual (PCR) NEGATIVE (Negative) SARS-CoV-2 RNA (RT-PCR) NEGATIVE (Negative) Independent Interpretation I performed an independent interpretation of an: Plain X-Ray (Chest: No acute intrathoracic pathology.) Radiology Impression Discussion of test interpretation with radiology: I have reviewed the radiologist's reading. Independent Historian Clinical information obtained from an independent historian. History obtained from or confirmed by: Other (Old record) External Record Review External record reviewed: Outpatient record and Outside ED record Discharge Plan Discharge Clinical Impression: Cellulitis of left lower extremity, Sepsis Patient Disposition: Admitted As Inpatient
[2022-12-18 04:03] LABS: MANUAL DIFF FLAG NO
[2022-12-18 04:04] LABS: Basophils Percent Auto 0.1 % (0-2); Eosinophils Absolute Auto 0.7 X10*3/uL (0.0-0.4); Eosinophils Percent Auto 8.7 % (0-4); Hematocrit 30.1 % (42.0-52.0); Hemoglobin 9.6 g/dl (14.0-18.0); Imm Gran Abs Auto 0.03 X10*3/uL (0.00-0.03); Imm Gran Pct Auto 0.4 % (0.0-0.4); Lymphocytes Absolute Auto 0.9 X10*3/uL (1.2-4.9); Mean Corpuscular HGB Conc 31.9 g/dl (31.0-36.0); Mean Corpuscular Hemoglobin 31.1 pg (27.0-33.0); Mean Corpuscular Volume 97.4 fL (80.0-98.0); Monocytes Percent Auto 11.8 % (2-11); Neutrophils Absolute Auto 5.7 x10*3/uL (2.0-8.3); Platelet Count 124 X10*3/uL (160-400); Red Blood Count 3.09 X10*6/uL (4.60-5.80); Red Cell Distribution Width 15.3 % (11.0-16.0); White Blood Count 8.4 X10*3/uL (4.8-10.8)
[2022-12-18 04:16] LABS: Lactic Acid 0.9 mmol/L (0.5-2.0)
[2022-12-18 04:20] LABS: Alanine Aminotransferase 7 U/L (0-40); Albumin Level 3.5 g/dL (3.5-5.0); Alkaline Phosphatase 87 U/L (39-117); Anion Gap 16 (12-20); Aspartate Amino Transferase 9 U/L (5-37); Bilirubin Direct 0.2 mg/dL (0.0-0.5); Bilirubin Total 0.6 mg/dL (0.0-1.0); Blood Urea Nitrogen 52 mg/dL (9-16); Calcium 8.2 mg/dL (8.4-10.2); Carbon Dioxide 18 mmol/L (22-29); Chloride 111 mmol/L (96-108); Creatinine Clr Calc Pharmacy 25.5; Estimated Glomerular Filt Rate 19; Glucose Random 96 mg/dL (60-115); Lipase 11 U/L (8-78); Potassium 5.3 mmol/L (3.3-5.1); Sodium 140 mmol/L (135-145); Total Protein 6.3 g/dL (6.5-8.0)
[2022-12-18 04:25] LABS: B Type Natriuretic Peptide 184 pg/mL (<100); Troponin-I High Sensitivity 37.2 ng/L (<3.5-35.0)
[2022-12-18 04:41] LABS: Influenza A PCR NEGATIVE (Negative); Influenza B PCR NEGATIVE (Negative); Resp Syncy Virus RNA Qual PCR NEGATIVE (Negative); SARS COV2 PCR INHOUSE NEGATIVE (Negative)
[2022-12-18] MEDS: Piperacillin Sodium/Tazobactam 3.375 GM in 0.9 % Sodium Chloride 50 ML IV (04:49)
[2022-12-18] MEDS: vancomycin/NS 2,000 MG/500 ML PLAST..BAG 250 MG IV (05:00)
--- NOTE | 2022-12-18 05:37 | PM.IMHP ---
History of Present Illness Date of Service: 12/18/22 Chief Complaint: Fever This is an 82-year-old male with past medical history of chronic respiratory failure, CAD, CKD, history of COPD, dysphagia, GERD, HTN, DVT, HLD, CHF, depression, obesity, type 2 diabetes, among other diseases comes in from group home for evaluation of fever patient is not the greatest historian, and states that he was sent here because he had a cold. According to triage nurse and EMS patient was sent from group home because he was noted to have a temp of 101.7 degrees with a respiratory rate of 30, O2 satting 85% on room air. Patient was placed on 2 L of nasal cannula with improvement of his O2 and was sent to the hospital. Patient denies any chest pain, no shortness of breath, no abdominal pain nausea or vomiting, no diarrhea constipation, no urinary symptoms. When asked about his lower extremity skin/cellulitis he is unable to give me much information about it. On arrival to the ED patient noted to have 82 temperature of 100.3, respiratory rate of 22, satting 95% on 2 L Labs are significant for WBC count of 8.4, hemoglobin of 9 6.6, hematocrit 30.1 which is close to baseline, potassium 5.3, chloride of 111, bicarb of 18, creatinine of 3.18 with a baseline of around 2.62.8, troponin of 37.2, sign chest x-ray shows streaky retrocardiac left basilar opacity which is improved from previous Patient will be admitted for further management Review of Systems Review of Systems: Yes all other systems are reviewed and are negative [facility] Medical History (HFpEF) heart failure with preserved ejection fraction Bilateral lower leg cellulitis Cataract, left eye Chronic venous stasis dermatitis of both lower extremities CKD (chronic kidney disease) stage 4, GFR 15-29 ml/min Coronary artery disease Deep vein thrombosis (DVT) of popliteal vein of left lower extremity Diabetes mellitus with stage 4 chronic kidney disease Diastolic heart failure Essential hypertension Hyperlipidemia Lumbar degenerative disc disease Lymphedema of both lower extremities Obesity (BMI 30-39.9) Onychomycosis Osteoarthritis of knees, bilateral Stage 4 chronic kidney disease Vitamin D deficiency Family History Father No problems noted. Mother No problems noted. Surgical History Left carotid artery stenosis No significant past surgical history Social History Household Members: Children Household Members Other:: son Housing: House Do you presently have visiting nurse or other home services: No Alcohol intake: never Patient Tobacco Use Status: Never used Tobacco Smoked in Last 30 Days: No Second Hand Smoke Exposure: No Use of substances other than those prescribed or required for medical reasons: No Any prior treatment program specific to substance use: No Advance Directives: Yes Advance Directives on File: Yes Advance Directives Date on File: 07/20/20 service: No Current occupational status: retired [employer] Allergies Allergy/AdvReac Type Severity Reaction Status Date / Time Heparin Analogues Allergy Severe heparin Verified 11/23/22 14:16 [HEPARIN ANALOGUES] induced thrombocytopenia Active Medications: Current Medications Vancomycin HCl (Vancomycin/Ns) 2,000 mg in 500 mls @ 250 mls/hr IV ONCE ONE Stop: 12/18/22 06:59 Pharmacy Consult (Consult Rx Vancomycin Dosing) 1 each MISCELLANE DAILY PRN PRN Reason: Consult order Home Medications Medication Instructions Recorded Confirmed Last Taken Type atorvastatin 20 mg tablet 20 mg PO BEDTIME 04/14/20 11/24/22 Unknown History acetaminophen 325 mg tablet 650 mg PO Q4H PRN Fever Or Pain 07/25/22 11/24/22 Unknown History (Tylenol) albuterol sulfate 90 mcg/actuation 2 inh inhalation Q4H PRN Wheezing 07/25/22 11/24/22 Unknown History breath activated powder inhaler (ProAir RespiClick) ammonium lactate 10 %-emu oil 1 appl topical BID 07/25/22 11/24/22 Unknown History topical cream cholecalciferol (vitamin D3) 25 25 mcg PO DAILY 07/25/22 11/24/22 Unknown History mcg (1,000 unit) tablet (Vitamin D3) guaifenesin 100 mg/5 mL oral liquid 200 mg PO Q8H PRN Cough 07/25/22 11/24/22 Unknown History ipratropium 0.5 mg-albuterol 3 mg 3 ml inhalation Q4H PRN Wheezing 07/25/22 11/24/22 Unknown History (2.5 mg base)/3 mL nebulization soln ketorolac 0.5 % eye drops 1 drp ophthalmic (eye) QID itchy 07/25/22 11/24/22 Unknown History eyes naloxone 0.4 mg/mL injection 0.4 mg subcut Q2M PRN Opioid 07/25/22 11/24/22 Unknown History solution Overdose sodium phosphates 19 gram-7 118 ml MI DAILY PRN Constipation 07/25/22 11/24/22 Unknown History gram/118 mL enema (Fleet Enema) gabapentin 600 mg tablet 600 mg PO DAILY 08/08/22 11/24/22 Unknown History diphenhydramine HCl 25 mg tablet 25 mg PO BEDTIME PRN 11/23/22 11/24/22 Unknown History (Benadryl Allergy) hydrocortisone 1 % topical cream 1 appl topical BID PRN 11/23/22 11/24/22 Unknown History (Anti-Itch (hydrocortisone)) ipratropium 0.5 mg-albuterol 3 mg 3 ml inhalation Q4-6H PRN 11/23/22 11/24/22 Unknown History (2.5 mg base)/3 mL nebulization soln magnesium citrate 100 mg capsule 100 mg PO DAILY 11/23/22 11/24/22 Unknown History omeprazole 20 mg capsule,delayed 20 mg PO DAILY 11/23/22 11/24/22 Unknown History release potassium chloride 20 mEq 20 meq PO DAILY 11/23/22 11/24/22 Unknown History tablet,extended release Physical Exam Vital Signs and Narrative: Vital Signs: Last Vital Signs Temp 101.4 F H 12/18/22 05:30 Pulse 95 12/18/22 05:30 Resp 36 H 12/18/22 05:30 BP 137/64 12/18/22 05:30 Pulse Ox 95 12/18/22 05:30 O2 Del Method Nasal Cannula 12/18/22 05:30 O2 Flow Rate 3 12/18/22 05:30 FiO2 32 12/18/22 03:26 Oxygen Flow Rate 2 12/18/22 03:26 BMI result Body Mass Index 38.0 Const: Other: Oriented to self and place, answers simple questions but unable to give detailed history General: cooperative and no acute distress Eyes: General: appearance normal, both eyes and all related structures Resp: Effort & Inspection: normal respiratory effort Cardio: Rate: regular rate Rhythm: regular rhythm GI: Palpation (GI): Soft to palpation Auscultation: normal bowel sounds Skin: General skin exam: no rashes or lesions noted Neuro: Other: Poor historian but oriented to self and place Extrem: Other: Lower extremities bilaterally have significant chronic skin changes. Patient does have erythema warmth, and tenderness on the right lower extremity worse from the left. Results Labs 12/18/22 03:55 12/18/22 03:55 Labs: Laboratory Results - last 24 hr 12/18/22 12/18/22 12/18/22 03:55 03:55 03:55 MCV 97.4 MCH 31.1 MCHC 31.9 RDW 15.3 Plt Count 124 L D MPV 11.0 Immature Gran % (Auto) 0.4 Neut % (Auto) 68.0 Lymph % (Auto) 11.0 L [place] % (Auto) 11.8 H Eos % (Auto) 8.7 H Baso % (Auto) 0.1 Lymph # (Auto) 0.9 L [place] # (Auto) 1.0 Eos # (Auto) 0.7 H Baso # (Auto) 0.0 Abs Immat Gran (auto) 0.03 Absolute Neuts (auto) 5.7 Absolute Nucleated RBC 0.000 Nucleated RBC % (auto) 0.0 Anion Gap 16 Estim Creat Clear Calc 25.5 Estimated GFR 19 Random Glucose 96 Lactic Acid Calcium 8.2 L Total Bilirubin 0.6 Direct Bilirubin 0.2 AST 9 ALT 7 Alkaline Phosphatase 87 Troponin I High Sens 37.2 H B-Natriuretic Peptide Total Protein 6.3 L Albumin 3.5 Lipase 11 Influenza Type A (PCR) Influenza Type B (PCR) RSV RNA Qual (PCR) SARS-CoV-2 RNA (RT-PCR) 12/18/22 12/18/22 12/18/22 03:55 03:55 03:55 MCV MCH MCHC RDW Plt Count MPV Immature Gran % (Auto) Neut % (Auto) Lymph % (Auto) [place] % (Auto) Eos % (Auto) Baso % (Auto) Lymph # (Auto) [place] # (Auto) Eos # (Auto) Baso # (Auto) Abs Immat Gran (auto) Absolute Neuts (auto) Absolute Nucleated RBC Nucleated RBC % (auto) Anion Gap Estim Creat Clear Calc Estimated GFR Random Glucose Lactic Acid 0.9 Calcium Total Bilirubin Direct Bilirubin AST ALT Alkaline Phosphatase Troponin I High Sens B-Natriuretic Peptide 184 H Total Protein Albumin Lipase Influenza Type A (PCR) NEGATIVE Influenza Type B (PCR) NEGATIVE RSV RNA Qual (PCR) NEGATIVE SARS-CoV-2 RNA (RT-PCR) NEGATIVE Imaging Radiologist's Impressions: Impressions Chest X-Ray 12/18/22 03:59 IMPRESSION: Streaky retrocardiac left basilar opacity, somewhat improved from 07/28/2022. Assessment and Plan (1) Cellulitis of right lower extremity: Status: Acute (2) Acute and chronic respiratory failure with hypoxia: Status: Acute Plan 82-year-old male past medical history of COPD, with chronic hypoxic respiratory failure, DVT, hypertension, hyperlipidemia, CHF among others presents the hospital with complaints of fever from group home # fever - likely secondary to lower extremity cellulitis - does not have any leukocytosis - will treat with IV antibiotics - obtained vitals q.4 hours # cellulitis of right lower extremity - has chronic changes of the skin - will treat with IV antibiotics given the fever and swell as the tachypnea - follow cultures # acute on chronic respiratory failure with hypoxia - no evidence of pneumonia, denies any cough for sputum production - likely a combination of COPD as well as obesity hypoventilation syndrome - will place on 2 L of O2 - titrate off O2 as tolerated - continue home inhalers # history of CHF nonspecific - not in exacerbation - continue home Lasix # HTN - stable - continue antihypertensives # history of DVT - continue Eliquis DVT prophylaxis: Eliquis Given patient's need for further management of cellulitis with IV antibiotics patient will require minimum 2 nights inpatient hospital stay for further management and monitor Time Spent With Patient Time: Total time managing care of this patient today ____ minutes. Quality Stroke Does the patient have a stroke diagnosis?: No VTE Prior VTE?: No VTE Risk Level:: Medical - moderate - high VTE Device Contraindication: Treatment Not Indicated VTE Drug Contraindication: N/A - Med Ordered
[2022-12-18 06:08] LABS: Appearance Urine Clear; Color Urine Yellow; Glucose Urine UA Negative (Negative); Leukocyte Esterase Urine Negative (Negative); Nitrite Urine Negative (Negative); Specific Gravity - Urine 1.025 (1.005-1.025); UMIC TRIGGER UACC YES; Urine Blood Small (1+) (Negative); Urine Ketones Negative (Negative); Urine Protein 100 (2+) mg/dL (Neg-Trace)
[2022-12-18] MEDS: Furosemide 40 MG/4 ML VIAL IVPUSH ×3 (06:08→18:09)
[2022-12-18] MEDS: Albuterol/Iprat 2.5/0.5MG 3 ML AMPUL.NEB INHALE ×3 (06:10→15:45)
[2022-12-18] MEDS: Albuterol Sulfate (0.083%) 2.5 MG/3 ML VIAL.NEB 5 MG INHALE (06:10)
[2022-12-18] MEDS: ceFAZolin Sodium/Dextrose,Iso 2 GM/50 ML PIGGYBACK IV (06:11)
[2022-12-18 06:30] LABS: Bacteria Urine None Seen (None Seen); Squamous Epithelial Cell Urine 0-2 /HPF (0-2); WBC Urine 0-5 /HPF (0-5)
--- NOTE | 2022-12-18 06:33 | PC.NURSE ---
Unable to give Ringer lactate fluids at the moment waiting for delivery to the ED to be able to hang RL. Charge nurse made aware that the ED has ran out of RL.
[2022-12-18 06:34] LABS: MANUAL DIFF FLAG NO
[2022-12-18] MEDS: Acetaminophen 325 MG TABLET 650 MG PO (06:43)
[2022-12-18 06:54] LABS: Anion Gap 16 (12-20); Blood Urea Nitrogen 52 mg/dL (9-16); Calcium 8.4 mg/dL (8.4-10.2); Carbon Dioxide 19 mmol/L (22-29); Chloride 111 mmol/L (96-108); Creatinine Clr Calc Pharmacy 24.2; Estimated Glomerular Filt Rate 18; Glucose Random 99 mg/dL (60-115); Potassium 5.1 mmol/L (3.3-5.1); Sodium 141 mmol/L (135-145)
[2022-12-18 06:57] LABS: Troponin-I High Sensitivity 36.9 ng/L (<3.5-35.0)
[2022-12-18 07:11] LABS: Basophils Percent Auto 0.2 % (0-2); Eosinophils Absolute Auto 0.7 X10*3/uL (0.0-0.4); Eosinophils Percent Auto 7.4 % (0-4); Hematocrit 32.3 % (42.0-52.0); Hemoglobin 10.2 g/dl (14.0-18.0); Imm Gran Abs Auto 0.04 X10*3/uL (0.00-0.03); Imm Gran Pct Auto 0.4 % (0.0-0.4); Lymphocytes Absolute Auto 1.6 X10*3/uL (1.2-4.9); Lymphocytes Percent Auto 17.5 % (20-40); Mean Corpuscular HGB Conc 31.6 g/dl (31.0-36.0); Mean Corpuscular Hemoglobin 31.2 pg (27.0-33.0); Mean Corpuscular Volume 98.8 fL (80.0-98.0); Mean Platelet Volume 11.5 fL (9.4-12.4); Monocytes Absolute Auto 1.2 X10*3/uL (0.1-1.2); Monocytes Percent Auto 12.9 % (2-11); Neutrophils Absolute Auto 5.5 x10*3/uL (2.0-8.3); Neutrophils Percent Auto 61.6 % (45-73); Platelet Count 136 X10*3/uL (160-400); Red Blood Count 3.27 X10*6/uL (4.60-5.80); Red Cell Distribution Width 15.2 % (11.0-16.0)
[2022-12-18] MEDS: Lactated Ringers 1,000 ML 100 ML IVCONT (07:43)
--- NOTE | 2022-12-18 08:14 | PHA.MEDREC ---
Pharmacy Consult ? Medication Reconciliation Pharmacy has completed the medication reconciliation. Pt with list from [facility]
--- NOTE | 2022-12-18 08:37 | PHA.PROG ---
Admission Date/Time: December 18, 2022 05:34 Indication: SKIN Weight in k.006 kg Adjusted body weight in K.362 Combs body weight in K.6 Obesity Dosing Indication % IBW: 38.9 Serum Creatinine - Last 168 Hours 12/18/22 12/18/22 03:55 06:25 Creatinine 3.18 H 3.35 H Estimated CrCl and GFR - Last 168 Hours 12/18/22 12/18/22 03:55 06:25 Estim Creat Clear Calc 25.5 24.2 Estimated GFR 19 18 Vancomycin Loading Dose: 2000 MG Current Vancomycin Dosing Regimen: 500 MG Q24H Vancomycin Monitoring using AUC goal of 400 - 600 range with trough as surrogate marker: EXPECT AUC 561 AFTER 4TH DOSE Date and Time for next Vancomycin Level to be drawn: 12/20 @0600 Pharmacist Comments on Vancomycin Plan: Using obese model expect to see high levels at first due to poor renal function. Closely monitor renal function and trough, will get level before 3rd dose to ensure appropriate therapy. May see trough as high as 22 after 2nd dose. Model shows this level should fall to below 20 after 4th dose. Vancomycin dosing will take advantage of [employer] as a clinical decision support tool that uses Bayesian modeling to calculate individual patient's pharmacokinetic parameters and forecast the patient's drug concentration time course with the target goal AUC 24 range of 400 - 600 mg/L/hr.
[2022-12-18 09:00] LABS: C Reactive Protein 4.27 mg/dL (< or = 0.50)
[2022-12-18 09:08] LABS: Procalcitonin 0.26 ng/mL
--- NOTE | 2022-12-18 11:51 | PC.NURSE ---
Addendum entered by Shayy Babb RN 12/18/22 12:47: Pt transferred to [facility] unit Room 444. Francisco J Freire RN given bedside report. Addendum entered by Shayy Babb RN 12/18/22 12:12: Dr Okeefe at bedside to assess pt. MD ordered 40mg IV lasix stat. CXR, IV solumedrol, and Torres catheter. ekg monitor tech and continuous pulse oximetry ordered per MD. Respiratory therapy at bedside. Original Note: PT arrived to room 386 from ED. Upon arrival vitals BP 130/75 P 98 R 36 O2 85 on 2L. Oxygen increased to 3L pts O2 sat increased to 94. Pt lung sounds inspiratory and expiratory wheezing. Dr Okeefe made aware. Home medications and Breathing treatments ordered. Respiratory Therapy called and is currently at bedside.
--- NOTE | 2022-12-18 12:12 | P.EN_ITS ---
Event Note Date of Service: 12/18/22 Event Note: S Pt febrile to 101.8 and in respiratory distress, breathing up to 40 breaths/min Extensive leg swelling Just had dental work- tooth pulled 12/14/22- thus on amoxicillin O VS- T 101.6, P 107, BP 182/86, SaO2 97 on 4L, R 40 Gen: in severe respiratory distress HEENT: sclera anicteric, moist mucus membranes Neck: supple Lungs: diminished, extensive wheezing, inspiratory crackles Heart: tachycardic Abd: soft, non-tender, non-distended Ext: 3+ edema of legs bilaterally Skin: warm/well-perfused, extensive hyperpigmentation of shins bilaterally Neuro: alert and oriented to self, no focal motor deficit Psych: impaired insight A/P d#1 82yo M with COPD, HFpEF, CKD4, hx of DVT on apixaban sent in from [facility] for fever # acute hypoxic resp failure - multifactorial due to below issues, ABG without hypercarbia, place on BiPAP for now for work of breathing, confirmed DNR/DNI status with daughter/HCP Meghan # ADHF/acute-chronic HFpEF - last TTE 07/25/22 LVEF 60%, abnormal diastolic function, normal RV systolic function, mild pHTN - start IV furosemide, trend BNP/BMP/Mg/I+O, Torres ordered - continue hydralazine + Imdur + metoprolol tartrate # PNA - initially placed on cefazolin for cellulitis but I think it more likely that he really has PNA and will change to vanco + cefepime d#1 [will also cover his dental infection] follow BCx, trend PCT, check RVP + urinary antigens + CT chest # COPD exacerbation - start IV steroids, standing/prn nebs, antibiotics as above # ULISES/CKD4 - initially given IV fluids but he seems warm and wet to me and as such I am diuresing and suspect the ULISES is due to the cardiorenal syndrome # HTN - continue hydralazine + Imdur + metoprolol tartrate # HLD - atorvastatin # hx DVT - apixaban # VTE ppx: apixaban # dispo: eventual return to LTC I updated HCP daughter Meghan at bedside. In my clinical judgment, the patient requires continued inpatient hospitalization for the following reasons: resp failure, IV antibiotics + diuresis Total critical care time 30 minutes. Time Spent With Patient Time: Total time managing care of this patient today ____ minutes.
--- NOTE | 2022-12-18 12:27 | MHC.CM.PN ---
PATIENT IS LTC AT [facility]. REFERRAL PLACED FOR HIS RETURN RELIES ON A WHEELCHAIR DAUGHTER/HCP (ON FILE AND VERIFIED) SAYS THAT HE HAS A WALKER BUT SHE DOES NOT SEE HIM USE IT. HE DOES NOT USE O2 AT FACILITY. PLAN IS RETURN TO FACILITY. PATIENT CURRENTLY TO BE TRANSFERRED TO [facility] IMM 6 IN CHART DAUGHTER HAS ORIGINAL
[2022-12-18 12:30] LABS: ABG Base Excess -3.1 mmol/L; ABG HCO3 23 mmol/L (22-26); ABG pCO2 44 mmHg (32-45); ABG pH 7.31 (7.35-7.45); ABG pO2 35 mmHg (83-108)
[2022-12-18 12:44] LABS: Adenovirus PCR Not Detected (Not Detect.); Bordetella parapertussis PCR Not Detected (Not Detect.); Bordetella pertussis PCR Not Detected (Not Detect.); Chlamydia pneumoniae PCR Not Detected (Not Detect.); Coronavirus 229E PCR Not Detected (Not Detect.); Coronavirus HKU1 PCR Not Detected (Not Detect.); Coronavirus NL63 PCR Not Detected (Not Detect.)
[2022-12-18 12:45] LABS: Coronavirus OC43 PCR Not Detected (Not Detect.); Human metapneumovirus PCR Not Detected (Not Detect.); Influenza A PCR Not Detected (Not Detect.); Influenza B PCR Not Detected (Not Detect.); Mycoplasma pneumoniae PCR Not Detected (Not Detect.); Parainfluenza 1 PCR Not Detected (Not Detect.); Parainfluenza 2 PCR Not Detected (Not Detect.); Parainfluenza 3 PCR Not Detected (Not Detect.); Parainfluenza 4 PCR Not Detected (Not Detect.); RSV PCR Not Detected (Not Detect.); Rhino/Enterovirus PCR Not Detected (Not Detect.); SARS-CoV-2 PCR Not Detected (Not Detect.)
[2022-12-18] MEDS: cefEPime HCl 1 GM in 0.9 % Sodium Chloride 50 ML IV (13:46)
[2022-12-18] MEDS: methylPREDNISolone Sod Succ 125 MG/2 ML VIAL IVPUSH (13:46)
[2022-12-18] MEDS: Morphine Sulfate 2 MG/ML CARTRIDGE IVPUSH (14:48)
[2022-12-18] MEDS: Acetaminophen 1,000 MG/100 ML PIGGYBACK 400 MG IV (14:48)
[2022-12-18] MEDS: Metoprolol Tartrate 5 MG/5 ML VIAL IVPUSH (18:09)
[2022-12-18] MEDS: Atorvastatin Calcium 20 MG TABLET PO (22:27)
[2022-12-18] MEDS: Apixaban 2.5 MG TABLET PO (22:27)
[2022-12-18] MEDS: Gabapentin 600 MG TABLET PO (22:27)
[2022-12-19] VITALS (10 sets, daily range): BP systolic 132–170; BP diastolic 63–76; PULSE 68–75; RESP 20–21; TEMP 36.2–36.4; O2SAT 92–98; BMI 39.2
[2022-12-19 00:13] LABS: ABG Refer to POC result
[2022-12-19] MEDS: methylPREDNISolone Sod Succ 40 MG/ML VIAL IVPUSH ×2 (01:40→11:51)
[2022-12-19] MEDS: cefEPime HCl 1 GM in 0.9 % Sodium Chloride 50 ML IV ×2 (01:40→11:51)
[2022-12-19] MEDS: 0.9 % Sodium Chloride Flush 3 ML SYRINGE IVFLUSH ×3 (01:40→20:10)
[2022-12-19] MEDS: Metoprolol Tartrate 5 MG/5 ML VIAL IVPUSH (05:32)
[2022-12-19] MEDS: Omeprazole 20 MG CAPSULE.DR PO (05:33)
[2022-12-19 06:40] LABS: Mean Corpuscular HGB Conc 31.3 g/dl (31.0-36.0); Mean Corpuscular Hemoglobin 30.9 pg (27.0-33.0); Mean Corpuscular Volume 98.8 fL (80.0-98.0); Mean Platelet Volume 11.2 fL (9.4-12.4); Platelet Count 124 X10*3/uL (160-400); Red Blood Count 3.24 X10*6/uL (4.60-5.80); Red Cell Distribution Width 14.9 % (11.0-16.0); White Blood Count 9.2 X10*3/uL (4.8-10.8)
[2022-12-19 07:01] LABS: Anion Gap 17 (12-20); Blood Urea Nitrogen 57 mg/dL (9-16); Calcium 8.4 mg/dL (8.4-10.2); Carbon Dioxide 20 mmol/L (22-29); Chloride 110 mmol/L (96-108); Creatinine Clr Calc Pharmacy 24.2; Estimated Glomerular Filt Rate 17; Glucose Random 143 mg/dL (60-115); Potassium 5.2 mmol/L (3.3-5.1); Sodium 142 mmol/L (135-145)
[2022-12-19] MEDS: Albuterol/Iprat 2.5/0.5MG 3 ML AMPUL.NEB INHALE ×4 (07:51→19:29)
[2022-12-19] MEDS: vancomycin HCL 500 MG in 0.9 % Sodium Chloride 100 ML 110 MG IV (07:53)
[2022-12-19] MEDS: Furosemide 40 MG/4 ML VIAL IVPUSH ×2 (09:42→17:46)
[2022-12-19] MEDS: Sodium Zirconium Cyclosilicate 5 GM POWD.PACK PO (09:42)
[2022-12-19] MEDS: Isosorbide Mononitrate 60 MG TAB.ER.24H PO (10:49)
[2022-12-19] MEDS: Metoprolol Tartrate 50 MG TABLET PO ×2 (10:49→20:10)
[2022-12-19] MEDS: Apixaban 2.5 MG TABLET PO ×2 (10:49→20:09)
[2022-12-19] MEDS: guaiFENesin LA 600 MG TAB.ER.12H PO ×2 (10:49→20:09)
[2022-12-19] MEDS: hydrALAZINE HCl 25 MG TABLET 75 MG PO ×3 (10:49→20:09)
[2022-12-19] MEDS: Cholecalciferol (Vitamin D3) 25 MCG TABLET PO (10:50)
[2022-12-19] MEDS: polyethylene glycoL 3350 17 GM POWD.PACK PO (10:54)
--- NOTE | 2022-12-19 12:53 | HO.PM.IMPN ---
Subjective Subjective Date of Service: 12/19/22 Interval History: Breathing has improved, currently on NC 4L Leg edema Cough improved Review of Systems Review of Systems: Yes all other systems are reviewed and are negative Physical Exam Vital Signs: Vital Signs: Last Vital Signs Temp 97.5 F 12/19/22 11:40 Pulse 73 12/19/22 11:59 Resp 20 12/19/22 11:59 BP 132/63 12/19/22 11:40 Pulse Ox 96 12/19/22 11:40 O2 Del Method Nasal Cannula 12/19/22 11:40 O2 Flow Rate 4 12/19/22 11:40 FiO2 32 12/18/22 03:26 Oxygen Flow Rate 2 12/18/22 03:26 BMI result Body Mass Index 39.2 Gen: NAD HEENT: sclera anicteric, moist mucus membranes Neck: supple Lungs: diminished Heart: tachycardic Abd: soft, non-tender, non-distended Ext: 2+ edema of legs bilaterally Skin: warm/well-perfused, extensive hyperpigmentation of shins bilaterally, erythema R>L Neuro: alert and oriented to self, no focal motor deficit Psych: impaired insight Objective Data Active Medications Albuterol Sulfate (Albuterol Sulfate (0.083%) 2.5 Mg/3 Ml Vial.Neb) 2.5 mg INHALE Q2H PRN PRN Reason: Shortness of Breath/Wheezing Albuterol/Ipratropium (Albuterol/Iprat 2.5/0.5mg 3 Ml Ampul.Neb) 3 ml INHALE RQ4H WHILE AWAKE [facility] Last Admin: 12/19/22 11:58 Dose: 3 ml Documented By: LAZARO Apixaban (Apixaban 2.5 Mg Tablet) 2.5 mg PO BID [facility] Last Admin: 12/19/22 10:49 Dose: 2.5 mg Documented By: JEREMIAH Atorvastatin Calcium (Atorvastatin Calcium 20 Mg Tablet) 20 mg PO BEDTIME [facility] Last Admin: 12/18/22 22:27 Dose: 20 mg Documented By: HARPER Bisacodyl (Bisacodyl 10 Mg Supp.Rect) 10 mg [place] DAILY PRN PRN Reason: Constipation Diphenhydramine HCl (Diphenhydramine Hcl 25 Mg Capsule) 25 mg PO Q8H PRN PRN Reason: Allergic Reaction Docusate Sodium (Docusate Sodium 100 Mg Capsule) 100 mg PO DAILY PRN PRN Reason: Constipation Furosemide (Furosemide 40 Mg/4 Ml Vial) 40 mg IVPUSH BID@0900,1800 [facility]; Protocol Last Admin: 12/19/22 09:42 Dose: 40 mg Documented By: JEREMIAH Gabapentin (Gabapentin 600 Mg Tablet) 600 mg PO BEDTIME [facility] Last Admin: 12/18/22 22:27 Dose: 600 mg Documented By: HARPER Guaifenesin (Guaifenesin 100 Mg/5 Ml Liquid) 10 ml PO Q8H PRN PRN Reason: Cough Guaifenesin (Guaifenesin La 600 Mg Tab.Er.12h) 600 mg PO BID [facility] Last Admin: 12/19/22 10:49 Dose: 600 mg Documented By: JEREMIAH Hydralazine HCl (Hydralazine Hcl 25 Mg Tablet) 75 mg PO TID [facility]; Protocol Last Admin: 12/19/22 10:49 Dose: 75 mg Documented By: JEREMIAH Vancomycin HCl 500 mg/ Sodium (Chloride) 110 mls @ 110 mls/hr IV Q24H [facility] Last Infusion: 12/19/22 09:08 Dose: 0 mls/hr Documented By: JEREMIAH Cefepime HCl 1 gm/ Sodium (Chloride) 50 mls @ 100 mls/hr IV Q12H [facility] Last Infusion: 12/19/22 12:25 Dose: 0 mls/hr Documented By: JEREMIAH Acetaminophen (Ofirmev) 1,000 mg in 100 mls @ 400 mls/hr IV Q8H PRN PRN Reason: fever Last Infusion: 12/18/22 15:16 Dose: 0 mls/hr Documented By: LESSARDavina Isosorbide Mononitrate (Isosorbide Mononitrate 60 Mg Tab.Er.24h) 60 mg PO DAILY [facility]; Protocol Last Admin: 12/19/22 10:49 Dose: 60 mg Documented By: JEREMIAH Ketorolac Tromethamine (Ketorolac Tromethamine 0.5% Op 5 Ml Drops) 1 drop EYE-BOTH QID [facility] Last Admin: 12/19/22 12:27 Dose: Not Given Documented By: JEREMIAH Non-Admin Reason: on backorder per pharm Loperamide HCl (Loperamide Hcl 2 Mg Capsule) 2 mg PO Q6H PRN PRN Reason: loose stool Methylprednisolone Sodium Succinate (Methylprednisolone Sod Succ 40 Mg/Ml Vial) 40 mg IVPUSH Q12H [facility] Last Admin: 12/19/22 11:51 Dose: 40 mg Documented By: JEREMIAH Metoprolol Tartrate (Metoprolol Tartrate 50 Mg Tablet) 50 mg PO BID [facility]; Protocol Last Admin: 12/19/22 10:49 Dose: 50 mg Documented By: JEREMIAH Naloxone HCl (Naloxone Hcl 0.4 Mg/Ml Vial) 0.4 mg SUBCUT Q2M PRN PRN Reason: Opioid Overdose Omeprazole (Omeprazole 20 Mg Capsule.) 20 mg PO DAILY@629 [facility] Last Admin: 12/19/22 05:33 Dose: 20 mg Documented By: JAKE Ondansetron HCl (Ondansetron Hcl 4 Mg/2 Ml Vial) 4 mg IVPUSH Q8H PRN PRN Reason: Nausea and Vomiting Pharmacy Consult (Consult Rx Vancomycin Dosing) 1 each MISCELLANE DAILY PRN PRN Reason: Consult order Polyethylene Glycol (Polyethylene Glycol 3350 17 Gm Powd.Pack) 17 gm PO DAILY [facility] Last Admin: 12/19/22 10:54 Dose: 17 gm Documented By: JEREMIAH Sodium Chloride (0.9 % Sodium Chloride Flush 3 Ml Syringe) 3 ml IVFLUSH QSHIFT [facility] Last Admin: 12/19/22 09:08 Dose: Not Given Documented By: JEREMIAH Non-Admin Reason: Previously Administered Vitamin D (Cholecalciferol (Vitamin D3) 25 Mcg Tablet) 25 mcg PO DAILY [facility] Last Admin: 12/19/22 10:50 Dose: 25 mcg Documented By: JEREMIAH Labs 12/19/22 06:09 12/19/22 06:09 Labs: Laboratory Results - last 24 hr 12/19/22 12/19/22 06:09 06:09 MCV 98.8 H MCH 30.9 MCHC 31.3 RDW 14.9 Plt Count 124 L MPV 11.2 Absolute Nucleated RBC 0.000 Nucleated RBC % (auto) 0.0 Anion Gap 17 Estim Creat Clear Calc 24.2 Estimated GFR 17 Random Glucose 143 H Calcium 8.4 Microbiology Microbiology Results: Microbiology 12/18/22 03:55 Blood Culture - Preliminary Blood - Venous No growth after 24 hours. 12/18/22 03:55 Blood Culture - Preliminary Blood - Venous No growth after 24 hours. Assessment and Plan (1) Acute and chronic respiratory failure with hypoxia: Status: Acute (2) (HFpEF) heart failure with preserved ejection fraction: Status: Acute Plan d#2 82yo M with COPD, HFpEF, CKD4, hx of DVT on apixaban sent in from [facility] for fever # acute hypoxic resp failure - multifactorial due to below issues, ABG without hypercarbia, placed on BiPAP yesterday for work of breathing, now much improved and on O2 via NC # ADHF/acute-chronic HFpEF - last TTE 07/25/22 LVEF 60%, abnormal diastolic function, normal RV systolic function, mild pHTN - continue IV furosemide, trend BNP/BMP/Mg/I+O, negative close to a liter thus far - continue hydralazine + Imdur + metoprolol tartrate # fever due to PNA? cellulitis - initially placed on cefazolin for cellulitis than changed to vanco + cefepime for concern of PNA but CT less supportive of this diagnosis continue this regimen for broad coverage of pathogens for both infections, though. Follow Bcx. RVP negative. PCT low. Afebrile since yesterday. # COPD exacerbation - continue IV steroids, standing/prn nebs, antibiotics as above # ULISES/CKD4 - initially given IV fluids but he seems warm and wet to me and as such I am diuresing and suspect the ULISES is due to the cardiorenal syndrome # HTN - continue hydralazine + Imdur + metoprolol tartrate # HLD - atorvastatin # hx DVT - apixaban # VTE ppx: apixaban # dispo: eventual return to LTC In my clinical judgment, the patient requires continued inpatient hospitalization for the following reasons: resp failure, IV antibiotics + diuresis Time Spent With Patient Time: Total time managing care of this patient today __35__ minutes. Quality Stroke Does the patient have a stroke diagnosis?: No VTE Prior VTE?: No VTE Risk Level:: Medical - moderate - high VTE Device Contraindication: Treatment Not Indicated VTE Drug Contraindication: N/A - Med Ordered
[2022-12-19] MEDS: Atorvastatin Calcium 20 MG TABLET PO (20:09)
[2022-12-19] MEDS: Gabapentin 600 MG TABLET PO (20:09)
[2022-12-20] VITALS (9 sets, daily range): BP systolic 132–166; BP diastolic 60–88; PULSE 62–92; RESP 16–20; TEMP 36.2–37.1; O2SAT 90–97; BMI 39.8
[2022-12-20] MEDS: methylPREDNISolone Sod Succ 40 MG/ML VIAL IVPUSH ×2 (00:16→09:03)
[2022-12-20] MEDS: cefEPime HCl 1 GM in 0.9 % Sodium Chloride 50 ML IV ×2 (00:16→12:45)
[2022-12-20] MEDS: Omeprazole 20 MG CAPSULE.DR PO (05:32)
[2022-12-20 06:07] LABS: Hematocrit 29.1 % (42.0-52.0); Hemoglobin 9.2 g/dl (14.0-18.0); Mean Corpuscular HGB Conc 31.6 g/dl (31.0-36.0); Mean Corpuscular Hemoglobin 31.2 pg (27.0-33.0); Mean Corpuscular Volume 98.6 fL (80.0-98.0); Mean Platelet Volume 11.6 fL (9.4-12.4); Platelet Count 127 X10*3/uL (160-400); Red Blood Count 2.95 X10*6/uL (4.60-5.80); Red Cell Distribution Width 14.8 % (11.0-16.0); White Blood Count 10.4 X10*3/uL (4.8-10.8)
[2022-12-20 06:19] LABS: Vancomycin Random 4.3 mcg/mL (15-20)
[2022-12-20 06:28] LABS: B Type Natriuretic Peptide 129 pg/mL (<100)
[2022-12-20 06:32] LABS: Anion Gap 17 (12-20); Blood Urea Nitrogen 69 mg/dL (9-16); Calcium 8.2 mg/dL (8.4-10.2); Carbon Dioxide 21 mmol/L (22-29); Chloride 109 mmol/L (96-108); Creatinine Clr Calc Pharmacy 23.5; Estimated Glomerular Filt Rate 17; Glucose Random 136 mg/dL (60-115); Magnesium 2.3 mg/dL (1.6-2.6); Potassium 4.9 mmol/L (3.3-5.1); Sodium 142 mmol/L (135-145)
--- NOTE | 2022-12-20 07:33 | HE.PHANOTE ---
RE: vanco Due to poor renal function got level after only 2 doses. Seeing slight decline in renal function from 3.35 initially to 3.53 today. Level is only 4.3 but insight is showing failure to reach auc over 141 after 4 doses. Dose increased to 1250 q24 and will recheck level after 2 more doses. Insight still shows more than 8 days to reach auc greater than 400 but close monitoring needed due to age, weight, and renal function. Obese model is being used.
[2022-12-20] MEDS: Albuterol/Iprat 2.5/0.5MG 3 ML AMPUL.NEB INHALE ×2 (07:47→19:57)
[2022-12-20 08:16] LABS: C Reactive Protein 1.53 mg/dL (< or = 0.50)
[2022-12-20] MEDS: Furosemide 40 MG/4 ML VIAL IVPUSH ×2 (09:03→18:08)
[2022-12-20] MEDS: vancomycin HCL 1,250 MG in 0.9 % Sodium Chloride 250 ML 166.67 MG IV (09:04)
[2022-12-20] MEDS: 0.9 % Sodium Chloride Flush 3 ML SYRINGE IVFLUSH ×3 (09:13→22:13)
[2022-12-20] MEDS: hydrALAZINE HCl 25 MG TABLET 75 MG PO ×3 (09:14→22:07)
[2022-12-20] MEDS: guaiFENesin LA 600 MG TAB.ER.12H PO ×2 (09:14→22:07)
[2022-12-20] MEDS: Isosorbide Mononitrate 60 MG TAB.ER.24H PO (09:14)
[2022-12-20] MEDS: polyethylene glycoL 3350 17 GM POWD.PACK PO (09:14)
[2022-12-20] MEDS: Metoprolol Tartrate 50 MG TABLET PO ×2 (09:14→22:07)
[2022-12-20] MEDS: Cholecalciferol (Vitamin D3) 25 MCG TABLET PO (09:14)
[2022-12-20] MEDS: Apixaban 2.5 MG TABLET PO ×2 (09:14→22:07)
--- NOTE | 2022-12-20 11:36 | MHC.CM.PN ---
Per ROUNDS discussion, Patient is not yet medically cleared for dc (still being diuresed, on 1LO2, on ABT); Patient is a LTC Resident at [facility] and will return there once medically cleared. CM will follow.
--- NOTE | 2022-12-20 12:51 | P.PNIM_ITS ---
Subjective Subjective Date of Service: 12/20/22 Interval History: Weaned O2 down to 1L Breathing improved, still has some cough and dyspnea Legs still very swollen Review of Systems Review of Systems: Yes all other systems are reviewed and are negative Physical Exam Vital Signs: Vital Signs: Last Vital Signs Temp 97.5 F 12/20/22 11:49 Pulse 62 12/20/22 11:49 Resp 20 12/20/22 11:49 BP 152/65 H 12/20/22 11:49 Pulse Ox 97 12/20/22 11:49 O2 Del Method Nasal Cannula 12/20/22 11:49 O2 Flow Rate 1 12/20/22 11:49 FiO2 32 12/18/22 03:26 Oxygen Flow Rate 2 12/18/22 03:26 BMI result Body Mass Index 39.8 Gen: NAD HEENT: sclera anicteric, moist mucus membranes Neck: supple Lungs: diminished Heart: tachycardic Abd: soft, non-tender, non-distended Ext: 2+ edema of legs bilaterally Skin: warm/well-perfused, extensive hyperpigmentation of shins bilaterally, erythema R>L improving, no purulence Neuro: alert and oriented to self, no focal motor deficit Psych: impaired insight Objective Data Active Medications Albuterol Sulfate (Albuterol Sulfate (0.083%) 2.5 Mg/3 Ml Vial.Neb) 2.5 mg INHALE Q2H PRN PRN Reason: Shortness of Breath/Wheezing Albuterol/Ipratropium (Albuterol/Iprat 2.5/0.5mg 3 Ml Ampul.Neb) 3 ml INHALE RQ4H WHILE AWAKE [facility] Last Admin: 12/20/22 11:38 Dose: Not Given Documented By: NAYELI Non-Admin Reason: Patient Asleep Apixaban (Apixaban 2.5 Mg Tablet) 2.5 mg PO BID [facility] Last Admin: 12/20/22 09:14 Dose: 2.5 mg Documented By: CJ Atorvastatin Calcium (Atorvastatin Calcium 20 Mg Tablet) 20 mg PO BEDTIME [facility] Last Admin: 12/19/22 20:09 Dose: 20 mg Documented By: GONSALO Bisacodyl (Bisacodyl 10 Mg Supp.Rect) 10 mg [place] DAILY PRN PRN Reason: Constipation Diphenhydramine HCl (Diphenhydramine Hcl 25 Mg Capsule) 25 mg PO Q8H PRN PRN Reason: Allergic Reaction Docusate Sodium (Docusate Sodium 100 Mg Capsule) 100 mg PO DAILY PRN PRN Reason: Constipation Furosemide (Furosemide 40 Mg/4 Ml Vial) 40 mg IVPUSH BID@0900,1800 [facility]; Protocol Last Admin: 12/20/22 09:03 Dose: 40 mg Documented By: CJ Gabapentin (Gabapentin 600 Mg Tablet) 600 mg PO BEDTIME [facility] Last Admin: 12/19/22 20:09 Dose: 600 mg Documented By: GONSALO Guaifenesin (Guaifenesin 100 Mg/5 Ml Liquid) 10 ml PO Q8H PRN PRN Reason: Cough Guaifenesin (Guaifenesin La 600 Mg Tab.Er.12h) 600 mg PO BID [facility] Last Admin: 12/20/22 09:14 Dose: 600 mg Documented By: CJ Hydralazine HCl (Hydralazine Hcl 25 Mg Tablet) 75 mg PO TID [facility]; Protocol Last Admin: 12/20/22 09:14 Dose: 75 mg Documented By: CJ Cefepime HCl 1 gm/ Sodium (Chloride) 50 mls @ 100 mls/hr IV Q12H [facility] Last Infusion: 12/20/22 00:46 Dose: 0 mls/hr Documented By: GONSALO Acetaminophen (Ofirmev) 1,000 mg in 100 mls @ 400 mls/hr IV Q8H PRN PRN Reason: fever Last Infusion: 12/18/22 15:16 Dose: 0 mls/hr Documented By: CJ Vancomycin HCl 1,250 mg/ (Sodium Chloride) 250 mls @ 166.667 mls/hr IV Q24H [facility] Last Infusion: 12/20/22 10:34 Dose: 0 mls/hr Documented By: CJ Isosorbide Mononitrate (Isosorbide Mononitrate 60 Mg Tab.Er.24h) 60 mg PO DAILY [facility]; Protocol Last Admin: 12/20/22 09:14 Dose: 60 mg Documented By: CJ Ketorolac Tromethamine (Ketorolac Tromethamine 0.5% Op 5 Ml Drops) 1 drop EYE- BOTH QID [facility] Last Admin: 12/20/22 09:25 Dose: Not Given Documented By: CJ Non-Admin Reason: Med Not Available Loperamide HCl (Loperamide Hcl 2 Mg Capsule) 2 mg PO Q6H PRN PRN Reason: loose stool Methylprednisolone Sodium Succinate (Methylprednisolone Sod Succ 40 Mg/Ml Vial) 40 mg IVPUSH Q24H [facility] Last Admin: 12/20/22 09:03 Dose: 40 mg Documented By: CJ Metoprolol Tartrate (Metoprolol Tartrate 50 Mg Tablet) 50 mg PO BID [facility]; Protocol Last Admin: 12/20/22 09:14 Dose: 50 mg Documented By: CJ Naloxone HCl (Naloxone Hcl 0.4 Mg/Ml Vial) 0.4 mg SUBCUT Q2M PRN PRN Reason: Opioid Overdose Omeprazole (Omeprazole 20 Mg Capsule.Dr) 20 mg PO DAILY@629 [facility] Last Admin: 12/20/22 05:32 Dose: 20 mg Documented By: GONSALO Ondansetron HCl (Ondansetron Hcl 4 Mg/2 Ml Vial) 4 mg IVPUSH Q8H PRN PRN Reason: Nausea and Vomiting Pharmacy Consult (Consult Rx Vancomycin Dosing) 1 each MISCELLANE DAILY PRN PRN Reason: Consult order Polyethylene Glycol (Polyethylene Glycol 3350 17 Gm Powd.Pack) 17 gm PO DAILY [facility] Last Admin: 12/20/22 09:14 Dose: 17 gm Documented By: CJ Sodium Chloride (0.9 % Sodium Chloride Flush 3 Ml Syringe) 3 ml IVFLUSH QSHIFT [facility] Last Admin: 12/20/22 09:13 Dose: 3 ml Documented By: CJ Vitamin D (Cholecalciferol (Vitamin D3) 25 Mcg Tablet) 25 mcg PO DAILY [facility] Last Admin: 12/20/22 09:14 Dose: 25 mcg Documented By: CJ Labs 12/20/22 05:31 12/20/22 05:31 Labs: Laboratory Results - last 24 hr 12/20/22 12/20/22 12/20/22 05:31 05:31 05:31 MCV 98.6 H MCH 31.2 MCHC 31.6 RDW 14.8 Plt Count 127 L MPV 11.6 Absolute Nucleated RBC 0.000 Nucleated RBC % (auto) 0.0 Anion Gap 17 Estim Creat Clear Calc 23.5 Estimated GFR 17 Random Glucose 136 H Calcium 8.2 L Magnesium 2.3 C-Reactive Protein 1.53 H B-Natriuretic Peptide 129 H Procalcitonin 0.20 Random Vancomycin 12/20/22 05:31 MCV MCH MCHC RDW Plt Count MPV Absolute Nucleated RBC Nucleated RBC % (auto) Anion Gap Estim Creat Clear Calc Estimated GFR Random Glucose Calcium Magnesium C-Reactive Protein B-Natriuretic Peptide Procalcitonin Random Vancomycin 4.3 L Microbiology Microbiology Results: Microbiology 12/18/22 03:55 Blood Culture - Preliminary Blood - Venous No growth after 48 hours. 12/18/22 03:55 Blood Culture - Preliminary Blood - Venous No growth after 48 hours. Assessment and Plan (1) Acute and chronic respiratory failure with hypoxia: Status: Acute (2) (HFpEF) heart failure with preserved ejection fraction: Status: Acute Plan d#3 82yo M with COPD, HFpEF, CKD4, hx of DVT on apixaban sent in from [facility], where he is a LTC resident, for fever # acute hypoxic resp failure - multifactorial due to below issues, ABG without hypercarbia, placed on BiPAP 12/18/22 for work of breathing, now much improved and on O2 via NC # ADHF/acute-chronic HFpEF - last TTE 07/25/22 LVEF 60%, abnormal diastolic function, normal RV systolic function, mild pHTN - continue IV furosemide, trend BNP/BMP/Mg/I+O, negative 1.9L thus far - continue hydralazine + Imdur + metoprolol tartrate home doses # cellulitis - initially placed on cefazolin for cellulitis than changed to vanco + cefepime for concern of PNA but CT less supportive of this diagnosis. continue antibiotics for cellulitis. BCx negative. Afebrile since 12/18. # COPD exacerbation - taper IV steroids, standing/prn nebs, antibiotics as above # ULISES/CKD4 - initially given IV fluids but he seems warm and wet to me and as such I am diuresing and suspect the ULISES is due to the cardiorenal syndrome; continue to monitor BMP # HTN - continue hydralazine + Imdur + metoprolol tartrate # HLD - atorvastatin # hx DVT - apixaban # VTE ppx: apixaban # dispo: eventual return to LTC In my clinical judgment, the patient requires continued inpatient hospitalization for the following reasons: resp failure, IV antibiotics + diuresis Time Spent With Patient Time: Total time managing care of this patient today ___45_ minutes. Quality Stroke Does the patient have a stroke diagnosis?: No VTE Prior VTE?: No VTE Risk Level:: Medical - moderate - high VTE Device Contraindication: Treatment Not Indicated VTE Drug Contraindication: N/A - Med Ordered
[2022-12-20] MEDS: Gabapentin 600 MG TABLET PO (22:07)
[2022-12-20] MEDS: Atorvastatin Calcium 20 MG TABLET PO (22:07)
[2022-12-21] VITALS (7 sets, daily range): BP systolic 153–190; BP diastolic 66–81; PULSE 61–77; RESP 16–20; TEMP 36.1–37.2; O2SAT 92–98
[2022-12-21] MEDS: cefEPime HCl 1 GM in 0.9 % Sodium Chloride 50 ML IV ×2 (01:46→12:33)
[2022-12-21] MEDS: Acetaminophen 325 MG TABLET 650 MG PO (02:15)
[2022-12-21] MEDS: Omeprazole 20 MG CAPSULE.DR PO (06:30)
[2022-12-21 06:40] LABS: Anion Gap 19 (12-20); Blood Urea Nitrogen 83 mg/dL (9-16); Calcium 7.9 mg/dL (8.4-10.2); Carbon Dioxide 15 mmol/L (22-29); Chloride 110 mmol/L (96-108); Creatinine Clr Calc Pharmacy 22.7; Estimated Glomerular Filt Rate 16; Glucose Random 89 mg/dL (60-115); Magnesium 2.4 mg/dL (1.6-2.6); Sodium 139 mmol/L (135-145)
[2022-12-21 08:24] LABS: B Type Natriuretic Peptide 162 pg/mL (<100)
[2022-12-21] MEDS: methylPREDNISolone Sod Succ 40 MG/ML VIAL IVPUSH (08:53)
[2022-12-21] MEDS: Furosemide 40 MG/4 ML VIAL IVPUSH ×2 (08:53→17:23)
[2022-12-21] MEDS: polyethylene glycoL 3350 17 GM POWD.PACK PO (08:54)
[2022-12-21] MEDS: Cholecalciferol (Vitamin D3) 25 MCG TABLET PO (08:54)
[2022-12-21] MEDS: Apixaban 2.5 MG TABLET PO (08:54)
[2022-12-21] MEDS: Metoprolol Tartrate 50 MG TABLET PO (08:54)
[2022-12-21] MEDS: guaiFENesin LA 600 MG TAB.ER.12H PO (08:54)
[2022-12-21] MEDS: 0.9 % Sodium Chloride Flush 3 ML SYRINGE IVFLUSH ×2 (08:54→15:59)
[2022-12-21] MEDS: Isosorbide Mononitrate 60 MG TAB.ER.24H PO (08:54)
[2022-12-21] MEDS: hydrALAZINE HCl 25 MG TABLET 75 MG PO ×2 (08:54→15:52)
[2022-12-21] MEDS: vancomycin HCL 1,250 MG in 0.9 % Sodium Chloride 250 ML 166.67 MG IV (08:55)
--- NOTE | 2022-12-21 09:22 | PC.RT ---
pt has resolved their acute episode of chf/flores therefore the bipap will be discontinued
--- NOTE | 2022-12-21 11:29 | CONS_ITS ---
DATE OF SERVICE: 12/21/2022 REASON FOR CONSULTATION: I was asked to see patient to assist in evaluation and management of patient's acute kidney injury on chronic kidney disease reflected by creatinine today of 3.66, where his baseline creatinine is in the 2.5 to 3.0 range. HISTORY OF PRESENT ILLNESS: In summary, the patient is an 82-year-old gentleman who was admitted on December 18 with a fever. He has history of again advanced chronic kidney disease, baseline creatinine 2.5 to 3, along with a host of chronic medical problems including coronary artery disease, COPD, dysphagia, GERD, hypertension, DVT, hyperlipidemia, congestive heart failure, depression, obesity, and type 2 diabetes. The [facility] with [facility] fever, temperature as high as 101.7. His hospital course included antibiotics for what appears to be cellulitis, Lasix for volume overload and continue his routine medications. His renal function has worsened a bit since being admitted, hence the current consultation. Patient is a poor historian. Information obtained from electronic medical record. PAST MEDICAL HISTORY: As listed above. Also includes chronic venous stasis dermatitis, heart failure with preserved EF, lumbar disc disease. MEDICATIONS: His medications on admission are noted in the admitting notes. Current medications noted in the MAR. ALLERGIES: NOTED IN ELECTRONIC MEDICAL RECORD. SOCIAL HISTORY: He is a nonsmoker, nondrinker. No illicit drug use. REVIEW OF SYSTEMS: As noted above, somewhat limited. PHYSICAL EXAMINATION: VITAL SIGNS: Blood pressure 150/60 with a heart rate in the 70s. HEENT: Head is atraumatic and normocephalic. He is on 2 L of oxygen. Mucous membranes are moist. LUNGS: Difficult to assess, but poor effort. Some rhonchi were noted. CARDIAC: Regular rate and rhythm. ABDOMEN: Obese, soft, nontender. EXTREMITIES: Shows 1+ edema. Chronic venous stasis changes in the legs. LABORATORY DATA: Hemoglobin 9.2, hematocrit 29.1, white blood cell count 10.4. Sodium 139, potassium 5, chloride 110, bicarb 15, anion gap 19, BUN 83, creatinine 3.66. Yesterday's bicarb was 21, creatinine 3.5. As mentioned, his baseline creatinine is 2.5 to 3.0. He had urine studies done, which showed 2+ protein. IMPRESSION: AN 82-YEAR-OLD ADMITTED WITH A FEVER AND ACUTE KIDNEY INJURY ON CHRONIC KIDNEY DISEASE. 1. Acute kidney injury. He is nonoliguric based on the I's and O's. Question whether this is related to infection or perhaps some of his medications. He is on vancomycin, which can be nephrotoxic. Need to rule out urinary retention and obstructive uropathy. Repeat urine studies to look for possibility of infectious associated GN. Most likely is multifactorial ATN for some of the stressors as noted above. Given the presentation of pulmonary and kidney injury, we will do some serologies to rule out a pulmonary renal syndrome, although this seems unlikely given his presentation with a fever. 2. Advanced chronic kidney disease. 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 Baseline creatinine 2.5 to 3. 3. Cellulitis. 4. Lower extremity edema. This is due to a combination of the chronic venous stasis disease along with his chronic kidney disease and heart dysfunction. He is maintained on Lasix 40 twice a day and we will need to see about adjusting that particularly if his renal function worsens further. 5. Combined anion gap and non anion gap metabolic acidosis. This will need to be tracked and see about placing him on bicarb replacement. We will check a lactate and a beta-hydroxybutyrate with his next labs. RECOMMENDATIONS: At this time include the following. 1. Obtain a urine studies for urine protein, creatinine, and sodium. 2. Add serologies to include ruling out an ANCA associated pulmonary renal syndrome. 3. Check a lactate and beta-hydroxybutyrate and see about placing him on sodium bicarb replacement. 4. Monitor volume status and see about adjusting his diuretics. 5. See about discontinuing the vancomycin if the hospital team feels it is okay to do. 6. We will follow the patient closely with the team. ADDENDUM: We will obtain an ultrasound to make sure he does not have urinary retention or any evidence of obstructive uropathy. MD DIOR Guerrero/JACQUELINE / [id number]
[2022-12-21] MEDS: Albuterol/Iprat 2.5/0.5MG 3 ML AMPUL.NEB INHALE ×2 (11:45→15:58)
--- NOTE | 2022-12-21 13:53 | HO.PM.IMPN ---
Subjective Subjective Date of Service: 12/21/22 Interval History: seen and examined this morning follow up for cellulitis, CHF awake, alert but confused, oriented to self. unable to provide any significant history Neurologic Neurologic: Reports confusion Psychiatric Psychiatric: Reports confusion Physical Exam Vital Signs: Vital Signs: Last Vital Signs Temp 98.5 F 12/21/22 11:31 Pulse 63 12/21/22 11:46 Resp 16 12/21/22 11:46 BP 158/72 H 12/21/22 11:31 Pulse Ox 94 12/21/22 11:31 O2 Del Method Room Air 12/21/22 11:31 O2 Flow Rate 2 12/21/22 08:00 FiO2 32 12/18/22 03:26 Oxygen Flow Rate 2 12/18/22 03:26 BMI result Body Mass Index 39.8 Const: General: comfortable, alert and confusion Nutritional Appearance: obese Orientation/consciousness: confusion Resp: Other: diminished breath sounds, decreased respiratory effort Cardio: Rate: regular rate GI: Inspection: No distended Palpation (GI): Soft to palpation and nontender Skin: Other: b/l lower extremity 2+ leg edema, chronic venous stasis changes Neuro: Other: difficult to assess, no focal deficits appreciated General: confusion Extrem: Other: able to move all extremities Objective Data Active Medications Acetaminophen (Acetaminophen 325 Mg Tablet) 650 mg PO Q4H PRN PRN Reason: Pain, Mild (Pain Scale 1-3) Last Admin: 12/21/22 02:15 Dose: 650 mg Documented By: DAO Albuterol Sulfate (Albuterol Sulfate (0.083%) 2.5 Mg/3 Ml Vial.Neb) 2.5 mg INHALE Q2H PRN PRN Reason: Shortness of Breath/Wheezing Albuterol/Ipratropium (Albuterol/Iprat 2.5/0.5mg 3 Ml Ampul.Neb) 3 ml INHALE RQ4H WHILE AWAKE [facility] Last Admin: 12/21/22 11:45 Dose: 3 ml Documented By: NAYELI Apixaban (Apixaban 2.5 Mg Tablet) 2.5 mg PO BID [facility] Last Admin: 12/21/22 08:54 Dose: 2.5 mg Documented By: SPENCER Atorvastatin Calcium (Atorvastatin Calcium 20 Mg Tablet) 20 mg PO BEDTIME [facility] Last Admin: 12/20/22 22:07 Dose: 20 mg Documented By: DAO Bisacodyl (Bisacodyl 10 Mg Supp.Rect) 10 mg [place] DAILY PRN PRN Reason: Constipation Diphenhydramine HCl (Diphenhydramine Hcl 25 Mg Capsule) 25 mg PO Q8H PRN PRN Reason: Allergic Reaction Docusate Sodium (Docusate Sodium 100 Mg Capsule) 100 mg PO DAILY PRN PRN Reason: Constipation Furosemide (Furosemide 40 Mg/4 Ml Vial) 40 mg IVPUSH BID@0900,1800 [facility]; Protocol Last Admin: 12/21/22 08:53 Dose: 40 mg Documented By: SPENCER Gabapentin (Gabapentin 600 Mg Tablet) 600 mg PO BEDTIME [facility] Last Admin: 12/20/22 22:07 Dose: 600 mg Documented By: DAO Guaifenesin (Guaifenesin 100 Mg/5 Ml Liquid) 10 ml PO Q8H PRN PRN Reason: Cough Guaifenesin (Guaifenesin La 600 Mg Tab.Er.12h) 600 mg PO BID [facility] Last Admin: 12/21/22 08:54 Dose: 600 mg Documented By: SPENCER Hydralazine HCl (Hydralazine Hcl 25 Mg Tablet) 75 mg PO TID [facility]; Protocol Last Admin: 12/21/22 08:54 Dose: 75 mg Documented By: SPENCER Cefepime HCl 1 gm/ Sodium (Chloride) 50 mls @ 100 mls/hr IV Q12H [facility] Last Infusion: 12/21/22 13:32 Dose: 0 mls/hr Documented By: SPENCER Acetaminophen (Ofirmev) 1,000 mg in 100 mls @ 400 mls/hr IV Q8H PRN PRN Reason: fever Last Infusion: 12/18/22 15:16 Dose: 0 mls/hr Documented By: LESSARDavina Isosorbide Mononitrate (Isosorbide Mononitrate 60 Mg Tab.Er.24h) 60 mg PO DAILY [facility]; Protocol Last Admin: 12/21/22 08:54 Dose: 60 mg Documented By: SPENCER Ketorolac Tromethamine (Ketorolac Tromethamine 0.5% Op 5 Ml Drops) 1 drop EYE-BOTH QID [facility] Last Admin: 12/21/22 12:34 Dose: Not Given Documented By: SPENCER Non-Admin Reason: med back order Loperamide HCl (Loperamide Hcl 2 Mg Capsule) 2 mg PO Q6H PRN PRN Reason: loose stool Methylprednisolone Sodium Succinate (Methylprednisolone Sod Succ 40 Mg/Ml Vial) 40 mg IVPUSH Q24H [facility] Last Admin: 12/21/22 08:53 Dose: 40 mg Documented By: SPENCER Metoprolol Tartrate (Metoprolol Tartrate 50 Mg Tablet) 50 mg PO BID [facility]; Protocol Last Admin: 12/21/22 08:54 Dose: 50 mg Documented By: SPENCER Naloxone HCl (Naloxone Hcl 0.4 Mg/Ml Vial) 0.4 mg SUBCUT Q2M PRN PRN Reason: Opioid Overdose Omeprazole (Omeprazole 20 Mg Capsule.Dr) 20 mg PO DAILY@0630 [facility] Last Admin: 12/21/22 06:30 Dose: 20 mg Documented By: MAURICE Ondansetron HCl (Ondansetron Hcl 4 Mg/2 Ml Vial) 4 mg IVPUSH Q8H PRN PRN Reason: Nausea and Vomiting Polyethylene Glycol (Polyethylene Glycol 3350 17 Gm Powd.Pack) 17 gm PO DAILY [facility] Last Admin: 12/21/22 08:54 Dose: 17 gm Documented By: SPENCER Sodium Chloride (0.9 % Sodium Chloride Flush 3 Ml Syringe) 3 ml IVFLUSH QSHIFT [facility] Last Admin: 12/21/22 08:54 Dose: 3 ml Documented By: SPENCER Vitamin D (Cholecalciferol (Vitamin D3) 25 Mcg Tablet) 25 mcg PO DAILY [facility] Last Admin: 12/21/22 08:54 Dose: 25 mcg Documented By: SPENCER Labs 12/20/22 05:31 12/21/22 05:44 Labs: Laboratory Results - last 24 hr 12/21/22 12/21/22 05:44 07:35 Anion Gap 19 Estim Creat Clear Calc 22.7 Estimated GFR 16 Random Glucose 89 Calcium 7.9 L Magnesium 2.4 B-Natriuretic Peptide 162 H Assessment and Plan (1) Acute and chronic respiratory failure with hypoxia: Status: Acute (2) (HFpEF) heart failure with preserved ejection fraction: Status: Acute Plan 82yo M with COPD, HFpEF, CKD4, hx of DVT on apixaban sent in [facility], where he is a LTC resident, for fever # acute hypoxic resp failure - multifactorial due to below issues, ABG without hypercarbia, placed on BiPAP 12/18/22 for work of breathing, now much improved and on room air #acute toxic metabolic encephalopathy more sleepy then yesterday per report still oriented to self as yesterday. no focal deficits appreciated probably multifactorial r/t ULISES, CHF, infection will check VBG # acute on chronic HFpEF - last TTE 07/25/22 LVEF 60%, abnormal diastolic function, normal RV systolic function, mild pHTN - continue IV furosemide, trend BNP/BMP/Mg/I+O - rivas for accurate Is&Os - continue hydralazine + Imdur + metoprolol tartrate home doses # cellulitis initially placed on cefazolin for cellulitis than changed to vanco + cefepime for concern of PNA but CT less supportive of this diagnosis will transition back to cefazolin BCx negative. Afebrile since 12/18. # COPD exacerbation - taper IV steroids, standing/prn nebs, antibiotics as above # ULISES/CKD4 - initially given IV fluids but he seems warm and wet and therefore was started on IV lasix and suspect the ULISES is due to the cardiorenal syndrome renal function above baseline nephrology consult - urine studies, serologies pending US to rule out obstructive uropathy follow BMP # HTN - continue hydralazine + Imdur + metoprolol tartrate # HLD - atorvastatin # hx DVT continue Eliquis VTE ppx: Eliquis dispo: eventual return to LTC attending - dr. webster requires continued inpatient hospitalization for the following reasons: resp failure, IV antibiotics + diuresis Time Spent With Patient Time: Total time managing care of this patient today ____ minutes. Quality Stroke Does the patient have a stroke diagnosis?: No VTE Prior VTE?: No VTE Risk Level:: Medical - moderate - high VTE Device Contraindication: Treatment Not Indicated VTE Drug Contraindication: N/A - Med Ordered
[2022-12-21 15:11] LABS: VBG Base Excess -2.6 mmol/L; VBG HCO3 20 mmol/L (22-26); VBG pCO2 29 mmHg; VBG pH 7.44 (7.32-7.43); VBG pO2 85 mmHg
[2022-12-21 15:19] LABS: Venous Blood Gas Refer to POC result
[2022-12-21 17:03] LABS: Creatinine Urine 32.49 mg/dL; Total Protein Urine Random 49 mg/dL (<12)
[2022-12-21] MEDS: Sodium Bicarbonate 650 MG TABLET PO (17:56)
--- NOTE | 2022-12-21 18:22 | MHC.SL.SWA ---
Speech Pathologist Impression: Risk of Aspiration Due to: Medically Fragile History of Pneumonia Reduced Cognition Dysphasia Diet Status: Liquid Consistency and Strategies for Safe Swallow: Liquid Intake Recommendation: NPO Liquid Intake Strategies: Solid Food Consistency: Dietary Recommendations: NPO Additional Modifications to Solid Foods: Oral Medication Intake: NPO Please contact the pharmacy regarding appropriate crushable or liquid drug formulations that are available whenever modified delivery is recommended. Compensatory Strategies and Precautions to be Taken for Safe Swallow: Supervision While Eating and Drinking for Safe Swallow: PO with BUILDING TRADES INSTRUCTOR Foods to Avoid: Swallowing Recommended Treatments: Recommendation for Speech: Inpatient Speech Therapy Comment: Able to complete very limited assessment today due to patients level of alertness/responsiveness. On trace amounts of water, patient evidenced delayed or absent swallow response, with clinical signs of aspiration observed. Recommend NPO at this time. BUILDING TRADES INSTRUCTOR will continue to monitor for increased ability to participate in full assessment. KATI BRAUN notified of recommendations by secure text, RN in person Frequency/Duration: Date Range for Service Req: Timeline to reassess: Middle School Band Teacher Clinican/Clinical Fellow: No Supervisory Statement: I have reviewed and agree with the student/clinical fellow's documentation: N/A Speech Language Pathologist: Debbie Greenwood M.A., CCC-BUILDING TRADES INSTRUCTOR
[2022-12-21 18:43] LABS: Anion Gap 19 (12-20); Carbon Dioxide 18 mmol/L (22-29); Chloride 110 mmol/L (96-108); Potassium 4.6 mmol/L (3.3-5.1); Sodium 142 mmol/L (135-145)
[2022-12-21] MEDS: hydrALAZINE HCl 20 MG/ML VIAL 10 MG IVPUSH (19:31)
--- NOTE | 2022-12-21 22:15 | PC.NURSE ---
Pt seen for 2100 med pass. Pt had significant change in mental status since previous night - garbled speech, unable to speak full sentences, lethargic. Pt unable to tolerate PO medication or any oral intake d/t mental status. Pt grunting, labored breathing - RR 18, b/l crackles anteriorly. MD aware. VBG's ordered. Results pending. Pt on continuous O2 monitoring with continuous cardiac monitoring. Will continue to monitor and continue with plan of care.
[2022-12-21 23:57] LABS: VBG Base Excess -2.1 mmol/L; VBG HCO3 19 mmol/L (22-26); VBG pCO2 22 mmHg; VBG pH 7.53 (7.32-7.43); VBG pO2 175 mmHg
[2022-12-21 23:59] LABS: Venous Blood Gas Refer to POC result
[2022-12-22] VITALS (11 sets, daily range): BP systolic 113–183; BP diastolic 58–90; PULSE 59–81; RESP 16–24; TEMP 36.2–36.9; O2SAT 82–95; BMI 38.0
[2022-12-22 06:02] LABS: Hematocrit 30.8 % (42.0-52.0); Hemoglobin 10.1 g/dl (14.0-18.0); Mean Corpuscular HGB Conc 32.8 g/dl (31.0-36.0); Mean Corpuscular Hemoglobin 31.1 pg (27.0-33.0); Mean Corpuscular Volume 94.8 fL (80.0-98.0); Mean Platelet Volume 11.4 fL (9.4-12.4); Platelet Count 141 X10*3/uL (160-400); Red Blood Count 3.25 X10*6/uL (4.60-5.80); Red Cell Distribution Width 14.9 % (11.0-16.0); White Blood Count 9.3 X10*3/uL (4.8-10.8)
[2022-12-22 06:21] LABS: Anion Gap 19 (12-20); Blood Urea Nitrogen 90 mg/dL (9-16); Calcium 8.6 mg/dL (8.4-10.2); Carbon Dioxide 20 mmol/L (22-29); Chloride 109 mmol/L (96-108); Creatinine Clr Calc Pharmacy 23.2; Estimated Glomerular Filt Rate 17; Glucose Random 93 mg/dL (60-115); Potassium 3.8 mmol/L (3.3-5.1); Sodium 144 mmol/L (135-145)
[2022-12-22] MEDS: methylPREDNISolone Sod Succ 40 MG/ML VIAL IVPUSH (09:26)
[2022-12-22] MEDS: 0.9 % Sodium Chloride Flush 3 ML SYRINGE IVFLUSH ×2 (09:27→15:27)
[2022-12-22] MEDS: Furosemide 40 MG/4 ML VIAL IVPUSH (09:27)
--- NOTE | 2022-12-22 10:25 | MHC.CM.PN ---
Per ROUNDS discussion, Patient is still lethargic and not yet medically cleared for dc; Patient will return to LTC @ SNF. CM will follow.
[2022-12-22 10:34] LABS: EOS Counted 0 CELLS; EOS QC POS YES; EOS Stain Quality OK YES; WBC, Counted 100 CELLS
[2022-12-22] MEDS: Albuterol/Iprat 2.5/0.5MG 3 ML AMPUL.NEB INHALE ×2 (11:22→18:59)
[2022-12-22 12:20] LABS: Venous Blood Gas Refer to POC result
[2022-12-22 12:23] LABS: VBG Base Excess -1.7 mmol/L; VBG HCO3 21 mmol/L (22-26); VBG pCO2 31 mmHg; VBG pH 7.44 (7.32-7.43); VBG pO2 75 mmHg
--- NOTE | 2022-12-22 12:46 | HO.PM.IMPN ---
Subjective Subjective Date of Service: 12/22/22 Interval History: seen and examined this morning Follow-up for CHF, COPD, lower extremity edema, encephalopathy Still lethargic, not able to participate in physical exam, review of systems Review of Systems Review of Systems: Yes Unobtainable due to mental status Neurologic Neurologic: Reports confusion Psychiatric Psychiatric: Reports confusion Physical Exam Vital Signs: Vital Signs: Last Vital Signs Temp 97.2 F 12/22/22 11:21 Pulse 70 12/22/22 11:26 Resp 16 12/22/22 11:26 BP 170/60 H 12/22/22 11:21 Pulse Ox 92 12/22/22 11:21 O2 Del Method Room Air 12/22/22 11:21 O2 Flow Rate 2 12/21/22 08:00 FiO2 32 12/18/22 03:26 Oxygen Flow Rate 2 12/18/22 03:26 BMI result Body Mass Index 38.0 Const: Other: lethargic, ill appearing; repeats tired General: confusion Nutritional Appearance: obese Orientation/consciousness: confusion Resp: Other: diminished breath sounds Effort & Inspection: normal respiratory effort, no respiratory distress and no use of accessory muscles Cardio: Rate: regular rate Heart sounds: S1 normal heart sound present and S2 normal heart sound present GI: Other: +BS Inspection: No distended Palpation (GI): Soft to palpation Skin: Other: b/l lower extremity venous stasis changes, mild erythema Neuro: General: confusion Extrem: Other: b/l lower extremity edema Objective Data Active Medications Acetaminophen (Acetaminophen 325 Mg Tablet) 650 mg PO Q4H PRN PRN Reason: Pain, Mild (Pain Scale 1-3) Last Admin: 12/21/22 02:15 Dose: 650 mg Documented By: DAO Albuterol Sulfate (Albuterol Sulfate (0.083%) 2.5 Mg/3 Ml Vial.Neb) 2.5 mg INHALE Q2H PRN PRN Reason: Shortness of Breath/Wheezing Albuterol/Ipratropium (Albuterol/Iprat 2.5/0.5mg 3 Ml Ampul.Neb) 3 ml INHALE RQ4H WHILE AWAKE [facility] Last Admin: 12/22/22 11:22 Dose: 3 ml Documented By: NAYELI Apixaban (Apixaban 2.5 Mg Tablet) 2.5 mg PO BID [facility] Last Admin: 12/22/22 10:07 Dose: Not Given Documented By: ÁNGELA Non-Admin Reason: Patient Condition Contraindication Atorvastatin Calcium (Atorvastatin Calcium 20 Mg Tablet) 20 mg PO BEDTIME [facility] Last Admin: 12/21/22 22:14 Dose: Not Given Documented By: MAURICE Non-Admin Reason: Patient Condition Contraindication Bisacodyl (Bisacodyl 10 Mg Supp.Rect) 10 mg [place] DAILY PRN PRN Reason: Constipation Diphenhydramine HCl (Diphenhydramine Hcl 25 Mg Capsule) 25 mg PO Q8H PRN PRN Reason: Allergic Reaction Docusate Sodium (Docusate Sodium 100 Mg Capsule) 100 mg PO DAILY PRN PRN Reason: Constipation Furosemide (Furosemide 40 Mg/4 Ml Vial) 40 mg IVPUSH BID@0900,1800 [facility]; Protocol Last Admin: 12/22/22 09:27 Dose: 40 mg Documented By: ÁNGELA Gabapentin (Gabapentin 600 Mg Tablet) 600 mg PO BEDTIME [facility] Last Admin: 12/21/22 22:14 Dose: Not Given Documented By: MAURICE Non-Admin Reason: Patient Condition Contraindication Guaifenesin (Guaifenesin 100 Mg/5 Ml Liquid) 10 ml PO Q8H PRN PRN Reason: Cough Guaifenesin (Guaifenesin La 600 Mg Tab.Er.12h) 600 mg PO BID [facility] Last Admin: 12/22/22 10:08 Dose: Not Given Documented By: ÁNGELA Non-Admin Reason: Patient Condition Contraindication Hydralazine HCl (Hydralazine Hcl 25 Mg Tablet) 75 mg PO TID [facility]; Protocol Last Admin: 12/22/22 10:08 Dose: Not Given Documented By: ÁNGELA Non-Admin Reason: Patient Condition Contraindication Cefazolin Sodium 1 gm/ Sodium (Chloride) 50 mls @ 100 mls/hr IV Q12H [facility] Last Infusion: 12/22/22 06:06 Dose: 0 mls/hr Documented By: MAURICE Isosorbide Mononitrate (Isosorbide Mononitrate 60 Mg Tab.Er.24h) 60 mg PO DAILY [facility]; Protocol Last Admin: 12/22/22 10:08 Dose: Not Given Documented By: ÁNGELA Non-Admin Reason: Patient Condition Contraindication Ketorolac Tromethamine (Ketorolac Tromethamine 0.5% Op 5 Ml Drops) 1 drop EYE-BOTH QID [facility] Last Admin: 12/22/22 10:08 Dose: Not Given Documented By: ÁNGELA Non-Admin Reason: Patient Condition Contraindication Loperamide HCl (Loperamide Hcl 2 Mg Capsule) 2 mg PO Q6H PRN PRN Reason: loose stool Methylprednisolone Sodium Succinate (Methylprednisolone Sod Succ 40 Mg/Ml Vial) 40 mg IVPUSH Q24H [facility] Last Admin: 12/22/22 09:26 Dose: 40 mg Documented By: ÁNGELA Metoprolol Tartrate (Metoprolol Tartrate 50 Mg Tablet) 50 mg PO BID [facility]; Protocol Last Admin: 12/22/22 10:08 Dose: Not Given Documented By: ÁNGELA Non-Admin Reason: Patient Condition Contraindication Naloxone HCl (Naloxone Hcl 0.4 Mg/Ml Vial) 0.4 mg SUBCUT Q2M PRN PRN Reason: Opioid Overdose Omeprazole (Omeprazole 20 Mg Capsule.) 20 mg PO DAILY@0630 [facility] Last Admin: 12/22/22 06:23 Dose: Not Given Documented By: MAURICE Non-Admin Reason: Patient Condition Contraindication Ondansetron HCl (Ondansetron Hcl 4 Mg/2 Ml Vial) 4 mg IVPUSH Q8H PRN PRN Reason: Nausea and Vomiting Polyethylene Glycol (Polyethylene Glycol 3350 17 Gm Powd.Pack) 17 gm PO DAILY [facility] Last Admin: 12/22/22 10:08 Dose: Not Given Documented By: ÁNGELA Non-Admin Reason: Patient Condition Contraindication Sodium Chloride (0.9 % Sodium Chloride Flush 3 Ml Syringe) 3 ml IVFLUSH QSHIFT [facility] Last Admin: 12/22/22 09:27 Dose: 3 ml Documented By: ÁNGELA Vitamin D (Cholecalciferol (Vitamin D3) 25 Mcg Tablet) 25 mcg PO DAILY [facility] Last Admin: 12/22/22 10:07 Dose: Not Given Documented By: ÁNGELA Non-Admin Reason: Patient Condition Contraindication Labs 12/22/22 05:21 12/22/22 05:21 Labs: Laboratory Results - last 24 hr 12/21/22 12/21/22 12/21/22 15:04 16:15 16:15 MCV MCH MCHC RDW Plt Count MPV Absolute Nucleated RBC Nucleated RBC % (auto) VBG pH 7.44 H VBG pCO2 29 VBG pO2 85 VBG HCO3 20 L VBG O2 Saturation 97.0 VBG Base Excess -2.6 Anion Gap Estim Creat Clear Calc Estimated GFR Random Glucose Lactic Acid Calcium Urine Eosinophils % 0.0 U Random Total Protein 49 H Ur Random Sodium 91.0 Urine Creatinine 32.49 Random Vancomycin 12/21/22 12/21/22 12/21/22 18:26 18:26 23:50 MCV MCH MCHC RDW Plt Count MPV Absolute Nucleated RBC Nucleated RBC % (auto) VBG pH 7.53 H VBG pCO2 22 VBG pO2 175 VBG HCO3 19 L VBG O2 Saturation 99.0 VBG Base Excess -2.1 Anion Gap 19 Estim Creat Clear Calc Estimated GFR Random Glucose Lactic Acid 1.0 Calcium Urine Eosinophils % U Random Total Protein Ur Random Sodium Urine Creatinine Random Vancomycin 12/22/22 12/22/22 12/22/22 05:21 05:21 05:21 MCV 94.8 MCH 31.1 MCHC 32.8 RDW 14.9 Plt Count 141 L MPV 11.4 Absolute Nucleated RBC 0.000 Nucleated RBC % (auto) 0.0 VBG pH VBG pCO2 VBG pO2 VBG HCO3 VBG O2 Saturation VBG Base Excess Anion Gap 19 Estim Creat Clear Calc 23.2 Estimated GFR 17 Random Glucose 93 Lactic Acid Calcium 8.6 D Urine Eosinophils % U Random Total Protein Ur Random Sodium Urine Creatinine Random Vancomycin 22.0 H 12/22/22 12:16 MCV MCH MCHC RDW Plt Count MPV Absolute Nucleated RBC Nucleated RBC % (auto) VBG pH 7.44 H VBG pCO2 31 VBG pO2 75 VBG HCO3 21 L VBG O2 Saturation 95.0 VBG Base Excess -1.7 Anion Gap Estim Creat Clear Calc Estimated GFR Random Glucose Lactic Acid Calcium Urine Eosinophils % U Random Total Protein Ur Random Sodium Urine Creatinine Random Vancomycin Assessment and Plan (1) ULISES (acute kidney injury): Status: Acute Plan 82yo M with COPD, HFpEF, CKD4, hx of DVT on apixaban sent in from [facility], where he is a LTC resident, for fever # acute hypoxic resp failure - multifactorial due to below issues, ABG without hypercarbia, placed on BiPAP 12/18/22 for work of breathing, now much improved and on room air #acute toxic metabolic encephalopathy more lethargic brain CT negative, no focal deficits appreciated probably multifactorial r/t ULISES, CHF, infection and dilirium VBG stable, no co2 retention ammonia pending gabapetin on hold # acute on chronic HFpEF - last TTE 07/25/22 LVEF 60%, abnormal diastolic function, normal RV systolic function, mild pHTN good urine output over last 24 hours - will hold IV furosemide, trend BNP/BMP/Mg/I+O - rivas for accurate Is&Os - continue hydralazine + Imdur + metoprolol tartrate home doses # cellulitis initially placed on cefazolin for cellulitis than changed to vanco + cefepime for concern of PNA but CT less supportive of this diagnosis will transition back to cefazolin BCx negative. Afebrile since 12/18. # COPD exacerbation - taper IV steroids, standing/prn nebs, antibiotics as above # ULISES/CKD4/metabolic acidosis initially given IV fluids but he seems warm and wet and therefore was started on IV lasix and suspect the ULISES is due to the cardiorenal syndrome nephrology consult - urine studies, serologies pending rivas in place for fluid management follow BMP bicarb improved with sodium bicarb replacement, will hold off on further replacement for now # HTN - continue hydralazine + Imdur + metoprolol tartrate # HLD - atorvastatin # hx DVT continue Eliquis VTE ppx: Eliquis dispo: eventual return to LTC attending - dr. webster Pt daughter gema ([phone]) cell was updated today requires continued inpatient hospitalization for the following reasons: resp failure, IV antibiotics + diuresis Time Spent With Patient Time: Total time managing care of this patient today ____ minutes. Quality Stroke Does the patient have a stroke diagnosis?: No VTE Prior VTE?: No VTE Risk Level:: Medical - moderate - high VTE Device Contraindication: Treatment Not Indicated VTE Drug Contraindication: N/A - Med Ordered
[2022-12-22 13:05] LABS: Ammonia 22 umol/L (13-55)
[2022-12-22] MEDS: Acetaminophen 325 MG TABLET 650 MG PO (13:56)
--- NOTE | 2022-12-22 17:08 | MHC.SL.SWA ---
Speech Pathologist Impression:Risk of aspiration, oropharyngeal dysphagia Risk of Aspiration Due to: Medically Fragile History of Pneumonia Reduced Cognition Dysphasia Diet Status: No change Liquid Consistency and Strategies for Safe Swallow: Liquid Intake Recommendation: NPO Solid Food Consistency: Dietary Recommendations: Additional Modifications to Solid Foods: Recommend continue NPO, as pt is w/ high aspiration risk d/t decreased mentation, displayed overt s/s of aspiration. Continue frequent oral care daily. Advised care team (PA, RN, RD) via [employer] Message. JOURNEYMAN PATTERNMAKER Is available for call in over the weekend through switchboard if needed. Oral Medication Intake: NPO Please contact the pharmacy regarding appropriate crushable or liquid drug formulations that are available whenever modified delivery is recommended. Supervision While Eating and Drinking for Safe Swallow: PO with JOURNEYMAN PATTERNMAKER Recommendation for Speech: Inpatient Speech Therapy Corporate Intern Clinican/Clinical Fellow: No Supervisory Statement: I have reviewed and agree with the student/clinical fellow's documentation: N/A Speech Language Pathologist: Catina Rodríguez M.A., CCC-JOURNEYMAN PATTERNMAKER
[2022-12-22] MEDS: Haloperidol Lactate 5 MG/ML VIAL 2 MG IM (17:40)
--- NOTE | 2022-12-22 18:00 | PM.PNNEP ---
Subjective Subjective Date of Service: 12/23/22 Interval history: Patient seen and examined. Lethargic. Unable to obtain any history. Physical Exam Vital Signs: Vital Signs: Last Vital Signs Temp 97.5 F 12/22/22 15:23 Pulse 59 12/22/22 15:23 Resp 16 12/22/22 15:23 BP 113/58 L 12/22/22 15:23 Pulse Ox 90 L 12/22/22 15:23 O2 Del Method Room Air 12/22/22 15:23 O2 Flow Rate 2 12/21/22 08:00 FiO2 32 12/18/22 03:26 Oxygen Flow Rate 2 12/18/22 03:26 BMI result Body Mass Index 38.0 ill Appearing Neck is supple Lung: Air entry equal Heart: S1,S2, normal. No rub Abd: Soft. BS + NS : Lethargic.No asterexis Ext: 1+ edema with pigmentation Objective Data Labs 12/22/22 05:21 12/22/22 05:21 Labs: Laboratory Results - last 24 hr 12/21/22 12/21/22 12/21/22 16:15 18:26 18:26 WBC RBC Hgb Hct MCV MCH MCHC RDW Plt Count MPV Absolute Nucleated RBC Nucleated RBC % (auto) VBG pH VBG pCO2 VBG pO2 VBG HCO3 VBG O2 Saturation VBG Base Excess Sodium 142 Potassium 4.6 Chloride 110 H Carbon Dioxide 18 L Anion Gap 19 BUN Creatinine Estim Creat Clear Calc Estimated GFR Random Glucose Lactic Acid 1.0 Calcium Ammonia B-Natriuretic Peptide Urine Eosinophils % 0.0 Random Vancomycin 12/21/22 12/22/22 12/22/22 23:50 05:21 05:21 WBC RBC Hgb Hct MCV MCH MCHC RDW Plt Count MPV Absolute Nucleated RBC Nucleated RBC % (auto) VBG pH 7.53 H VBG pCO2 22 VBG pO2 175 VBG HCO3 19 L VBG O2 Saturation 99.0 VBG Base Excess -2.1 Sodium 144 Potassium 3.8 Chloride 109 H Carbon Dioxide 20 L Anion Gap 19 BUN 90 H Creatinine 3.50 H Estim Creat Clear Calc 23.2 Estimated GFR 17 Random Glucose 93 Lactic Acid Calcium 8.6 D Ammonia B-Natriuretic Peptide Urine Eosinophils % Random Vancomycin 22.0 H 12/22/22 12/22/22 12/22/22 05:21 05:21 12:16 WBC 9.3 RBC 3.25 L Hgb 10.1 L Hct 30.8 L MCV 94.8 MCH 31.1 MCHC 32.8 RDW 14.9 Plt Count 141 L MPV 11.4 Absolute Nucleated RBC 0.000 Nucleated RBC % (auto) 0.0 VBG pH 7.44 H VBG pCO2 31 VBG pO2 75 VBG HCO3 21 L VBG O2 Saturation 95.0 VBG Base Excess -1.7 Sodium Potassium Chloride Carbon Dioxide Anion Gap BUN Creatinine Estim Creat Clear Calc Estimated GFR Random Glucose Lactic Acid Calcium Ammonia B-Natriuretic Peptide Cancelled Urine Eosinophils % Random Vancomycin 12/22/22 12:44 WBC RBC Hgb Hct MCV MCH MCHC RDW Plt Count MPV Absolute Nucleated RBC Nucleated RBC % (auto) VBG pH VBG pCO2 VBG pO2 VBG HCO3 VBG O2 Saturation VBG Base Excess Sodium Potassium Chloride Carbon Dioxide Anion Gap BUN Creatinine Estim Creat Clear Calc Estimated GFR Random Glucose Lactic Acid Calcium Ammonia 22 B-Natriuretic Peptide Urine Eosinophils % Random Vancomycin Microbiology Microbiology Results: Microbiology 12/18/22 03:55 Blood - Venous Blood Culture - Preliminary No growth after 48 hours. 12/18/22 03:55 Blood - Venous Blood Culture - Preliminary No growth after 48 hours. Procedures Date of Service Date of Service: 12/23/22 Assessment & Plan Assessment and plan (1) Stage 4 chronic kidney disease: Status: Acute Plan 82-YEAR-OLD ADMITTED WITH A FEVER AND ACUTE KIDNEY INJURY ON CHRONIC KIDNEY DISEASE. 1. Acute kidney injury.? DDx ATN/Tubular injury /VAnco might be contributing as well. ? Need to rule out urinary retention/ obstructive uropathy.? Repeat urine studies to look for possibility of infectious associated GN.?- Has about a gm protein with RBCs with Eosinophilia Most likely is multifactorial ATN for some of the stressors as noted above.? Given the presentation of pulmonary and kidney injury, some serologies to rule out a pulmonary renal syndrome, although this seems unlikely given his presentation with a fever. 2. Advanced chronic kidney disease.? 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 Baseline creatinine 2.5 to 3. 3. Cellulitis. 4. Lower extremity edema.? This is due to a combination of the chronic venous stasis disease along with his chronic kidney disease and heart dysfunction.? He is maintained on Lasix 40 twice a day . 5. Combined anion gap and non anion gap metabolic acidosis. ? RECOMMENDATIONS:? 1. Hold Nephrotoxins including Gabapentin 2. Follow serologies to include ruling out an ANCA associated pulmonary renal syndrome. 3.Hold diuretics temporarily 4. Adjust Vanco dosing May need a kidney biopsy based on serologies. If mentation does not improve in 48 hours, would need dialysis ,since uremia might be playing a role in the change in mentation Time Spent With Patient Time: Total time managing care of this patient today ____ minutes. Progress Note: Quality Stroke Does the patient have a stroke diagnosis?: No
[2022-12-22] MEDS: Labetalol HCL 100 MG/20 ML VIAL 10 MG IVPUSH (22:39)
[2022-12-23] VITALS (9 sets, daily range): BP systolic 159–186; BP diastolic 64–86; PULSE 70–83; RESP 17–20; TEMP 36.4–37; O2SAT 93–98; BMI 38.4
[2022-12-23] MEDS: Morphine Sulfate 2 MG/ML CARTRIDGE 1 MG IVPUSH ×2 (02:51→20:14)
[2022-12-23] MEDS: LORazepam 2 MG/ML VIAL 1 MG IVPUSH (02:57)
[2022-12-23] MEDS: hydrALAZINE HCl 20 MG/ML VIAL 10 MG IVPUSH (03:46)
[2022-12-23] MEDS: Albuterol/Iprat 2.5/0.5MG 3 ML AMPUL.NEB INHALE ×3 (07:38→18:44)
[2022-12-23 07:39] LABS: Anion Gap 22 (12-20); Blood Urea Nitrogen 94 mg/dL (9-16); Calcium 8.8 mg/dL (8.4-10.2); Carbon Dioxide 19 mmol/L (22-29); Chloride 111 mmol/L (96-108); Estimated Glomerular Filt Rate 18; Glucose Random 95 mg/dL (60-115); Potassium 3.9 mmol/L (3.3-5.1); Sodium 148 mmol/L (135-145)
--- NOTE | 2022-12-23 08:23 | PC.NURSE ---
pt lethargic, resistant to care. BP elevated, difficult to accurately obtain as pt tenses arms. IV labetolol then iv hydralazine with some + effect. Pt scoring 6-7 on nonverbal pain scale and repetitive utterances chnged to ow md aware and pt given morphine and ativan with + effect. Pt with deep tissue injury to R buttocks. allevyn coccyx dressing applied. Air loss function added to bed. Pt turned and repositioned Q2 hrs for skin/comfort.
--- NOTE | 2022-12-23 09:57 | P.PNIM_ITS ---
Subjective Subjective Date of Service: 12/23/22 Interval History: seen and examined this morning Follow-up for CHF, COPD, lower extremity edema, encephalopathy Still lethargic and confused, not able to participate in physical exam, review of systems Review of Systems Review of Systems: Yes Unobtainable due to mental status Neurologic Neurologic: Reports confusion Psychiatric Psychiatric: Reports confusion Physical Exam Vital Signs: Vital Signs: Last Vital Signs Temp 97.5 F 12/23/22 04:00 Pulse 74 12/23/22 07:39 Resp 20 12/23/22 07:39 BP 160/64 H 12/23/22 08:34 Pulse Ox 96 12/23/22 04:00 O2 Del Method Room Air 12/23/22 04:00 O2 Flow Rate 2 12/21/22 08:00 FiO2 32 12/18/22 03:26 Oxygen Flow Rate 2 12/18/22 03:26 BMI result Body Mass Index 38.4 Appearing in no acute distress lung sounds are clear to auscultation heart regular rate rhythm, clear S1, S2 positive bowel sounds, abdomen is soft, nontender neuro patient is alert x3, no focal deficits LE chronic skin changes bilaterally Const: General: confusion Orientation/consciousness: confusion Neuro: General: confusion Objective Data Active Medications Acetaminophen (Acetaminophen 325 Mg Tablet) 650 mg PO Q4H PRN PRN Reason: Pain, Mild (Pain Scale 1-3) Last Admin: 12/22/22 13:56 Dose: 650 mg Documented By: ÁNGELA Albuterol Sulfate (Albuterol Sulfate (0.083%) 2.5 Mg/3 Ml Vial.Neb) 2.5 mg INHALE Q2H PRN PRN Reason: Shortness of Breath/Wheezing Albuterol/Ipratropium (Albuterol/Iprat 2.5/0.5mg 3 Ml Ampul.Neb) 3 ml INHALE RQ4H WHILE AWAKE [facility] Last Admin: 12/23/22 07:38 Dose: 3 ml Documented By: PAUL Apixaban (Apixaban 2.5 Mg Tablet) 2.5 mg PO BID [facility] Last Admin: 12/22/22 20:11 Dose: Not Given Documented By: FABRICE Non-Admin Reason: NPO Atorvastatin Calcium (Atorvastatin Calcium 20 Mg Tablet) 20 mg PO BEDTIME [facility] [place] Last Admin: 12/22/22 20:11 Dose: Not Given Documented By: FABRICE Non-Admin Reason: NPO Bisacodyl (Bisacodyl 10 Mg Supp.Rect) 10 mg [place] DAILY PRN PRN Reason: Constipation Docusate Sodium (Docusate Sodium 100 Mg Capsule) 100 mg PO DAILY PRN PRN Reason: Constipation Guaifenesin (Guaifenesin 100 Mg/5 Ml Liquid) 10 ml PO Q8H PRN PRN Reason: Cough Guaifenesin (Guaifenesin La 600 Mg Tab.Er.12h) 600 mg PO BID [facility] [place] Last Admin: 12/22/22 20:11 Dose: Not Given Documented By: FABRICE Non-Admin Reason: NPO Hydralazine HCl (Hydralazine Hcl 25 Mg Tablet) 75 mg PO TID [facility] [place]; Protocol Last Admin: 12/22/22 20:11 Dose: Not Given Documented By: FABRICE Non-Admin Reason: NPO Cefazolin Sodium 1 gm/ Sodium (Chloride) 50 mls @ 100 mls/hr IV Q12H [facility] [place] Last Infusion: 12/23/22 08:38 Dose: 0 mls/hr Documented By: JEREMIAH Isosorbide Mononitrate (Isosorbide Mononitrate 60 Mg Tab.Er.24h) 60 mg PO DAILY [facility]; Protocol Last Admin: 12/22/22 10:08 Dose: Not Given Documented By: ÁNGELA Non-Admin Reason: Patient Condition Contraindication Ketorolac Tromethamine (Ketorolac Tromethamine 0.5% Op 5 Ml Drops) 1 drop EYE- BOTH QID [facility] [place] Last Admin: 12/22/22 20:12 Dose: Not Given Documented By: FABRICE Non-Admin Reason: backordered. Loperamide HCl (Loperamide Hcl 2 Mg Capsule) 2 mg PO Q6H PRN PRN Reason: loose stool Methylprednisolone Sodium Succinate (Methylprednisolone Sod Succ 40 Mg/Ml Vial) 40 mg IVPUSH Q24H [facility] [place] Last Admin: 12/22/22 09:26 Dose: 40 mg Documented By: ÁNGELA Metoprolol Tartrate (Metoprolol Tartrate 50 Mg Tablet) 50 mg PO BID [facility] [place]; Protocol Last Admin: 12/22/22 20:12 Dose: Not Given Documented By: FABRICE Non-Admin Reason: NPO Naloxone HCl (Naloxone Hcl 0.4 Mg/Ml Vial) 0.4 mg SUBCUT Q2M PRN PRN Reason: Opioid Overdose Omeprazole (Omeprazole 20 Mg Capsule.Dr) 20 mg PO DAILY@0630 [facility] [place] Last Admin: 12/23/22 07:06 Dose: Not Given Documented By: FABRICE Non-Admin Reason: NPO Ondansetron HCl (Ondansetron Hcl 4 Mg/2 Ml Vial) 4 mg IVPUSH Q8H PRN PRN Reason: Nausea and Vomiting Polyethylene Glycol (Polyethylene Glycol 3350 17 Gm Powd.Pack) 17 gm PO DAILY [facility] [place] Last Admin: 12/22/22 10:08 Dose: Not Given Documented By: ÁNGELA Non-Admin Reason: Patient Condition Contraindication Sodium Chloride (0.9 % Sodium Chloride Flush 3 Ml Syringe) 3 ml IVFLUSH QSHIFT [facility] [place] Last Admin: 12/23/22 00:37 Dose: Not Given Documented By: FABRICE Non-Admin Reason: Previously Administered Vitamin D (Cholecalciferol (Vitamin D3) 25 Mcg Tablet) 25 mcg PO DAILY [facility] [place] Last Admin: 12/22/22 10:07 Dose: Not Given Documented By: ÁNGELA Non-Admin Reason: Patient Condition Contraindication Labs 12/22/22 05:21 12/23/22 06:28 Labs: Laboratory Results - last 24 hr 12/21/22 12/22/22 12/22/22 16:15 05:21 12:16 VBG pH 7.44 H VBG pCO2 31 VBG pO2 75 VBG HCO3 21 L VBG O2 Saturation 95.0 VBG Base Excess -1.7 Anion Gap Estim Creat Clear Calc Estimated GFR Random Glucose Calcium Ammonia B-Natriuretic Peptide Cancelled Urine Eosinophils % 0.0 12/22/22 12/23/22 12:44 06:28 VBG pH VBG pCO2 VBG pO2 VBG HCO3 VBG O2 Saturation VBG Base Excess Anion Gap 22 H Estim Creat Clear Calc 24.0 Estimated GFR 18 Random Glucose 95 Calcium 8.8 Ammonia 22 B-Natriuretic Peptide Urine Eosinophils % Microbiology Microbiology Results: Microbiology 12/18/22 03:55 Blood Culture - Final Blood - Venous No growth after 5 days. 12/18/22 03:55 Blood Culture - Final Blood - Venous No growth after 5 days. Assessment and Plan (1) ULISES (acute kidney injury): Status: Acute Plan 82yo M with COPD, HFpEF, CKD4, hx of DVT on apixaban, sent in from [facility], where he is a LTC resident, for fever ULISES/CKD4/metabolic acidosis Lasix stopped nephrology following rivas in place for fluid management follow BMP bicarb improved with sodium bicarb replacement, will hold off on further replacement for now Acute hypoxic resp failure. Resolved multifactorial due to below issues ABG without hypercarbia placed on BiPAP 12/18/22 for work of breathing, now much improved and on room air Acute toxic metabolic encephalopathy brain CT negative, no focal deficits appreciated probably multifactorial r/t ULISES, CHF, infection and delirium VBG stable, no co2 retention ammonia normal gabapetin on hold acute on chronic HFpEF last TTE 07/25/22 LVEF 60%, abnormal diastolic function, normal RV systolic function, mild pHTN good urine output over last 24 hours will hold IV furosemide, trend BNP/BMP/Mg/I+O rivas for accurate Is&Os continue hydralazine + Imdur + metoprolol tartrate home doses cellulitis, right LE initially placed on cefazolin for cellulitis than changed to vanco + cefepime for concern of PNA but CT less supportive of this diagnosis continue cefazolin BCx negative. Afebrile since 12/18. COPD exacerbation taper IV steroids, standing/prn nebs, antibiotics as above HTN continue hydralazine + Imdur + metoprolol tartrate HLD atorvastatin hx DVT continue Eliquis VTE ppx: Eliquis dispo: eventual return to LTC attending - dr. Tay Pt daughter gema ([phone]) cell was updated today requires continued inpatient hospitalization for the following reasons: resp failure, IV antibiotics + diuresis Time Spent With Patient Time: Total time managing care of this patient today ____ minutes. Quality Stroke Does the patient have a stroke diagnosis?: No VTE Prior VTE?: No VTE Risk Level:: Medical - moderate - high VTE Device Contraindication: Treatment Not Indicated VTE Drug Contraindication: N/A - Med Ordered
[2022-12-23] MEDS: methylPREDNISolone Sod Succ 40 MG/ML VIAL IVPUSH (10:48)
[2022-12-23] MEDS: 0.9 % Sodium Chloride Flush 3 ML SYRINGE IVFLUSH (10:48)
--- NOTE | 2022-12-23 11:02 | PM.PNNEP ---
Subjective Subjective Date of Service: 12/24/22 Principal diagnosis: Events noted Interval history: Events noted More awake REstless /moaning Physical Exam Vital Signs: Vital Signs: Last Vital Signs Temp 97.5 F 12/23/22 04:00 Pulse 74 12/23/22 07:39 Resp 20 12/23/22 07:39 BP 160/64 H 12/23/22 08:34 Pulse Ox 96 12/23/22 04:00 O2 Del Method Room Air 12/23/22 04:00 O2 Flow Rate 2 12/21/22 08:00 FiO2 32 12/18/22 03:26 Oxygen Flow Rate 2 12/18/22 03:26 BMI result Body Mass Index 38.4 Neck is supple Lung: Air entry equal Heart: S1,S2, normal. No rub Abd: Soft. BS + NS : Alert.No asterexis Ext: +edema Const: Other: lethargic, ill appearing; repeats tired Objective Data Labs 12/22/22 05:21 12/23/22 06:28 Labs: Laboratory Results - last 24 hr 12/22/22 12/22/22 12/22/22 05:21 12:16 12:44 VBG pH 7.44 H VBG pCO2 31 VBG pO2 75 VBG HCO3 21 L VBG O2 Saturation 95.0 VBG Base Excess -1.7 Sodium Potassium Chloride Carbon Dioxide Anion Gap BUN Creatinine Estim Creat Clear Calc Estimated GFR Random Glucose Calcium Ammonia 22 B-Natriuretic Peptide Cancelled 12/23/22 06:28 VBG pH VBG pCO2 VBG pO2 VBG HCO3 VBG O2 Saturation VBG Base Excess Sodium 148 H Potassium 3.9 Chloride 111 H Carbon Dioxide 19 L Anion Gap 22 H BUN 94 H Creatinine 3.39 H Estim Creat Clear Calc 24.0 Estimated GFR 18 Random Glucose 95 Calcium 8.8 Ammonia B-Natriuretic Peptide Microbiology Microbiology Results: Microbiology 12/18/22 03:55 Blood - Venous Blood Culture - Final No growth after 5 days. 12/18/22 03:55 Blood - Venous Blood Culture - Final No growth after 5 days. Procedures Date of Service Date of Service: 12/24/22 Assessment & Plan Assessment and plan (1) Stage 4 chronic kidney disease: Status: Acute Plan 82-YEAR-OLD ADMITTED WITH A FEVER AND ACUTE KIDNEY INJURY ON CHRONIC KIDNEY DISEASE. 1. Acute kidney injury.? DDx ATN/Tubular injury /VAnco might be contributing as well. ? Need to rule out urinary retention/ obstructive uropathy.? Repeat urine studies to look for possibility of infectious associated GN.?- Has about a gm protein with RBCs with Eosinophilia Most likely is multifactorial ATN for some of the stressors as noted above.? Given the presentation of pulmonary and kidney injury, some serologies to rule out a pulmonary renal syndrome, although this seems unlikely given his presentation with a fever. 2. Advanced chronic kidney disease.? 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 Baseline creatinine 2.5 to 3. 3. Cellulitis. 4. Lower extremity edema.? This is due to a combination of the chronic venous stasis disease along with his chronic kidney disease and heart dysfunction.? He is maintained on Lasix 40 twice a day . 5. Combined anion gap and non anion gap metabolic acidosis. ? RECOMMENDATIONS:? 1. Hold Nephrotoxins including Gabapentin 2. Follow serologies to include ruling out an ANCA associated pulmonary renal syndrome. 3.Hold diuretics temporarily 4. Adjust Vanco dosing May need a kidney biopsy based on serologies. No absolute indication for dialysis today. Increase free water intake to correct hypernatremia. Time Spent With Patient Time: Total time managing care of this patient today ____ minutes. Progress Note: Quality Stroke Does the patient have a stroke diagnosis?: No
[2022-12-23] MEDS: Ketorolac Tromethamine 0.5% Op 5 ML DROPS 1 DROP EYE-BOTH ×2 (11:32→17:42)
[2022-12-23] MEDS: LORazepam 2 MG/ML VIAL 0.5 MG IVPUSH ×2 (12:22→18:38)
[2022-12-24] VITALS (11 sets, daily range): BP systolic 152–181; BP diastolic 50–72; PULSE 61–97; RESP 18–22; TEMP 35.8–36.8; O2SAT 94–98; BMI 38.1
[2022-12-24] MEDS: Ketorolac Tromethamine 0.5% Op 5 ML DROPS 1 DROP EYE-BOTH ×2 (01:52→18:07)
[2022-12-24] MEDS: 0.9 % Sodium Chloride Flush 3 ML SYRINGE IVFLUSH ×2 (01:53→08:05)
[2022-12-24] MEDS: LORazepam 2 MG/ML VIAL 0.5 MG IVPUSH ×2 (02:47→18:47)
[2022-12-24 06:36] LABS: Anion Gap 19 (12-20); Blood Urea Nitrogen 92 mg/dL (9-16); Calcium 8.6 mg/dL (8.4-10.2); Carbon Dioxide 22 mmol/L (22-29); Chloride 115 mmol/L (96-108); Estimated Glomerular Filt Rate 18; Glucose Random 98 mg/dL (60-115); Potassium 4.2 mmol/L (3.3-5.1); Sodium 152 mmol/L (135-145)
[2022-12-24] MEDS: Albuterol/Iprat 2.5/0.5MG 3 ML AMPUL.NEB INHALE ×4 (07:28→19:26)
[2022-12-24] MEDS: Morphine Sulfate 2 MG/ML CARTRIDGE 1 MG IVPUSH (08:05)
[2022-12-24] MEDS: methylPREDNISolone Sod Succ 40 MG/ML VIAL IVPUSH (08:05)
--- NOTE | 2022-12-24 11:03 | HO.PM.IMPN ---
Subjective Subjective Date of Service: 12/24/22 Interval History: seen and examined this morning Follow-up for CHF, COPD, lower extremity edema, encephalopathy Still lethargic and confused but asking for orange juice Review of Systems Review of Systems: Yes Unobtainable due to mental status Neurologic Neurologic: Reports confusion Psychiatric Psychiatric: Reports confusion Physical Exam Vital Signs: Vital Signs: Last Vital Signs Temp 98.3 F 12/24/22 08:00 Pulse 97 12/24/22 08:00 Resp 18 12/24/22 08:00 BP 152/60 H 12/24/22 08:00 Pulse Ox 98 12/24/22 08:00 O2 Del Method Room Air 12/24/22 08:00 O2 Flow Rate 2 12/24/22 04:00 FiO2 32 12/18/22 03:26 Oxygen Flow Rate 2 12/18/22 03:26 BMI result Body Mass Index 38.1 Const: General: confusion Orientation/consciousness: confusion Neuro: General: confusion Objective Data Active Medications Acetaminophen (Acetaminophen 325 Mg Tablet) 650 mg PO Q4H PRN PRN Reason: Pain, Mild (Pain Scale 1-3) Last Admin: 12/22/22 13:56 Dose: 650 mg Documented By: ÁNGELA Albuterol Sulfate (Albuterol Sulfate (0.083%) 2.5 Mg/3 Ml Vial.Neb) 2.5 mg INHALE Q2H PRN PRN Reason: Shortness of Breath/Wheezing Albuterol/Ipratropium (Albuterol/Iprat 2.5/0.5mg 3 Ml Ampul.Neb) 3 ml INHALE RQ4H WHILE AWAKE [facility] Last Admin: 12/24/22 07:28 Dose: 3 ml Documented By: PAUL Apixaban (Apixaban 2.5 Mg Tablet) 2.5 mg PO BID [facility] Last Admin: 12/24/22 10:07 Dose: Not Given Documented By: RUBY Non-Admin Reason: NPO Atorvastatin Calcium (Atorvastatin Calcium 20 Mg Tablet) 20 mg PO BEDTIME [facility] Last Admin: 12/23/22 23:01 Dose: Not Given Documented By: IGNACIA Non-Admin Reason: NPO Bisacodyl (Bisacodyl 10 Mg Supp.Rect) 10 mg [place] DAILY PRN PRN Reason: Constipation Docusate Sodium (Docusate Sodium 100 Mg Capsule) 100 mg PO DAILY PRN PRN Reason: Constipation Guaifenesin (Guaifenesin 100 Mg/5 Ml Liquid) 10 ml PO Q8H PRN PRN Reason: Cough Guaifenesin (Guaifenesin La 600 Mg Tab.Er.12h) 600 mg PO BID [facility] Last Admin: 12/24/22 10:07 Dose: Not Given Documented By: RUBY Non-Admin Reason: NPO Hydralazine HCl (Hydralazine Hcl 25 Mg Tablet) 75 mg PO TID [facility]; Protocol Last Admin: 12/23/22 23:02 Dose: Not Given Documented By: IGNACIA Non-Admin Reason: NPO Cefazolin Sodium 1 gm/ Sodium (Chloride) 50 mls @ 100 mls/hr IV Q12H [facility] Last Infusion: 12/24/22 02:43 Dose: 0 mls/hr Documented By: JAKE Isosorbide Mononitrate (Isosorbide Mononitrate 60 Mg Tab.Er.24h) 60 mg PO DAILY [facility]; Protocol Last Admin: 12/24/22 10:07 Dose: Not Given Documented By: RUBY Non-Admin Reason: NPO Ketorolac Tromethamine (Ketorolac Tromethamine 0.5% Op 5 Ml Drops) 1 drop EYE-BOTH QID [facility] Last Admin: 12/24/22 01:52 Dose: 1 drop Documented By: JAKE Loperamide HCl (Loperamide Hcl 2 Mg Capsule) 2 mg PO Q6H PRN PRN Reason: loose stool Lorazepam (Lorazepam 2 Mg/Ml Vial) 0.5 mg IVPUSH Q8H PRN PRN Reason: Anxiety Last Admin: 12/24/22 02:47 Dose: 0.5 mg Documented By: JAKE Methylprednisolone Sodium Succinate (Methylprednisolone Sod Succ 40 Mg/Ml Vial) 40 mg IVPUSH Q24H [facility] Last Admin: 12/24/22 08:05 Dose: 40 mg Documented By: RUBY Metoprolol Tartrate (Metoprolol Tartrate 50 Mg Tablet) 50 mg PO BID [facility]; Protocol Last Admin: 12/23/22 23:02 Dose: Not Given Documented By: IGNACIA Non-Admin Reason: NPO Morphine Sulfate (Morphine Sulfate 2 Mg/Ml Cartridge) 1 mg IVPUSH Q4H PRN; Protocol PRN Reason: Pain, Mild (Pain Scale 1-3) Last Admin: 12/24/22 08:05 Dose: 1 mg Documented By: RUBY Naloxone HCl (Naloxone Hcl 0.4 Mg/Ml Vial) 0.4 mg SUBCUT Q2M PRN PRN Reason: Opioid Overdose Omeprazole (Omeprazole 20 Mg Capsule.) 20 mg PO DAILY@0630 [facility] Last Admin: 12/24/22 06:06 Dose: Not Given Documented By: IGNACIA Non-Admin Reason: NPO Ondansetron HCl (Ondansetron Hcl 4 Mg/2 Ml Vial) 4 mg IVPUSH Q8H PRN PRN Reason: Nausea and Vomiting Polyethylene Glycol (Polyethylene Glycol 3350 17 Gm Powd.Pack) 17 gm PO DAILY [facility] Last Admin: 12/23/22 10:36 Dose: Not Given Documented By: JEREMIAH Non-Admin Reason: NPO Sodium Chloride (0.9 % Sodium Chloride Flush 3 Ml Syringe) 3 ml IVFLUSH QSHIFT [facility] Last Admin: 12/24/22 08:05 Dose: 3 ml Documented By: RUBY Vitamin D (Cholecalciferol (Vitamin D3) 25 Mcg Tablet) 25 mcg PO DAILY [facility] Last Admin: 12/24/22 10:07 Dose: Not Given Documented By: RUBY Non-Admin Reason: NPO Labs 12/22/22 05:21 12/24/22 05:36 Labs: Laboratory Results - last 24 hr 12/24/22 05:36 Anion Gap 19 Estim Creat Clear Calc 25.0 Estimated GFR 18 Random Glucose 98 Calcium 8.6 Assessment and Plan (1) ULISES (acute kidney injury): Status: Acute Plan 82yo M with COPD, HFpEF, CKD4, hx of DVT on apixaban, sent in from [facility], where he is a LTC resident, for fever Hypernatremia likely from poor oral intake added d5ns, will recheck this evening ULISES/CKD4/metabolic acidosis. slowly improving Lasix stopped nephrology following rivas in place for fluid management follow BMP s/p bicarb improved with sodium bicarb replacement, will hold off on further replacement for now Acute hypoxic resp failure. Resolved multifactorial due to below issues ABG without hypercarbia placed on BiPAP 12/18/22 for work of breathing, now much improved and on room air Acute toxic metabolic encephalopathy brain CT negative, no focal deficits appreciated probably multifactorial r/t ULISES, CHF, infection and delirium VBG stable, no co2 retention ammonia normal gabapetin on hold Acute on chronic HFpEF, no acute exacerbation last TTE 07/25/22 LVEF 60%, abnormal diastolic function, normal RV systolic function, mild pHTN rivas for accurate Is&Os continue hydralazine + Imdur + metoprolol tartrate home doses cellulitis, right LE initially placed on cefazolin for cellulitis than changed to vanco + cefepime for concern of PNA but CT less supportive of this diagnosis continue cefazolin BCx negative. Afebrile since 12/18. COPD exacerbation taper IV steroids, standing/prn nebs, antibiotics as above HTN continue hydralazine + Imdur + metoprolol tartrate HLD atorvastatin hx DVT continue Eliquis VTE ppx: Eliquis dispo: eventual return to LTC attending - dr. Tay Pt daughter gema ([phone]) requires continued inpatient hospitalization for the following reasons: resp failure Time Spent With Patient Time: Total time managing care of this patient today ____ minutes. Quality Stroke Does the patient have a stroke diagnosis?: No VTE Prior VTE?: No VTE Risk Level:: Medical - moderate - high VTE Device Contraindication: Treatment Not Indicated VTE Drug Contraindication: N/A - Med Ordered
--- NOTE | 2022-12-24 12:12 | PM.PNNEP ---
Subjective Subjective Date of Service: 12/25/22 Principal diagnosis: Events noted Interval history: seen and examined this morning Follow-up for CHF, COPD, lower extremity edema, encephalopathy Still lethargic Physical Exam Vital Signs: Vital Signs: Last Vital Signs Temp 98.3 F 12/24/22 08:00 Pulse 73 12/24/22 11:08 Resp 18 12/24/22 11:08 BP 152/60 H 12/24/22 08:00 Pulse Ox 98 12/24/22 08:00 O2 Del Method Room Air 12/24/22 08:00 O2 Flow Rate 2 12/24/22 04:00 FiO2 32 12/18/22 03:26 Oxygen Flow Rate 2 12/18/22 03:26 BMI result Body Mass Index 38.1 Const: Other: lethargic, ill appearing; repeats tired Objective Data Labs 12/22/22 05:21 12/24/22 05:36 Labs: Laboratory Results - last 24 hr 12/24/22 05:36 Sodium 152 H Potassium 4.2 Chloride 115 H Carbon Dioxide 22 Anion Gap 19 BUN 92 H Creatinine 3.25 H Estim Creat Clear Calc 25.0 Estimated GFR 18 Random Glucose 98 Calcium 8.6 Microbiology Microbiology Results: Microbiology 12/18/22 03:55 Blood - Venous Blood Culture - Final No growth after 5 days. 12/18/22 03:55 Blood - Venous Blood Culture - Final No growth after 5 days. Procedures Date of Service Date of Service: 12/25/22 Assessment & Plan Assessment and plan (1) Stage 4 chronic kidney disease: Status: Acute Plan 82-YEAR-OLD ADMITTED WITH A FEVER AND ACUTE KIDNEY INJURY ON CHRONIC KIDNEY DISEASE. 1. Acute kidney injury.? DDx ATN/Tubular injury /VAnco might be contributing as well. ? Need to rule out urinary retention/ obstructive uropathy.? Repeat urine studies to look for possibility of infectious associated GN.?- Has about a gm protein with RBCs with Eosinophilia Most likely is multifactorial ATN for some of the stressors as noted above.? Given the presentation of pulmonary and kidney injury, some serologies to rule out a pulmonary renal syndrome, although this seems unlikely given his presentation with a fever. 2. Advanced chronic kidney disease.? 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 Baseline creatinine 2.5 to 3. 3. Cellulitis. 4. Lower extremity edema.? This is due to a combination of the chronic venous stasis disease along with his chronic kidney disease and heart dysfunction.? He is maintained on Lasix 40 twice a day . 5. Combined anion gap and non anion gap metabolic acidosis. ? RECOMMENDATIONS:? 1. Hold Nephrotoxins including Gabapentin 2. Follow serologies to include ruling out an ANCA associated pulmonary renal syndrome. 3.Hold diuretics temporarily 4. Adjust Vanco dosing according to EGFR May need a kidney biopsy based on serologies. No absolute indication for dialysis today. Increase free water intake to correct hypernatremia. Can start D5W at 70 cc/hour x1 L. Time Spent With Patient Time: Total time managing care of this patient today ____ minutes. Progress Note: Quality Stroke Does the patient have a stroke diagnosis?: No
[2022-12-24] MEDS: Dextrose 5 % and 0.9 % NaCl 1,000 ML 80 ML IVCONT (13:18)
[2022-12-24 16:38] LABS: Sodium 153 mmol/L (135-145)
--- NOTE | 2022-12-24 21:37 | PM.EVENT ---
Event Note Date of Service: 12/24/22 Event Note: Nurse informed that patient with SI. Will add sitter and consult CARE team and psychiatry team Time Spent With Patient Time: Total time managing care of this patient today ____ minutes.
[2022-12-25] VITALS (10 sets, daily range): BP systolic 145–188; BP diastolic 40–76; PULSE 65–81; RESP 16–20; TEMP 36.2–36.8; O2SAT 92–100; BMI 38.2
[2022-12-25] MEDS: Dextrose 5 % and 0.9 % NaCl 1,000 ML 80 ML IVCONT (02:16)
[2022-12-25 06:06] LABS: Anion Gap 17 (12-20); Blood Urea Nitrogen 83 mg/dL (9-16); Calcium 8.9 mg/dL (8.4-10.2); Carbon Dioxide 22 mmol/L (22-29); Chloride 121 mmol/L (96-108); Creatinine Clr Calc Pharmacy 27.6; Estimated Glomerular Filt Rate 21; Glucose Random 116 mg/dL (60-115); Potassium 3.7 mmol/L (3.3-5.1); Sodium 156 mmol/L (135-145)
[2022-12-25] MEDS: LORazepam 2 MG/ML VIAL 0.5 MG IVPUSH ×2 (06:39→21:05)
[2022-12-25] MEDS: Dextrose 5 % 1,000 ML 80 ML IVCONT ×2 (08:03→21:08)
[2022-12-25] MEDS: methylPREDNISolone Sod Succ 40 MG/ML VIAL IVPUSH (08:05)
--- NOTE | 2022-12-25 08:10 | HO.PM.IMPN ---
Subjective Subjective Date of Service: 12/25/22 Interval History: seen and examined this morning Follow-up for CHF, COPD, lower extremity edema, encephalopathy Still lethargic and confused Review of Systems Review of Systems: Yes Unobtainable due to mental status Neurologic Neurologic: Reports confusion Psychiatric Psychiatric: Reports confusion Physical Exam Vital Signs: Vital Signs: Last Vital Signs Temp 97.3 F 12/25/22 04:00 Pulse 70 12/25/22 04:00 Resp 20 12/25/22 04:00 BP 170/64 H 12/25/22 04:00 Pulse Ox 97 12/25/22 04:00 O2 Del Method Room Air 12/25/22 04:00 O2 Flow Rate 2 12/24/22 04:00 FiO2 32 12/18/22 03:26 Oxygen Flow Rate 2 12/18/22 03:26 BMI result Body Mass Index 38.2 Appearing in no acute distress lung sounds are clear to auscultation heart regular rate rhythm, clear S1, S2 positive bowel sounds, abdomen is soft, nontender neuro patient is alert x3, no focal deficits chronic LE skin changes Const: General: confusion Orientation/consciousness: confusion Neuro: General: confusion Objective Data Active Medications Acetaminophen (Acetaminophen 325 Mg Tablet) 650 mg PO Q4H PRN PRN Reason: Pain, Mild (Pain Scale 1-3) Last Admin: 12/22/22 13:56 Dose: 650 mg Documented By: ÁNGELA Albuterol Sulfate (Albuterol Sulfate (0.083%) 2.5 Mg/3 Ml Vial.Neb) 2.5 mg INHALE Q2H PRN PRN Reason: Shortness of Breath/Wheezing Albuterol/Ipratropium (Albuterol/Iprat 2.5/0.5mg 3 Ml Ampul.Neb) 3 ml INHALE RQ4H WHILE AWAKE [facility] Last Admin: 12/25/22 07:19 Dose: Not Given Documented By: HELIO Non-Admin Reason: Patient Asleep Apixaban (Apixaban 2.5 Mg Tablet) 2.5 mg PO BID [facility] Last Admin: 12/24/22 21:36 Dose: Not Given Documented By: DAVE Non-Admin Reason: NPO Atorvastatin Calcium (Atorvastatin Calcium 20 Mg Tablet) 20 mg PO BEDTIME [facility] Last Admin: 12/24/22 21:36 Dose: Not Given Documented By: DAVE Non-Admin Reason: NPO Bisacodyl (Bisacodyl 10 Mg Supp.Rect) 10 mg GA DAILY PRN PRN Reason: Constipation Docusate Sodium (Docusate Sodium 100 Mg Capsule) 100 mg PO DAILY PRN PRN Reason: Constipation Guaifenesin (Guaifenesin 100 Mg/5 Ml Liquid) 10 ml PO Q8H PRN PRN Reason: Cough Guaifenesin (Guaifenesin La 600 Mg Tab.Er.12h) 600 mg PO BID [facility] Last Admin: 12/24/22 21:36 Dose: Not Given Documented By: DAVE Non-Admin Reason: NPO Hydralazine HCl (Hydralazine Hcl 25 Mg Tablet) 75 mg PO TID [facility]; Protocol Last Admin: 12/24/22 21:36 Dose: Not Given Documented By: DAVE Non-Admin Reason: NPO Cefazolin Sodium 1 gm/ Sodium (Chloride) 50 mls @ 100 mls/hr IV Q12H [facility] Last Infusion: 12/25/22 02:52 Dose: 0 mls/hr Documented By: DAVE Dextrose (D5w) 1,000 mls @ 80 mls/hr IVCONT .[id number] [facility] Last Admin: 12/25/22 08:03 Dose: 80 mls/hr Documented By: HARPER Isosorbide Mononitrate (Isosorbide Mononitrate 60 Mg Tab.Er.24h) 60 mg PO DAILY [facility]; Protocol Last Admin: 12/24/22 10:07 Dose: Not Given Documented By: RUBY Non-Admin Reason: NPO Ketorolac Tromethamine (Ketorolac Tromethamine 0.5% Op 5 Ml Drops) 1 drop EYE-BOTH QID [facility] Last Admin: 12/24/22 21:47 Dose: Not Given Documented By: DAVE Non-Admin Reason: Patient Refused Loperamide HCl (Loperamide Hcl 2 Mg Capsule) 2 mg PO Q6H PRN PRN Reason: loose stool Lorazepam (Lorazepam 2 Mg/Ml Vial) 0.5 mg IVPUSH Q8H PRN PRN Reason: Anxiety Last Admin: 12/25/22 06:39 Dose: 0.5 mg Documented By: DAVE Methylprednisolone Sodium Succinate (Methylprednisolone Sod Succ 40 Mg/Ml Vial) 40 mg IVPUSH Q24H [facility] Last Admin: 12/25/22 08:05 Dose: 40 mg Documented By: HARPER Metoprolol Tartrate (Metoprolol Tartrate 50 Mg Tablet) 50 mg PO BID [facility]; Protocol Last Admin: 12/24/22 21:37 Dose: Not Given Documented By: DAVE Non-Admin Reason: NPO Naloxone HCl (Naloxone Hcl 0.4 Mg/Ml Vial) 0.4 mg SUBCUT Q2M PRN PRN Reason: Opioid Overdose Omeprazole (Omeprazole 20 Mg Capsule.Dr) 20 mg PO DAILY@0630 [facility] Last Admin: 12/25/22 06:00 Dose: Not Given Documented By: DAVE Non-Admin Reason: NPO Ondansetron HCl (Ondansetron Hcl 4 Mg/2 Ml Vial) 4 mg IVPUSH Q8H PRN PRN Reason: Nausea and Vomiting Polyethylene Glycol (Polyethylene Glycol 3350 17 Gm Powd.Pack) 17 gm PO DAILY [facility] Last Admin: 12/24/22 11:26 Dose: Not Given Documented By: RUBY Non-Admin Reason: NPO Sodium Chloride (0.9 % Sodium Chloride Flush 3 Ml Syringe) 3 ml IVFLUSH QSHIFT [facility] Last Admin: 12/25/22 08:05 Dose: Not Given Documented By: HARPER Non-Admin Reason: IV Running Vitamin D (Cholecalciferol (Vitamin D3) 25 Mcg Tablet) 25 mcg PO DAILY [facility] Last Admin: 12/24/22 10:07 Dose: Not Given Documented By: RUBY Non-Admin Reason: NPO Labs 12/22/22 05:21 12/25/22 05:15 Labs: Laboratory Results - last 24 hr 12/25/22 12/25/22 05:15 05:15 Anion Gap 17 Cancelled Estim Creat Clear Calc 27.6 Cancelled Estimated GFR 21 Cancelled Random Glucose 116 H Cancelled Calcium 8.9 Cancelled Assessment and Plan (1) ULISES (acute kidney injury): Status: Acute Plan 82yo M with COPD, HFpEF, CKD4, hx of DVT on apixaban, sent in from [facility], where he is a LTC resident, for fever Hypernatremia likely from poor oral intake cotinue d5w, recheck nephrology following>agree with D5W ULISES/CKD4/metabolic acidosis. slowly improving Lasix stopped nephrology following rivas in place for fluid management follow BMP s/p bicarb improved with sodium bicarb replacement, will hold off on further replacement for now Acute hypoxic resp failure. Resolved multifactorial due to below issues ABG without hypercarbia placed on BiPAP 12/18/22 for work of breathing, now much improved and on room air Acute toxic metabolic encephalopathy brain CT negative, no focal deficits appreciated probably multifactorial r/t ULISES, CHF, infection and delirium VBG stable, no co2 retention ammonia normal gabapetin on hold still NPO, aspiration risk as per speech therapy Acute on chronic HFpEF, no acute exacerbation last TTE 07/25/22 LVEF 60%, abnormal diastolic function, normal RV systolic function, mild pHTN rivas for accurate Is&Os continue hydralazine + Imdur + metoprolol tartrate home doses cellulitis, right LE initially placed on cefazolin for cellulitis than changed to vanco + cefepime for concern of PNA but CT less supportive of this diagnosis continue cefazolin BCx negative. Afebrile since 12/18. COPD exacerbation taper IV steroids, standing/prn nebs, antibiotics as above HTN continue hydralazine + Imdur + metoprolol tartrate HLD atorvastatin hx DVT continue Eliquis VTE ppx: Eliquis dispo: eventual return to LTC attending - dr. Vicente Pt daughter gema ([phone]) requires continued inpatient hospitalization for the following reasons: resp failure Time Spent With Patient Time: Total time managing care of this patient today ____ minutes. Quality Stroke Does the patient have a stroke diagnosis?: No VTE Prior VTE?: No VTE Risk Level:: Medical - moderate - high VTE Device Contraindication: Treatment Not Indicated VTE Drug Contraindication: N/A - Med Ordered
--- NOTE | 2022-12-25 08:24 | MHC.CARE ---
CARE Team received consult for Pt for SI. CARE Team spoke with ROSALIO Garcia who reported consult was intended for psychiatry due Pt not being medicably clear at this time.
--- NOTE | 2022-12-25 09:26 | PM.PNNEP ---
Subjective Subjective Date of Service: 12/26/22 Principal diagnosis: Events noted Interval history: Lethargic Started on D5W this morning Physical Exam Vital Signs: Vital Signs: Last Vital Signs Temp 97.7 F 12/25/22 08:00 Pulse 70 12/25/22 08:00 Resp 18 12/25/22 08:00 BP 156/65 H 12/25/22 08:00 Pulse Ox 92 12/25/22 08:00 O2 Del Method Room Air 12/25/22 08:00 O2 Flow Rate 2 12/24/22 04:00 FiO2 32 12/18/22 03:26 Oxygen Flow Rate 2 12/18/22 03:26 BMI result Body Mass Index 38.2 Lethargic Neck is supple Lung: Air entry equal Heart: S1,S2, normal. No rub Abd: Soft. BS + NS : Alert.No asterexis Ext: 1+ edema Const: Other: lethargic, ill appearing; repeats tired Objective Data Labs 12/22/22 05:21 12/25/22 05:15 Labs: Laboratory Results - last 24 hr 12/24/22 12/25/22 12/25/22 16:17 05:15 05:15 Sodium 153 H 156 H Cancelled Potassium 3.7 Cancelled Chloride 121 H Cancelled Carbon Dioxide 22 Cancelled Anion Gap 17 Cancelled BUN 83 H Cancelled Creatinine 2.94 H Cancelled Estim Creat Clear Calc 27.6 Cancelled Estimated GFR 21 Cancelled Random Glucose 116 H Cancelled Calcium 8.9 Cancelled Microbiology Microbiology Results: Microbiology 12/18/22 03:55 Blood - Venous Blood Culture - Final No growth after 5 days. 12/18/22 03:55 Blood - Venous Blood Culture - Final No growth after 5 days. Procedures Date of Service Date of Service: 12/26/22 Assessment & Plan Assessment and plan (1) Stage 4 chronic kidney disease: Status: Acute Plan 82-YEAR-OLD ADMITTED WITH A FEVER AND ACUTE KIDNEY INJURY ON CHRONIC KIDNEY DISEASE. 1. Acute kidney injury.? DDx ATN/Tubular injury /VAnco might be contributing as well. ? Need to rule out urinary retention/ obstructive uropathy.? Repeat urine studies to look for possibility of infectious associated GN.?- Has about a gm protein with RBCs with Eosinophilia Most likely is multifactorial ATN for some of the stressors as noted above.? Given the presentation of pulmonary and kidney injury, some serologies to rule out a pulmonary renal syndrome, although this seems unlikely given his presentation with a fever. Creatinine is improving !! 2. Advanced chronic kidney disease.? 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 Baseline creatinine 2.5 to 3. 3. Cellulitis. 4. Lower extremity edema.? This is due to a combination of the chronic venous stasis disease along with his chronic kidney disease and heart dysfunction.? He is maintained on Lasix 40 twice a day . 5. Combined anion gap and non anion gap metabolic acidosis. ? RECOMMENDATIONS:? 1. Hold Nephrotoxins including Gabapentin 2. Follow serologies to include ruling out an ANCA associated pulmonary renal syndrome. 3.Hold diuretics temporarily 4. Adjust Vanco dosing according to EGFR No absolute need a kidney biopsy at this time No absolute indication for dialysis today. Increase free water intake to correct hypernatremia. D5W at 80 cc/hour x2 L. Time Spent With Patient Time: Total time managing care of this patient today ____ minutes. Progress Note: Quality Stroke Does the patient have a stroke diagnosis?: No
--- NOTE | 2022-12-25 10:12 | MHC.CM.PN ---
Per ROUNDS discussion, Patient is not yet medically cleared for dc (NA to be re-checked and Nephrology Consult needed); Patient will return to LTC @ SNF and CM will continue to follow.
[2022-12-25 10:53] LABS: Complement C3 144 mg/dL (82-185)
[2022-12-25 11:35] LABS: Sodium 155 mmol/L (135-145)
--- NOTE | 2022-12-25 14:29 | MHC.SL.SWA ---
Speech Pathologist Impression: Risk of aspiration, overt s/s of aspiration Risk of Aspiration Due to: Medically Fragile History of Pneumonia Reduced Cognition Dysphasia Diet Status: No change at this time Liquid Consistency and Strategies for Safe Swallow: Liquid Intake Recommendation: NPO Solid Food Consistency: Dietary Recommendations: NPO Additional Modifications to Solid Foods: Recommend continue NPO, as pt is w/ high aspiration risk d/t decreased mentation, displayed overt s/s of aspiration. Continue frequent oral care daily. Oral Medication Intake: NPO Please contact the pharmacy regarding appropriate crushable or liquid drug formulations that are available whenever modified delivery is recommended. Supervision While Eating and Drinking for Safe Swallow: PO with [employer] Recommendation for Speech: Inpatient Speech Therapy Butt Presser Clinican/Clinical Fellow: No Supervisory Statement: I have reviewed and agree with the student/clinical fellow's documentation: N/A Speech Language Pathologist: Catina Rodríguez M.A., CCC-[employer]
[2022-12-25] MEDS: Albuterol/Iprat 2.5/0.5MG 3 ML AMPUL.NEB INHALE ×2 (15:23→20:17)
[2022-12-25 15:46] LABS: Sodium 155 mmol/L (135-145)
[2022-12-25] MEDS: 0.9 % Sodium Chloride Flush 3 ML SYRINGE IVFLUSH (16:32)
[2022-12-25] MEDS: Ketorolac Tromethamine 0.5% Op 5 ML DROPS 1 DROP EYE-BOTH (16:32)
[2022-12-25] MEDS: Morphine Sulfate 4 MG/ML CARTRIDGE IVPUSH (21:05)
[2022-12-25] MEDS: hydrALAZINE HCl 20 MG/ML VIAL 5 MG IVPUSH (21:07)
[2022-12-25 22:14] LABS: Myeloperoxidase Antibody <1.0 AI; Proteinase 3 PR3 Antibodies <1.0 AI
[2022-12-26] VITALS (11 sets, daily range): BP systolic 139–199; BP diastolic 69–84; PULSE 58–79; RESP 16–20; TEMP 36–37.2; O2SAT 92–97; BMI 37.9
[2022-12-26] MEDS: Labetalol HCL 100 MG/20 ML VIAL 10 MG IVPUSH (00:06)
[2022-12-26] MEDS: hydrALAZINE HCl 20 MG/ML VIAL 10 MG IVPUSH (04:48)
[2022-12-26] MEDS: Acetaminophen Supp 650 MG SUPP.RECT PR (05:46)
[2022-12-26 06:10] LABS: Anion Gap 16 (12-20); Blood Urea Nitrogen 77 mg/dL (9-16); Calcium 8.8 mg/dL (8.4-10.2); Carbon Dioxide 21 mmol/L (22-29); Chloride 121 mmol/L (96-108); Estimated Glomerular Filt Rate 23; Glucose Random 114 mg/dL (60-115); Potassium 3.7 mmol/L (3.3-5.1); Sodium 154 mmol/L (135-145)
--- NOTE | 2022-12-26 07:00 | PC.NURSE ---
Pt BP were elevated and pt was complaining of headache. MD made aware. Hydroxyzine and labatolol were given for BP as well as Tylenol and morphine for pain. Will continue to monitor.
[2022-12-26] MEDS: Albuterol/Iprat 2.5/0.5MG 3 ML AMPUL.NEB INHALE ×4 (07:27→18:50)
[2022-12-26] MEDS: methylPREDNISolone Sod Succ 40 MG/ML VIAL IVPUSH (07:54)
[2022-12-26] MEDS: Dextrose 5 % 1,000 ML 80 ML IVCONT ×2 (09:54→22:44)
--- NOTE | 2022-12-26 09:56 | HO.PM.IMPN ---
Subjective Subjective Date of Service: 12/26/22 Interval History: seen and examined this morning Follow-up for CHF, COPD, lower extremity edema, encephalopathy more awake and conversive Review of Systems Review of Systems: Yes Unobtainable due to mental status Neurologic Neurologic: Reports confusion Psychiatric Psychiatric: Reports confusion Physical Exam Vital Signs: Vital Signs: Last Vital Signs Temp 98.4 F 12/26/22 07:52 Pulse 77 12/26/22 07:52 Resp 18 12/26/22 07:52 BP 142/79 H 12/26/22 07:52 Pulse Ox 94 12/26/22 07:52 O2 Del Method Room Air 12/26/22 07:52 O2 Flow Rate 7 12/25/22 15:29 FiO2 32 12/18/22 03:26 Oxygen Flow Rate 2 12/18/22 03:26 BMI result Body Mass Index 37.9 Appearing in no acute distress lung sounds are clear to auscultation heart regular rate rhythm, clear S1, S2 positive bowel sounds, abdomen is soft, nontender neuro patient is alert x3, no focal deficits Const: General: confusion Orientation/consciousness: confusion Neuro: General: confusion Objective Data Active Medications Acetaminophen (Acetaminophen Supp 650 Mg Supp.Rect) 650 mg GA Q6H PRN PRN Reason: Pain, Mild (Pain Scale 1-3) Last Admin: 12/26/22 05:46 Dose: 650 mg Documented By: KIMBERLEE Albuterol Sulfate (Albuterol Sulfate (0.083%) 2.5 Mg/3 Ml Vial.Neb) 2.5 mg INHALE Q2H PRN PRN Reason: Shortness of Breath/Wheezing Albuterol/Ipratropium (Albuterol/Iprat 2.5/0.5mg 3 Ml Ampul.Neb) 3 ml INHALE RQ4H WHILE AWAKE [facility] Last Admin: 12/26/22 07:27 Dose: 3 ml Documented By: PAUL Apixaban (Apixaban 2.5 Mg Tablet) 2.5 mg PO BID [facility] Last Admin: 12/26/22 07:59 Dose: Not Given Documented By: HARPER Non-Admin Reason: Nausea Atorvastatin Calcium (Atorvastatin Calcium 20 Mg Tablet) 20 mg PO BEDTIME [facility] Last Admin: 12/25/22 21:17 Dose: Not Given Documented By: KIMBERLEE Non-Admin Reason: NPO Bisacodyl (Bisacodyl 10 Mg Supp.Rect) 10 mg GA DAILY PRN PRN Reason: Constipation Docusate Sodium (Docusate Sodium 100 Mg Capsule) 100 mg PO DAILY PRN PRN Reason: Constipation Guaifenesin (Guaifenesin 100 Mg/5 Ml Liquid) 10 ml PO Q8H PRN PRN Reason: Cough Guaifenesin (Guaifenesin La 600 Mg Tab.Er.12h) 600 mg PO BID [facility] Last Admin: 12/26/22 07:59 Dose: Not Given Documented By: HARPER Non-Admin Reason: NPO Hydralazine HCl (Hydralazine Hcl 25 Mg Tablet) 75 mg PO TID [facility]; Protocol Last Admin: 12/26/22 07:59 Dose: Not Given Documented By: HARPER Non-Admin Reason: NPO Cefazolin Sodium 1 gm/ Sodium (Chloride) 50 mls @ 100 mls/hr IV Q12H [facility] Last Infusion: 12/26/22 04:37 Dose: 0 mls/hr Documented By: KIMBERLEE Dextrose (D5w) 1,000 mls @ 80 mls/hr IVCONT .[id number] [facility] Last Admin: 12/26/22 09:54 Dose: 80 mls/hr Documented By: HARPER Isosorbide Mononitrate (Isosorbide Mononitrate 60 Mg Tab.Er.24h) 60 mg PO DAILY [facility]; Protocol Last Admin: 12/26/22 07:59 Dose: Not Given Documented By: HARPER Non-Admin Reason: NPO Ketorolac Tromethamine (Ketorolac Tromethamine 0.5% Op 5 Ml Drops) 1 drop EYE-BOTH QID [facility] Last Admin: 12/26/22 07:59 Dose: Not Given Documented By: HARPER Non-Admin Reason: Patient Refused Loperamide HCl (Loperamide Hcl 2 Mg Capsule) 2 mg PO Q6H PRN PRN Reason: loose stool Lorazepam (Lorazepam 2 Mg/Ml Vial) 0.5 mg IVPUSH Q8H PRN PRN Reason: Anxiety Last Admin: 12/25/22 21:05 Dose: 0.5 mg Documented By: KIMBERLEE Methylprednisolone Sodium Succinate (Methylprednisolone Sod Succ 40 Mg/Ml Vial) 40 mg IVPUSH Q24H [facility] Last Admin: 12/26/22 07:54 Dose: 40 mg Documented By: HARPER Metoprolol Tartrate (Metoprolol Tartrate 50 Mg Tablet) 50 mg PO BID [facility]; Protocol Last Admin: 12/26/22 07:59 Dose: Not Given Documented By: HARPER Non-Admin Reason: NPO Naloxone HCl (Naloxone Hcl 0.4 Mg/Ml Vial) 0.4 mg SUBCUT Q2M PRN PRN Reason: Opioid Overdose Omeprazole (Omeprazole 20 Mg Capsule.Dr) 20 mg PO DAILY@0630 [facility] Last Admin: 12/26/22 05:09 Dose: Not Given Documented By: KIMBERLEE Non-Admin Reason: NPO Ondansetron HCl (Ondansetron Hcl 4 Mg/2 Ml Vial) 4 mg IVPUSH Q8H PRN PRN Reason: Nausea and Vomiting Polyethylene Glycol (Polyethylene Glycol 3350 17 Gm Powd.Pack) 17 gm PO DAILY [facility] Last Admin: 12/26/22 07:59 Dose: Not Given Documented By: HARPER Non-Admin Reason: NPO Sodium Chloride (0.9 % Sodium Chloride Flush 3 Ml Syringe) 3 ml IVFLUSH QSHIFT [facility] Last Admin: 12/26/22 07:54 Dose: Not Given Documented By: HARPER Non-Admin Reason: IV Running Vitamin D (Cholecalciferol (Vitamin D3) 25 Mcg Tablet) 25 mcg PO DAILY [facility] Last Admin: 12/26/22 07:59 Dose: Not Given Documented By: HARPER Non-Admin Reason: NPO Labs 12/22/22 05:21 12/26/22 05:11 Labs: Laboratory Results - last 24 hr 12/21/22 12/26/22 12/26/22 11:30 05:11 05:11 Anion Gap 16 Estim Creat Clear Calc Cancelled 30.0 Estimated GFR Cancelled 23 Random Glucose 114 Calcium 8.8 Proteinase 3 (PR3) Ab <1.0 Myeloperoxidase Ab <1.0 Complement C3 144 Complement C4 34 Assessment and Plan (1) ULISES (acute kidney injury): Status: Acute Plan 82yo M with COPD, HFpEF, CKD4, hx of DVT on apixaban, sent in from [facility], where he is a LTC resident, for fever Dysphagia plan for [facility] speech therapy following Hypernatremia likely from poor oral intake nephrology following>agree with D5W ULISES/CKD4/metabolic acidosis. slowly improving Lasix stopped nephrology following follow BMP s/p bicarb replacement voiding trial Acute hypoxic resp failure. Resolved multifactorial due to below issues ABG without hypercarbia s/p BiPAP 12/18/22 for work of breathing, now much improved and on room air Acute toxic metabolic encephalopathy brain CT negative, no focal deficits appreciated probably multifactorial r/t ULISES, CHF, infection and delirium VBG stable, no co2 retention ammonia normal gabapetin on hold still NPO, aspiration risk as per speech therapy Acute on chronic HFpEF, no acute exacerbation last TTE 07/25/22 LVEF 60%, abnormal diastolic function, normal RV systolic function, mild pHTN rivas for accurate Is&Os continue hydralazine + Imdur + metoprolol tartrate home doses cellulitis, right LE initially placed on cefazolin for cellulitis than changed to vanco + cefepime for concern of PNA but CT less supportive of this diagnosis continue cefazolin BCx negative. Afebrile since 12/18. COPD exacerbation taper IV steroids, standing/prn nebs, antibiotics as above HTN continue hydralazine + Imdur + metoprolol tartrate HLD atorvastatin hx DVT continue Eliquis VTE ppx: Eliquis dispo: eventual return to LTC attending - dr. Vicente Pt daughter gema ([phone]) requires continued inpatient hospitalization for the following reasons: resp failure Time Spent With Patient Time: Total time managing care of this patient today ____ minutes. Quality Stroke Does the patient have a stroke diagnosis?: No VTE Prior VTE?: No VTE Risk Level:: Medical - moderate - high VTE Device Contraindication: Treatment Not Indicated VTE Drug Contraindication: N/A - Med Ordered
--- NOTE | 2022-12-26 10:14 | PM.PNNEP ---
Subjective Subjective Date of Service: 12/27/22 Principal diagnosis: Events noted Interval history: seen and examined this morning Follow-up for CHF, COPD, lower extremity edema, encephalopathy He is more awake today. Oral intake is still poor. Physical Exam Vital Signs: Vital Signs: Last Vital Signs Temp 98.4 F 12/26/22 07:52 Pulse 77 12/26/22 07:52 Resp 18 12/26/22 07:52 BP 142/79 H 12/26/22 07:52 Pulse Ox 94 12/26/22 07:52 O2 Del Method Room Air 12/26/22 07:52 O2 Flow Rate 7 12/25/22 15:29 FiO2 32 12/18/22 03:26 Oxygen Flow Rate 2 12/18/22 03:26 BMI result Body Mass Index 37.9 Arousable Neck is supple Lung: Air entry with rhonchi Heart: S1,S2, normal. No rub Abd: Soft. BS + NS : Alert.No asterexis Ext: 1+ edema Const: Other: lethargic, ill appearing; repeats tired Objective Data Labs 12/22/22 05:21 12/26/22 05:11 Labs: Laboratory Results - last 24 hr 12/21/22 12/25/22 12/25/22 11:30 11:10 15:32 Sodium 155 H 155 H Potassium Chloride Carbon Dioxide Anion Gap BUN Creatinine Estim Creat Clear Calc Estimated GFR Random Glucose Calcium Proteinase 3 (PR3) Ab <1.0 Myeloperoxidase Ab <1.0 Complement C3 144 Complement C4 34 12/26/22 12/26/22 05:11 05:11 Sodium 154 H Potassium 3.7 Chloride 121 H Carbon Dioxide 21 L Anion Gap 16 BUN 77 H Creatinine Cancelled 2.70 H Estim Creat Clear Calc Cancelled 30.0 Estimated GFR Cancelled 23 Random Glucose 114 Calcium 8.8 Proteinase 3 (PR3) Ab Myeloperoxidase Ab Complement C3 Complement C4 Microbiology Microbiology Results: Microbiology 12/18/22 03:55 Blood - Venous Blood Culture - Final No growth after 5 days. 12/18/22 03:55 Blood - Venous Blood Culture - Final No growth after 5 days. Procedures Date of Service Date of Service: 12/27/22 Assessment & Plan Assessment and plan (1) Stage 4 chronic kidney disease: Status: Acute Plan 82-YEAR-OLD ADMITTED WITH A FEVER AND ACUTE KIDNEY INJURY ON CHRONIC KIDNEY DISEASE. 1. Acute kidney injury.? DDx ATN/Tubular injury /VAnco might be contributing as well. Repeat urine studies to look for possibility of infectious associated GN.?- Has about a gm protein with RBCs with Eosinophilia Renal function is slowly improving Most likely is multifactorial ATN for some of the stressors as noted above.? Given the presentation of pulmonary and kidney injury, some serologies to rule out a pulmonary renal syndrome, although this seems unlikely given his presentation with a fever. Creatinine is improving !! 2. Advanced chronic kidney disease.? 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 Baseline creatinine 2.5 to 3. 3. Cellulitis. 4. Lower extremity edema.? This is due to a combination of the chronic venous stasis disease along with his chronic kidney disease and heart dysfunction.? He is maintained on Lasix 40 twice a day . 5. Combined anion gap and non anion gap metabolic acidosis. ? RECOMMENDATIONS:? 1. Hold Nephrotoxins including Gabapentin 2. Follow serologies to include ruling out an ANCA associated pulmonary renal syndrome. 3.Hold diuretics temporarily 4. Adjust Vanco dosing according to EGFR No absolute need a kidney biopsy at this time No absolute indication for dialysis today. Increase free water intake to correct hypernatremia. Keep D5W at 80 cc/hour until oral intake improves Await barium swallow. Time Spent With Patient Time: Total time managing care of this patient today ____ minutes. Progress Note: Quality Stroke Does the patient have a stroke diagnosis?: No
--- NOTE | 2022-12-26 11:07 | MHC.CLN ---
PT WITH INCREASED NUTRITION RISK FOR MALNUTRITION R/T NEW DTI, LOW KIKI AND DAY 5 NPO CREDIT UNION TELLER CONTINUES TO RECOMMEND NPO STATUS D/T DYSPHAGIA NOTED MOLST STATES DNR/DNI, NO TF AND NO IVs IF DIET TO ADVANCE, PT WILL NEED HIGH PROTEIN, HIGH KCAL SUPPLEMENT TO PROMOTE WOUND HEALING FOLLOWING WITH TEAM SEE ALSO FULL CLINICAL NUTRITION ASSESSMENT
--- NOTE | 2022-12-26 14:54 | MHC.SL.DTX ---
Dysphagia Diet modifications: Last documented Solid diet consistencies: NPO Last documented Liquid consistency: NPO Last documented Medication Administration: Changes made to current diet?: No: Continue NPO Liquid Consistency and Strategies: Liquid Intake Recommendation: NPO Compensatory Strategies for Safe Swallow: Compensatory Strategies for Safe Swallow(b): Solid Food Consistency: Dietary Recommendations: NPO Additional Modifications to Solids: Recommend continue NPO, as pt is w/ high aspiration risk d/t decreased mentation, displayed overt s/s of aspiration. Continue frequent oral care daily. Oral Medication Intake: NPO Strategies and Precautions to be Taken for Safe Swallow: Supervision While Eating and/Drinking: PO with ORDER DISPATCHER Foods to Avoid: Swallowing Recommended Treatments: Compens. Strategy Educat. Level of Impact on: Daily activities: Interpersonal interactions: Education: Employment: Community: Prognosis for Improvement: Recommendation for Speech: Inpatient Speech Therapy Additional Comments: LTC at [facility], hx dysphagia; Per RN 12/21/22: Pt had significant change in mental status since previous night - garbled speech, unable to speak full sentences, lethargic. Pt unable to tolerate PO medication or any oral intake d/t mental status. Pt grunting, labored breathing - RR 18, b/l crackles anteriorly. MD aware. VBG's ordered. Results pending. Pt on continuous O2 monitoring with continuous cardiac monitoring. Treatment: Pt is more alert this morning, but still fatigues quickly and needs reminders to keep his eyes open or finish swallowing when PO is placed into his mouth. He tolerated oral care with a moistened sponge which relieved the dryness of his oral cavity. Pt was noted to sleep with an open mouth posture. He tolerated Thin liquids via Ice Chip and Spoon Sip. With spoon sips he was noted to have increasingly wet vocal quality. ORDER DISPATCHER recommends continued trials of Ice Chips throughout the day with supervision. Sitter and RN are in agreement with trialing ice chips today. ORDER DISPATCHER will return tomorrow morning for re-assessment. Prison Librarian Clinican/Clinical Fellow: Yes Supervisory Statement: I have reviewed and agree with the student/clinical fellow's documentation: N/A Speech Language Pathologist: Michael Whalen M.A., [facility]-ORDER DISPATCHER
[2022-12-26] MEDS: 0.9 % Sodium Chloride Flush 3 ML SYRINGE IVFLUSH ×2 (15:44→20:48)
[2022-12-26] MEDS: Ketorolac Tromethamine 0.5% Op 5 ML DROPS 1 DROP EYE-BOTH ×2 (17:06→20:49)
[2022-12-26] MEDS: hydrALAZINE HCl 20 MG/ML VIAL 5 MG IVPUSH (20:48)
[2022-12-27] VITALS (10 sets, daily range): BP systolic 123–196; BP diastolic 59–90; PULSE 65–80; RESP 19–20; TEMP 36.2–36.5; O2SAT 93–97; BMI 38.5
[2022-12-27] MEDS: LORazepam 2 MG/ML VIAL 0.5 MG IVPUSH (01:18)
--- NOTE | 2022-12-27 01:27 | PC.NURSE ---
Pt alert to person and place, unsure of date or time. No s/sx pain or discomfort. No s/sx respiratory distress. HOB elevated for comfort. Strict NPO maintained, mouth care provided. Pt expresses unhappiness frequently and often yells out for water. Attempted to educate patient multiple times throughout shift regarding NPO. Hypertensive with SBP >190. Cross coverage notified, PRN IV Hyrdralazine ordered and given with some improvement. NSR with IVCD on civil engineering intern. D5W infusing as ordered. Pt yelling out continuously, all needs met. PRN Ativan given with effect. Call quinn within reach. Bed in lowest locked position.
[2022-12-27] MEDS: hydrALAZINE HCl 20 MG/ML VIAL 5 MG IVPUSH ×2 (04:29→21:42)
[2022-12-27 07:28] LABS: Creatinine Clr Calc Pharmacy 32.9; Estimated Glomerular Filt Rate 25
[2022-12-27] MEDS: Albuterol/Iprat 2.5/0.5MG 3 ML AMPUL.NEB INHALE ×2 (07:31→19:15)
[2022-12-27] MEDS: hydrALAZINE HCl 25 MG TABLET 75 MG PO (08:00)
[2022-12-27] MEDS: Metoprolol Tartrate 50 MG TABLET PO (08:00)
[2022-12-27] MEDS: Apixaban 2.5 MG TABLET PO (08:01)
[2022-12-27] MEDS: methylPREDNISolone Sod Succ 40 MG/ML VIAL IVPUSH (08:08)
[2022-12-27] MEDS: 0.9 % Sodium Chloride Flush 3 ML SYRINGE IVFLUSH (08:10)
--- NOTE | 2022-12-27 09:21 | HO.PM.IMPN ---
Subjective Subjective Date of Service: 12/27/22 Interval History: seen and examined this morning Follow-up for CHF, COPD, lower extremity edema, encephalopathy more awake and conversive Review of Systems Review of Systems: Yes Unobtainable due to mental status Neurologic Neurologic: Reports confusion Psychiatric Psychiatric: Reports confusion Physical Exam Vital Signs: Vital Signs: Last Vital Signs Temp 97.4 F 12/27/22 07:23 Pulse 74 12/27/22 07:32 Resp 20 12/27/22 07:32 BP 161/69 H 12/27/22 07:23 Pulse Ox 93 12/27/22 07:23 O2 Del Method Room Air 12/27/22 07:23 O2 Flow Rate 7 12/25/22 15:29 FiO2 32 12/18/22 03:26 Oxygen Flow Rate 2 12/18/22 03:26 BMI result Body Mass Index 38.5 Appearing in no acute distress lung sounds are clear to auscultation heart regular rate rhythm, clear S1, S2 positive bowel sounds, abdomen is soft, nontender, obese neuro patient is alert x3, no focal deficits Const: General: confusion Orientation/consciousness: confusion Neuro: General: confusion Objective Data Active Medications Acetaminophen (Acetaminophen Supp 650 Mg Supp.Rect) 650 mg MO Q6H PRN PRN Reason: Pain, Mild (Pain Scale 1-3) Last Admin: 12/26/22 05:46 Dose: 650 mg Documented By: KIMBERLEE Albuterol Sulfate (Albuterol Sulfate (0.083%) 2.5 Mg/3 Ml Vial.Neb) 2.5 mg INHALE Q2H PRN PRN Reason: Shortness of Breath/Wheezing Albuterol/Ipratropium (Albuterol/Iprat 2.5/0.5mg 3 Ml Ampul.Neb) 3 ml INHALE RQ4H WHILE AWAKE [facility] Last Admin: 12/27/22 07:31 Dose: 3 ml Documented By: PAUL Apixaban (Apixaban 2.5 Mg Tablet) 2.5 mg PO BID [facility] Last Admin: 12/27/22 08:01 Dose: 2.5 mg Documented By: JEAN CARLOS Atorvastatin Calcium (Atorvastatin Calcium 20 Mg Tablet) 20 mg PO BEDTIME [facility] Last Admin: 12/26/22 20:22 Dose: Not Given Documented By: DAVID Non-Admin Reason: NPO Bisacodyl (Bisacodyl 10 Mg Supp.Rect) 10 mg MO DAILY PRN PRN Reason: Constipation Docusate Sodium (Docusate Sodium 100 Mg Capsule) 100 mg PO DAILY PRN PRN Reason: Constipation Guaifenesin (Guaifenesin 100 Mg/5 Ml Liquid) 10 ml PO Q8H PRN PRN Reason: Cough Guaifenesin (Guaifenesin La 600 Mg Tab.Er.12h) 600 mg PO BID [facility] Last Admin: 12/27/22 08:14 Dose: Not Given Documented By: JEAN CARLOS Non-Admin Reason: cant crush Hydralazine HCl (Hydralazine Hcl 25 Mg Tablet) 75 mg PO TID [facility]; Protocol Last Admin: 12/27/22 08:00 Dose: 75 mg Documented By: JEAN CARLOS Hydralazine HCl (Hydralazine Hcl 20 Mg/Ml Vial) 5 mg IVPUSH Q4H PRN; Protocol PRN Reason: SBP>180 Last Admin: 12/27/22 04:29 Dose: 5 mg Documented By: DAVID Cefazolin Sodium 1 gm/ Sodium (Chloride) 50 mls @ 100 mls/hr IV Q12H [facility] Last Infusion: 12/27/22 03:40 Dose: 0 mls/hr Documented By: DAVID Dextrose (D5w) 1,000 mls @ 80 mls/hr IVCONT .[id number] [facility] Last Admin: 12/26/22 22:44 Dose: 80 mls/hr Documented By: DAVID Isosorbide Mononitrate (Isosorbide Mononitrate 60 Mg Tab.Er.24h) 60 mg PO DAILY [facility]; Protocol Last Admin: 12/27/22 08:14 Dose: Not Given Documented By: JEAN CARLOS Non-Admin Reason: cant crush Ketorolac Tromethamine (Ketorolac Tromethamine 0.5% Op 5 Ml Drops) 1 drop EYE-BOTH QID [facility] Last Admin: 12/27/22 08:15 Dose: Not Given Documented By: JEAN CARLOS Non-Admin Reason: Patient Refused Loperamide HCl (Loperamide Hcl 2 Mg Capsule) 2 mg PO Q6H PRN PRN Reason: loose stool Lorazepam (Lorazepam 2 Mg/Ml Vial) 0.5 mg IVPUSH Q8H PRN PRN Reason: Anxiety Last Admin: 12/27/22 01:18 Dose: 0.5 mg Documented By: DAVID Methylprednisolone Sodium Succinate (Methylprednisolone Sod Succ 40 Mg/Ml Vial) 40 mg IVPUSH Q24H [facility] Last Admin: 12/27/22 08:08 Dose: 40 mg Documented By: JEAN CARLOS Metoprolol Tartrate (Metoprolol Tartrate 50 Mg Tablet) 50 mg PO BID [facility]; Protocol Last Admin: 12/27/22 08:00 Dose: 50 mg Documented By: JEAN CARLOS Naloxone HCl (Naloxone Hcl 0.4 Mg/Ml Vial) 0.4 mg SUBCUT Q2M PRN PRN Reason: Opioid Overdose Omeprazole (Omeprazole 20 Mg Capsule.Dr) 20 mg PO DAILY@0630 [facility] Last Admin: 12/27/22 03:57 Dose: Not Given Documented By: DAVID Non-Admin Reason: NPO Ondansetron HCl (Ondansetron Hcl 4 Mg/2 Ml Vial) 4 mg IVPUSH Q8H PRN PRN Reason: Nausea and Vomiting Polyethylene Glycol (Polyethylene Glycol 3350 17 Gm Powd.Pack) 17 gm PO DAILY [facility] Last Admin: 12/27/22 08:15 Dose: Not Given Documented By: JEAN CARLOS Non-Admin Reason: NPO Sodium Chloride (0.9 % Sodium Chloride Flush 3 Ml Syringe) 3 ml IVFLUSH QSHIFT [facility] Last Admin: 12/27/22 08:10 Dose: 3 ml Documented By: JEAN CARLOS Vitamin D (Cholecalciferol (Vitamin D3) 25 Mcg Tablet) 25 mcg PO DAILY [facility] Last Admin: 12/27/22 08:14 Dose: Not Given Documented By: JEAN CARLOS Non-Admin Reason: NPO Labs 12/22/22 05:21 12/27/22 06:30 Labs: Laboratory Results - last 24 hr 12/27/22 06:30 Estim Creat Clear Calc 32.9 Estimated GFR 25 Assessment and Plan (1) ULISES (acute kidney injury): Status: Acute Plan 82yo M with COPD, HFpEF, CKD4, hx of DVT on apixaban, sent in from [facility], where he is a LTC resident, for fever Dysphagia plan for [facility] speech therapy following still NPO Hypernatremia down to 150 likely from poor oral intake nephrology following>agree with D5W ULISES/CKD4/metabolic acidosis. slowly improving down to 2.48 Lasix stopped nephrology following s/p bicarb replacement Acute hypoxic resp failure. Resolved multifactorial due to below issues ABG without hypercarbia s/p BiPAP 12/18/22 for work of breathing, now much improved and on room air Acute toxic metabolic encephalopathy. Resolved brain CT negative, no focal deficits appreciated probably multifactorial r/t ULISES, CHF, infection and delirium VBG stable, no co2 retention ammonia normal gabapetin on hold still NPO, aspiration risk as per speech therapy Acute on chronic HFpEF, no acute exacerbation last TTE 07/25/22 LVEF 60%, abnormal diastolic function, normal RV systolic function, mild pHTN continue hydralazine + Imdur + metoprolol tartrate home doses cellulitis, right LE. Resolved s/p cefazolin BCx negative. COPD exacerbation s/p IV steroids standing/prn nebs HTN continue hydralazine + Imdur + metoprolol tartrate HLD atorvastatin hx DVT continue Nicole VTE ppx: Nicole attending - dr. Jules [facility] if patient is able to take po without aspiration can go back to LTC requires continued inpatient hospitalization for the following reasons: dysphagia Time Spent With Patient Time: Total time managing care of this patient today ____ minutes. Quality Stroke Does the patient have a stroke diagnosis?: No VTE Prior VTE?: No VTE Risk Level:: Medical - moderate - high VTE Device Contraindication: Treatment Not Indicated VTE Drug Contraindication: N/A - Med Ordered
[2022-12-27 09:22] LABS: Sodium 150 mmol/L (135-145)
--- NOTE | 2022-12-27 09:26 | PM.PNNEP ---
Subjective Subjective Date of Service: 12/28/22 Principal diagnosis: Events noted Interval history: seen and examined this morning Follow-up for CHF, COPD, lower extremity edema, encephalopathy more awake and conversive Physical Exam Vital Signs: Vital Signs: Last Vital Signs Temp 97.4 F 12/27/22 07:23 Pulse 74 12/27/22 07:32 Resp 20 12/27/22 07:32 BP 161/69 H 12/27/22 07:23 Pulse Ox 93 12/27/22 07:23 O2 Del Method Room Air 12/27/22 07:23 O2 Flow Rate 7 12/25/22 15:29 FiO2 32 12/18/22 03:26 Oxygen Flow Rate 2 12/18/22 03:26 BMI result Body Mass Index 38.5 Const: General: cooperative and alert Cardio: Heart sounds: S1 normal heart sound present and S2 normal heart sound present GI: Palpation (GI): Soft to palpation and nontender Auscultation: normal bowel sounds Extrem: Other: b/l lower extremity edema Objective Data Labs 12/22/22 05:21 12/27/22 09:08 Labs: Laboratory Results - last 24 hr 12/27/22 12/27/22 06:30 09:08 Sodium 150 H Creatinine 2.48 H Estim Creat Clear Calc 32.9 Estimated GFR 25 Microbiology Microbiology Results: Microbiology 12/18/22 03:55 Blood - Venous Blood Culture - Final No growth after 5 days. 12/18/22 03:55 Blood - Venous Blood Culture - Final No growth after 5 days. Procedures Date of Service Date of Service: 12/28/22 Assessment & Plan Assessment and plan (1) Stage 4 chronic kidney disease: Status: Acute Plan 82-YEAR-OLD ADMITTED WITH A FEVER AND ACUTE KIDNEY INJURY ON CHRONIC KIDNEY DISEASE. 1. Acute kidney injury.? DDx ATN/Tubular injury /VAnco might be contributing as well. Repeat urine studies to look for possibility of infectious associated GN.?- Has about a gm protein with RBCs with Eosinophilia Renal function is slowly improving Most likely is multifactorial ATN for some of the stressors as noted above.? Given the presentation of pulmonary and kidney injury, some serologies to rule out a pulmonary renal syndrome, although this seems unlikely given his presentation with a fever. Creatinine is improving !! 2. Advanced chronic kidney disease.? 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 Baseline creatinine 2.5 to 3. 3. Cellulitis. 4. Lower extremity edema.? This is due to a combination of the chronic venous stasis disease along with his chronic kidney disease and heart dysfunction.? He is maintained on Lasix 40 twice a day . 5. Combined anion gap and non anion gap metabolic acidosis. ? RECOMMENDATIONS:? 1. Hold Nephrotoxins including Gabapentin 2. Follow serologies to include ruling out an ANCA associated pulmonary renal syndrome. 3.Hold diuretics temporarily No absolute need a kidney biopsy at this time No absolute indication for dialysis today. Increase free water intake to correct hypernatremia. Keep D5W at 80 cc/hour until oral intake improves Await barium swallow. Time Spent With Patient Time: Total time managing care of this patient today ____ minutes. Progress Note: Quality Stroke Does the patient have a stroke diagnosis?: No
--- NOTE | 2022-12-27 10:11 | MHC.CM.PN ---
Per ROUNDS discussion, Patient is having a Barium Swallow today and is not yet medically cleared for dc. Patient is a LTC Resident of [facility]. CM will follow.
--- NOTE | 2022-12-27 11:11 | MHC.CLN ---
F/U PT WITH INCREASED NUTRITION RISK FOR MALNUTRITION R/T NEW DTI, LOW KIKI AND DAY 6 NPO TALENT ASSOCIATE CONTINUES TO RECOMMEND NPO STATUS D/T DYSPHAGIA NOTED MOLST STATES DNR/DNI, NO TF AND NO IVs D5W RUNNING PT REMAINS CONFUSED, FORGETFUL AND VAGUE IF DIET TO ADVANCE, PT WILL NEED HIGH PROTEIN, HIGH KCAL SUPPLEMENT TO PROMOTE WOUND HEALING FOLLOWING FOR DIET ADVANCEMENT
--- NOTE | 2022-12-27 16:40 | P.CDIM_ITS ---
PROVIDER RESPONSE TEXT: To clarify, the appropriate diagnosis supported by the clinical indicators: Acute QUERY TEXT: PHYSICIAN'S DOCUMENTATION REQUEST Date of Query: 12/25/2022 12:08 PM EDT Patient Name: Joce Christiansen Admit Date: 12/18/2022 Dear Zenia Crespo, A review of the medical record indicates additional documentation may be needed. Please review below and update the documentation accordingly. Clinical Indicators: Per Hospitalist Progress Note 12/25/22: metabolic acidosis s/p bicarb improved with sodium bicarb replacement, will hold off on further replacement for now Clarify which of the following accurately represents the acuity of the Metabolic acidosis. Possible options might include: Acute Acute on chronic Compensated Chronic stable condition Other (explain)Clinically unable to determine (explain)Thank you, Olga Walters RN Use of terms such as suspected, likely, concern for, or probable (associated with a specific diagnosi s that is being evaluated, monitored, or treated as if it exists) are acceptable and can be coded in the inpatient se tting, when documented at the time of discharge. Please use your independent medical judgment in providing your response. THIS QUERY IS PART OF THE PERMANENT MEDICAL RECORD
--- NOTE | 2022-12-27 16:42 | P.CDIM_ITS ---
PROVIDER RESPONSE TEXT: To clarify, the appropriate diagnosis supported by the clinical indicators: No, Cellulitis is not related to / associated with / due to Diabetes Mellitus QUERY TEXT: PHYSICIAN'S DOCUMENTATION REQUEST Date of Query: 12/27/2022 02:17 PM EDT Patient Name: Joce Christiansen Admit Date: 12/18/2022 Dear Zenia Crespo, A review of the medical record indicates additional documentation may be needed. Please review below and update the documentation accordingly. Documentation includes the conditions right lower extremity cellulitis and Diabetes Mellitus. Please clarify the relationship between these conditions: Yes, Cellulitis is related to / associated with / due to Diabetes Mellitus No, Cellulitis is not related to / associated with / due to Diabetes Mellitus Other (explain)Clinically unable to determine (explain)Thank you, Olga Walters RN Use of terms such as suspected, likely, concern for, or probable (associated with a specific diagnosi s that is being evaluated, monitored, or treated as if it exists) are acceptable and can be coded in the inpatient se tting, when documented at the time of discharge. Please use your independent medical judgment in providing your response. THIS QUERY IS PART OF THE PERMANENT MEDICAL RECORD
[2022-12-27 16:43] LABS: Sodium 150 mmol/L (135-145)
--- NOTE | 2022-12-27 16:51 | P.CDIM_ITS ---
PROVIDER RESPONSE TEXT: To clarify, the appropriate diagnosis supported by the clinical indicators: Other (explain): Stage 2 right buttock wound QUERY TEXT: PHYSICIAN'S DOCUMENTATION REQUEST Date of Query: 12/25/2022 12:13 PM EDT Patient Name: Joce Christiansen Admit Date: 12/18/2022 Dear Zenia Crespo, A review of the medical record indicates additional documentation may be needed. Please review below and update the documentation accordingly. Clinical Indicators: The following diagnoses or signs and symptoms were noted in the patient record: Per Pressure injury assessment 12/25/22: deep tissue injury, buttock, no drainage, foam dressing Based on the above, could you clarify the appropriate diagnosis, if significant, that supports the ab ove abnormalities and additional evaluation, monitoring, and/or treatment rendered: Deep tissue injury right buttock Deep tissue injury left buttock No buttock injury Other (explain)Clinically unable to determine (explain)Thank you, Olga Walters RN Use of terms such as suspected, likely, concern for, or probable (associated with a specific diagnosi s that is being evaluated, monitored, or treated as if it exists) are acceptable and can be coded in the inpatient se tting, when documented at the time of discharge. Please use your independent medical judgment in providing your response. THIS QUERY IS PART OF THE PERMANENT MEDICAL RECORD
[2022-12-27] MEDS: Dextrose 5 % 1,000 ML 80 ML IVCONT (16:53)
--- NOTE | 2022-12-27 17:11 | MHC.SL.SWA ---
Addendum entered and electronically signed by GINA Riley 12/27/22 17:38: Per conversation w/ RN, ice chips w/ nursing supervision OK. Original Note: Speech Pathologist Impression: Risk of Aspiration Oralpharyngeal Dysphagia Risk of Aspiration Due to: Medically Fragile History of Pneumonia Reduced Cognition Dysphasia Diet Status: No change; Continue NPO Liquid Consistency and Strategies for Safe Swallow: Liquid Intake Recommendation: NPO Solid Food Consistency: Dietary Recommendations: NPO Oral Medication Intake: NPO Please contact the pharmacy regarding appropriate crushable or liquid drug formulations that are available whenever modified delivery is recommended. Compensatory Strategies and Precautions to be Taken for Safe Swallow: Supervision While Eating and Drinking for Safe Swallow: PO with TELEPHONE INSTRUMENT SUPERVISOR Foods to Avoid: Swallowing Recommended Treatments: Compens. Strategy Educat. Recommendation for Speech: Inpatient Speech Therapy Modified Barium Swallow Study - Outpatient Continue to recommend NPO d/t observed penetration seen on MBSS, presentation of consistent wet breath/vocal quality, wet cough, visibly effortful swallow and breath. Pt at risk for aspiration d/t decreased mentation and overt s/s aspiration. Continue frequent oral care daily. TELEPHONE INSTRUMENT SUPERVISOR to re-evaluate tomorrow. [employer] Farmworker Clinican/Clinical Fellow: No Supervisory Statement: I have reviewed and agree with the student/clinical fellow's documentation: N/A Speech Language Pathologist: Cyndi Guillen M.A., TELEPHONE INSTRUMENT SUPERVISOR
--- NOTE | 2022-12-27 22:30 | PC.NURSE ---
2139 Pt BP was 180/79, HR 73, prn hydralazine given and brought BP down 123/59, HR 78. Pt has been having large amounts of incont voids
[2022-12-28] VITALS (12 sets, daily range): BP systolic 136–186; BP diastolic 62–74; PULSE 56–78; RESP 15–20; TEMP 36.2–37.2; O2SAT 93–99; BMI 37.8
--- NOTE | 2022-12-28 | ECG_ITS ---
Test Reason : cp Blood Pressure : / mmHG Vent. Rate : 073 BPM Atrial Rate : 000 BPM P-R Int : 000 ms QRS Dur : 136 ms QT Int : 434 ms P-R-T Axes : 000 -34 103 degrees QTc Int : 478 ms Poor data quality Possible Normal sinus rhythm Left axis deviation Non-specific intra-ventricular conduction block Minimal voltage criteria for LVH, may be normal variant ( Buda product ) T wave abnormality, consider lateral ischemia Abnormal ECG When compared with ECG of 18-DEC-2022 03:27, No significant changes seen Referred By: Derek Olivera Electronically Signed By:COLIN BURLESON MD
[2022-12-28] MEDS: Dextrose 5 % 1,000 ML 80 ML IVCONT ×2 (04:21→17:01)
--- NOTE | 2022-12-28 06:23 | PC.NURSE ---
Pt c/o 02/22 intermittent sharp chest pain, he is diaphoretic. BP 186/74, HR 78, 97.7, 95% on ra, EKG taken and MD Olivera notified. See new orders. Pt was also incont at that time, care provided and Pt said he felt a little better. Vitals retaken and was 160/68.
[2022-12-28 07:03] LABS: Creatinine Clr Calc Pharmacy 34.7; Estimated Glomerular Filt Rate 27
[2022-12-28 07:06] LABS: Troponin-I High Sensitivity 33.5 ng/L (<3.5-35.0)
[2022-12-28] MEDS: Albuterol/Iprat 2.5/0.5MG 3 ML AMPUL.NEB INHALE ×4 (07:41→20:32)
[2022-12-28 08:47] LABS: Anion Gap 16 (12-20); Carbon Dioxide 20 mmol/L (22-29); Chloride 116 mmol/L (96-108); Potassium 3.7 mmol/L (3.3-5.1); Sodium 148 mmol/L (135-145)
[2022-12-28] MEDS: Ketorolac Tromethamine 0.5% Op 5 ML DROPS 1 DROP EYE-BOTH ×4 (08:52→20:51)
--- NOTE | 2022-12-28 10:20 | MHC.CM.PN ---
Per ROUNDS discussion, Patient is not yet medically cleared for dc (Failed Barium Swallow yesterday, Hypernatremia); Patient is a LTC Resident of [facility]. CM will follow.
[2022-12-28] MEDS: Isosorbide Mononitrate 60 MG TAB.ER.24H PO (11:38)
[2022-12-28] MEDS: hydrALAZINE HCl 25 MG TABLET 75 MG PO ×3 (11:39→20:49)
[2022-12-28] MEDS: Cholecalciferol (Vitamin D3) 25 MCG TABLET PO (11:39)
[2022-12-28] MEDS: amLODIPine Besylate 5 MG TABLET PO (11:39)
[2022-12-28] MEDS: Apixaban 2.5 MG TABLET PO ×2 (11:40→20:48)
[2022-12-28] MEDS: guaiFENesin LA 600 MG TAB.ER.12H PO ×2 (11:40→20:48)
[2022-12-28] MEDS: Metoprolol Tartrate 50 MG TABLET PO ×2 (11:41→20:48)
[2022-12-28] MEDS: polyethylene glycoL 3350 17 GM POWD.PACK PO (11:52)
--- NOTE | 2022-12-28 12:25 | PM.PNNEP ---
Subjective Subjective Date of Service: 12/28/22 Principal diagnosis: Events noted Interval history: seen and examined this morning Follow-up for CHF, COPD, lower extremity edema, encephalopathy more awake and conversive Physical Exam Vital Signs: Vital Signs: Last Vital Signs Temp 97.2 F 12/28/22 11:31 Pulse 71 12/28/22 11:31 Resp 15 12/28/22 11:31 BP 138/62 12/28/22 11:31 Pulse Ox 99 12/28/22 11:31 O2 Del Method Room Air 12/28/22 11:31 O2 Flow Rate 7 12/25/22 15:29 FiO2 32 12/18/22 03:26 Oxygen Flow Rate 2 12/18/22 03:26 BMI result Body Mass Index 37.8 Const: Other: lethargic, ill appearing; repeats tired General: cooperative and alert Cardio: Heart sounds: S1 normal heart sound present and S2 normal heart sound present GI: Palpation (GI): Soft to palpation and nontender Auscultation: normal bowel sounds Extrem: Other: b/l lower extremity edema Objective Data Labs 12/22/22 05:21 12/28/22 05:49 Labs: Laboratory Results - last 24 hr 12/27/22 12/27/22 12/28/22 16:30 16:30 05:49 Sodium Cancelled 150 H 148 H Potassium 3.7 Chloride 116 H Carbon Dioxide 20 L Anion Gap 16 Creatinine 2.33 H Estim Creat Clear Calc 34.7 Estimated GFR 27 Troponin I High Sens 12/28/22 05:49 Sodium Potassium Chloride Carbon Dioxide Anion Gap Creatinine Estim Creat Clear Calc Estimated GFR Troponin I High Sens 33.5 Microbiology Microbiology Results: Microbiology 12/18/22 03:55 Blood - Venous Blood Culture - Final No growth after 5 days. 12/18/22 03:55 Blood - Venous Blood Culture - Final No growth after 5 days. Procedures Date of Service Date of Service: 12/28/22 Assessment & Plan Assessment and plan (1) Stage 4 chronic kidney disease: Status: Acute Plan 82-YEAR-OLD ADMITTED WITH A FEVER AND ACUTE KIDNEY INJURY ON CHRONIC KIDNEY DISEASE. 1. Acute kidney injury.? DDx ATN/Tubular injury /VAnco might be contributing as well. Repeat urine studies to look for possibility of infectious associated GN.?- Has about a gm protein with RBCs with Eosinophilia Renal function is slowly improving Most likely is multifactorial ATN for some of the stressors as noted above.? Creatinine is improving !! 2. Advanced chronic kidney disease.? 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 Baseline creatinine 2.5 to 3. 3. Cellulitis. 4. Lower extremity edema.? This is due to a combination of the chronic venous stasis disease along with his chronic kidney disease and heart dysfunction.? . 5. Combined anion gap and non anion gap metabolic acidosis. ? RECOMMENDATIONS:? 1. Hold Nephrotoxins including Gabapentin 2. serologies to include ruling out an ANCA - negative 3.Hold diuretics temporarily No absolute need a kidney biopsy at this time No absolute indication for dialysis Increase free water intake to correct hypernatremia. Keep D5W at 80 cc/hour until oral intake improves Time Spent With Patient Time: Total time managing care of this patient today ____ minutes. Progress Note: Quality Stroke Does the patient have a stroke diagnosis?: No
--- NOTE | 2022-12-28 12:36 | P.PNIM_ITS ---
Subjective Subjective Date of Service: 12/28/22 Interval History: seen and examined this morning more awake - alert and oriented, able to provide full history denies sob, chest pain wants to eat Review of Systems Review of Systems: Yes all other systems are reviewed and are negative Constitutional Constitutional: Denies chills and Denies fever(s) ENT Ears, Nose, Mouth, and Throat: Denies dizziness Cardiovascular Cardiovascular: Denies chest pain, Denies palpitations and Denies dyspnea Respiratory Respiratory: Denies dyspnea Gastrointestinal Gastrointestinal: Denies abdominal pain, Denies nausea and Denies vomiting Neurologic Neurologic: Denies dizziness Endocrine Endocrine: Denies palpitations Physical Exam Vital Signs: Vital Signs: Last Vital Signs Temp 97.2 F 12/28/22 11:31 Pulse 71 12/28/22 11:31 Resp 15 12/28/22 11:31 BP 138/62 12/28/22 11:31 Pulse Ox 99 12/28/22 11:31 O2 Del Method Room Air 12/28/22 11:31 O2 Flow Rate 7 12/25/22 15:29 FiO2 32 12/18/22 03:26 Oxygen Flow Rate 2 12/18/22 03:26 BMI result Body Mass Index 37.8 Const: General: comfortable, no acute distress, alert and awake Nutritional Appearance: obese Orientation/consciousness: patient oriented x3 Resp: Other: diminished breath sounds Effort & Inspection: normal respiratory effort, no respiratory distress and no use of accessory muscles Cardio: Rate: regular rate Heart sounds: S1 normal heart sound present and S2 normal heart sound present GI: Other: +BS Palpation (GI): Soft to palpation and nontender Neuro: Other: grossly nonfocal General: patient oriented x3 and moves all extremities Extrem: Other: chronic venous skin changes b/l legs Objective Data Active Medications Acetaminophen (Acetaminophen Supp 650 Mg Supp.Rect) 650 mg MO Q6H PRN PRN Reason: Pain, Mild (Pain Scale 1-3) Last Admin: 12/26/22 05:46 Dose: 650 mg Documented By: KIMBERLEE Albuterol Sulfate (Albuterol Sulfate (0.083%) 2.5 Mg/3 Ml Vial.Neb) 2.5 mg INHALE Q2H PRN PRN Reason: Shortness of Breath/Wheezing Albuterol/Ipratropium (Albuterol/Iprat 2.5/0.5mg 3 Ml Ampul.Neb) 3 ml INHALE RQ4H WHILE AWAKE [facility] Last Admin: 12/28/22 11:16 Dose: 3 ml Documented By: HELIO Amlodipine Besylate (Amlodipine Besylate 5 Mg Tablet) 5 mg PO DAILY [facility]; Protocol Last Admin: 12/28/22 11:39 Dose: 5 mg Documented By: ERIN Apixaban (Apixaban 2.5 Mg Tablet) 2.5 mg PO BID [facility] Last Admin: 12/28/22 11:40 Dose: 2.5 mg Documented By: ERIN Atorvastatin Calcium (Atorvastatin Calcium 20 Mg Tablet) 20 mg PO BEDTIME [facility] Last Admin: 12/27/22 21:45 Dose: Not Given Documented By: ANGEL Non-Admin Reason: NPO Bisacodyl (Bisacodyl 10 Mg Supp.Rect) 10 mg MO DAILY PRN PRN Reason: Constipation Docusate Sodium (Docusate Sodium 100 Mg Capsule) 100 mg PO DAILY PRN PRN Reason: Constipation Guaifenesin (Guaifenesin 100 Mg/5 Ml Liquid) 10 ml PO Q8H PRN PRN Reason: Cough Guaifenesin (Guaifenesin La 600 Mg Tab.Er.12h) 600 mg PO BID [facility] Last Admin: 12/28/22 11:40 Dose: 600 mg Documented By: ERIN Hydralazine HCl (Hydralazine Hcl 25 Mg Tablet) 75 mg PO TID [facility]; Protocol Last Admin: 12/28/22 11:39 Dose: 75 mg Documented By: ERIN Hydralazine HCl (Hydralazine Hcl 20 Mg/Ml Vial) 5 mg IVPUSH Q4H PRN; Protocol PRN Reason: SBP>180 Last Admin: 12/27/22 21:42 Dose: 5 mg Documented By: ANGEL Dextrose (D5w) 1,000 mls @ 80 mls/hr IVCONT .[id number] [facility] Last Admin: 12/28/22 04:21 Dose: 80 mls/hr Documented By: ANGEL Isosorbide Mononitrate (Isosorbide Mononitrate 60 Mg Tab.Er.24h) 60 mg PO DAILY [facility]; Protocol Last Admin: 12/28/22 11:38 Dose: 60 mg Documented By: ERIN Ketorolac Tromethamine (Ketorolac Tromethamine 0.5% Op 5 Ml Drops) 1 drop EYE- BOTH QID [facility] Last Admin: 12/28/22 08:52 Dose: 1 drop Documented By: ERIN Loperamide HCl (Loperamide Hcl 2 Mg Capsule) 2 mg PO Q6H PRN PRN Reason: loose stool Metoprolol Tartrate (Metoprolol Tartrate 50 Mg Tablet) 50 mg PO BID [facility]; Kirk [facility] Last Admin: 12/28/22 11:41 Dose: 50 mg Documented By: ERIN Naloxone HCl (Naloxone Hcl 0.4 Mg/Ml Vial) 0.4 mg SUBCUT Q2M PRN PRN Reason: Opioid Overdose Omeprazole (Omeprazole 20 Mg Capsule.Dr) 20 mg PO DAILY@0630 [facility] Last Admin: 12/28/22 04:20 Dose: Not Given Documented By: ANGEL Non-Admin Reason: NPO Ondansetron HCl (Ondansetron Hcl 4 Mg/2 Ml Vial) 4 mg IVPUSH Q8H PRN PRN Reason: Nausea and Vomiting Polyethylene Glycol (Polyethylene Glycol 3350 17 Gm Powd.Pack) 17 gm PO DAILY [facility] Last Admin: 12/28/22 11:52 Dose: 17 gm Documented By: ERIN Sodium Chloride (0.9 % Sodium Chloride Flush 3 Ml Syringe) 3 ml IVFLUSH QSHIFT [facility] Last Admin: 12/28/22 08:50 Dose: Not Given Documented By: ERIN Non-Admin Reason: IV Running Vitamin D (Cholecalciferol (Vitamin D3) 25 Mcg Tablet) 25 mcg PO DAILY [facility] Last Admin: 12/28/22 11:39 Dose: 25 mcg Documented By: ERIN Labs 12/22/22 05:21 12/28/22 05:49 Labs: Laboratory Results - last 24 hr 12/28/22 12/28/22 05:49 05:49 Anion Gap 16 Estim Creat Clear Calc 34.7 Estimated GFR 27 Troponin I High Sens 33.5 Assessment and Plan (1) ULISES (acute kidney injury): Status: Acute Plan 82yo M with COPD, HFpEF, CKD4, hx of DVT on apixaban, sent in from [facility], where he is a LTC resident, for fever course complicated by CHF s/p diuresis, encephalopathy now resolved and dysphagia with concern for aspiration Dysphagia s/p MBSS, inconclusive according to speech. probable chronic aspiration speech therapy re-eval this am rec ground mechanical with nectar thick vs feeding tube. discussion with patient and daughter at bedside, risks of aspiration discussed in detail - they have elected to resume diet with understanding of possible aspiration and associated risks. Hypernatremia down to 148 likely from poor oral intake nephrology following>agree with D5W ULISES/CKD4/metabolic acidosis. slowly improving down to 2.33 Lasix stopped nephrology following s/p bicarb replacement Acute hypoxic resp failure. Resolved multifactorial due to below issues ABG without hypercarbia s/p BiPAP 12/18/22 for work of breathing, now much improved and on room air Acute toxic metabolic encephalopathy. Resolved brain CT negative, no focal deficits appreciated probably multifactorial r/t UILSES, CHF, infection and delirium VBG stable, no co2 retention ammonia normal gabapetin on hold Acute on chronic HFpEF, no acute exacerbation last TTE 07/25/22 LVEF 60%, abnormal diastolic function, normal RV systolic function, mild pHTN continue hydralazine + Imdur + metoprolol tartrate home doses cellulitis, right LE. Resolved s/p cefazolin BCx negative. COPD exacerbation s/p IV steroids standing/prn nebs HTN continue hydralazine + Imdur + metoprolol tartrate norvasc added HLD atorvastatin hx DVT continue Nicole VTE ppx: Nicole attending - dr. Jules CH if patient is able to take po without aspiration can go back to LTC requires continued inpatient hospitalization for the following reasons: dysphagia Time Spent With Patient Time: Total time managing care of this patient today ____ minutes. Quality Stroke Does the patient have a stroke diagnosis?: No VTE Prior VTE?: No VTE Risk Level:: Medical - moderate - high VTE Device Contraindication: Treatment Not Indicated VTE Drug Contraindication: N/A - Med Ordered
--- NOTE | 2022-12-28 13:40 | MHC.SL.SWA ---
Speech Pathologist Impression: Risk of Aspiration Oralpharyngeal Dysphagia Risk of Aspiration Due to: Medically Fragile History of Pneumonia Reduced Cognition Dysphasia Diet Status: Recommend UPGRADE to Ground Mechanical (NDD2) with [place] Thick liquids, pills crushed in puree, given acceptance by HCP of aspiration risk. Liquid Consistency and Strategies for Safe Swallow: Liquid Intake Recommendation: [place] Thick Liquid Intake Strategies: Liquids by Teaspoon Only Solid Food Consistency: Dietary Recommendations: Grnd/Mech Altered (NDD2) Additional Modifications to Solid Foods: Patient will require one to one feeding with strict aspiration precautions. Assure patient has dentures in for all meals. Add sauces/gravies and blend well. Liquids by tsp only, alternate liquids and solids. Patient benefits from strategy of coughing and clearing, should be cued/reminded to use this strategy throughout meal. Oral Medication Intake: Crushed with Puree Please contact the pharmacy regarding appropriate crushable or liquid drug formulations that are available whenever modified delivery is recommended. Compensatory Strategies and Precautions to be Taken for Safe Swallow: Sitting Upright (90 deg) No Straw Liquids from Spoon Small Bites and Sips Alternate Liquids/Solids Rate of Ingestion Change Oral Check Supervision While Eating and Drinking for Safe Swallow: Total Assistance (1:1) Foods to Avoid: Very sticky or thick purees, difficult to chew solids, mixed consistencies. Swallowing Recommended Treatments: Compens. Strategy Educat. Recommendation for Speech: Inpatient Speech Therapy Modified Barium Swallow Study - Outpatient Comment: Patient seen yesterday for MBSS study that was limited due to difficulty positioning patient/patient's shoulder obscuring lower pharynx/esophgeal area. As per above, what could be seen on study including significant retention in the vallecula and laryngeal penetration, with positioning issue limiting ability to visualize possible aspiration. Patient's family have been eager to get patient on diet, and it was requested of this a.m. to speak with family re: likely aspiration risk if on p.o. and acceptance of risk, which reported had been completed this a.m. with family approval of starting PO and accepting risk (by secure text). Patient was seen for repeat bedside swallow this a.m. Patient given oral care initially, noted wet upper airway noise after swallowing trace amount of mouthwash. Patient given 1/4 tsp amounts of water, with mild delay of oral phase, mild delay initiating swallow, effortful audible swallow, wet upper airway noise after swallow. Patient was asked to cough, produced a volitional cough and swallow, which cleared upper airway noise. Patient was given tsp amounts of [place] Thick Liquid, with patient producing timely oral phase, mild delay initiating swallow, audible and seemingly effortful swallow, initially with no clinical signs of aspiration. After repeat administrations of tsp amounts of NT liquid, patient had some mild upper airway noise, was cued to cough which cleared airway. Patient was then given tsp on pudding, with mild delay of oral phase, effortful swallow, patient c/o discomfort after swallow with texture, described it as harder to swallow. Patient was then given apple sauce, which he felt would be easier for him, took tsp amounts with mild delay of oral phase, mild delay initiating swallow, reduced laryngeal elevation, no clinical signs of aspiration on two administrations. Patient asked to have dentures put in, which was provided. Patient took another bite of apple sauce, with some improved oral management noted, delayed, audible swallow, no clinical signs of aspiration. Patient reported that's better. Patient was given softened sandy cracker in apple sauce, with patient producing a slow, rotary chew, mild delay or oral transit, mild delay of swallow, reduced laryngeal elevation on swallow, no clinical signs of aspiration. Recommend UPGRADE to Ground Mechanical (NDD2) with [place] Thick liquids, pills crushed in puree. Patient will require one to one feeding with strict aspiration precautions. Liquids by tsp only, alternate liquids and solids. Patient benefits from strategy of coughing and clearing, should be cued/reminded to use this strategy through out meal. KATI BRAUN notified of recommendations by secure text, RN in person. HVAC SERVICE TECHNICIAN will continue to follow. Frequency/Duration: Date Range for Service Req: Timeline to reassess: Director Of Retail Merchandising Clinican/Clinical Fellow: No Supervisory Statement: I have reviewed and agree with the student/clinical fellow's documentation: N/A Speech Language Pathologist: Debbie Greenwood M.A., [facility]-HVAC SERVICE TECHNICIAN
[2022-12-28] MEDS: Atorvastatin Calcium 20 MG TABLET PO (20:48)
[2022-12-29] VITALS (11 sets, daily range): BP systolic 117–163; BP diastolic 52–68; PULSE 57–84; RESP 17–22; TEMP 35.5–36.4; O2SAT 93–99; BMI 38.3
[2022-12-29] MEDS: Dextrose 5 % 1,000 ML 80 ML IVCONT (05:51)
[2022-12-29] MEDS: Omeprazole 20 MG CAPSULE.DR PO (06:07)
[2022-12-29] MEDS: Albuterol/Iprat 2.5/0.5MG 3 ML AMPUL.NEB INHALE ×4 (07:57→19:32)
[2022-12-29 08:15] LABS: Anion Gap 14 (12-20); Blood Urea Nitrogen 69 mg/dL (9-16); Calcium 8.8 mg/dL (8.4-10.2); Carbon Dioxide 20 mmol/L (22-29); Chloride 111 mmol/L (96-108); Creatinine Clr Calc Pharmacy 31.1; Estimated Glomerular Filt Rate 24; Glucose Random 94 mg/dL (60-115); Potassium 4.1 mmol/L (3.3-5.1); Sodium 141 mmol/L (135-145)
[2022-12-29] MEDS: amLODIPine Besylate 5 MG TABLET PO (09:28)
[2022-12-29] MEDS: Metoprolol Tartrate 50 MG TABLET PO ×2 (09:28→22:33)
[2022-12-29] MEDS: guaiFENesin LA 600 MG TAB.ER.12H PO ×2 (09:31→22:33)
[2022-12-29] MEDS: Isosorbide Mononitrate 60 MG TAB.ER.24H PO (09:31)
[2022-12-29] MEDS: hydrALAZINE HCl 25 MG TABLET 75 MG PO ×3 (09:31→22:33)
[2022-12-29] MEDS: Cholecalciferol (Vitamin D3) 25 MCG TABLET PO (09:31)
[2022-12-29] MEDS: Apixaban 2.5 MG TABLET PO ×2 (09:32→22:33)
[2022-12-29] MEDS: polyethylene glycoL 3350 17 GM POWD.PACK PO (09:41)
[2022-12-29] MEDS: Ketorolac Tromethamine 0.5% Op 5 ML DROPS 1 DROP EYE-BOTH ×4 (09:41→22:34)
--- NOTE | 2022-12-29 11:52 | MHC.CLN ---
F/U DIET ADVANCED TO 2GM NA GRD M/S WITH NT LIQ PER PACKING SHED SUPERVISOR S/P FAMILY TEAM MEETING PT IS 1:1 FEEDING RECOMMEND LIBERALIZE DIET TO REGULAR (D/C 2GM NA DIET RX ONLY) R/T ADVANCED AGE WILL ADD ENSURE TID TO PROMOTE WOUND HEALING SUPP TO PROVIDE 1050KCALS, 60G PROTEIN MONITOR PO INTAKE CLOSELY
--- NOTE | 2022-12-29 12:22 | HO.PM.IMPN ---
Subjective Subjective Date of Service: 12/29/22 Interval History: seen and examined this morning follow up for hypernatremia, ULISES no overnight events appears well this am, awake and alert. no specific complaints. not eating much yet Review of Systems Review of Systems: Yes all other systems are reviewed and are negative Constitutional Constitutional: Denies chills and Denies fever(s) Cardiovascular Cardiovascular: Denies chest pain, Denies palpitations and Denies dyspnea Respiratory Respiratory: Denies cough and Denies dyspnea Gastrointestinal Gastrointestinal: Denies abdominal pain, Denies constipation, Denies diarrhea, Denies nausea and Denies vomiting Endocrine Endocrine: Denies palpitations Physical Exam Vital Signs: Vital Signs: Last Vital Signs Temp 97.0 F 12/29/22 12:00 Pulse 61 12/29/22 12:00 Resp 22 H 12/29/22 12:00 BP 117/59 L 12/29/22 12:00 Pulse Ox 94 12/29/22 12:00 O2 Del Method Room Air 12/29/22 12:00 O2 Flow Rate 7 12/25/22 15:29 FiO2 32 12/18/22 03:26 Oxygen Flow Rate 2 12/18/22 03:26 BMI result Body Mass Index 38.3 Const: General: comfortable, no acute distress, alert and awake Nutritional Appearance: obese Orientation/consciousness: patient oriented x3 Resp: Other: diminished breath sounds Effort & Inspection: normal respiratory effort, no respiratory distress and no use of accessory muscles Cardio: Rate: regular rate Heart sounds: S1 normal heart sound present and S2 normal heart sound present GI: Other: +BS Inspection: No distended Palpation (GI): Soft to palpation and nontender Skin: Other: b/l lower extremity venous stasis changes, mild erythema Neuro: Other: grossly nonfocal General: patient oriented x3 and moves all extremities Objective Data Active Medications Acetaminophen (Acetaminophen Supp 650 Mg Supp.Rect) 650 mg HI Q6H PRN PRN Reason: Pain, Mild (Pain Scale 1-3) Last Admin: 12/26/22 05:46 Dose: 650 mg Documented By: KIMBERLEE Albuterol Sulfate (Albuterol Sulfate (0.083%) 2.5 Mg/3 Ml Vial.Neb) 2.5 mg INHALE Q2H PRN PRN Reason: Shortness of Breath/Wheezing Albuterol/Ipratropium (Albuterol/Iprat 2.5/0.5mg 3 Ml Ampul.Neb) 3 ml INHALE RQ4H WHILE AWAKE [facility] Last Admin: 12/29/22 10:50 Dose: 3 ml Documented By: HELIO Amlodipine Besylate (Amlodipine Besylate 5 Mg Tablet) 5 mg PO DAILY [facility]; Protocol Last Admin: 12/29/22 09:28 Dose: 5 mg Documented By: ELIF Apixaban (Apixaban 2.5 Mg Tablet) 2.5 mg PO BID [facility] Last Admin: 12/29/22 09:32 Dose: 2.5 mg Documented By: ELIF Atorvastatin Calcium (Atorvastatin Calcium 20 Mg Tablet) 20 mg PO BEDTIME [facility] Last Admin: 12/28/22 20:48 Dose: 20 mg Documented By: YVONNE Bisacodyl (Bisacodyl 10 Mg Supp.Rect) 10 mg HI DAILY PRN PRN Reason: Constipation Docusate Sodium (Docusate Sodium 100 Mg Capsule) 100 mg PO DAILY PRN PRN Reason: Constipation Guaifenesin (Guaifenesin 100 Mg/5 Ml Liquid) 10 ml PO Q8H PRN PRN Reason: Cough Guaifenesin (Guaifenesin La 600 Mg Tab.Er.12h) 600 mg PO BID [facility] Last Admin: 12/29/22 09:31 Dose: 600 mg Documented By: ELIF Hydralazine HCl (Hydralazine Hcl 25 Mg Tablet) 75 mg PO TID [facility]; Protocol Last Admin: 12/29/22 09:31 Dose: 75 mg Documented By: ELIF Hydralazine HCl (Hydralazine Hcl 20 Mg/Ml Vial) 5 mg IVPUSH Q4H PRN; Protocol PRN Reason: SBP>180 Last Admin: 12/27/22 21:42 Dose: 5 mg Documented By: ANGEL Isosorbide Mononitrate (Isosorbide Mononitrate 60 Mg Tab.Er.24h) 60 mg PO DAILY [facility]; Protocol Last Admin: 12/29/22 09:31 Dose: 60 mg Documented By: ELIF Ketorolac Tromethamine (Ketorolac Tromethamine 0.5% Op 5 Ml Drops) 1 drop EYE-BOTH QID [facility] Last Admin: 12/29/22 09:41 Dose: 1 drop Documented By: ELIF Loperamide HCl (Loperamide Hcl 2 Mg Capsule) 2 mg PO Q6H PRN PRN Reason: loose stool Metoprolol Tartrate (Metoprolol Tartrate 50 Mg Tablet) 50 mg PO BID [facility]; Protocol Last Admin: 12/29/22 09:28 Dose: 50 mg Documented By: ELIF Naloxone HCl (Naloxone Hcl 0.4 Mg/Ml Vial) 0.4 mg SUBCUT Q2M PRN PRN Reason: Opioid Overdose Omeprazole (Omeprazole 20 Mg Capsule.) 20 mg PO DAILY@0630 [facility] Last Admin: 12/29/22 06:07 Dose: 20 mg Documented By: FABRICE Ondansetron HCl (Ondansetron Hcl 4 Mg/2 Ml Vial) 4 mg IVPUSH Q8H PRN PRN Reason: Nausea and Vomiting Polyethylene Glycol (Polyethylene Glycol 3350 17 Gm Powd.Pack) 17 gm PO DAILY [facility] Last Admin: 12/29/22 09:41 Dose: 17 gm Documented By: ELIF Sodium Chloride (0.9 % Sodium Chloride Flush 3 Ml Syringe) 3 ml IVFLUSH QSHIFT [facility] Last Admin: 12/29/22 09:27 Dose: Not Given Documented By: ELFI Non-Admin Reason: IV Running Vitamin D (Cholecalciferol (Vitamin D3) 25 Mcg Tablet) 25 mcg PO DAILY [facility] Last Admin: 12/29/22 09:31 Dose: 25 mcg Documented By: ELIF Labs 12/22/22 05:21 12/29/22 07:34 Labs: Laboratory Results - last 24 hr 12/29/22 07:34 Anion Gap 14 Estim Creat Clear Calc 31.1 Estimated GFR 24 Random Glucose 94 Calcium 8.8 Assessment and Plan (1) ULISES (acute kidney injury): Status: Acute Plan 82yo M with COPD, HFpEF, CKD4, hx of DVT on apixaban, sent in from [facility], where he is a LTC resident, for fever course complicated by CHF s/p diuresis, encephalopathy now resolved and dysphagia with concern for aspiration Dysphagia s/p MBSS, inconclusive according to speech. probable chronic aspiration speech therapy re-eval this am rec ground mechanical with nectar thick vs feeding tube. discussion with patient and daughter at bedside, risks of aspiration discussed in detail - they have elected to resume diet with understanding of possible aspiration and associated risks. Hypernatremia resolved, will d/c D5 and encourage po intake likely from poor oral intake nephrology following ULISES/CKD4/metabolic acidosis SCr 2.6 today Lasix stopped nephrology following s/p bicarb replacement Acute hypoxic resp failure. Resolved multifactorial due to below issues ABG without hypercarbia s/p BiPAP 12/18/22 for work of breathing, now much improved and on room air Acute toxic metabolic encephalopathy. Resolved brain CT negative, no focal deficits appreciated probably multifactorial r/t ULISES, CHF, infection and delirium VBG stable, no co2 retention ammonia normal gabapetin on hold Acute on chronic HFpEF, no acute exacerbation last TTE 07/25/22 LVEF 60%, abnormal diastolic function, normal RV systolic function, mild pHTN continue hydralazine + Imdur + metoprolol tartrate home doses cellulitis, right LE. Resolved s/p cefazolin BCx negative. COPD exacerbation s/p IV steroids standing/prn nebs HTN continue hydralazine + Imdur + metoprolol tartrate norvasc added HLD atorvastatin hx DVT continue Elijennifer VTE ppx: Nicole attending - dr. Jules CH if patient is able to take po without aspiration can go back to LTC - likely tomorrow requires continued inpatient hospitalization for the following reasons: dysphagia Time Spent With Patient Time: Total time managing care of this patient today ____ minutes. Quality Stroke Does the patient have a stroke diagnosis?: No VTE Prior VTE?: No VTE Risk Level:: Medical - moderate - high VTE Device Contraindication: Treatment Not Indicated VTE Drug Contraindication: N/A - Med Ordered
--- NOTE | 2022-12-29 13:35 | MHC.SL.SWA ---
Speech Pathologist Impression: Risk of Aspiration, Oralpharyngeal Dysphagia Risk of Aspiration Due to: Medically Fragile History of Pneumonia Reduced Cognition Dysphasia Diet Status: No Change Liquid Consistency and Strategies for Safe Swallow: Liquid Intake Recommendation: [place] Thick Liquid Intake Strategies: Liquids by Teaspoon Only Solid Food Consistency: Dietary Recommendations: Grnd/Mech Altered (NDD2) Additional Modifications to Solid Foods: Pt on Ground Mechanical (NDD2) with [place] Thick liquids, pills crushed in puree, given acceptance by HCP of aspiration risk. Patient will require one to one feeding with strict aspiration precautions. Assure patient has dentures in for all meals. Add sauces/gravies and blend well. Liquids by tsp only, alternate liquids and solids. Patient benefits from strategy of coughing and clearing, should be cued/reminded to use this strategy throughout meal. Oral Medication Intake: Crushed with Puree Please contact the pharmacy regarding appropriate crushable or liquid drug formulations that are available whenever modified delivery is recommended. Compensatory Strategies and Precautions to be Taken for Safe Swallow: Sitting Upright (90 deg) No Straw Liquids from Spoon Small Bites and Sips Alternate Liquids/Solids Rate of Ingestion Change Oral Check Supervision While Eating and Drinking for Safe Swallow: Total Assistance (1:1) Foods to Avoid: Very sticky or thick purees, difficult to chew solids, mixed consistencies. Swallowing Recommended Treatments: Compens. Strategy Educat. Recommendation for Speech: Inpatient Speech Therapy Modified Barium Swallow Study - Outpatient Engineering Executive Clinican/Clinical Fellow: No Supervisory Statement: I have reviewed and agree with the student/clinical fellow's documentation: N/A Speech Language Pathologist: Catina Rodríguez M.A., CCC-ROCKET TEST FIRE WORKER
[2022-12-29] MEDS: 0.9 % Sodium Chloride Flush 3 ML SYRINGE IVFLUSH ×2 (14:47→22:34)
--- NOTE | 2022-12-29 15:36 | MHC.CM.PN ---
PT NOT YET READY TO DC. DCP: RETURN TO [facility] VIA BLS
--- NOTE | 2022-12-29 16:52 | PM.PNNEP ---
Subjective Subjective Date of Service: 12/29/22 Principal diagnosis: Events noted Interval history: Hypernatremia better GFR at baseline Physical Exam Vital Signs: Vital Signs: Last Vital Signs Temp 97.3 F 12/29/22 15:15 Pulse 58 12/29/22 15:15 Resp 20 12/29/22 15:15 BP 133/61 12/29/22 15:15 Pulse Ox 97 12/29/22 15:15 O2 Del Method Oxymask 12/29/22 15:15 O2 Flow Rate 5 12/29/22 15:15 FiO2 32 12/18/22 03:26 Oxygen Flow Rate 2 12/18/22 03:26 BMI result Body Mass Index 38.3 Const: General: cooperative, comfortable, no acute distress, alert and awake Cardio: Rate: regular rate Rhythm: regular rhythm Heart sounds: S1 normal heart sound present and S2 normal heart sound present GI: Other: +BS Inspection: No distended Palpation (GI): Soft to palpation and nontender Auscultation: normal bowel sounds Extrem: Other: chronic venous skin changes b/l legs Objective Data Labs 12/22/22 05:21 12/29/22 07:34 Labs: Laboratory Results - last 24 hr 12/29/22 07:34 Sodium 141 Potassium 4.1 Chloride 111 H Carbon Dioxide 20 L Anion Gap 14 BUN 69 H Creatinine 2.62 H Estim Creat Clear Calc 31.1 Estimated GFR 24 Random Glucose 94 Calcium 8.8 Microbiology Microbiology Results: Microbiology 12/18/22 03:55 Blood - Venous Blood Culture - Final No growth after 5 days. 12/18/22 03:55 Blood - Venous Blood Culture - Final No growth after 5 days. Procedures Date of Service Date of Service: 12/29/22 Assessment & Plan Assessment and plan (1) ULISES (acute kidney injury): Status: Acute Plan Mr. Joce Christiansen is an 82-year-old gentleman with COPD, HFpEF, CKD4 (BL Cr 2.9-3.0), hx of DVT on apixaban, sent in from [facility], where he is a LTC resident, for fever course complicated by CHF s/p diuresis, encephalopathy now resolved and dysphagia with concern for aspiration Hypernatremia - resolved was 2/2 to poor PO intake OK to stop D5/W and encourage oral intake ULISES/CKD4/metabolic acidosis NO evidence of Glomaruler disease. 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 Diuretics on hold GFr at baseline Non-gap acidosis 2/2 CKD gabapetin on hold no need for PO bicarb yet Time Spent With Patient Time: Total time managing care of this patient today ____ minutes. Progress Note: Quality Stroke Does the patient have a stroke diagnosis?: No
[2022-12-29] MEDS: Atorvastatin Calcium 20 MG TABLET PO (22:33)
[2022-12-30] VITALS (7 sets, daily range): BP systolic 139–165; BP diastolic 63–73; PULSE 59–107; RESP 18–20; TEMP 36.3–36.8; O2SAT 92–99; BMI 39.3
[2022-12-30] MEDS: Omeprazole 20 MG CAPSULE.DR PO (06:33)
[2022-12-30] MEDS: Albuterol/Iprat 2.5/0.5MG 3 ML AMPUL.NEB INHALE ×3 (07:47→15:03)
[2022-12-30 08:15] LABS: Sodium 142 mmol/L (135-145)
[2022-12-30] MEDS: guaiFENesin LA 600 MG TAB.ER.12H PO (09:25)
[2022-12-30] MEDS: amLODIPine Besylate 5 MG TABLET PO (09:25)
[2022-12-30] MEDS: hydrALAZINE HCl 25 MG TABLET 75 MG PO ×2 (09:25→13:23)
[2022-12-30] MEDS: Isosorbide Mononitrate 60 MG TAB.ER.24H PO (09:26)
[2022-12-30] MEDS: polyethylene glycoL 3350 17 GM POWD.PACK PO (09:26)
[2022-12-30] MEDS: Cholecalciferol (Vitamin D3) 25 MCG TABLET PO (09:26)
[2022-12-30] MEDS: Apixaban 2.5 MG TABLET PO (09:26)
[2022-12-30] MEDS: Metoprolol Tartrate 50 MG TABLET PO (09:26)
[2022-12-30] MEDS: Ketorolac Tromethamine 0.5% Op 5 ML DROPS 1 DROP EYE-BOTH (09:27)
[2022-12-30] MEDS: 0.9 % Sodium Chloride Flush 3 ML SYRINGE IVFLUSH (09:27)
--- NOTE | 2022-12-30 11:39 | MHC.CM.PN ---
Patient has been medically cleared for dc to return to LTC today. Patient will return to LTC @ [facility] today at 3:30 PM via [facility]. Patient's Daughter/HCP/Meghan at [phone] is aware of and pleased with the dc plan. IMM was addressed with Meghan.
--- NOTE | 2022-12-30 11:44 | P.DS_ITS ---
DS: Providers Provider Date of Service: 12/30/22 Date of admission: 12/18/22 05:34 Date of discharge: 12/30/22 Primary care physician: Loreto Childers MD Consults: 12/21/22 08:10 Consult to Nephrology Routine Consulting Provider: [facility] Reason for consultation: worsening renal failure Has provider been notified: No Attending physician on discharge: Asif Gibson Discharging clinician: Arabella Nelson DS: Diagnosis Discharge Diagnosis (1) ULISES (acute kidney injury): Status: Acute (2) Acute and chronic respiratory failure with hypoxia: Status: Acute (3) (HFpEF) heart failure with preserved ejection fraction: Status: Acute (4) Cellulitis: Status: Acute (5) Sepsis: Status: Acute DS: Summary Hospital Course Hospital Course: From H&P on day of admission This is an 82-year-old male with past medical history of chronic respiratory failure, CAD, CKD, history of COPD, dysphagia, GERD, HTN, DVT, HLD, CHF, depression, obesity, type 2 diabetes, among other diseases comes in from long term for evaluation of fever patient is not the greatest historian, and states that he was sent here because he had a cold.? According to triage nurse and EMS patient was sent from long term because he was noted to have a temp of 101.7 degrees with a respiratory rate of 30, O2 satting 85% on room air.? Patient was placed on 2 L of nasal cannula with improvement of his O2 and was sent to the hospital.? Patient denies any chest pain, no shortness of breath, no abdominal pain nausea or vomiting, no diarrhea constipation, no urinary symptoms.? When asked about his lower extremity skin/cellulitis he is unable to give me much information about it.? On arrival to the ED patient noted to have 80 temperature of 100.3, respiratory rate of 22, satting 95% on 2 L Labs are significant for WBC count of 8.4, hemoglobin of 9 6.6, hematocrit 30.1 which is close to baseline, potassium 5.3, chloride of 111, bicarb of 18, creatinine of 3.18 with a baseline of around 2.62.8, troponin of 37.2, sign chest x-ray shows streaky retrocardiac left basilar opacity which is improved from previous Patient will be admitted for further management 82yo M with COPD, HFpEF, CKD4, hx of DVT on apixaban, sent in from [facility], where he is a LTC resident, for fever course complicated by CHF s/p diuresis, encephalopathy now resolved and dysphagia with concern for aspiration Dysphagia s/p MBSS, inconclusive according to speech. suspect chronic aspiration. speech therapy re-eval this am rec ground mechanical with nectar thick. discussion with patient and daughter at bedside, risks of aspiration discussed in detail - they have elected to resume diet with understanding of possible aspiration and associated risks. follow outpatient with speech evaluation Hypernatremia likely from poor oral intake in the setting of encephalopathy. resolved with D5w.encourage po intake ULISES/CKD4/metabolic acidosis SCr 2.6 today. at baseline. Lasix stopped. will need outpatient follow-up with Nephrology Acute hypoxic resp failure. Resolved multifactorial due to below issues. ABG without hypercarbia s/p BiPAP 12/18/22 for work of breathing, now much improved and on room air Acute toxic metabolic encephalopathy. Resolved brain CT negative, no focal deficits appreciated. probably multifactorial r/t ULISES, CHF, infection and delirium VBG stable, no co2 retention. ammonia normal. gabapetin d/c for sedation Acute on chronic HFpEF, no acute exacerbation last TTE 07/25/22 LVEF 60%, abnormal diastolic function, normal RV systolic function, mild pHTN continue hydralazine + Imdur + metoprolol tartrate home doses s/p IV diuresis. now euvomelmic and Lasix on hold. follow weight daily. potassium supplementation has been placed on hold as patient is no longer receiving Lasix. Consider need to resume in future cellulitis, right LE in the setting of chronic venous stasis of bilateral lower extremities. completed course of antibiotics. BCx negative. COPD exacerbation. completed course of steroids. continue home meds HTN continue hydralazine + Imdur + metoprolol tartrate. norvasc added For adequate blood pressure control. Monitor blood pressure closely Time Spent with Patient Time attestation: Total time managing care of this patient today ____ minutes. Discharge coordination time: Greater than 30 minutes Quality: Safe Use of Opioids Does Pt have an Active Cancer Diagnosis on the Problem List?: No Quality: Stroke Does the patient have a stroke diagnosis?: No Physical Exam Vital Signs: Vital Signs: Last Vital Signs Temp 97.4 F 12/30/22 11:13 Pulse 59 12/30/22 11:14 Resp 18 12/30/22 11:14 BP 139/63 12/30/22 11:13 Pulse Ox 94 12/30/22 11:13 O2 Del Method Room Air 12/30/22 11:13 O2 Flow Rate 5 12/29/22 15:15 FiO2 32 12/18/22 03:26 Oxygen Flow Rate 2 12/18/22 03:26 BMI result Body Mass Index 39.3 Const: General: comfortable, no acute distress, alert, awake and confusion Nutritional Appearance: obese Orientation/consciousness: patient oriented x3 and confusion Resp: Other: diminished breath sounds Effort & Inspection: normal respiratory effort, no respiratory distress and no use of accessory muscles Cardio: Rate: regular rate Heart sounds: S1 normal heart sound present and S2 normal heart sound present GI: Other: +BS Inspection: No distended Palpation (GI): Soft to palpation and nontender Skin: Other: b/l lower extremity venous stasis changes, mild erythema Neuro: Other: grossly nonfocal General: patient oriented x3, moves all extremities and confusion DS: Data Data Completed and Pending Completed studies during hospitalization [Text1]: Procedures Assistance with Respiratory Ventilation, Less than 24 Consecutive Hours, Continuous Positive Airway Pressure (07/25/22) Labs on day of discharge: Laboratory Results - last 24 hr 12/30/22 07:58 Sodium 142 Discharge Plan Discharge Patient Disposition: er [facility] Discharge Diagnosis: ULISES on CKD4 acute hypoxic respiratory failure acute toxic metabolic encephalopathy acute on chronic HFpEF Dysphagia Hypernatremia Referrals: [facility] [Outside] - 1 Week Loreto Childers MD [Primary Care Provider] - 1 Week Sami Disla MD [Physician] - 1 Week Discharge Medications: New amlodipine 5 mg Tablet 5 mg PO DAILY 30 Days Qty: 30 0RF Protocol: Hold for SBP< HOLD for SBP < : 90 Continued loperamide [Imodium A-D] 2 mg capsule 2 mg PO Q6H PRN (Reason: loose stool) Qty: 10 0RF acetaminophen [Tylenol] 325 mg Tablet 650 mg PO TID PRN (Reason: Fever Or Pain) Rx Instructions: do not exceed 3 grams / 24 hours naloxone 0.4 mg/mL Solution 0.4 mg SUBCUT Q2M PRN (Reason: Opioid Overdose) Rx Instructions: NTExceed 10 mg total dose/episode guaifenesin 100 mg/5 mL Liquid 200 mg PO Q8H PRN (Reason: Cough) ketorolac 0.5 % drops 1 drp ophthalmic (eye) QID Rx Instructions: instill 1 drop in both eyes Fleet Enema 19-7 gram/118 mL Enema 118 ml MD DAILY PRN (Reason: Constipation) Rx Instructions: use if no bowel movement for 8 hours after bisacodyl suppository cholecalciferol (vitamin D3) [Vitamin D3] 25 mcg (1,000 unit) Tablet 25 mcg PO DAILY ammonium lactate-emu oil 10 % Cream 1 appl TOPICAL QPM Rx Instructions: apply to lower legs ProAir RespiClick 90 mcg/actuation Aerosol Powdr Breath Activated 2 inh INHALATION Q4H PRN (Reason: Wheezing) polyethylene glycol 3350 17 gram Powder In Packet 17 g PO DAILY Qty: 30 0RF hydralazine 25 mg Tablet 75 mg PO TID Qty: 270 0RF Protocol: Hold for SBP< HOLD for SBP < : 90 isosorbide mononitrate 60 mg Tablet Extended Release 24 Hr 60 mg PO DAILY Qty: 30 0RF Protocol: Hold for SBP< HOLD for SBP < : 90 metoprolol tartrate 50 mg Tablet 50 mg PO BID Qty: 60 0RF Protocol: Hold for SBP/HR < HOLD for SBP < : 90 HOLD for HR < : 60 guaifenesin [Mucinex] 600 mg Tablet Extended Release 12hr 600 mg PO BID Qty: 14 0RF ipratropium-albuterol 0.5 mg-3 mg(2.5 mg base)/3 mL Solution For Nebulization 3 ml INHALATION Q4H PRN (Reason: Shortness Of Breath) bisacodyl 10 mg Suppository 10 mg MD DAILY PRN (Reason: Constipation) magnesium citrate Solution 300 ml PO DAILY PRN (Reason: Constipation) diclofenac sodium 1 % Gel 2 g TOPICAL Q6H PRN (Reason: Pain) Rx Instructions: apply to single elbow, wrist or hand; for hand includes palm/fingers/back of hand ondansetron 4 mg tablet,disintegrating 4 mg PO Q8H PRN (Reason: nausea and vomiting) atorvastatin 20 mg tablet 20 mg PO BEDTIME diphenhydramine HCl [Benadryl Allergy] 25 mg tablet 25 mg PO Q8H PRN (Reason: Allergic Reaction) omeprazole 20 mg capsule,delayed release(DR/EC) 20 mg PO DAILY@0630 Eliquis 2.5 mg tablet 2.5 mg PO BID 90 Days Qty: 180 1RF Held furosemide 40 mg tablet 40 mg PO BID Hold Instructions: hold until follow up with PCP/neprology potassium chloride 20 mEq tablet extended release 20 meq PO DAILY Hold Instructions: hold while not taking lasix. check BMP periodically and resume as necessary Discontinued gabapentin 600 mg tablet 600 mg PO BEDTIME amoxicillin 500 mg capsule 500 mg PO TID Rx Instructions: start date of 12/14, end date 12/21 Discharge Orders: Discharge Order (Routine); Ordered 12/30/22 Ordered By: Arabella Nelson Diet: Low salt diet Activity on Discharge: As tolerated Stand Alone Forms: Patient Portal Discharge page Care Plan Goals: see below Health Concerns: ULISES on CKD4 acute hypoxic respiratory failure acute toxic metabolic encephalopathy acute on chronic HFpEF Dysphagia Hypernatremia acute COPD exacerbation Plan of Treatment: for blood pressure, amlodipine was added for better BP control ULISES - kidney function returned to normal. Call to schedule follow-up appointment with Nephrology. Lasix on hold until follow-up with PCP or Nephrology. Monitor weight daily and consider resuming if weight gain greater than 3 lb. hypernatremia - sodium returned to normal Hold supplemental potassium while not receiving - monitor BMP periodically cellulitis - Completed treatment with antibiotics acute COPD exacerbation -completed course of steroids acute on chronic heart failure - follow low salt diet. lasix on hold for now. outpatient follow up dysphagia - speech recommends NDD2 ground/mechanical diet with nectar thick liquids, pills crushed in puree; 1:1 feeds and strict aspiration precautions re commended. Assure patient has dentures in for all meals.? Add sauces/gravies and blend well.? Liquids by tsp only, alternate liquids and solids.? Patient benefits from strategy of coughing and clearing, should be cued/reminded to use this strategy throughout meal. outpatient speech evaluation recommended gabapentin stopped due to sedation Assessment: see discharge summary
--- NOTE | 2022-12-30 13:19 | P.PNNP_ITS ---
Subjective Subjective Date of Service: 12/30/22 Principal diagnosis: Events noted Interval history: Hypernatremia better GFR at baseline Physical Exam Vital Signs: Vital Signs: Last Vital Signs Temp 97.4 F 12/30/22 11:13 Pulse 59 12/30/22 11:14 Resp 18 12/30/22 11:14 BP 139/63 12/30/22 11:13 Pulse Ox 94 12/30/22 11:13 O2 Del Method Room Air 12/30/22 11:13 O2 Flow Rate 5 12/29/22 15:15 FiO2 32 12/18/22 03:26 Oxygen Flow Rate 2 12/18/22 03:26 BMI result Body Mass Index 39.3 Const: General: cooperative, comfortable, no acute distress, alert and awake Cardio: Rate: regular rate Rhythm: regular rhythm Heart sounds: S1 normal heart sound present and S2 normal heart sound present GI: Other: +BS Inspection: No distended Palpation (GI): Soft to palpation and nontender Auscultation: normal bowel sounds Extrem: Other: chronic venous skin changes b/l legs Objective Data Labs 12/22/22 05:21 12/30/22 07:58 Labs: Laboratory Results - last 24 hr 12/30/22 12/30/22 07:58 11:55 Sodium 142 COVID-19 ([facility]) Cancelled COVID-19 Clin Com Cancelled Microbiology Microbiology Results: Microbiology 12/18/22 03:55 Blood - Venous Blood Culture - Final No growth after 5 days. 12/18/22 03:55 Blood - Venous Blood Culture - Final No growth after 5 days. Procedures Date of Service Date of Service: 12/30/22 Assessment & Plan Assessment and plan (1) ULISES (acute kidney injury): Status: Acute Plan Mr. Joce Christiansen is an 82-year-old gentleman with COPD, HFpEF, CKD4 (BL Cr 2.9-3.0), hx of DVT on apixaban, sent in from [facility], where he is a LTC resident, for fever course complicated by CHF s/p diuresis, encephalopathy now resolved and dysphagia with concern for aspiration Hypernatremia - resolved was 2/2 to poor PO intake resolved with peripheral [id number] given ULISES/CKD4/metabolic acidosis NO evidence of Glomaruler disease. 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 Diuretics on hold GFr at baseline gabapetin on hold no need for PO bicarb will set up f/u with [facility] upon discharge. Time Spent With Patient Time: Total time managing care of this patient today ____ minutes. Progress Note: Quality Stroke Does the patient have a stroke diagnosis?: No
[2022-12-30 13:21] LABS: COVID-19 Test Negative (Negative); IDNOW Serial# 08D9AD1C
[2023-01-16 10:41] LABS: Beta-Hydroxybutyrate 0.17
== END 2022-12-30 15:50 | DRG 871 ==
LOC: HO.ED 04:50 → HO.EDOVER 05:38 → HO.S3 09:41 → HO.IMC 12:26
PROVIDERS: Family Medicine; Internal Medicine Nephrology; Nurse Practitioner Acute Care; Student in an Organized Health Care Education/Training Program; Admitting Provider Internal Medicine; Emergency Provider Emergency Medicine; PCP Internal Medicine; Visit Provider Physician Assistant Medical
DX: A41.9 Sepsis, unspecified organism (principal); G92.8 Other toxic encephalopathy; J18.9 Pneumonia, unspecified organism; J96.21 Acute and chronic respiratory failure with hypoxia; N17.0 Acute kidney failure with tubular necrosis; I50.33 Acute on chronic diastolic (congestive) heart failure; J44.0 Chronic obstructive pulmonary disease with (acute) lower respiratory infection; J44.1 Chronic obstructive pulmonary disease with (acute) exacerbation; E66.2 Morbid (severe) obesity with alveolar hypoventilation; I13.0 Hypertensive heart and chronic kidney disease with heart failure and stage 1 through stage 4 chronic kidney disease, or unspecified chronic kidney disease; N18.4 Chronic kidney disease, stage 4 (severe); E87.0 Hyperosmolality and hypernatremia; L03.115 Cellulitis of right lower limb; E87.21 Acute metabolic acidosis; Z68.38 Body mass index [BMI] 38.0-38.9, adult; E78.5 Hyperlipidemia, unspecified; E11.22 Type 2 diabetes mellitus with diabetic chronic kidney disease; R13.10 Dysphagia, unspecified; I87.323 Chronic venous hypertension (idiopathic) with inflammation of bilateral lower extremity; L89.312 Pressure ulcer of right buttock, stage 2; I25.10 Atherosclerotic heart disease of native coronary artery without angina pectoris; I27.20 Pulmonary hypertension, unspecified; Z20.822 Contact with and (suspected) exposure to COVID-19; Z86.718 Personal history of other venous thrombosis and embolism; Z79.01 Long term (current) use of anticoagulants; Z79.899 Other long term (current) drug therapy
CPT/HCPCS: 0241U; 36415; 36600; 70450; 71045; 71250; 74230; 80048; 80051; 80076; 80202; 81001; 82010; 82140; 82565; 82803; 83605; 83690; 83735; 83880; 84145; 84156; 84295; 84300; 84484; 85025; 85027; 86021; 86140; 86160; 87040; 87633; 87635; 89190; 92526; 92610; 92611; 92950; 93005; 94640; 94660; 97161; 99285; C1758; J0131; J0690; J0692; J1940; J2060; J2270; J2543; J2920; J2930; J3370; J3371